=== PATIENT | male | born 1955 | race Caucasian/White ===

== ENCOUNTER 2019-06-29 00:15 | Inpatient (IN) ==
[2019-06-29] MEDS ORDERED: ONDANSETRON INJ 2 MG/ML 2 ML VIAL IV STA (00:35)
[2019-06-29] MEDS: MoRPHine SULFATE 4 MG/ML 1 ML CARP\\VIAL IV PRN ×2 (00:42→01:29)
[2019-06-29] MEDS ORDERED: SODIUM CHLORIDE 0.9% 1000ML 1,000 ML IV SCH (00:45)
--- NOTE | 2019-06-29 01:16 | Emergency Department Note ---
Entered by Yessenia Brenner acting as a scribe for History of Present Illness General Chief complaint: Diarrhea Stated complaint: DIARRHEA, UPSET STOMACH, WEAK, SOB Time Seen by Provider: 06/29/19 00:28 Source: patient History of Present Illness Onset (ago): day(s) 4 Location: abdomen Pain Consistency: + constant Maximum Pain Intensity: 10 Current Pain Intensity: 10 Quality: + sharp Relieved By: + none Exacerbated By: + eating (and drinking) Associated symptoms: + loss of appetite, + nausea/vomiting (denies vomiting) and + other (blood in stool) The patient is a 64 year old male who presents to the Emergency Room with complaints of abdominal pain and diarrhea with blood that began 4 days ago. He also complains of sharp stomach cramps, which is exacerbated with eating and drinking. He denies vomiting, but feels nauseous. He states that he has not eaten much within the past 2 days. The patient has a history of gallbladder removal and bowel resection. The patient has a colonoscopy scheduled for Sunday, but he did not start the prep yet. The patient started a higher dose of pr ednisone on Sunday, which has not helped his symptoms. Home Medications Home Medications Medication Instructions Recorded Confirmed Type acetaminophen [Tylenol] 650 mg PO Q6H PRN 06/29/19 06/29/19 History atorvastatin 40 mg PO DAILY 06/29/19 06/29/19 History calcium carbonate-vitamin D3 2 tab PO DAILY 06/29/19 06/29/19 History [Caltrate 600 plus D] cyanocobalamin (vitamin B-12) 1,000 mcg PO DAILY 06/29/19 06/29/19 History [Vitamin B-12] diltiazem HCl 360 mg PO DAILY 06/29/19 06/29/19 History diphenoxylate-atropine [Lomotil] 2 - 4 tab PO DAILY PRN 06/29/19 06/29/19 History febuxostat [Uloric] 40 mg PO DAILY 06/29/19 06/29/19 History folic acid 2 mg PO BID 06/29/19 06/29/19 History gabapentin 800 mg PO BID 06/29/19 06/29/19 History hydralazine 100 mg PO BID 06/29/19 06/29/19 History ibuprofen [Advil] 200 mg PO Q6H PRN 06/29/19 06/29/19 History mesalamine 1,600 mg PO DAILY 06/29/19 06/29/19 History [id number] acid-lutein [Centrum 1 tab PO DAILY 06/29/19 06/29/19 History Silver] pantoprazole 40 mg PO DAILY 06/29/19 06/29/19 History prednisone 5 mg PO DAILY 06/29/19 06/29/19 History sucralfate 1 g PO BID 06/29/19 06/29/19 History Allergies Allergy/AdvReac Type Severity Reaction Status Date / Time pregabalin Allergy Intermediate Rash, Verified 06/29/19 00:57 hives , headaches fluoxetine Allergy Mild Hives Verified 06/29/19 00:57 mercaptopurine Allergy Mild FEVER, RASH Verified 06/29/19 00:57 infliximab Allergy Unknown bp Verified 06/29/19 00:57 elevation blue dye AdvReac Intermediate Severe Verified 06/29/19 00:57 Headache duloxetine AdvReac Intermediate Severe Verified 06/29/19 00:57 Headache niacin AdvReac Unknown Unknown Verified 06/29/19 00:57 Past Med/Surg History Medical History Crohn's disease Hypertension (Acute) Pancreatitis (Acute) Perforation of small intestine (Resolved 04/07/13) Surgical History S/P cholecystectomy (Acute) Family History Other No pertinent family history Social History Feels Safe at Home: Yes Smoking Status: Current some day smoker Review of Systems See HPI for pertinent positives & negatives. and A total of 10 systems reviewed and were otherwise negative Physical Exam Vital Signs Vital Signs - 24 hr 06/29/19 00:19 06/29/19 00:34 06/29/19 00:57 Temperature 36.3 C L Temperature Source Oral Pulse Rate 101 H 90 Pulse Rate from SpO2 Sensor 90 Respiratory Rate 28 H 16 Blood Pressure 178/101 H 146/110 H Blood Pressure Mean 126 120 Pulse Oximetry 98 99 99 Oxygen Delivery Method Room Air Room Air Sepsis Recent Fever Within 48 Hours No Sepsis Action Taken by Nursing No Action Required 06/29/19 01:00 06/29/19 01:30 06/29/19 02:00 Temperature Temperature Source Pulse Rate 72 77 79 Pulse Rate from SpO2 Sensor 73 72 69 Respiratory Rate 18 17 26 H Blood Pressure 176/98 H 171/93 H 162/87 H Blood Pressure Mean 136 110 110 Pulse Oximetry 99 98 91 Oxygen Delivery Method Sepsis Recent Fever Within 48 Hours Sepsis Action Taken by Nursing 06/29/19 02:30 Temperature Temperature Source Pulse Rate 80 Pulse Rate from SpO2 Sensor 79 Respiratory Rate 12 Blood Pressure 155/79 H Blood Pressure Mean 103 Pulse Oximetry 94 Oxygen Delivery Method Sepsis Recent Fever Within 48 Hours Sepsis Action Taken by Nursing GENERAL: Patient is in moderate distress. HEENT: No acute trauma, normocephalic atraumatic, mucous membranes moist, no nasal congestion, no scleral icterus. NECK: No stridor, no adenopathy, no meningismus, trachea is midline. LUNGS: Increased respiratory rate. No wheezing. Lungs are clear and equal bilaterally. HEART: Without murmurs gallops or rubs, regular rate and rhythm. ABDOMEN: Soft, nontender, bowel sounds positive, no hernias, no peritonitis. EXTREMITIES: No cyanosis or edema, full range of motion of all the joints without pain or difficulty, no signs for acute trauma. NEUROLOGIC: Oriented x 3, no acute motor or sensory deficits, no focal weakness. SKIN: No rash, no jaundice, no diaphoresis. Course Course 0029: Past medical records reviewed. The patient was evaluated in room C06. A c omplete history and physical exam was performed. I spoke to the patient about his findings, I do think a hospital stay would be warranted. I spoke to case management. The on-call hospitalist has been consulted. The patient is resting comfortably currently. Administered Medications Ioversol (Optiray 320 100ml) 90 ml IV ONCE PRN PRN Reason: Interaction Checking Stop: 07/03/19 02:10 Last Admin: 06/29/19 02:11 Dose: 1 ml Documented by: [id number] Morphine Sulfate (Morphine Sulfate) 4 mg IV Q15M PRN PRN Reason: Pain Stop: 07/13/19 00:34 Last Admin: 06/29/19 01:29 Dose: 4 mg Documented by: [id number] Admin: 06/29/19 00:42 Dose: 4 mg Documented by: [id number] Discontinued Medications Sodium Chloride (Nss 1000ml) 1,000 mls @ 999 mls/hr IV .Q1H1M DARLENE Stop: 06/29/19 01:45 Last Infusion: 06/29/19 01:54 Dose: 0 mls/hr Documented by: [id number] Admin: 06/29/19 00:42 Dose: 999 mls/hr Documented by: [id number] Sodium Chloride (Nss 1000ml) 500 mls @ 999 mls/hr IV .Q31M ONE Stop: 06/29/19 02:51 Last Admin: 06/29/19 02:28 Dose: 999 mls/hr Documented by: [id number] Ondansetron HCl (Zofran) 4 mg IV NOW STA Stop: 06/29/19 00:36 Last Admin: 06/29/19 00:42 Dose: 4 mg Documented by: [id number] Medical Decision Making Differential Diagnosis Differential diagnosis includes, but is not limited to: diverticulitis, colitis, Crohns flare, pancreatitis, foodborne illness, dehydration, renal failure, C- diff, viral illness, and others were considered. Medical Records Attestation: I reviewed the patient's medical records. Home Medications Current Medication List: was personally reviewed by me Laboratory Data Attestation: I reviewed the patient's lab results. Result diagrams: 06/29/19 00:35 06/29/19 00:30 Lab Results 06/29/19 06/29/19 Range/Units 00:30 00:35 WBC 15.59 H (4.8-10.8) K/uL RBC 5.11 (4.7-6.1) M/uL Hgb 17.5 (14.0-18.0) g/dL Hct 46.3 (42-52) % MCV 90.6 (80-100) fL MCH 34.2 H (25-34) pg MCHC 37.8 H (32-36) g/dL RDW Std Deviation 45.6 (36.4-46.3) fL RDW Coeff of Rodo 13.9 (11.5-14.5) % Plt Count 348 (130-400) K/uL MPV 9.1 (7.4-10.4) fL Immature Gran % (Auto) 0.5 % Neut % (Auto) 66.4 % Lymph % (Auto) 17.6 % [place] % (Auto) 13.7 % Eos % (Auto) 1.3 % Baso % (Auto) 0.5 % Immature Gran # (Auto) 0.08 H (0.00-0.02) K/uL Neut # (Auto) 10.33 H (1.4-6.5) K/uL Lymph # (Auto) 2.75 (1.2-3.4) K/uL [place] # (Auto) 2.14 H (0.11-0.59) K/uL Eos # (Auto) 0.21 (0-0.5) K/uL Baso # (Auto) 0.08 (0-0.2) K/uL Sodium 140 (136-145) mmol/L Potassium 3.4 L (3.5-5.1) mmol/L Chloride 106 (98-107) mmol/L Carbon Dioxide 23 (21-32) mmol/L Anion Gap 11.0 (3-11) BUN 19 H (7-18) mg/dl Creatinine 1.39 (0.6-1.4) mg/dl Est Cr Clr Drug Dosing Not Reportable Est GFR ( Amer) 60.8 Est GFR (Non-Af Amer) 52.4 BUN/Creatinine Ratio 13.6 (10-20) Glucose 159 H (70-99) mg/dl Calcium 10.6 H (8.5-10.1) mg/dl Magnesium 2.0 (1.8-2.4) mg/dl Total Bilirubin 2.1 H (0.2-1) mg/dl AST 24 (15-37) U/L ALT 41 (12-78) U/L Alkaline Phosphatase 108 (45-117) U/L Troponin I < 0.015 (0-0.045) ng/ml Total Protein 7.9 (6.4-8.2) gm/dl Albumin 3.9 (3.4-5.0) gm/dl Globulin 4.0 (2.5-4.0) gm/dl Albumin/Globulin Ratio 1.0 (0.9-2) Lipase 202 (73-393) U/L Imaging Data Attestation: I personally reviewed and interpreted this imaging study as follows: My Impression: Chest X-ray read by me Lungs are clear. No pneumonia. No free air. Read at 01:11 on 06/29/19 Radiologist's Impression: Abdominal and pelvis CT with IV contrast as read by stat rad: Wall thickening and mucosal enhancement with surrounding fat stranding involving the rectum consistent with a potential Crohn's flare. The area of anastomosis at the sigmoid is also somewhat thickened with some surrounding fat stranding. There are some surrounding reactive lymph nodes. There is some intestinal inflammation noted also at the hepatic flexure and the right colon. No involvement of the terminal ileum or appendix. There is no bowel obstruction. There were some other findings thought nonacute. ECG Data Attestation: I personally reviewed and interpreted this ECG as follows: Indication: + abdominal pain Rate (beats per minute): 86 Rhythm: + normal sinus ECG Intervals/blocks: + Normal QT-c (440) ECG ST segments: no ST elevation ECG Findings: no PVCs Blood Pressure Blood Pressure Findings: Elevated blood pressure Blood Pressure Disposition: further management by hospitalist KAVIN Narrative There is a moderate leukocytosis, this could be consistent with infection. No concerning anemia. There is a normal platelet count. No significant electrolyte abnormality or kidney failure. There was a slight elevation to the bilirubin, the other liver enzymes were normal. Lipase was normal. EKG shows a normal sinus rhythm, no acute ischemia. Cardiac enzyme testing x1 is not consistent with acute cardiac injury. Chest film does not show pneumonia, CHF or free air. Abdominal and pelvis CT shows colonic inflammation and some surrounding intestinal lymphadenopathy consistent with a potential Crohn's fla re. No bowel obstruction. Patient received IV morphine for pain as needed. He received IV saline for hydration. He was given a dose of IV Zofran. The patient presents dehydrated with bloody diarrhea. He has lower abdominal pain. He has already tried to increase his steroid dosing to help his symptoms, this has not helped. I do think the patient would benefit from a hospital stay. Hydration, symptom control, a GI consult would be warranted. I did speak to case management, I talked to the patient. The on-call hospitalist was consulted. In short, the patient appears to be suffering from a Crohn's flare. The flare has led to dehydration, colicky abdominal pain and bloody diarrhea. Impression & Plan Acute dehydration, Abdominal pain, lower, Leukocytosis, Bloody diarrhea, Crohn's disease Discharge Plan Visit Data Chief Complaint: Diarrhea Stated Complaint: DIARRHEA, UPSET STOMACH, WEAK, SOB ED Provider: Mark Hernandez Discharge Problem: Acute dehydration, Abdominal pain, lower, Leukocytosis, Bloody diarrhea, Crohn's disease Forms Stand Alone Forms: My [facility] Prescriptions Prescriptions: No Action gabapentin 800 mg Tablet 800 mg PO BID RF: 0 diltiazem HCl 360 mg Capsule,Extended Release 24 Hr 360 mg PO DAILY RF: 0 folic acid 1 mg Tablet 2 mg PO BID RF: 0 febuxostat [Uloric] 40 mg Tablet 40 mg PO DAILY RF: 0 atorvastatin 40 mg Tablet 40 mg PO DAILY RF: 0 hydralazine 50 mg Tablet 100 mg PO BID RF: 0 cyanocobalamin (vitamin B-12) [Vitamin B-12] 1,000 mcg Tablet 1,000 mcg PO DAILY RF: 0 prednisone 5 mg Tablet 5 mg PO DAILY RF: 0 sucralfate 1 gram Tablet 1 g PO BID RF: 0 pantoprazole 40 mg Tablet,Delayed Release (Dr/Ec) 40 mg PO DAILY RF: 0 Centrum Silver 400-250 mcg Tablet,Chewable 1 tab PO DAILY RF: 0 ibuprofen [Advil] 200 mg Tablet 200 mg PO Q6H PRN (Reason: pain/fever) RF: 0 acetaminophen [Tylenol] 325 mg Tablet 650 mg PO Q6H PRN (Reason: pain/fever) RF: 0 Caltrate 600 plus D 600 mg (1,500 mg)-800 unit Tablet,Chewable 2 tab PO DAILY RF: 0 diphenoxylate-atropine [Lomotil] 2.5-0.025 mg Tablet 2 - 4 tab PO DAILY PRN (Reason: Diarrhea) RF: 0 mesalamine 800 mg Tablet,Delayed Release (Dr/Ec) 1,600 mg PO DAILY RF: 0 Discharge Problem: Leukocytosis Qualifiers: Leukocytosis type: unspecified Qualified Code(s): D72.829 - Elevated white blood cell count, unspecified Crohn's disease Qualifiers: Gastrointestinal tract location: large intestine Digestive disease complication type: with rectal bleeding Qualified Code(s): K50.111 - Crohn's disease of large intestine with rectal bleeding The scribe's documentation has been prepared under my direction and personally reviewed by me in its entirety. I confirm that the note above accurately reflects all work, treatment, procedures, and medical decision making performed by me.
[2019-06-29 01:17] LABS: Basophils # (auto) 0.08 K/uL (0-0.2); Basophils % (auto) 0.5 %; Eosinophils # (auto) 0.21 K/uL (0-0.5); Eosinophils % (auto) 1.3 %; Hematocrit (blood only) 46.3 % (42-52); Hemoglobin 17.5 g/dL (14.0-18.0); Immature Granulocytes # (auto) 0.08 K/uL (0.00-0.02); Immature Granulocytes % (auto) 0.5 %; Lymphocytes # (auto) 2.75 K/uL (1.2-3.4); Lymphocytes % (auto) 17.6 %; Mean Corpuscular Hemoglobin 34.2 pg (25-34); Mean Corpuscular Hgb Conc 37.8 g/dL (32-36); Mean Corpuscular Volume 90.6 fL (80-100); Mean Platelet Volume 9.1 fL (7.4-10.4); Monocytes # (auto) 2.14 K/uL (0.11-0.59); Monocytes % (auto) 13.7 %; Neutrophils # (auto) 10.33 K/uL (1.4-6.5); Neutrophils % (auto) 66.4 %; Platelet Count 348 K/uL (130-400); RDW Coefficient of Variation 13.9 % (11.5-14.5); RDW Standard Deviation 45.6 fL (36.4-46.3); Red Blood Count 5.11 M/uL (4.7-6.1); White Blood Count 15.59 K/uL (4.8-10.8)
[2019-06-29 01:23] LABS: Alanine Aminotransferase 41 U/L (12-78); Albumin Level 3.9 gm/dl (3.4-5.0); Aspartate Aminotransferase 24 U/L (15-37); BUN Creatinine Ratio 13.6 (10-20); Blood Urea Nitrogen 19 mg/dl (7-18); Calcium 10.6 mg/dl (8.5-10.1); Carbon Dioxide 23 mmol/L (21-32); Chloride 106 mmol/L (98-107); Est GFR (African American) 60.8; Est GFR (Non-African American) 52.4; Glucose 159 mg/dl (70-99); Lipase 202 U/L (73-393); Potassium 3.4 mmol/L (3.5-5.1); Sodium 140 mmol/L (136-145)
[2019-06-29 01:30] LABS: Alkaline Phosphatase 108 U/L (45-117); Bilirubin,Total 2.1 mg/dl (0.2-1); Total Protein 7.9 gm/dl (6.4-8.2); Troponin I < 0.015 ng/ml (0-0.045)
[2019-06-29] MEDS ORDERED: IOVERSOL 100ml IV PRN (02:11)
[2019-06-29] MEDS ORDERED: SODIUM CHLORIDE 0.9% 1000ML 500 ML IV ONE (02:21)
[2019-06-29 04:24] LABS: Appearance Urine Clear (Clear); Bilirubin Urine Negative (Negative); Blood Urine Negative (Negative); Color Urine Yellow; Glucose Urine UA Negative (Negative); Ketones Urine Negative (Negative); Leukocyte Esterase Urine Negative (Negative); Nitrite Urine Negative (Negative); Protein Urine Negative (Negative); Urobilinogen Urine Negative (Negative)
--- NOTE | 2019-06-29 04:26 | History & Physical Report ---
Date of Service June 29, 2019 Assessment & Plan (1) Bloody diarrhea: Admit GMF Follow H&H DVT prophylaxis = SCDs, holding pharmacologic due to bleeding. (2) Crohn's disease: with apparent flare IV Solumedrol 40mg IV Q6h IVF @150ml/hr. GI consult Cont mesalamine Pain and nausea control. (3) Hypertension: Continue Hydralazine and Diltiazem (4) Hyperlipidemia: Continue atorvastatin. (5) GERD (gastroesophageal reflux disease): Cont pantoprazole (6) Hyperuricemia: Cont Uloric History of Present Illness 64 y/o male presented to the ED with abdominal pain and bloody diarrhea of 4 days duration. This has been associated with nausea and sharp stomach cramps. He has known Crohn's and had an increase of his prednisone dose to 10mg daily for last 3 days with no improvement. He is actually scheduled for a colonoscopy on 06/[address] Ernandez. He declines having a fever, but did feel chilled at times. No urinary symptoms. No chest pain or SOB. Primary Care Provider: Polly Healy DO Allergies Allergy/AdvReac Type Severity Reaction Status Date / Time pregabalin Allergy Intermediate Rash, Verified 06/29/19 00:57 hives , headaches fluoxetine Allergy Mild Hives Verified 06/29/19 00:57 mercaptopurine Allergy Mild FEVER, RASH Verified 06/29/19 00:57 infliximab Allergy Unknown bp Verified 06/29/19 00:57 elevation blue dye AdvReac Intermediate Severe Verified 06/29/19 00:57 Headache duloxetine AdvReac Intermediate Severe Verified 06/29/19 00:57 Headache niacin AdvReac Unknown Unknown Verified 06/29/19 00:57 Home Medications Home Medications Medication Instructions Recorded Confirmed Type acetaminophen [Tylenol] 650 mg PO Q6H PRN 06/29/19 06/29/19 History atorvastatin 40 mg PO DAILY 06/29/19 06/29/19 History calcium carbonate-vitamin D3 2 tab PO DAILY 06/29/19 06/29/19 History [Caltrate 600 plus D] cyanocobalamin (vitamin B-12) 1,000 mcg PO DAILY 06/29/19 06/29/19 History [Vitamin B-12] diltiazem HCl 360 mg PO DAILY 06/29/19 06/29/19 History diphenoxylate-atropine [Lomotil] 2 - 4 tab PO DAILY PRN 06/29/19 06/29/19 History febuxostat [Uloric] 40 mg PO DAILY 06/29/19 06/29/19 History folic acid 2 mg PO BID 06/29/19 06/29/19 History gabapentin 800 mg PO BID 06/29/19 06/29/19 History hydralazine 100 mg PO BID 06/29/19 06/29/19 History ibuprofen [Advil] 200 mg PO Q6H PRN 06/29/19 06/29/19 History mesalamine 1,600 mg PO DAILY 06/29/19 06/29/19 History gu-wom-sukno acid-lutein [Centrum 1 tab PO DAILY 06/29/19 06/29/19 History Silver] pantoprazole 40 mg PO DAILY 06/29/19 06/29/19 History prednisone 5 mg PO DAILY 06/29/19 06/29/19 History sucralfate 1 g PO BID 06/29/19 06/29/19 History Past Med/Surg History Medical History Crohn's disease GERD (gastroesophageal reflux disease) Hyperlipidemia Hypertension (Acute) Hyperuricemia Pancreatitis (Acute) Perforation of small intestine (Resolved 04/07/13) Surgical History S/P cholecystectomy (Acute) Family History Other No pertinent family history Social History Feels Safe at Home: Yes Smoking Status: Current some day smoker Review of Systems Review of Systems: Constitutional- no fever; no weight loss Eyes- no acute visual changes ENT- no sinus drainage; no pharyngitis Pulmonary- no cough, no wheezing, no shortness of breath Cardiac- no chest pain, no palpitations, no orthopnea, no dependent edema GI- As in HPI - no dysuria, no hematuria Musculoskeletal- no arthralgias, no myalgias Derm- no rashes, no new skin lesions. Hematologic- no unusual bruising, no unusual bleeding Lymphatics- no adenopathy Endocrine- no polyuria or polydipsia; no heat or cold intolerance Neuro- no headaches, no focal neurologic symptoms Psych- no anxiety, no depression Physical Exam Physical Exam: General- adult male, NAD Head- atraumatic Eyes- PERRL, EOMI, anicteric ENT- oropharynx clear Neck- supple, no JVD, no adenopathy, no thyromegaly. Lungs- clear to auscultation and percussion Heart- regular rhythm; no murmur, no gallop, no rub appreciated Abdomen- normal bowel sounds, soft, nontender. Extremities- no pretibial edema, no calf tenderness; peripheral pulses intact Neuro- alert, oriented x 3; PERRL, EOMI, dental detail representative II-XII grossly intact, non-focal. Skin- warm & dry Results & Data Vital Signs (Past 12 Hours) Vital Signs Temp Pulse Resp BP Pulse Ox 06/29/19 03:31 83 14 96 06/29/19 03:30 82 14 161/87 H 96 06/29/19 03:01 86 12 97 06/29/19 03:00 81 14 153/84 H 99 06/29/19 02:30 80 12 155/79 H 94 06/29/19 02:00 79 26 H 162/87 H 91 06/29/19 01:30 77 17 171/93 H 98 06/29/19 01:00 72 18 176/98 H 99 06/29/19 00:57 99 06/29/19 00:34 90 16 146/110 H 99 06/29/19 00:19 36.3 C L 101 H 28 H 178/101 H 98 Laboratory Results Laboratory Results WBC 15.59 K/uL (4.8-10.8) H 06/29/19 00:35 RBC 5.11 M/uL (4.7-6.1) 06/29/19 00:35 Hgb 17.5 g/dL (14.0-18.0) 06/29/19 00:35 Hct 46.3 % (42-52) 06/29/19 00:35 MCV 90.6 fL (80-100) 06/29/19 00:35 MCH 34.2 pg (25-34) H 06/29/19 00:35 MCHC 37.8 g/dL (32-36) H 06/29/19 00:35 RDW Std Deviation 45.6 fL (36.4-46.3) 06/29/19 00:35 RDW Coeff of Rodo 13.9 % (11.5-14.5) 06/29/19 00:35 Plt Count 348 K/uL (130-400) 06/29/19 00:35 MPV 9.1 fL (7.4-10.4) 06/29/19 00:35 Immature Gran % (Auto) 0.5 % 12 00:35 Neut % (Auto) 66.4 % 12 00:35 Lymph % (Auto) 17.6 % 06/29/19 00:35 [place] % (Auto) 13.7 % 06/29/19 00:35 Eos % (Auto) 1.3 % 06/29/19 00:35 Baso % (Auto) 0.5 % 06/29/19 00:35 Immature Gran # (Auto) 0.08 K/uL (0.00-0.02) H 06/29/19 00:35 Neut # (Auto) 10.33 K/uL (1.4-6.5) H 06/29/19 00:35 Lymph # (Auto) 2.75 K/uL (1.2-3.4) 06/29/19 00:35 [place] # (Auto) 2.14 K/uL (0.11-0.59) H 06/29/19 00:35 Eos # (Auto) 0.21 K/uL (0-0.5) 06/29/19 00:35 Baso # (Auto) 0.08 K/uL (0-0.2) 06/29/19 00:35 Sodium 140 mmol/L (136-145) 06/29/19 00:30 Potassium 3.4 mmol/L (3.5-5.1) L 06/29/19 00:30 Chloride 106 mmol/L (98-107) 06/29/19 00:30 Carbon Dioxide 23 mmol/L (21-32) 06/29/19 00:30 Anion Gap 11.0 (3-11) 06/29/19 00:30 BUN 19 mg/dl (7-18) H 06/29/19 00:30 Creatinine 1.39 mg/dl (0.6-1.4) 06/29/19 00:30 Est Cr Clr Drug Dosing Not Reportable 06/29/19 00:30 Est GFR ( Amer) 60.8 06/29/19 00:30 Est GFR (Non-Af Amer) 52.4 06/29/19 00:30 BUN/Creatinine Ratio 13.6 (10-20) 06/29/19 00:30 Glucose 159 mg/dl (70-99) H 06/29/19 00:30 Calcium 10.6 mg/dl (8.5-10.1) H 06/29/19 00:30 Magnesium 2.0 mg/dl (1.8-2.4) 06/29/19 00:30 Total Bilirubin 2.1 mg/dl (0.2-1) H 06/29/19 00:30 AST 24 U/L (15-37) 06/29/19 00:30 ALT 41 U/L (12-78) 06/29/19 00:30 Alkaline Phosphatase 108 U/L (45-117) 06/29/19 00:30 Troponin I < 0.015 ng/ml (0-0.045) 06/29/19 00:30 Total Protein 7.9 gm/dl (6.4-8.2) 06/29/19 00:30 Albumin 3.9 gm/dl (3.4-5.0) 06/29/19 00:30 Globulin 4.0 gm/dl (2.5-4.0) 06/29/19 00:30 Albumin/Globulin Ratio 1.0 (0.9-2) 06/29/19 00:30 Lipase 202 U/L (73-393) 06/29/19 00:30 Urine Color Yellow 06/29/19 03:50 Urine Appearance Clear (Clear) 06/29/19 03:50 Urine pH 8.0 (4.5-7.5) H 06/29/19 03:50 Ur Specific [place] 1.010 (1.000-1.030) 06/29/19 03:50 Urine Protein Negative (Negative) 06/29/19 03:50 Urine Glucose (UA) Negative (Negative) 06/29/19 03:50 Urine Ketones Negative (Negative) 06/29/19 03:50 Urine Blood Negative (Negative) 06/29/19 03:50 Urine Nitrite Negative (Negative) 06/29/19 03:50 Urine Bilirubin Negative (Negative) 06/29/19 03:50 Urine Urobilinogen Negative (Negative) 06/29/19 03:50 Ur Leukocyte Esterase Negative (Negative) 06/29/19 03:50 Code Status & VTE Plan VTE Prophylaxis Plan VTE Prophylaxis will be ordered: Yes PG Care Time/CCT Total # of Minutes Spent Total Time Spent: 55 Total Time Spent with Patient: Total time spent is greater than 50% in co ordination of care (as documented) at patient's floor/unit and/or counseling patient: (1) Crohn's disease Digestive disease complication type: with rectal bleeding Gastrointestinal tract location: large intestine Qualified Code(s): K50.111 - Crohn's disease of large intestine with rectal bleeding
[2019-06-29] MEDS: methylPREDNISolone 40 MG in SYRINGE 0 ML IV SCH ×2 (04:36→10:07)
[2019-06-29] MEDS ORDERED: ACETAMINOPHEN 325 MG TAB PO PRN (05:28)
[2019-06-29] MEDS ORDERED: KETOROLAC TROMETHAMINE 15 MG/ML VIAL IV PRN (05:28)
[2019-06-29] MEDS ORDERED: HYDROmorphone INJ 0.5 MG/0.5 ML SYR IV PRN (05:28)
[2019-06-29] MEDS ORDERED: ONDANSETRON INJ 2 MG/ML 2 ML VIAL IV PRN (05:28)
[2019-06-29] MEDS: SODIUM CHLOR 0.45% + 20MEQ KCL 20 MEQ/1,000 ML BAG IV SCH ×3 (06:08→20:05)
--- NOTE | 2019-06-29 07:27 | XRay Report ---
XR chest 1V portable HISTORY: 64 years-old Male sob, pain acute generalized abdominal pain with diarrhea COMPARISON: CT abdomen and pelvis of same day, chest radiograph 12/18/2014 TECHNIQUE: Portable AP view of the chest FINDINGS: Cardiomediastinal and hilar silhouettes are within normal limits. No pneumothorax, pleural effusion, focal airspace consolidation or overt pulmonary edema. Degenerative changes of the shoulders and spin e. IMPRESSION: No acute process. The above report was generated using voice recognition software. It may contain grammatical, syntax o r spelling errors. Electronically signed by: Phillip Guzman M.D. 06/29/2019 7:26 AM
--- NOTE | 2019-06-29 08:46 | CT Scan Report ---
ABDOMEN AND PELVIS CT WITH IV CONTRAST CT DOSE: 981.39 mGy.cm HISTORY: Acute generalized abdominal pain and cramping with history of inflammatory bowel disease po ss divertic or colitis TECHNIQUE: Multiaxial CT images of the abdomen and pelvis were performed following the IV administrat ion of 90 cc of Optiray 320, A dose lowering technique was utilized adhering to the principles of AL LUCI. COMPARISON STUDY: MRCP 12/19/2014, CT abdomen and pelvis 12/19/2014 FINDINGS: The lung bases are generally clear. Calcified granuloma of the posterior basal segment left lower lob e. No pneumatosis or pneumoperitoneum identified. The imaged inferior cardiac chambers are unremarkab le. No pericardial effusion. Coronary arterial calcifications are noted. Cholecystectomy. There are a few subcentimeter hypodense foci noted throughout the liver, too small to characterize however sugge stive of probable cysts measuring up to 9 mm within the right hepatic lobe. Patency of the hepatic an d portal veins. Spleen is mildly enlarged, 13.3 cm. Pancreas and adrenal glands are within normal [place] its. There are a few bilateral renal cysts noted. Areas of increased attenuation within the renal dean yces suggests early excretion of contrast. No definitive renal or ureteral calculi or obstructive uro melita. Ureters are unremarkable. Partial distention of the urinary bladder. There is a 1.8 x 1.3 cm h ypodense focus noted within the left peripheral zone distribution of the prostate at the level of the mid gland on image 90 series 2. Mixed plaque of the abdominal aorta without aneurysm. Unremarkable I VC. No bowel obstruction. There is mucosal hyperemia with circumferential wall thickening of the sigmoid and rectum. Additional wall thickening is noted within the ascending colon, hepatic flexure and proxi mal to mid transverse colon. Terminal ileum is unremarkable. The appendix is not definitively seen. M ild colonic diverticulosis without acute diverticulitis. Postoperative changes from partial sigmoid c olon resection with colocolonic anastomosis. There is focal exophytic soft tissue thickening at the a nastomotic site measuring up to 2.5 x 1.6 cm. Adjacent mildly enlarged adjacent lymph nodes of the me socolon measure up to 1.4 x 1.0 cm. Mild inflammatory stranding is noted without drainable fluid kimi ection or perforation. Diastases recti with prior ventral abdominal wall hernia repair. Degenerative changes of the spine, p veda and hips. Scattered vertebral body hemangiomata noted throughout the lumbar spine. IMPRESSION: 1. Postoperative changes from prior partial sigmoid colon resection with colocolonic anastomosis. Nod ular soft tissue thickening at the anastomotic site measuring up to 2.5 x 1.6 cm is noted with mild a djacent inflammatory stranding and adjacent pathologically enlarged lymph nodes of the sigmoid mesoco kimmy. Correlation with colonoscopy recommended to exclude underlying neoplasm. 2. Multifocal wall thickening of the colon compatible with a nonspecific colitis, likely related to t he patient's reportedly known inflammatory bowel disease. 3. No evidence of perforation, fistula, sinus tract or drainable fluid collection. 4. Ill-defined hypodense focus of the left peripheral zone of the prostate at the level of the mid gl and measuring up to 1.8 cm. Correlate with PSA level. 5. Additional findings as above. Electronically signed by: Phillip Guzman M.D. 06/29/2019 8:44 AM
[2019-06-29] MEDS ORDERED: ATORVASTATIN 40 MG TAB PO SCH (09:00)
--- NOTE | 2019-06-29 09:51 | Gastrointestinal Consultation ---
Date of Consultation June 29, 2019 History of Present Illness Attending Physician: Dagmar Willis MD 64 yo M with h/o Crohn's disease (unkown distribution of disease, last csocpy in 2018 with histologic remission; pt reports last prednisone use more than a year ago, h/o L colon resection), s/p presentation at [facility] in April for abd pain and underwent CT which showed transverse colitis, now with LLQ pain and tensemus for approximately [address] Ernandez in clinic on 06/25, given pred 20 and plan for cscopy tomorrow. He continued to have pain interfering wit hPO intake, and presented to ER today. He denies nausea, vomiting to me. He denies fever, but reports chills. He typically has one BM daily; over the past week, he reports sensation of need to have a BM multiple times throughout the day, with passage of only a small volume of mucus and blood. PE: Appears comfortable CV: RRR Resp: CTA Abd soft, tender LLQ light palpation without rebound or invol guarding Extrem: No edema Labs reviewed CT shows inflammatory changes in LLQ with ? mass at anastamosis, colitis right colon A/P: Crohn's disease, now with abdominal pain, tensemsus CT shows inflammatory mass at prior anastamosis - Unclear etiology of his symptoms - DDX includes Crohn's flare, ischemic colitis, diverticulitis. - Low residue diet as tolerated. Will begin abx; given concern of infectious colitis, I would hold steroids today. If no improvement, low threshold for flex sig or cscopy prior to resuming steroids. Allergies Allergy/AdvReac Type Severity Reaction Status Date / Time pregabalin Allergy Intermediate Rash, Verified 06/29/19 00:57 hives , headaches fluoxetine Allergy Mild Hives Verified 06/29/19 00:57 mercaptopurine Allergy Mild FEVER, RASH Verified 06/29/19 00:57 infliximab Allergy Unknown bp Verified 06/29/19 00:57 elevation blue dye AdvReac Intermediate Severe Verified 06/29/19 00:57 Headache duloxetine AdvReac Intermediate Severe Verified 06/29/19 00:57 Headache niacin AdvReac Unknown Unknown Verified 06/29/19 00:57 Home Medications Home Medications Medication Instructions Recorded Confirmed Type acetaminophen [Tylenol] 650 mg PO Q6H PRN 06/29/19 06/29/19 History atorvastatin 40 mg PO DAILY 06/29/19 06/29/19 History calcium carbonate-vitamin D3 2 tab PO DAILY 06/29/19 06/29/19 History [Caltrate 600 plus D] cyanocobalamin (vitamin B-12) 1,000 mcg PO DAILY 06/29/19 06/29/19 History [Vitamin B-12] diltiazem HCl 360 mg PO DAILY 06/29/19 06/29/19 History diphenoxylate-atropine [Lomotil] 2 - 4 tab PO DAILY PRN 06/29/19 06/29/19 History febuxostat [Uloric] 40 mg PO DAILY 06/29/19 06/29/19 History folic acid 2 mg PO BID 06/29/19 06/29/19 History gabapentin 800 mg PO BID 06/29/19 06/29/19 History hydralazine 100 mg PO BID 06/29/19 06/29/19 History ibuprofen [Advil] 200 mg PO Q6H PRN 06/29/19 06/29/19 History mesalamine 1,600 mg PO DAILY 06/29/19 06/29/19 History kn-tuk-kfzko acid-lutein [Centrum 1 tab PO DAILY 06/29/19 06/29/19 History Silver] pantoprazole 40 mg PO DAILY 06/29/19 06/29/19 History prednisone 5 mg PO DAILY 06/29/19 06/29/19 History sucralfate 1 g PO BID 06/29/19 06/29/19 History Patient History Medical History Crohn's disease GERD (gastroesophageal reflux disease) Hyperlipidemia Hypertension (Acute) Hyperuricemia Pancreatitis (Acute) Perforation of small intestine (Resolved 04/07/13) Surgical History S/P cholecystectomy (Acute) Family History Other No pertinent family history Social History Preferred Language: Estonian Communication Ability: Effective 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 Beliefs That Will Affect Care: None Current Living Situation: Spouse Feels Safe at Home: Yes Smoking Status: Never smoker Tobacco Type: cigars ; Second Hand Exposure: No ; Hx Alcohol Use: Yes Hx Substance Use: No Results & Data Vital Signs (Past 12 Hours) Vital Signs Temp Pulse Pulse Resp BP BP Pulse Ox 06/29/19 07:18 36.5 C 57 L 18 148/73 H 97 06/29/19 05:00 36.4 C L 84 12 173/83 H 98 06/29/19 04:31 84 18 06/29/19 04:30 83 14 158/86 H 96 06/29/19 04:02 83 6 L 95 06/29/19 04:01 82 18 145/43 H 95 06/29/19 04:00 83 22 93 06/29/19 03:31 83 14 96 06/29/19 03:30 82 14 161/87 H 96 06/29/19 03:01 86 12 97 06/29/19 03:00 81 14 153/84 H 99 06/29/19 02:30 80 12 155/79 H 94 06/29/19 02:00 79 26 H 162/87 H 91 06/29/19 01:30 77 17 171/93 H 98 06/29/19 01:00 72 18 176/98 H 99 06/29/19 00:57 99 06/29/19 00:34 90 16 146/110 H 99 06/29/19 00:19 36.3 C L 101 H 28 H 178/101 H 98
[2019-06-29] MEDS: metroNIDAZOLE 500 MG/100 ML BAG IV SCH ×2 (11:17→20:02)
[2019-06-29 12:29] LABS: Hematocrit (blood only) 42.5 % (42-52); Hemoglobin 15.7 g/dL (14.0-18.0); Mean Corpuscular Hemoglobin 33.8 pg (25-34); Mean Corpuscular Hgb Conc 36.9 g/dL (32-36); Mean Corpuscular Volume 91.6 fL (80-100); Mean Platelet Volume 8.6 fL (7.4-10.4); Platelet Count 299 K/uL (130-400); RDW Coefficient of Variation 14.1 % (11.5-14.5); RDW Standard Deviation 46.8 fL (36.4-46.3); Red Blood Count 4.64 M/uL (4.7-6.1); White Blood Count 12.32 K/uL (4.8-10.8)
[2019-06-29 12:46] LABS: BUN Creatinine Ratio 16.9 (10-20); Calcium 9.4 mg/dl (8.5-10.1); Creatinine Clr Calc Pharmacy 83.6 ml/min; Est GFR (African American) 80.6; Est GFR (Non-African American) 69.6; Potassium 4.4 mmol/L (3.5-5.1)
[2019-06-29] MEDS: CIPROFLOXACIN 400 MG/200 ML BAG IV SCH ×2 (13:07→23:29)
[2019-06-29] MEDS: HydrALAZINE TAB 50 MG TAB PO SCH ×2 (13:11→20:09)
[2019-06-29] MEDS: CALCIUM 600MG + VIT D 400 IU TAB PO SCH (13:12)
[2019-06-29] MEDS: SUCRALFATE 1 GM TAB PO SCH ×2 (13:12→20:08)
[2019-06-29] MEDS: FOLIC ACID 1 MG TAB PO SCH ×2 (13:13→20:09)
[2019-06-29] MEDS: dilTIAZem HCL 180 MG CAPCR PO SCH (13:13)
[2019-06-29] MEDS: GABAPENTIN 800 MG TAB PO SCH ×2 (13:14→20:09)
[2019-06-29] MEDS: CYANOCOBALAMIN 500 MCG TABLET (VITAMIN B-12) PO SCH (13:14)
[2019-06-29] MEDS: PANTOprazole 40 MG TAB PO SCH (13:14)
[2019-06-29] MEDS: FEBUXOSTAT 40 MG TABLET PO SCH (13:16)
--- NOTE | 2019-06-29 15:41 | History & Physical Bridge Note ---
Date of Service June 29, 2019 History & Physical Bridge Note I have examined the patient, reviewed the History & Physical and in the interval since the performance of the History & Physical I have noted the following changes of clinical significance: GI consulted, recommended changing Solu-medrol to 20 mg IV q8hr; also started Cipro/Flagyl IV and plan for flex sig tomorrow. Continue IV fluids at 150 cc/hr. Labs showed resolution of hypokalemia. Does have mild non anion gap metabolic acidosis. Will monitor labs daily. Supervising Physician Co-Signing Physician Notes PA Supervision Note: I did not personally see or examine the patient today, but I verified all live points of NATALIIA Grimaldo's assessment and plan with the following exceptions/additions: Noted incidentally 1.8 cm lesion left prostate gland on CT. Recommend PSA testing here and outpatient follow up with Urology.
[2019-06-29] MEDS ORDERED: Nursing to Pharmacy Communication ONE ×2 (17:01→18:07)
[2019-06-29] MEDS: [UNRECOGNIZED DRUG - OTHER] SCH (20:03)
[2019-06-29] MEDS: ATORVASTATIN 40 MG TAB PO SCH (20:07)
[2019-06-29] MEDS: methylPREDNISolone 20 MG in SYRINGE 0 ML IV SCH (22:19)
[2019-06-30] MEDS: [UNRECOGNIZED DRUG - OTHER] SCH ×3 (00:18→15:52)
[2019-06-30] MEDS: metroNIDAZOLE 500 MG/100 ML BAG IV SCH ×3 (03:51→19:06)
[2019-06-30] MEDS: SODIUM CHLOR 0.45% + 20MEQ KCL 20 MEQ/1,000 ML BAG IV SCH ×4 (05:04→19:56)
[2019-06-30] MEDS: methylPREDNISolone 20 MG in SYRINGE 0 ML IV SCH ×3 (06:01→21:52)
[2019-06-30 07:04] LABS: Hematocrit (blood only) 38.7 % (42-52); Hemoglobin 13.7 g/dL (14.0-18.0); Mean Corpuscular Hemoglobin 32.6 pg (25-34); Mean Corpuscular Hgb Conc 35.4 g/dL (32-36); Mean Corpuscular Volume 92.1 fL (80-100); Mean Platelet Volume 8.6 fL (7.4-10.4); Platelet Count 245 K/uL (130-400); RDW Coefficient of Variation 14.1 % (11.5-14.5); RDW Standard Deviation 47.1 fL (36.4-46.3)
[2019-06-30 07:30] LABS: BUN Creatinine Ratio 15.4 (10-20); C Reactive Protein 0.9 mg/dl (0-0.29); Calcium 9.6 mg/dl (8.5-10.1); Est GFR (African American) 100.1; Est GFR (Non-African American) 86.4
[2019-06-30] MEDS: CALCIUM 600MG + VIT D 400 IU TAB PO SCH (07:59)
[2019-06-30] MEDS: CYANOCOBALAMIN 500 MCG TABLET (VITAMIN B-12) PO SCH (07:59)
[2019-06-30] MEDS: HydrALAZINE TAB 50 MG TAB PO SCH ×2 (07:59→21:51)
[2019-06-30] MEDS: GABAPENTIN 800 MG TAB PO SCH ×2 (07:59→21:52)
[2019-06-30] MEDS: FOLIC ACID 1 MG TAB PO SCH ×2 (07:59→21:52)
[2019-06-30] MEDS: PANTOprazole 40 MG TAB PO SCH (07:59)
[2019-06-30] MEDS: FEBUXOSTAT 40 MG TABLET PO SCH (08:00)
[2019-06-30] MEDS: SUCRALFATE 1 GM TAB PO SCH ×2 (08:00→21:52)
[2019-06-30] MEDS: dilTIAZem HCL 180 MG CAPCR PO SCH (08:00)
--- NOTE | 2019-06-30 09:49 | Gastroenterology Progress Note ---
Date of Service June 30, 2019 Assessment & Plan (1) Crohn's disease: Pt is a 64 y/o male w hx of Crohn's disease, s/p L colectomy, admitted for abd pain, bloody loose stools. CT showed multifocal colitis, also nodular soft tissue thickening at level of his anastomosis w lymphadenopathies at that area as well. He is currently on Cipro/Flagyl, Methylpred IV, Cdiff negative, Stool cx pending. - Keep pt NPO - Administer tap water enema for flex sig vs full colonoscopy today by Dr. Alma barber - Continue IV antibx and Methylpred for now - Consult ID: outpt lab showed TB quant gold test as indeterminate. Need advise for further workup if indicated as he may need to be started on biologics for active Crohn's disease. Subjective Pt reports abd pain improved, still having loose stools w blood. Denies any n/v, fever, chills. Review of Systems Review of Systems: All systems reviewed & are unremarkable except as noted in HPI & below Physical Exam Constitutional: WD/WN, vitals as above well groomed, cooperative and comfortable Eyes: PERRL, conjunctivae normal, anicteric sclerae ENMT: external ear and nose normal, oropharynx normal Respiratory: normal respiratory effort, lungs clear to auscultation Cardiovascular: RRR, no murmur, no edema Gastrointestinal (Abdomen): normal bowel sounds, soft, nontender, no hepatosplenomegaly Skin: no rashes, warm and dry no jaundice Psychiatric: A+Ox3, euthymic affect Lymphatic: no lymphedema Results & Data Vital Signs (Past 12 Hours) Vital Signs Temp Pulse Pulse Resp BP Pulse Ox 06/30/19 08:01 36.5 C 58 L 16 179/79 H 96 06/29/19 23:17 36.5 C 58 L 16 134/72 96 (1) Crohn's disease Digestive disease complication type: with rectal bleeding Gastrointestinal tract location: large intestine Qualified Code(s): K50.111 - Crohn's disease of large intestine with rectal bleeding
[2019-06-30] MEDS ORDERED: MIDAZOLAM HCL 1 MG/ML 2ML VIAL ONE (10:38)
[2019-06-30] MEDS ORDERED: ONDANSETRON INJ 2 MG/ML 2 ML VIAL ONE (10:40)
[2019-06-30] MEDS ORDERED: PROPOFOL IV EMULSION 10 MG/ML 20 ML VIAL IV ONE (10:40)
[2019-06-30] MEDS ORDERED: LIDOCAINE HCL 2% 2 ML VIAL/AMP(20MG/ML) INFIL ONE (10:40)
--- NOTE | 2019-06-30 10:55 | Anesthesiology Consultation ---
Date of Service June 30, 2019 History Surgery Operation Date: 06/30/19 16:30 Proposed Procedures p Colonoscopy Dr Flores - George Flores MD Height/Weight Height: 5 ft 11 in Weight: 110.8 kg Allergies Allergy/AdvReac Type Severity Reaction Status Date / Time pregabalin Allergy Intermediate Rash, Verified 06/30/19 10:10 hives , headaches fluoxetine Allergy Mild Hives Verified 06/30/19 10:10 mercaptopurine Allergy Mild FEVER, RASH Verified 06/30/19 10:10 infliximab Allergy Unknown bp Verified 06/30/19 10:10 elevation blue dye AdvReac Intermediate Severe Verified 06/30/19 10:10 Headache duloxetine AdvReac Intermediate Severe Verified 06/30/19 10:10 Headache niacin AdvReac Unknown Unknown Verified 06/30/19 10:10 Medications Home Medications Medication Instructions Recorded Confirmed Last Taken acetaminophen [Tylenol] 650 mg PO Q6H PRN 06/29/19 06/29/19 Unknown atorvastatin 40 mg PO DAILY 06/29/19 06/29/19 Unknown calcium carbonate-vitamin D3 2 tab PO DAILY 06/29/19 06/29/19 Unknown [Caltrate 600 plus D] cyanocobalamin (vitamin B-12) 1,000 mcg PO DAILY 06/29/19 06/29/19 Unknown [Vitamin B-12] diltiazem HCl 360 mg PO DAILY 06/29/19 06/29/19 Unknown diphenoxylate-atropine [Lomotil] 2 - 4 tab PO DAILY PRN 06/29/19 06/29/19 Unknown febuxostat [Uloric] 40 mg PO DAILY 06/29/19 06/29/19 Unknown folic acid 2 mg PO BID 06/29/19 06/29/19 Unknown gabapentin 800 mg PO BID 06/29/19 06/29/19 Unknown hydralazine 100 mg PO BID 06/29/19 06/29/19 Unknown ibuprofen [Advil] 200 mg PO Q6H PRN 06/29/19 06/29/19 Unknown mesalamine 1,600 mg PO DAILY 06/29/19 06/29/19 Unknown [id number] acid-lutein [Centrum 1 tab PO DAILY 06/29/19 06/29/19 Unknown Silver] pantoprazole 40 mg PO DAILY 06/29/19 06/29/19 Unknown prednisone 5 mg PO DAILY 06/29/19 06/29/19 Unknown sucralfate 1 g PO BID 06/29/19 06/29/19 Unknown Active Medications Generic Name Dose Route Start Last Admin Trade Name Iris PRN Reason Stop Dose Admin Atorvastatin Calcium 40 mg 06/29/19 21:00 06/29/19 20:07 Lipitor PO 07/29/19 20:59 40 mg HS DARLENE Administration Cyanocobalamin 1,000 mcg 06/29/19 09:00 06/30/19 07:59 Vitamin B-12 PO 07/29/19 08:59 1,000 mcg DAILY DARLENE Administration Diltiazem HCl 360 mg 06/29/19 09:00 06/30/19 08:00 Cardizem Cd PO 07/29/19 08:59 360 mg DAILY DARLENE Administration Febuxostat 40 mg 06/29/19 09:00 06/30/19 08:00 Uloric PO 07/29/19 08:59 40 mg DAILY DARLENE Administration Folic Acid 2 mg 06/29/19 09:00 06/30/19 07:59 Folvite PO 07/29/19 08:59 2 mg BID DARLENE Administration Gabapentin 800 mg 06/29/19 09:00 06/30/19 07:59 Neurontin PO 07/29/19 08:59 800 mg BID DARLENE Administration Hydralazine HCl 100 mg 06/29/19 09:00 06/30/19 07:59 Apresoline PO 07/29/19 08:59 100 mg BID DARLENE Administration Potassium Chloride/Sodium Chloride 20 meq in 1,000 mls @ 150 mls/hr 06/29/19 05:28 06/30/19 09:29 1/2 Nss + 20meq Kcl 1000ml IV 07/29/19 05:27 0 mls/hr .Q6H40M DARLENE Infusion Ciprofloxacin 400 mg in 200 mls @ 100 mls/hr 06/29/19 12:00 06/30/19 01:46 Cipro IV 07/09/19 11:59 Infused Q12H DARLENE Infusion Protocol Metronidazole 500 mg in 100 mls @ 100 mls/hr 06/29/19 11:00 06/30/19 10:48 Flagyl IV 07/09/19 10:59 Not Given Q8H DARLENE Methylprednisolone 20 mg/ 0.32 mls @ 1.5 mls/min 06/29/19 22:00 06/30/19 06:01 Syringe IV 07/29/19 21:59 1.5 mls/min Q8 DARLENE Administration Ketorolac Tromethamine 15 mg 06/29/19 05:28 06/29/19 10:07 Toradol IV 07/04/19 05:27 15 mg Q6H PRN Administration Moderate Pain Miscellaneous 1 ea 06/29/19 08:00 06/30/19 07:10 Order Awaiting Action N/A 07/29/19 07:59 Not Given QS DARLENE Multivitamins/Minerals 2 tab 06/29/19 09:00 06/30/19 07:59 Caltrate Plus PO 07/29/19 08:59 2 tab DAILY DARLENE Administration Pantoprazole Sodium 40 mg 06/29/19 09:00 06/30/19 07:59 Protonix PO 07/29/19 08:59 40 mg DAILY DARLENE Administration Sucralfate 1 gm 06/29/19 09:00 06/30/19 08:00 Carafate Tab PO 07/29/19 08:59 1 gm BID DARLENE Administration NPO Date Last Intake of Fluids: 06/29/19 Time Last Intake of Fluids: 23:00 Date Last Intake of Solids: 06/29/19 Time Last Intake of Solids: 23:00 Past Medical History Medical History Crohn's disease GERD (gastroesophageal reflux disease) Hyperlipidemia Hypertension (Acute) Hyperuricemia Pancreatitis (Acute) Perforation of small intestine (Resolved 04/07/13) Past Family History Family History Other No pertinent family history Past Surgical History Surgical History S/P cholecystectomy (Acute) Social History Smoking Status: Never smoker tobacco type: cigars Do You Dip or Chew Tobacco: No Hx Alcohol Use: Yes alcohol intake frequency: a few times a month Hx Substance Use: No Physical Exam Vital Signs Last Vital Signs Temp 36.4 C L 06/30/19 10:12 Pulse 81 06/30/19 10:12 Resp 16 06/30/19 10:12 BP 166/69 H 06/30/19 10:12 Pulse Ox 96 06/30/19 10:12 Testing Laboratory Results 06/30/19 06:51 06/30/19 06:51 Urine Color Yellow 06/29/19 03:50 Urine Appearance Clear (Clear) 06/29/19 03:50 Urine pH 8.0 (4.5-7.5) H 06/29/19 03:50 Ur Specific [place] 1.010 (1.000-1.030) 06/29/19 03:50 Urine Protein Negative (Negative) 06/29/19 03:50 Urine Glucose (UA) Negative (Negative) 06/29/19 03:50 Urine Ketones Negative (Negative) 06/29/19 03:50 Urine Nitrite Negative (Negative) 06/29/19 03:50 Ur Leukocyte Esterase Negative (Negative) 06/29/19 03:50
[2019-06-30] MEDS ORDERED: ePHEDrine sulfate 50 MG/ML AMP IV PRN (10:57)
[2019-06-30] MEDS ORDERED: ATROPINE SULFATE 0.1 MG/ML 10ML SYR IV PRN (10:57)
--- NOTE | 2019-06-30 11:28 | GI REPORT ---
Patient Name: Mat Arias Procedure Date: 06/30/2019 10:39 AM Date of : 1955 Admit Type: Inpatient Age: 64 Gender: Male Attending MD: George Flores MD Procedure: Colonoscopy Providers: George Flores MD Referring MD: Polly Healy, Dagmar Willis Md Indications: Disease activity assessment of Crohn's disease of the colon Medicines: Monitored Anesthesia Care Complications: No immediate complications. Estimated blood loss: None. Estimated Blood Loss: Estimated blood loss: none. Procedure: Pre-Anesthesia Assessment: - Prior to the procedure, a History and Physical was performed, and patient medications, allergies and sensitivities were reviewed. The patient's tolerance of previous anesthesia was reviewed. - ASA Grade Assessment: III - A patient with severe systemic disease. After I obtained informed consent, the scope was passed under direct vision. Throughout the procedure, the patient's blood pressure, pulse, and oxygen saturations were monitored continuously. The scope was introduced through the anus and advanced to the cecum, identified by appendiceal orifice and ileocecal valve. The colonoscopy was performed without difficulty. The patient tolerated the procedure well. The quality of the bowel preparation was poor. The bowel preparation used was tap water enema. Findings: Inflammation characterized by congestion (edema), friability, granularity and confluent ulcerations was found in a continuous and circumferential pattern from the rectum to the sigmoid colon and from the splenic flexure to the cecum. The descending colon was spared. This was severe. Biopsies were taken with a cold forceps for histology. Fluid aspiration for bacterial cultures, Clostridium difficile and ova and parasites was performed. Verification of patient identification for the specimen was done by the physician and nurse using the patient's name, date and medical record number. Impression: - Preparation of the colon was poor. - Crohn's disease with colonic involvement. Inflammation was found from the rectum to the sigmoid colon and from the splenic flexure to the cecum. This was severe. Biopsied. Fluid aspiration performed. Recommendation: - [facility] care. Susan Vance MD 06/30/2019 11:27:54 AM This report has been signed electronically. Note Initiated On: 06/30/2019 10:39 AM Number of Addenda: 0 I attest to the content of the Intraoperative Record and orders documented therein, exceptions below {[id number]}
[2019-06-30] MEDS: CIPROFLOXACIN 400 MG/200 ML BAG IV SCH ×2 (11:39→23:48)
--- NOTE | 2019-06-30 14:23 | Infectious Disease Consult ---
Date of Consultation June 30, 2019 Assessment & Plan (1) Crohn's disease: pt can continue abx, steroids per GI. Pt has no known risk for TB exposure by history, CXR negative. If planning to start biologic agent would suggest repeat IGRA 4 weeks after initial testing done, if repeat is negative, no contraindication to start medication. If + would suggest [facility] referral. ok for d/c from ID standpoint when otherwise stable. History of Present Illness Attending Physician: Dagmar Willis MD pt admitted with chrons flare, had colonoscopy today, tolerated well showed severe disease. ct in ER had colitis. on cipro/falk and IV steroids. ID consulted due to reported indeterminate IGRA as outpt in prep for potential biologic agent to treat chrons. He is unaware of any testing being done and is unaware of results. States no known exposure to TB. 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 States he may have had TB testing in 2002 when diagnosed with colitis but can not remember. He states he has no pain, he is oob to chair. no abd pain, no n/v/d. tolerating abx. anxious to go home. states he is frustrated because people keep throwing a wrench in his plans to go home. Unclear when IGRA was done, reportedly indeterminate. no cough, cp, f/c, night sweats. hemoptysis. Allergies Allergy/AdvReac Type Severity Reaction Status Date / Time pregabalin Allergy Intermediate Rash, Verified 06/30/19 10:10 hives , headaches fluoxetine Allergy Mild Hives Verified 06/30/19 10:10 mercaptopurine Allergy Mild FEVER, RASH Verified 06/30/19 10:10 infliximab Allergy Unknown bp Verified 06/30/19 10:10 elevation blue dye AdvReac Intermediate Severe Verified 06/30/19 10:10 Headache duloxetine AdvReac Intermediate Severe Verified 06/30/19 10:10 Headache niacin AdvReac Unknown Unknown Verified 06/30/19 10:10 Home Medications Home Medications Medication Instructions Recorded Confirmed Type acetaminophen [Tylenol] 650 mg PO Q6H PRN 06/29/19 06/29/19 History atorvastatin 40 mg PO DAILY 06/29/19 06/29/19 History calcium carbonate-vitamin D3 2 tab PO DAILY 06/29/19 06/29/19 History [Caltrate 600 plus D] cyanocobalamin (vitamin B-12) 1,000 mcg PO DAILY 06/29/19 06/29/19 History [Vitamin B-12] diltiazem HCl 360 mg PO DAILY 06/29/19 06/29/19 History diphenoxylate-atropine [Lomotil] 2 - 4 tab PO DAILY PRN 06/29/19 06/29/19 H istory febuxostat [Uloric] 40 mg PO DAILY 06/29/19 06/29/19 History folic acid 2 mg PO BID 06/29/19 06/29/19 History gabapentin 800 mg PO BID 06/29/19 06/29/19 History hydralazine 100 mg PO BID 06/29/19 06/29/19 History ibuprofen [Advil] 200 mg PO Q6H PRN 06/29/19 06/29/19 History mesalamine 1,600 mg PO DAILY 06/29/19 06/29/19 History gw-rfx-nvsmo acid-lutein [Centrum 1 tab PO DAILY 06/29/19 06/29/19 History Silver] pantoprazole 40 mg PO DAILY 06/29/19 06/29/19 History prednisone 5 mg PO DAILY 06/29/19 06/29/19 History sucralfate 1 g PO BID 06/29/19 06/29/19 History Patient History Medical History Crohn's disease GERD (gastroesophageal reflux disease) Hyperlipidemia Hypertension (Acute) Hyperuricemia Pancreatitis (Acute) Perforation of small intestine (Resolved 04/07/13) Surgical History S/P cholecystectomy (Acute) Family History Other No pertinent family history Social History Preferred Language: Setswana Communication Ability: Effective Team Driver Required: No Beliefs That Will Affect Care: None Current Living Situation: Spouse Feels Safe at Home: Yes Smoking Status: Never smoker Tobacco Type: cigars ; Second Hand Exposure: No ; Hx Alcohol Use: Yes Hx Substance Use: No Review of Systems Review of Systems: All systems reviewed & are unremarkable except as noted in HPI & below Physical Exam Constitutional: WD/WN, vitals as above Eyes: PERRL, conjunctivae normal, anicteric sclerae ENMT: external ear and nose normal, oropharynx normal Neck: normal visual inspection Respiratory: normal respiratory effort, lungs clear to auscultation Cardiovascular: RRR, no murmur, no edema Gastrointestinal (Abdomen): normal bowel sounds, soft, nontender, no hepatosplenomegaly Musculoskeletal: no cyanosis or clubbing, extremities motor strength 5/5 Skin: no rashes, warm and dry Psychiatric: A+Ox3, euthymic affect Results & Data Vital Signs (Past 12 Hours) Vital Signs Temp Pulse Pulse Resp BP Pulse Ox 06/30/19 12:47 36.4 C L 64 18 172/71 H 96 06/30/19 11:59 57 L 16 153/79 H 97 06/30/19 11:45 65 16 155/86 H 96 06/30/19 11:31 36.4 C L 55 L 16 146/71 H 96 06/30/19 10:12 36.4 C L 81 16 166/69 H 96 06/30/19 08:01 36.5 C 58 L 16 179/79 H 96 Laboratory Results Microbiology 06/29/19 19:00 Stool Escherichia coli Shiga Toxins Test - Preliminary 06/29/19 19:00 Stool Stool Culture - Preliminary No Salmonella isolated to date, No Shigella isolated to date, No Campylobacter jejuni isolated to date. PG Care Time/CCT Total # of Minutes Spent Total Time Spent with Patient: Total time spent is greater than 50% in coordination of care (as documented) at patient's floor/unit and/or counseling patient: (1) Crohn's disease Digestive disease complication type: with rectal bleeding Gastrointestinal tract location: large intestine Qualified Code(s): K50.111 - Crohn's disease of large intestine with rectal bleeding
--- NOTE | 2019-06-30 16:26 | Anesthesiology Progress Note ---
Date of Service June 30, 2019 Anesthesia Post Procedure Vital Signs Vital Signs: Temp Pulse Pulse Pulse Resp BP Pulse Ox 06/30/19 15:16 36.4 C L 62 17 153/68 H 98 06/30/19 12:47 36.4 C L 64 18 172/71 H 96 06/30/19 11:59 57 L 16 153/79 H 97 06/30/19 11:45 65 16 155/86 H 96 06/30/19 11:31 36.4 C L 55 L 16 146/71 H 96 06/30/19 10:12 36.4 C L 81 16 166/69 H 96 06/30/19 08:01 36.5 C 58 L 16 179/79 H 96 06/29/19 23:17 36.5 C 58 L 16 134/72 96 06/29/19 20:08 143/79 H Pain Intensity Abdomen: Pain Intensity: 3 Transfer of Care Handoff Completed per policy Notes Mental Status: alert / awake / arousable Patient Amnestic to Procedure: Yes Nausea / Vomiting: adequately controlled Pain: adequately controlled Airway Patency, RR, SpO2: stable & adequate BP & HR: stable & adequate Hydration State: stable & adequate Anesthetic Complications: no major complications apparent and Pt Satisfied with anesthetic care
[2019-06-30] MEDS: ATORVASTATIN 40 MG TAB PO SCH (21:52)
--- NOTE | 2019-06-30 22:19 | Hospitalist Progress Note ---
Date of Service June 30, 2019 Assessment & Plan (1) Crohn's disease: -With acute exacerbation; pain improving -Reflex Sig on 06/30 reveals severe inflammation consistent with Crohn's exacerbation -Continue ciprofloxacin 400 mg twice daily and Flagyl 500 mg IV every 8 hours; Solu-Medrol 20 mg IV every 8 hours -Mesalamine is non-formulary -patient's family to bring in -GI following -currently planning on Biologics given his Crohn's disease - reports outpatient TB testing was indeterminate --ID consulted -patient without risk for TB exposure and CXR negative, can repeat testing in 4 weeks -if negative there would be no contraindication for biologic administration (2) Hypertension: -Continue diltiazem 360 mg daily and hydralazine 100 mg twice daily (3) Hyperlipidemia: -Continue atorvastatin 40 mg daily (4) GERD (gastroesophageal reflux disease): -Continue Protonix 40 mg daily Subjective Patient reports feeling well today. He states he has very minimal abdominal pain. He underwent sigmoidoscopy this afternoon which revealed severe inflammation from the rectum to the sigmoid colon and from the splenic flexure to the cecum consistent with Crohn's flare. Patient reports feeling hungry and currently tolerating full liquid diet. He is eager to return home. He denies any new complaints. Review of Systems Constitutional: no fever, no chills and no anorexia Respiratory: no cough and no dyspnea Cardiovascular: no chest pain Gastrointestinal: + diarrhea/loose stools and + blood in stools; no abdominal pain, no nausea, no vomiting and no constipation Genitourinary: no dysuria Integumentary: no rash Physical Exam Constitutional: WD/WN, vitals as above not ill appearing ENMT: Ears: no hearing impairment Neck: trachea midline Respiratory: normal respiratory effort, lungs clear to auscultation Cardiovascular: Rate/Rhythm: regular rate and regular rhythm Gastrointestinal (Abdomen): Inspection/Auscultation: normal bowel sounds Percussion/Palpation: abdomen soft; abdomen nontender Musculoskeletal: Head/Neck/Chest: normocephalic and head atraumatic Skin: no rashes, warm and dry Neurologic: moves all extremities Psychiatric: A+Ox3, euthymic affect Results & Data Vital Signs (Past 12 Hours) Vital Signs Temp Pulse Pulse Pulse Resp BP Pulse Ox 06/30/19 15:16 36.4 C L 62 17 153/68 H 98 06/30/19 12:47 36.4 C L 64 18 172/71 H 96 06/30/19 11:59 57 L 16 153/79 H 97 06/30/19 11:45 65 16 155/86 H 96 06/30/19 11:31 36.4 C L 55 L 16 146/71 H 96 06/30/19 10:12 36.4 C L 81 16 166/69 H 96 PG Care Time/CCT Total # of Minutes Spent Total Time Spent with Patient: Total time spent is greater than 50% in coordination of care (as documented) at patient's floor/unit and/or counseling patient: (1) Crohn's disease Digestive disease complication type: with rectal bleeding Gastrointestinal tract location: large intestine Qualified Code(s): K50.111 - Crohn's disease of large intestine with rectal bleeding
[2019-07-01] MEDS: [UNRECOGNIZED DRUG - OTHER] SCH ×2 (01:52→07:17)
[2019-07-01] MEDS: metroNIDAZOLE 500 MG/100 ML BAG IV SCH ×2 (02:07→10:05)
[2019-07-01] MEDS: SODIUM CHLOR 0.45% + 20MEQ KCL 20 MEQ/1,000 ML BAG IV SCH (02:09)
[2019-07-01 05:33] LABS: Hematocrit (blood only) 37.4 % (42-52); Hemoglobin 13.5 g/dL (14.0-18.0); Mean Corpuscular Hgb Conc 36.1 g/dL (32-36); Mean Corpuscular Volume 91.4 fL (80-100); Platelet Count 227 K/uL (130-400); RDW Coefficient of Variation 14.1 % (11.5-14.5); RDW Standard Deviation 46.6 fL (36.4-46.3); Red Blood Count 4.09 M/uL (4.7-6.1); White Blood Count 6.51 K/uL (4.8-10.8)
[2019-07-01 05:56] LABS: BUN Creatinine Ratio 12.7 (10-20); Creatinine Clr Calc Pharmacy 92.9 ml/min; Est GFR (African American) 91.6
[2019-07-01 06:07] LABS: Prostate Specific Antigen 7.64 ng/ml (0-4)
[2019-07-01] MEDS: methylPREDNISolone 20 MG in SYRINGE 0 ML IV SCH ×2 (06:37→13:57)
[2019-07-01] MEDS: PANTOprazole 40 MG TAB PO SCH (07:30)
[2019-07-01] MEDS: SUCRALFATE 1 GM TAB PO SCH (07:30)
[2019-07-01] MEDS: dilTIAZem HCL 180 MG CAPCR PO SCH (07:30)
[2019-07-01] MEDS: CYANOCOBALAMIN 500 MCG TABLET (VITAMIN B-12) PO SCH (07:30)
[2019-07-01] MEDS: FOLIC ACID 1 MG TAB PO SCH (07:30)
[2019-07-01] MEDS: HydrALAZINE TAB 50 MG TAB PO SCH (07:30)
[2019-07-01] MEDS: FEBUXOSTAT 40 MG TABLET PO SCH (07:30)
[2019-07-01] MEDS: CALCIUM 600MG + VIT D 400 IU TAB PO SCH (07:30)
[2019-07-01] MEDS: GABAPENTIN 800 MG TAB PO SCH (07:31)
--- NOTE | 2019-07-01 08:28 | Anesthesiology Progress Note ---
Date of Service July 01, 2019 Anesthesia Post Procedure Vital Signs Vital Signs: Temp Pulse Pulse Pulse Resp BP Pulse Ox 07/01/19 07:17 36.6 C 56 L 19 154/73 H 96 07/01/19 03:09 36.7 C 60 12 143/70 H 95 06/30/19 23:00 36.4 C L 56 L 18 139/64 96 06/30/19 15:16 36.4 C L 62 17 153/68 H 98 06/30/19 12:47 36.4 C L 64 18 172/71 H 96 06/30/19 11:59 57 L 16 153/79 H 97 06/30/19 11:45 65 16 155/86 H 96 06/30/19 11:31 36.4 C L 55 L 16 146/71 H 96 06/30/19 10:12 36.4 C L 81 16 166/69 H 96 Pain Intensity Abdomen: Pain Intensity: 3 Notes Mental Status: alert / awake / arousable and participated in evaluation Patient Amnestic to Procedure: Yes Nausea / Vomiting: adequately controlled Pain: adequately controlled Airway Patency, RR, SpO2: stable & adequate BP & HR: stable & adequate Hydration State: stable & adequate Anesthetic Complications: no major complications apparent and Pt Satisfied with anesthetic care
--- NOTE | 2019-07-01 10:51 | Gastroenterology Progress Note ---
Date of Service July 01, 2019 Assessment & Plan (1) Crohn's disease: Pt is a 64 y/o male w hx of Crohn's disease, s/p L colectomy, admitted for abd pain, bloody loose stools. CT showed multifocal colitis, also nodular soft tissue thickening at level of his anastomosis w lymphadenopathies at that area as well. He is currently on Cipro/Flagyl, Methylpred IV. Cdiff and stool cx negative. Attempted colonoscopy done 06/30/[address] Flores. Inflammation noted from rectum to sigmoid colon, splenic flexure to cecum. Bx and stool aspirates done, pending results. He is clinically improving. - F/U path and stool aspirates - Advance diet as tolerated - May convert Methylprednisolone to Prednisone PO taper: 40mg daily x 1 week, 30mg daily x 1 week, 25mg daily x 1 week, 20mg daily x 1 week, 15mg daily x 1 week, 10mg daily x 1 week, 5mg daily x 1 week. - Complete Cipro/Flagyl antibx for 10 days course - Outpt lab showed TB quant gold test as indeterminate. Infectious Disease consulted, low risk for TB given clear CXR and no known hx of TB exposure. ID recommended repeat IGRA 4 weeks after initial testing done, if repeat is negative, no contraindication to start biologics. If + would suggest [facility]ARY referral. I will place repeat TB quant gold test for pt to have it done in outpt [facility] lab. - No contraindication for DC home from GI standpoint. Will help coordinate f/u visit with Dr. Radha Ernandez who primarily manages pt's Crohns to discuss advancement in therapy Subjective Pt denies much abd pain. He is still having some loose stools. Blood per rectum lessen, only evident when wiping now. He denies any n/v. Review of Systems Review of Systems: All systems reviewed & are unremarkable except as noted in HPI & below Physical Exam Constitutional: WD/WN, vitals as above well groomed, cooperative and comfortable Eyes: PERRL, conjunctivae normal, anicteric sclerae ENMT: external ear and nose normal, oropharynx normal Respiratory: normal respiratory effort, lungs clear to auscultation Cardiovascular: RRR, no murmur, no edema Gastrointestinal (Abdomen): normal bowel sounds, soft, nontender, no hepatosplenomegaly Skin: no rashes, warm and dry no jaundice Psychiatric: A+Ox3, euthymic affect Lymphatic: no lymphedema Results & Data Vital Signs (Past 12 Hours) Vital Signs Temp Pulse Resp BP Pulse Ox 07/01/19 07:17 36.6 C 56 L 19 154/73 H 96 07/01/19 03:09 36.7 C 60 12 143/70 H 95 06/30/19 23:00 36.4 C L 56 L 18 139/64 96 (1) Crohn's disease Digestive disease complication type: with rectal bleeding Gastrointestinal tract location: large intestine Qualified Code(s): K50.111 - Crohn's disease of large intestine with rectal bleeding
[2019-07-01] MEDS: CIPROFLOXACIN 400 MG/200 ML BAG IV SCH (11:02)
--- NOTE | 2019-07-01 21:40 | Discharge Summary ---
Date of Service July 01, 2019 Admission HPI Per Admitting Provider 64 y/o male presented to the ED with abdominal pain and bloody diarrhea of 4 days duration. This has been associated with nausea and sharp stomach cramps. He has known Crohn's and had an increase of his prednisone dose to 10mg daily for last 3 days with no improvement. He is actually scheduled for a colonoscopy on 06/[address] Ernandez. He declines having a fever, but did feel chilled at times. No urinary symptoms. No chest pain or SOB. Principal Diagnosis Crohn's Exacerbation Discharge Exam Constitutional WD/WN, vitals as above not ill appearing ENMT Ears: no hearing impairment Neck trachea midline Respiratory normal respiratory effort, lungs clear to auscultation Cardiovascular Rate/Rhythm: regular rate and regular rhythm Gastrointestinal (Abdomen) Inspection/Auscultation: normal bowel sounds Percussion/Palpation: abdomen soft; abdomen nontender Musculoskeletal Head/Neck/Chest: normocephalic and head atraumatic Skin no rashes, warm and dry Neurologic moves all extremities Psychiatric A+Ox3, euthymic affect Discharge Data Allergies Allergy/AdvReac Type Severity Reaction Status Date / Time pregabalin Allergy Intermediate Rash, Verified 06/30/19 10:10 hives , headaches fluoxetine Allergy Mild Hives Verified 06/30/19 10:10 mercaptopurine Allergy Mild FEVER, RASH Verified 06/30/19 10:10 infliximab Allergy Unknown bp Verified 06/30/19 10:10 elevation blue dye AdvReac Intermediate Severe Verified 06/30/19 10:10 Headache duloxetine AdvReac Intermediate Severe Verified 06/30/19 10:10 Headache niacin AdvReac Unknown Unknown Verified 06/30/19 10:10 Consultations 06/29/19 03:00 ED Decision to Admit Stat 06/29/19 05:28 Consult Gastroenterology Routine 06/30/19 08:54 Consult Infectious Diseases Routine Procedures Performed Operation Date: 06/30/19 16:30 Actual Procedures p Colonoscopy Biopsy Cytology - George Flores MD Ordered Studies 06/29/19 00:35 CT abd pelvis IV con only Urgent Hospital Course (1) Crohn's disease: -With acute exacerbation; reports no pain today and tolerating advancement to low fiber diet -Reflex Sig on 06/30 reveals severe inflammation consistent with Crohn's exacerbation -Continue ciprofloxacin 500 mg twice daily and Flagyl 500 mg TID to complete 10 day course; Prednisone taper of 40 mg x 1 wk, 30 mg x 1 wk, 25 mg x 1 wk, 20 mg x 1 wk, 15 mg x 1 wk, 10 mg x 1 wk then to resume his chronic 5 mg daily -Continue Mesalamine - given recent flare likely this is not much benefit - will need repeat TB testing as outpatient test apparently was indeterminate but not in our system to review in 4 weeks - no risk factors and CXR unremarkable and likely will be able to start biologics pending this test -GI following -currently planning on Biologics given his Crohn's disease --ID consulted -patient without risk for TB exposure and CXR negative, can repeat testing in 4 weeks -if negative there would be no contraindication for biologic administration (2) Hypertension: -Continue diltiazem 360 mg daily and hydralazine 100 mg twice daily (3) Hyperlipidemia: -Continue atorvastatin 40 mg daily (4) GERD (gastroesophageal reflux disease): -Continue Protonix 40 mg daily (5) Elevated PSA: - PSA 7.[address] with ill defined hypodense focus in L zone of prostate measuring 1.8 cm - patient and aware of findings - Patient states his PCP is monitoring his PSA, and thinks this was actually elevated on last check however not in our system to review - Patient states his father had prostate cancer as well - recommend monitoring and likely referral to Urology Total Time Total Time Spent Total Time Spent (In Minutes): Greater than 30 minutes Discharge Plan Discharge Items Patient Disposition: Home - Self-Care Reason For Visit: [place] Discharge Diagnosis: Crohn's Exacerbation Activity: Resume your previous activity Non-emergency contact: Primary Care Provider and Punch Machine Hand Call non-emergency contact if: you have any medication questions, your symptoms worsen and you have a fever Follow-up/Referrals: Polly Healy DO [Primary Care Provider] - Diet: Low Fiber Addtl Attending Provider Instructions: Crohn's Exacerbation: - Your colonoscopy shows that you have a lot of inflammation of the lower part of your colon/large intestine and appears to be a crohn's exacerbation - You will continue on Ciprofloxacin 500 mg twice a day and Flagyl 500 mg three times a day to complete a 10 day course - You will continue your Mesalamine as previously prescribed. Your GI doctors will evaluate whether to switch this to a different medication like a biologic. - You will need to have your TB (Tuberculosis) test repeated with your GI doctor - Your steroid taper will be as follows -- Take 40 mg daily x 1 week then 30 mg daily x 1 week, then 25 mg daily x 1 week, then 20 mg daily x 1 week, then 15 mg daily x 1 week, then 10 mg daily x 1 week, then continue daily 5 mg as previously prescribed Home Medications: - Continue your home medications as previously prescribed. We did not make adjustments to these. However would avoid ibuprofen as this can be more irritative to your GI tract when having a flare. Tylenol would be safe to use. Prostate: - Your prostate test is elevated. You may have had an elevated one in the past that your family doctor has been monitoring per discussion with your . - Given your family history it will be important to keep an eye on this number and your family doctor can order further tests. You may also get referred to a Urologist (urine//prostate/bladder doctor) Pending Studies at Discharge: Yes (Stool studies) Stand-Alone Forms: My [facility] [id number], Smoking Cessation Medications and DC Order Prescriptions: New prednisone 10 mg tablet 10 mg PO UD Qty: 102 RF: 0 ciprofloxacin HCl 500 mg tablet 500 mg PO BID Qty: 15 RF: 0 metronidazole 500 mg tablet 500 mg PO TID Qty: 22 RF: 0 Continued gabapentin 800 mg Tablet 800 mg PO BID RF: 0 diltiazem HCl 360 mg Capsule,Extended Release 24 Hr 360 mg PO DAILY RF: 0 folic acid 1 mg Tablet 2 mg PO BID RF: 0 febuxostat [Uloric] 40 mg Tablet 40 mg PO DAILY RF: 0 atorvastatin 40 mg Tablet 40 mg PO DAILY RF: 0 hydralazine 50 mg Tablet 100 mg PO BID RF: 0 cyanocobalamin (vitamin B-12) [Vitamin B-12] 1,000 mcg Tablet 1,000 mcg PO DAILY RF: 0 prednisone 5 mg Tablet 5 mg PO DAILY RF: 0 sucralfate 1 gram Tablet 1 g PO BID RF: 0 pantoprazole 40 mg Tablet,Delayed Release (Dr/Ec) 40 mg PO DAILY RF: 0 Centrum Silver 400-250 mcg Tablet,Chewable 1 tab PO DAILY RF: 0 acetaminophen [Tylenol] 325 mg Tablet 650 mg PO Q6H PRN (Reason: pain/fever) RF: 0 Caltrate 600 plus D 600 mg (1,500 mg)-800 unit Tablet,Chewable 2 tab PO DAILY RF: 0 diphenoxylate-atropine [Lomotil] 2.5-0.025 mg Tablet 2 - 4 tab PO DAILY PRN (Reason: Diarrhea) RF: 0 mesalamine 800 mg Tablet,Delayed Release (Dr/Ec) 1,600 mg PO DAILY RF: 0 Discontinued ibuprofen [Advil] 200 mg Tablet 200 mg PO Q6H PRN (Reason: pain/fever) RF: 0 Discharge Orders: Discharge Order (Routine); Ordered 07/01/19 Ordered By: Millie Duenas/Other Patient Handouts: Diet Low Residue Admission Data Admit Date/Time: 06/29/19 04:03 Attending Provider: Paul Campoverde Admit Provider: Rafy Nunn Primary Care Provider: Polly Healy Other Providers: Rafy Nunn ; Calree Best ; Nader Waldron Other Interventions: Discharge Summary Assessment (RN) Last Done: 06/30/19 11:33 DC Date/Time DO NOT enter until pt leaves facility: 07/01/19 14:16 Supervising Physician Co-Signing Physician Notes Attending note: patient seen and examined with Millie Cano PA-C. I agree with her discharge summary. I personally reviewed the labs and imaging findings. patient feeling better, no abdominal pain, less diarrhea, no bleeding knows plan for prolonged steroid taper discussed with [facility] on discharge - Flare of IBD: responded well to steroids, antibiotics will d/c on prolonged steroid taper follow up with [facility] for full details see d/c summary by Millie Cano
== END 2019-07-01 14:16 | disposition home or self-care (01) | DRG 386 ==
LOC: ED 00:15 → SUATTDRO 04:03 → 3W 04:03

== ENCOUNTER 2020-01-29 15:54 | Observation (INO) ==
[2020-01-29] MEDS ORDERED: MoRPHine SULFATE 4 MG/ML 1 ML CARP\\VIAL IV STA (16:24)
[2020-01-29] MEDS ORDERED: ONDANSETRON INJ 2 MG/ML 2 ML VIAL IV STA (16:24)
[2020-01-29] MEDS: SODIUM CHLORIDE 0.9% 1000ML 1,000 ML IV SCH ×2 (16:49→22:00)
[2020-01-29 17:08] LABS: Basophils # (auto) 0.02 K/uL (0-0.2); Basophils % (auto) 0.2 %; Eosinophils # (auto) 0.01 K/uL (0-0.5); Eosinophils % (auto) 0.1 %; Hemoglobin 16.1 g/dL (14.0-18.0); Immature Granulocytes # (auto) 0.01 K/uL (0.00-0.02); Immature Granulocytes % (auto) 0.1 %; Lymphocytes # (auto) 0.65 K/uL (1.2-3.4); Lymphocytes % (auto) 7.8 %; Mean Corpuscular Hemoglobin 31.9 pg (25-34); Mean Corpuscular Hgb Conc 36.6 g/dL (32-36); Mean Corpuscular Volume 87.3 fL (80-100); Mean Platelet Volume 9.7 fL (7.4-10.4); Monocytes # (auto) 0.59 K/uL (0.11-0.59); Monocytes % (auto) 7.1 %; Neutrophils # (auto) 7.02 K/uL (1.4-6.5); Neutrophils % (auto) 84.7 %; Platelet Count 243 K/uL (130-400); RDW Coefficient of Variation 13.8 % (11.5-14.5); RDW Standard Deviation 43.8 fL (36.4-46.3); Red Blood Count 5.04 M/uL (4.7-6.1)
[2020-01-29 17:11] LABS: iSTAT Creatinine 0.7 mg/dl (0.6-1.3); iSTAT Hemoglobin 14.6 g/dl (14.0-18.0); iSTAT Ionized Calcium 1.09 mmol/l (1.12-1.32); iSTAT Potassium 3.8 mmol/L (3.3-5.0)
--- NOTE | 2020-01-29 17:52 | Emergency Department Note ---
History of Present Illness General Chief complaint: Referred by Doctor Stated complaint: LOSS OF APPETITE,DOCTOR REFERRED Time Seen by Provider: 01/29/20 16:06 History of Present Illness Maximum Pain Intensity: 8 Home Medications Home Medications Medication Instructions Recorded Confirmed Type Caltrate 600 plus D 2 tab PO DAILY 06/29/19 01/29/20 History Centrum Silver 1 tab PO DAILY 06/29/19 01/29/20 History acetaminophen [Tylenol] 650 mg PO Q6H PRN 06/29/19 01/29/20 History atorvastatin 40 mg PO DAILY 06/29/19 01/29/20 History cyanocobalamin (vitamin B-12) 1,000 mcg PO DAILY 06/29/19 01/29/20 History [Vitamin B-12] diltiazem HCl 360 mg PO DAILY 06/29/19 01/29/20 History diphenoxylate-atropine [Lomotil] 2 - 4 tab PO DAILY PRN 06/29/19 01/29/20 History febuxostat [Uloric] 40 mg PO DAILY 06/29/19 01/29/20 History folic acid 2 mg PO BID 06/29/19 01/29/20 History gabapentin 1,200 mg PO BID 06/29/19 01/29/20 History hydralazine 100 mg PO BID 06/29/19 01/29/20 History pantoprazole 40 mg PO DAILY 06/29/19 01/29/20 History sucralfate 1 g PO ACHS 06/29/19 01/29/20 History ibuprofen [Advil] 400 mg PO Q6H PRN 01/29/20 01/29/20 History mesalamine 800 mg PO TID 01/29/20 01/29/20 History multivitamin 1 tab PO DAILY 01/29/20 01/29/20 History prednisone 5 mg PO DAILY 01/29/20 01/29/20 History prednisone 20 mg PO .DAILY FOR 7 DAYS 01/29/20 01/29/20 History vedolizumab [Entyvio] 0 mg IV UD 01/29/20 01/29/20 History Allergies Allergy/AdvReac Type Severity Reaction Status Date / Time pregabalin Allergy Intermediate Rash, Verified 01/29/20 16:41 hives , headaches fluoxetine Allergy Mild Hives Verified 01/29/20 16:41 mercaptopurine Allergy Mild FEVER, RASH Verified 01/29/20 16:41 infliximab Allergy Unknown bp Verified 01/29/20 16:41 elevation blue dye AdvReac Intermediate Severe Verified 01/29/20 16:41 Headache duloxetine AdvReac Intermediate Severe Verified 01/29/20 16:41 Headache niacin AdvReac Unknown Unknown Verified 01/29/20 16:41 Past Med/Surg History Social History Preferred Language: Malay Communication Ability: Effective 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 Beliefs That Will Affect Care: None marital status: Current Living Situation: Spouse Feels Safe at Home: Yes Smoking Status: Current some day smoker Tobacco Type: cigars ; Second Hand Exposure: No ; Hx Alcohol Use: Yes Alcohol type: beer Alcohol Intake Frequency: Weekly Hx Substance Use: No Childhood Exposure to Second-Hand Smoke: Yes Physical Exam Vital Signs Vital Signs - 24 hr 01/29/20 16:00 Temperature 36.6 C Temperature Source Oral Pulse Rate 79 Respiratory Rate 20 Blood Pressure 168/102 H Blood Pressure Mean 124 Blood Pressure Position Sitting Pulse Oximetry 99 Sepsis Recent Fever Within 48 Hours No Sepsis New/Unexplained Change in Mental Status No Sepsis Action Taken by Nursing No Action Required Course Administered Medications Sodium Chloride (Nss 1000ml) 1,000 mls @ 125 mls/hr IV .Q8H DARLENE Stop: 02/28/20 16:29 Last Admin: 01/29/20 16:49 Dose: 125 mls/hr Documented by: [id number] Discontinued Medications Morphine Sulfate (Morphine Sulfate) 4 mg IV NOW STA Stop: 01/29/20 16:25 Last Admin: 01/29/20 16:48 Dose: 4 mg Documented by: [id number] Ondansetron HCl (Zofran) 4 mg IV NOW STA Stop: 01/29/20 16:25 Last Admin: 01/29/20 16:46 Dose: 4 mg Documented by: [id number] Medical Decision Making Laboratory Data Result diagrams: 01/29/20 16:44 01/29/20 16:44 Lab Results 01/29/20 01/29/20 01/29/20 Range/Units 16:44 16:44 16:58 WBC 8.30 (4.8-10.8) K/uL RBC 5.04 (4.7-6.1) M/uL Hgb 16.1 (14.0-18.0) g/dL POC Hgb 14.6 (14.0-18.0) g/dl Hct 44.0 (42-52) % POC Hct 43 (42-52) % MCV 87.3 (80-100) fL MCH 31.9 (25-34) pg MCHC 36.6 H (32-36) g/dL RDW Std Deviation 43.8 (36.4-46.3) fL RDW Coeff of Rodo 13.8 (11.5-14.5) % Plt Count 243 (130-400) K/uL MPV 9.7 (7.4-10.4) fL Immature Gran % (Auto) 0.1 % Neut % (Auto) 84.7 % Lymph % (Auto) 7.8 % [place] % (Auto) 7.1 % Eos % (Auto) 0.1 % Baso % (Auto) 0.2 % Neut # (Auto) 7.02 H (1.4-6.5) K/uL Lymph # (Auto) 0.65 L (1.2-3.4) K/uL [place] # (Auto) 0.59 (0.11-0.59) K/uL Eos # (Auto) 0.01 (0-0.5) K/uL Baso # (Auto) 0.02 (0-0.2) K/uL Immature Gran # (Auto) 0.01 (0.00-0.02) K/uL POC Sodium 141 (135-144) mmol/L Sodium Cancelled POC Potassium 3.8 (3.3-5.0) mmol/L Potassium Cancelled POC Chloride 108 (101-112) mmol/L Chloride Cancelled Carbon Dioxide Cancelled POC Total CO2 21 L (24-31) mmol/L Anion Gap Cancelled POC Anion Gap 16.0 (16-25) mmol/L POC BUN 13 (7-18) mg/dl BUN Cancelled Creatinine Cancelled POC Creatinine 0.7 (0.6-1.3) mg/dl Est Cr Clr Drug Dosing Cancelled Est GFR ( Amer) Cancelled Est GFR (Non-Af Amer) Cancelled BUN/Creatinine Ratio Cancelled Glucose Cancelled POC Glucose (other) 152 H (70-99) mg/dl Calcium Cancelled POC Ioniz Calcium Sharee 1.09 L (1.12-1.32) mmol/l Total Bilirubin Cancelled Direct Bilirubin Cancelled AST Cancelled ALT Cancelled Alkaline Phosphatase Cancelled Total Protein Cancelled Albumin Cancelled Lipase Cancelled Discharge Plan Visit Data Chief Complaint: Referred by Doctor Stated Complaint: LOSS OF APPETITE,DOCTOR REFERRED ED Provider: Wang Trent Prescriptions Prescriptions: No Action gabapentin 800 mg Tablet 1,200 mg PO BID RF: 0 diltiazem HCl 360 mg Capsule,Extended Release 24 Hr 360 mg PO DAILY RF: 0 folic acid 1 mg Tablet 2 mg PO BID RF: 0 febuxostat [Uloric] 40 mg Tablet 40 mg PO DAILY RF: 0 atorvastatin 40 mg Tablet 40 mg PO DAILY RF: 0 hydralazine 50 mg Tablet 100 mg PO BID RF: 0 cyanocobalamin (vitamin B-12) [Vitamin B-12] 1,000 mcg Tablet 1,000 mcg PO DAILY RF: 0 sucralfate 1 gram Tablet 1 g PO ACHS RF: 0 pantoprazole 40 mg Tablet,Delayed Release (Dr/Ec) 40 mg PO DAILY RF: 0 Centrum Silver 400-250 mcg Tablet,Chewable 1 tab PO DAILY RF: 0 acetaminophen [Tylenol] 325 mg Tablet 650 mg PO Q6H PRN (Reason: pain/fever) RF: 0 Caltrate 600 plus D 600 mg (1,500 mg)-800 unit Tablet,Chewable 2 tab PO DAILY RF: 0 diphenoxylate-atropine [Lomotil] 2.5-0.025 mg Tablet 2 - 4 tab PO DAILY PRN (Reason: Diarrhea) RF: 0 multivitamin Tablet 1 tab PO DAILY RF: 0 mesalamine 800 mg tablet,delayed release (DR/EC) 800 mg PO TID RF: 0 prednisone 20 mg tablet 20 mg PO .DAILY FOR 7 DAYS RF: 0 prednisone 5 mg tablet 5 mg PO DAILY RF: 0 ibuprofen [Advil] 200 mg Tablet 400 mg PO Q6H PRN (Reason: Pain) RF: 0 Entyvio 300 mg Recon Soln 0 mg IV UD RF: 0
--- NOTE | 2020-01-29 17:59 | Emergency Department Note ---
History of Present Illness General Chief Complaint: Referred by Doctor Stated Complaint: LOSS OF APPETITE,DOCTOR REFERRED Time Seen by Provider: 01/29/20 16:06 History of Present Illness Provider Complaint: abdominal pain Onset (ago): 1 week(s) Pain Consistency: constant Location: diffuse Radiation: none Severity: severe Maximum Pain Intensity: 8 Current Pain Intensity: 8 Quality: + sharp Relieved By: + nothing Exacerbated By: + nothing Context: no foreign travel, no possible food poisoning, no sick contacts, no recent antibiotic use and no recent surgery/procedure Associated Symptoms: + nausea, + vomiting and + anorexia; no fever Home Medications Home Medications Medication Instructions Recorded Confirmed Type Caltrate 600 plus D 2 tab PO DAILY 06/29/19 01/29/20 History Centrum Silver 1 tab PO DAILY 06/29/19 01/29/20 History acetaminophen [Tylenol] 650 mg PO Q6H PRN 06/29/19 01/29/20 History atorvastatin 40 mg PO DAILY 06/29/19 01/29/20 History cyanocobalamin (vitamin B-12) 1,000 mcg PO DAILY 06/29/19 01/29/20 History [Vitamin B-12] diltiazem HCl 360 mg PO DAILY 06/29/19 01/29/20 History diphenoxylate-atropine [Lomotil] 2 - 4 tab PO DAILY PRN 06/29/19 01/29/20 History febuxostat [Uloric] 40 mg PO DAILY 06/29/19 01/29/20 History folic acid 2 mg PO BID 06/29/19 01/29/20 History gabapentin 1,200 mg PO BID 06/29/19 01/29/20 History hydralazine 100 mg PO BID 06/29/19 01/29/20 History pantoprazole 40 mg PO DAILY 06/29/19 01/29/20 History sucralfate 1 g PO ACHS 06/29/19 01/29/20 History ibuprofen [Advil] 400 mg PO Q6H PRN 01/29/20 01/29/20 History mesalamine 800 mg PO TID 01/29/20 01/29/20 History multivitamin 1 tab PO DAILY 01/29/20 01/29/20 History prednisone 5 mg PO DAILY 01/29/20 01/29/20 History prednisone 20 mg PO .DAILY FOR 7 DAYS 01/29/20 01/29/20 History vedolizumab [Entyvio] 0 mg IV UD 01/29/20 01/29/20 History Allergies Allergy/AdvReac Type Severity Reaction Status Date / Time pregabalin Allergy Intermediate Rash, Verified 01/29/20 16:41 hives , headaches fluoxetine Allergy Mild Hives Verified 01/29/20 16:41 mercaptopurine Allergy Mild FEVER, RASH Verified 01/29/20 16:41 infliximab Allergy Unknown bp Verified 01/29/20 16:41 elevation blue dye AdvReac Intermediate Severe Verified 01/29/20 16:41 Headache duloxetine AdvReac Intermediate Severe Verified 01/29/20 16:41 Headache niacin AdvReac Unknown Unknown Verified 01/29/20 16:41 Past Med/Surg History Medical History Benign essential hypertension (Inactive 04/07/13) Crohn's disease Diverticulitis (Inactive 04/07/13) Elevated PSA GERD (gastroesophageal reflux disease) Hyperlipidemia Hypertension (Inactive) Hyperuricemia Incisional hernia (Inactive 04/07/13) Neuropathy (Inactive 04/07/13) Pancreatitis (Inactive) Perforated bowel 2012 surgery Perforation of small intestine (Resolved 04/07/13) Post-obstructive pneumonia due to foreign body aspiration (Inactive) 2011 Prostate cancer (Chronic 09/11/19) Shingles (11/18/19) Sleep apnea 2017 Surgical History S/P cholecystectomy (Inactive) S/P hernia repair S/P tonsillectomy Family History Father , age 86 Heart disease Prostate cancer Mother , age 68 Cancer patient states it was a female cancer Sister , age mid 70s from [place] No problems noted. Brother Cancer age 32 Melanoma Sister , age 72 Colorectal cancer Other No pertinent family history Social History Preferred Language: Pashto Communication Ability: Effective Bat Boy/Girl Required: No Beliefs That Will Affect Care: None marital status: Current Living Situation: Spouse Feels Safe at Home: Yes Smoking Status: Current some day smoker Tobacco Type: cigars ; Cigarettes Per Day: occasional ; Second Hand Exposure: No ; Hx Alcohol Use: No Hx Substance Use: No Childhood Exposure to Second-Hand Smoke: Yes Review of Systems A total of 10 systems reviewed and were otherwise negative Physical Exam Vital Signs: Vital Signs - 24 hr 01/29/20 16:00 01/29/20 17:56 Temperature 36.6 C Temperature Source Oral Pulse Rate 79 Pulse Rate [Right Finger] 78 Pulse Rhythm [Righ t Finger] Regular Pulse Strength [Ri ght Finger] Normal Respiratory Rate 20 20 Respiratory Effort / Characteristics Non-Labored Sponta neous Respiratory Depth Normal Respiratory Patter n Regular Blood Pressure 168/102 H Blood Pressure [Le ft Arm] 179/121 H Blood Pressure Karla n 124 Blood Pressure Karla n [Left Arm] 140 Blood Pressure Pos ition Sitting Blood Pressure Pos ition [Left Arm] Sitting Pulse Oximetry 99 97 Oxygen Delivery Me thod Room Air Sepsis Recent Feve r Within 48 Hours No Sepsis New/Unexpla ined Change in Men fausto Status No Sepsis Action Take n by Nursing No Action Required Physical Exam: Physical Exam GENERAL: He is oriented to person, place, and time. He appears well-developed and well-nourished. He does not appear distressed. HENT: Exam performed. - Head: Normocephalic and atraumatic. - Right Ear: External ear normal. No mastoid tenderness. - Left Ear: External ear normal. No mastoid tenderness. - Mouth/Throat: The oropharynx is clear and moist. No trismus in the jaw. No dental abscesses or uvula swelling. No oropharyngeal exudate or tonsillar abscesses. EYES: Conjunctivae and EOM are normal. Pupils are equal, round, and reactive to light. Right eye exhibits no discharge. Left eye exhibits no discharge. No scleral icterus. NECK: Normal range of motion. Neck supple. No JVD present. No spinous process t enderness present. No carotid bruit present. No rigidity. No tracheal deviation and normal range of motion present. No Brudzinski's sign and no Kernig's sign noted. CV: Normal rate, regular rhythm, normal heart sounds and intact distal pulses. There is no peripheral edema. Palpable radial pulses bue. PULM/CHEST: Effort normal and breath sounds normal. No respiratory distress. No stridor. He has no wheezes. He has no rales. - Chest Wall: He exhibits no tenderness. ABD: The abdomen is soft. Diffuse pain on palpation of the abdomen. MUSC/SKEL: Normal range of motion. There is no peripheral edema, tenderness or deformity. LYMPH: No cervical adenopathy. NEURO: He is alert and oriented to person, place, and time. He has normal strength. No cranial nerve deficit or sensory deficit. Coordination and gait normal. GCS eye subscore is 4. GCS verbal subscore is 5. GCS motor subscore is 6. Cerebellar tests wnl. SKIN: Skin is warm and dry. He is not diaphoretic. PSYCH: He has a normal mood and affect. Behavior is normal. Judgment and thought content normal. Course Course 1624: Received a call from Dr. Estephania Gutierrez GI states that the patient has a history of Crohn's disease and severe colitis. He states he just finished a prednisone taper and is having worsening abdominal pain and cannot tolerate p.o. Dr. Best states the patient needs a CT scan and then to be admitted to the hospitalist service. He states call him on his cell phone [phone] if there are any questions. 1627: The patient was evaluated in room C1. A complete history and physical exam was performed. 1914: Vital signs stable. Discussed CT results with Dr. Best who states to start the patient on Solu-Medrol 20 mg every 8 hours and he will see the patient in the morning. Patient admitted to Dr. [facility] service Administered Medications Gabapentin (Neurontin) 1,200 mg PO BID DARLENE Stop: 02/28/20 21:12 Last Admin: 01/29/20 21:51 Dose: 1,200 mg Documented by: Heparin Sodium (Porcine) (Heparin Sodium (Porcine)) 5,000 units SQ Q8 DARLENE Stop: 02/28/20 21:59 Last Admin: 01/29/20 21:51 Dose: 5,000 units Documented by: Hydralazine HCl (Apresoline) 100 mg PO BID DARLENE Stop: 02/28/20 21:12 Last Admin: 01/29/20 21:51 Dose: 100 mg Documented by: Sodium Chloride (Nss 1000ml) 1,000 mls @ 125 mls/hr IV .Q8H DARLENE Stop: 02/28/20 16:29 Last Infusion: 01/29/20 21:18 Dose: 0 mls/hr Documented by: [id number] Admin: 01/29/20 16:49 Dose: 125 mls/hr Documented by: [id number] Methylprednisolone 20 mg/ (Syringe) 0.32 mls @ 1.5 mls/min IV Q8H DARLENE Stop: 02/28/20 21:14 Last Admin: 01/29/20 21:50 Dose: 1.5 mls/min Documented by: Mesalamine (Mesalamine) 800 mg PO TID DARLENE Stop: 02/28/20 21:12 Last Admin: 01/29/20 21:51 Dose: 800 mg Documented by: Discontinued Medications Piperacillin Sod/Tazobactam (Sod 4.5 gm/ Dextrose) 120 mls @ 200 mls/hr IV ONE ONE; Protocol Stop: 01/29/20 20:50 Last Infusion: 01/29/20 21:18 Dose: 0 mls/hr Documented by: [id number] Admin: 01/29/20 20:07 Dose: 200 mls/hr Documented by: [id number] Ioversol (Optiray 320 100ml) 90 ml IV ONCE PRN PRN Reason: Interaction Checking Stop: 02/02/20 18:17 Last Admin: 01/29/20 18:19 Dose: 90 ml Documented by: [id number] Methylprednisolone (Solumedrol) 20 mg IV NOW STA Stop: 01/29/20 19:07 Last Admin: 01/29/20 20:07 Dose: 20 mg Documented by: [id number] Morphine Sulfate (Morphine Sulfate) 4 mg IV NOW STA Stop: 01/29/20 16:25 Last Admin: 01/29/20 16:48 Dose: 4 mg Documented by: [id number] Ondansetron HCl (Zofran) 4 mg IV NOW STA Stop: 01/29/20 16:25 Last Admin: 01/29/20 16:46 Dose: 4 mg Documented by: [id number] Piperacillin Sod/Tazobactam Sod (Zosyn) Confirm Administered Dose 4.5 gm .ROUTE .STK-MED ONE Stop: 01/29/20 20:04 Last Admin: 01/29/20 21:41 Dose: Not Given Documented by: [id number] Medical Decision Making Laboratory Data Result diagrams: 01/29/20 16:44 01/29/20 18:47 Lab Results 07/09/20 07/09/20 07/09/20 Range/Units 16:44 16:44 16:58 WBC 8.30 (4.8-10.8) K/uL RBC 5.04 (4.7-6.1) M/uL Hgb 16.1 (14.0-18.0) g/dL POC Hgb 14.6 (14.0-18.0) g/dl Hct 44.0 (42-52) % POC Hct 43 (42-52) % MCV 87.3 (80-100) fL MCH 31.9 (25-34) pg MCHC 36.6 H (32-36) g/dL RDW Std Deviation 43.8 (36.4-46.3) fL RDW Coeff of Rodo 13.8 (11.5-14.5) % Plt Count 243 (130-400) K/uL MPV 9.7 (7.4-10.4) fL Immature Gran % (Auto) 0.1 % Neut % (Auto) 84.7 % Lymph % (Auto) 7.8 % Tompkins % (Auto) 7.1 % Eos % (Auto) 0.1 % Baso % (Auto) 0.2 % Neut # (Auto) 7.02 H (1.4-6.5) K/uL Lymph # (Auto) 0.65 L (1.2-3.4) K/uL Tompkins # (Auto) 0.59 (0.11-0.59) K/uL Eos # (Auto) 0.01 (0-0.5) K/uL Baso # (Auto) 0.02 (0-0.2) K/uL Immature Gran # (Auto) 0.01 (0.00-0.02) K/uL POC Sodium 141 (135-144) mmol/L Sodium Cancelled POC Potassium 3.8 (3.3-5.0) mmol/L Potassium Cancelled POC Chloride 108 (101-112) mmol/L Chloride Cancelled Carbon Dioxide Cancelled POC Total CO2 21 L (24-31) mmol/L Anion Gap Cancelled POC Anion Gap 16.0 (16-25) mmol/L POC BUN 13 (7-18) mg/dl BUN Cancelled Creatinine Cancelled POC Creatinine 0.7 (0.6-1.3) mg/dl Est Cr Clr Drug Dosing Cancelled Est GFR ( Amer) Cancelled Est GFR (Non-Af Amer) Cancelled BUN/Creatinine Ratio Cancelled Glucose Cancelled POC Glucose (other) 152 H (70-99) mg/dl Calcium Cancelled POC Ioniz Calcium Sharee 1.09 L (1.12-1.32) mmol/l Total Bilirubin Cancelled Direct Bilirubin Cancelled AST Cancelled ALT Cancelled Alkaline Phosphatase Cancelled Total Protein Cancelled Albumin Cancelled Lipase Cancelled 01/29/20 Range/Units 18:47 WBC (4.8-10.8) K/uL RBC (4.7-6.1) M/uL Hgb (14.0-18.0) g/dL POC Hgb (14.0-18.0) g/dl Hct (42-52) % POC Hct (42-52) % MCV (80-100) fL MCH (25-34) pg MCHC (32-36) g/dL RDW Std Deviation (36.4-46.3) fL RDW Coeff of Rodo (11.5-14.5) % Plt Count (130-400) K/uL MPV (7.4-10.4) fL Immature Gran % (Auto) % Neut % (Auto) % Lymph % (Auto) % Tompkins % (Auto) % Eos % (Auto) % Baso % (Auto) % Neut # (Auto) (1.4-6.5) K/uL Lymph # (Auto) (1.2-3.4) K/uL Tompkins # (Auto) (0.11-0.59) K/uL Eos # (Auto) (0-0.5) K/uL Baso # (Auto) (0-0.2) K/uL Immature Gran # (Auto) (0.00-0.02) K/uL POC Sodium (135-144) mmol/L Sodium 141 POC Potassium (3.3-5.0) mmol/L Potassium 3.9 POC Chloride (101-112) mmol/L Chloride 108 H Carbon Dioxide 27 POC Total CO2 (24-31) mmol/L Anion Gap 6.0 POC Anion Gap (16-25) mmol/L POC BUN (7-18) mg/dl BUN 12 Creatinine 0.86 POC Creatinine (0.6-1.3) mg/dl Est Cr Clr Drug Dosing Not Reportable Est GFR ( Amer) 104.7 Est GFR (Non-Af Amer) 90.4 BUN/Creatinine Ratio 14.4 Glucose 114 H POC Glucose (other) (70-99) mg/dl Calcium 9.5 POC Ioniz Calcium Sharee (1.12-1.32) mmol/l Total Bilirubin 1.0 Direct Bilirubin 0.3 H AST 33 ALT 47 Alkaline Phosphatase 102 Total Protein 7.1 Albumin 3.5 Lipase 56 L Imaging Data Radiologist's Impression: CT SCAN OF THE ABDOMEN AND PELVIS WITH IV CONTRAST CLINICAL HISTORY: Generalized abdominal pain. COMPARISON STUDY: Abdominal CT dated 12/15/2019. TECHNIQUE: Following the IV administration of 90 cc of Optiray 320, CT scan of the abdomen and pelvis is performed from the lung bases to the proximal femora. Images are reviewed in the axial, sagittal, and coronal planes. IV contrast was administered without complication. A dose lowering technique was utilized adhering to the principles of ALARA. CT DOSE: 879.67 mGy.cm FINDINGS: Lung bases: The heart is normal in size and without pericardial effusion. There are coronary artery calcifications. A small hiatal hernia is noted. The lung bases are clear noting bibasilar scarring/atelectasis. Liver: The contrast-enhanced liver is normal in size, contour, and attenuation. There is no intrahepatic biliary ductal dilatation. The hepatic veins and portal veins are patent. Gallbladder: Surgically absent noting clips in the gallbladder fossa. Spleen: Normal in size and attenuation. Pancreas: Moderately atrophic and grossly unremarkable. Adrenal glands: Unremarkable. Kidneys: The contrast enhanced kidneys demonstrate mild cortical atrophy and are without hydronephrosis. The kidneys enhance symmetrically. Small renal cysts measure up to 3.3 cm. Additional subcentimeter cortical hypodensities also likely represent cysts but are too small for definitive characterization. Abdominal vasculature: The abdominal aorta is normal in course and caliber noting mild to moderate atherosclerotic calcification. Bowel: Postoperative change is suggested in the sigmoid colon. There is no bowel obstruction. Question underdistention versus minimal wall thickening of the left colon. No surrounding inflammation is seen. The appendix is normal as visualized. Peritoneum: There is no intraperitoneal free air or abdominal ascites. There is evidence of previous ventral hernia repair. Lymphadenopathy: None. Pelvic viscera: The bladder, prostate, and seminal vesicles are normal as visualized. Skeletal structures: The skeletal structures are osteopenic. There is moderate lumbosacral spondylosis. No lytic or blastic lesions are seen. IMPRESSION: 1. Question underdistention versus minimal wall thickening of the left colon. Th ere is no surrounding inflammation. Underdistention is favored and clinical correlation will be required. 2. Postoperative change is noted in the sigmoid colon. No bowel obstruction is seen. 3. Additional findings as above. ACT 112: Negative or not required by law. Electronically signed by: Mark Villa M.D. 01/29/2020 6:43 PM Dictated: 01/29/201834 Transcribed: 01/29/201834 [facility] Narrative 1625: Received a call from Dr. Estephania Gutierrez GI states that the patient has a history of Crohn's disease and severe colitis. He states he just finished a prednisone taper and is having worsening abdominal pain and cannot tolerate p.o. Dr. Bets states the patient needs a CT scan and then to be admitted to the hospitalist service. He states call him on his cell phone [phone] if there are any questions. 1628: The patient was evaluated in room C1. A complete history and physical exam was performed. 191: Vital signs stable. Discussed CT results with Dr. Best who states to start the patient on Solu-Medrol 20 mg every 8 hours and he will see the patient in the morning. Patient admitted to Dr. [facility] service Impression & Plan Crohn's disease Discharge Plan Visit Data *Final* Discharge Date/Time: 01/29/20 20:48 Chief Complaint: Referred by Doctor Stated Complaint: LOSS OF APPETITE,DOCTOR REFERRED ED Provider: Wang Trent Discharge Problem: Crohn's disease Patient Disposition: Admitted As Inpatient Discharge Instructions Interventions: ED Discharge Assessment Last Done: 01/29/20 20:48
[2020-01-29] MEDS ORDERED: IOVERSOL 100ml IV PRN (18:18)
--- NOTE | 2020-01-29 18:44 | CT Scan Report ---
CT SCAN OF THE ABDOMEN AND PELVIS WITH IV CONTRAST CLINICAL HISTORY: Generalized abdominal pain. COMPARISON STUDY: Abdominal CT dated 12/15/2019. TECHNIQUE: Following the IV administration of 90 cc of Optiray 320, CT scan of the abdomen and pelvi s is performed from the lung bases to the proximal femora. Images are reviewed in the axial, sagittal , and coronal planes. IV contrast was administered without complication. A dose lowering technique wa s utilized adhering to the principles of ALARA. CT DOSE: 879.67 mGy.cm FINDINGS: Lung bases: The heart is normal in size and without pericardial effusion. There are coronary artery c alcifications. A small hiatal hernia is noted. The lung bases are clear noting bibasilar scarring/ate lectasis. Liver: The contrast-enhanced liver is normal in size, contour, and attenuation. There is no intrahepa tic biliary ductal dilatation. The hepatic veins and portal veins are patent. Gallbladder: Surgically absent noting clips in the gallbladder fossa. Spleen: Normal in size and attenuation. Pancreas: Moderately atrophic and grossly unremarkable. Adrenal glands: Unremarkable. Kidneys: The contrast enhanced kidneys demonstrate mild cortical atrophy and are without hydronephros is. The kidneys enhance symmetrically. Small renal cysts measure up to 3.3 cm. Additional subcentimet er cortical hypodensities also likely represent cysts but are too small for definitive characterizati on. Abdominal vasculature: The abdominal aorta is normal in course and caliber noting mild to moderate at herosclerotic calcification. Bowel: Postoperative change is suggested in the sigmoid colon. There is no bowel obstruction. Questio n underdistention versus minimal wall thickening of the left colon. No surrounding inflammation is se en. The appendix is normal as visualized. Peritoneum: There is no intraperitoneal free air or abdominal ascites. There is evidence of previous ventral hernia repair. Lymphadenopathy: None. Pelvic viscera: The bladder, prostate, and seminal vesicles are normal as visualized. Skeletal structures: The skeletal structures are osteopenic. There is moderate lumbosacral spondylosi s. No lytic or blastic lesions are seen. IMPRESSION: 1. Question underdistention versus minimal wall thickening of the left colon. There is no surrounding inflammation. Underdistention is favored and clinical correlation will be required. 2. Postoperative change is noted in the sigmoid colon. No bowel obstruction is seen. 3. Additional findings as above. ACT 112: Negative or not required by law. Electronically signed by: Mark Villa M.D. 01/29/2020 6:43 PM
[2020-01-29 19:25] LABS: Alanine Aminotransferase 47 U/L (12-78); Albumin Level 3.5 gm/dl (3.4-5.0); Aspartate Aminotransferase 33 U/L (15-37); BUN Creatinine Ratio 14.4 (10-20); Blood Urea Nitrogen 12 mg/dl (7-18); Calcium 9.5 mg/dl (8.5-10.1); Carbon Dioxide 27 mmol/L (21-32); Chloride 108 mmol/L (98-107); Est GFR (African American) 104.7; Est GFR (Non-African American) 90.4; Glucose 114 mg/dl (70-99); Lipase 56 U/L (73-393); Potassium 3.9 mmol/L (3.5-5.1); Sodium 141 mmol/L (136-145)
[2020-01-29 19:28] LABS: Alkaline Phosphatase 102 U/L (45-117); Bilirubin Direct 0.3 mg/dl (0-0.2); Total Protein 7.1 gm/dl (6.4-8.2)
[2020-01-29] MEDS ORDERED: ONDANSETRON INJ 2 MG/ML 2 ML VIAL IV PRN (19:41)
[2020-01-29] MEDS ORDERED: PIPERACILL/TAZOBAC CONSULT ACTIVE PRN (19:41)
[2020-01-29] MEDS ORDERED: ACETAMINOPHEN 10MG/ML PEDIATRIC DOSING IV PRN (19:41)
[2020-01-29] MEDS ORDERED: PIPERACILLIN/TAZOBACTAM 4.5 GM/120ML D5W ONE (20:03)
[2020-01-29] MEDS ORDERED: PIPERACILLIN/TAZOBACTAM 4.5 GM in DEXTROSE 5% 100 ML IV ONE (20:15)
[2020-01-29] MEDS ORDERED: ACETAMINOPHEN 1,000 MG/100 ML VIAL IV PRN (21:15)
[2020-01-29] MEDS ORDERED: PATIENT'S HEIGHT AND/OR WEIGHT NEEDED SCH (21:30)
[2020-01-29] MEDS: methylPREDNISolone 20 MG in SYRINGE 0 ML IV SCH (21:50)
[2020-01-29] MEDS: MESALAMINE 800 MG TABCR PO SCH (21:51)
[2020-01-29] MEDS: HydrALAZINE TAB 50 MG TAB PO SCH (21:51)
[2020-01-29] MEDS: GABAPENTIN 600 MG TAB PO SCH (21:51)
[2020-01-29] MEDS: HEPARIN SOD 5,000 UNIT/0.5 ML VIAL SQ SCH (21:51)
--- NOTE | 2020-01-29 22:01 | History & Physical Report ---
Date of Service January 29, 2020 Assessment & Plan (1) Crohn's disease: Mat benavides 64y/o M w/ PMH significant for HTN, HLD, and Crohn's disease; who presented continued inability to tolerate oral intake, despite recent prednisone taper, and increased abdominal pain and discomfort. Crohn's disease: - inability to tolerate oral intake in the setting of returned abdominal pain, increase likelihood that this is Crohn's flare - continue Mesalamine 800mg TID - start IV solumedrol 20mg Q8h - start IV Zosyn 4.5mg Q6h - NPO with sips and chips for medications - GI consulted: Estephania aware of admission - patient receives next Entyvio injection on Sunday HTN: - continue home diltiazem, and hydralazine HLD: - continue atorvastatin Diet: NPO DVT ppx: Heparin Code: Full code (2) Hypertension: (3) Hyperlipidemia: Admission and Anticipated Discharge Date Admission Date: January 29, 2020 History of Present Illness Primary Care Provider: Polly Healy DO Mat benavides 64y/o M w/ PMH significant for HTN, HLD, and Crohn's disease; who presented continued inability to tolerate oral intake, despite recent prednisone taper, and increased abdominal pain and discomfort. He completed a prednisone taper two weeks ago, and since Sunday has noticed progressive inability to tolerate oral intake, first starting with inability to tolerate solids with progression to inability to tolerate small amount of liquids, finally over the last day inability to tolerate even sips of drink. Was seen by Dr. Best, who started a new prednisone dose 20 mg for 7 days, was started on this 2 days ago with no improvement in symptoms. Patient called Dr. Best today was sent to emergency room for further evaluation of potential Crohn's flare. In the emergency department patient continued to have abdominal pain, and nausea. This been a periodic recurrence for him over several years with his diagnosis of Crohn's. Recently was started on Entyvio, is currently doing the loading dosing of that at this time, has only received 2 of the loads. Allergies Allergy/AdvReac Type Severity Reaction Status Date / Time pregabalin Allergy Intermediate Rash, Verified 01/29/20 16:41 hives , headaches fluoxetine Allergy Mild Hives Verified 01/29/20 16:41 mercaptopurine Allergy Mild FEVER, RASH Verified 01/29/20 16:41 infliximab Allergy Unknown bp Verified 01/29/20 16:41 elevation blue dye AdvReac Intermediate Severe Verified 01/29/20 16:41 Headache duloxetine AdvReac Intermediate Severe Verified 01/29/20 16:41 Headache niacin AdvReac Unknown Unknown Verified 01/29/20 16:41 Home Medications Home Medications Medication Instructions Recorded Confirmed Type Caltrate 600 plus D 2 tab PO DAILY 06/29/19 01/29/20 History Centrum Silver 1 tab PO DAILY 06/29/19 01/29/20 History acetaminophen [Tylenol] 650 mg PO Q6H PRN 06/29/19 01/29/20 History atorvastatin 40 mg PO DAILY 06/29/19 01/29/20 History cyanocobalamin (vitamin B-12) 1,000 mcg PO DAILY 06/29/19 01/29/20 History [Vitamin B-12] diltiazem HCl 360 mg PO DAILY 06/29/19 01/29/20 History diphenoxylate-atropine [Lomotil] 2 - 4 tab PO DAILY PRN 06/29/19 01/29/20 History febuxostat [Uloric] 40 mg PO DAILY 06/29/19 01/29/20 History folic acid 2 mg PO BID 06/29/19 01/29/20 History gabapentin 1,200 mg PO BID 06/29/19 01/29/20 History hydralazine 100 mg PO BID 06/29/19 01/29/20 History pantoprazole 40 mg PO DAILY 06/29/19 01/29/20 History sucralfate 1 g PO ACHS 06/29/19 01/29/20 History ibuprofen [Advil] 400 mg PO Q6H PRN 01/29/20 01/29/20 History mesalamine 800 mg PO TID 01/29/20 01/29/20 History multivitamin 1 tab PO DAILY 01/29/20 01/29/20 History prednisone 5 mg PO DAILY 01/29/20 01/29/20 History prednisone 20 mg PO .DAILY FOR 7 DAYS 01/29/20 01/29/20 History vedolizumab [Entyvio] 0 mg IV UD 01/29/20 01/29/20 History Past Med/Surg History Medical History (Updated 07/09/20 @ 21:56 by Brandan Thomas MD) Benign essential hypertension (Inactive 04/07/13) Crohn's disease Diverticulitis (Inactive 04/07/13) Elevated PSA GERD (gastroesophageal reflux disease) Hyperlipidemia Hypertension Hyperuricemia Incisional hernia (Inactive 04/07/13) Neuropathy (Inactive 04/07/13) Pancreatitis (Inactive) Perforated bowel 2011 surgery Perforation of small intestine (Resolved 04/07/13) Post-obstructive pneumonia due to foreign body aspiration (Inactive) 2011 Prostate cancer (Chronic 09/11/19) Shingles (11/18/19) Sleep apnea 2017 Surgical History S/P cholecystectomy (Inactive) S/P hernia repair S/P tonsillectomy Family History Father , age 86 Heart disease Prostate cancer Mother , age 68 Cancer patient states it was a female cancer Sister , age mid 70s from [place] No problems noted. Brother Cancer age 32 Melanoma Sister , age 72 Colorectal cancer Other No pertinent family history Social History Preferred Language: [place] Communication Ability: Effective Drill Operator Automatic Required: No Beliefs That Will Affect Care: None marital status: Current Living Situation: Spouse Feels Safe at Home: Yes Smoking Status: Current some day smoker Tobacco Type: cigars ; Cigarettes Per Day: occasional ; Second Hand Exposure: No ; Hx Alcohol Use: No Hx Substance Use: No Childhood Exposure to Second-Hand Smoke: Yes Review of Systems Review of Systems: All systems reviewed & are unremarkable except as noted in HPI & below Physical Exam Constitutional: WD/WN, vitals as above Eyes: PERRL, conjunctivae normal, anicteric sclerae Respiratory: normal respiratory effort, lungs clear to auscultation Auscultation: no crackles, no rales and no wheezes Cardiovascular: Rate/Rhythm: regular rate and regular rhythm Heart Sounds: normal S1 and normal S2; no gallop, no murmur and no cardiac rub Vessels: normal peripheral pulses; no JVD Extremities: no pedal edema Gastrointestinal (Abdomen): Inspection/Auscultation: normal bowel sounds; abdomen not distended Percussion/Palpation: + abdomen tender (epigastric and RLQ), + guarding and abdomen soft; no hepatosplenomegaly Neurologic: patellar DTR's 2+ bilat, sensation intact Psychiatric: A+Ox3, euthymic affect Lymphatic: no cervical or axillary lymphadenopathy Results & Data Results & Data ([facility]) Vital Signs (Past 12 Hours) Vital Signs Temp Pulse Pulse Resp BP BP Pulse Ox 01/29/20 21:00 36.5 C 89 20 168/106 H 97 01/29/20 20:37 80 18 192/106 H 98 01/29/20 17:56 78 20 179/121 H 97 01/29/20 16:00 36.6 C 79 20 168/102 H 99 Laboratory Results 01/29/20 01/29/20 01/29/20 Range/Units 18:47 16:58 16:44 WBC (4.8-10.8) K/uL RBC (4.7-6.1) M/uL Hgb (14.0-18.0) g/dL POC Hgb 14.6 (14.0-18.0) g/dl Hct (42-52) % POC Hct 43 (42-52) % MCV (80-100) fL MCH (25-34) pg MCHC (32-36) g/dL RDW Std Deviation (36.4-46.3) fL RDW Coeff of Rodo (11.5-14.5) % Plt Count (130-400) K/uL MPV (7.4-10.4) fL Immature Gran % (Auto) % Neut % (Auto) % Lymph % (Auto) % [place] % (Auto) % Eos % (Auto) % Baso % (Auto) % Neut # (Auto) (1.4-6.5) K/uL Lymph # (Auto) (1.2-3.4) K/uL [place] # (Auto) (0.11-0.59) K/uL Eos # (Auto) (0-0.5) K/uL Baso # (Auto) (0-0.2) K/uL Immature Gran # (Auto) (0.00-0.02) K/uL POC Sodium 141 (135-144) mmol/L Sodium 141 Cancelled POC Potassium 3.8 (3.3-5.0) mmol/L Potassium 3.9 Cancelled POC Chloride 108 (101-112) mmol/L Chloride 108 H Cancelled Carbon Dioxide 27 Cancelled POC Total CO2 21 L (24-31) mmol/L Anion Gap 6.0 Cancelled POC Anion Gap 16.0 (16-25) mmol/L POC BUN 13 (7-18) mg/dl BUN 12 Cancelled Creatinine 0.86 Cancelled POC Creatinine 0.7 (0.6-1.3) mg/dl Est Cr Clr Drug Dosing Not Reportable Cancelled Est GFR ( Amer) 104.7 Cancelled Est GFR (Non-Af Amer) 90.4 Cancelled BUN/Creatinine Ratio 14.4 Cancelled Glucose 114 H Cancelled POC Glucose (other) 152 H (70-99) mg/dl Calcium 9.5 Cancelled POC Ioniz Calcium Sharee 1.09 L (1.12-1.32) mmol/l Total Bilirubin 1.0 Cancelled Direct Bilirubin 0.3 H Cancelled AST 33 Cancelled ALT 47 Cancelled Alkaline Phosphatase 102 Cancelled Total Protein 7.1 Cancelled Albumin 3.5 Cancelled Lipase 56 L Cancelled 01/29/20 Range/Units 16:44 WBC 8.30 (4.8-10.8) K/uL RBC 5.04 (4.7-6.1) M/uL Hgb 16.1 (14.0-18.0) g/dL POC Hgb (14.0-18.0) g/dl Hct 44.0 (42-52) % POC Hct (42-52) % MCV 87.3 (80-100) fL MCH 31.9 (25-34) pg MCHC 36.6 H (32-36) g/dL RDW Std Deviation 43.8 (36.4-46.3) fL RDW Coeff of Rodo 13.8 (11.5-14.5) % Plt Count 243 (130-400) K/uL MPV 9.7 (7.4-10.4) fL Immature Gran % (Auto) 0.1 % Neut % (Auto) 84.7 % Lymph % (Auto) 7.8 % [place] % (Auto) 7.1 % Eos % (Auto) 0.1 % Baso % (Auto) 0.2 % Neut # (Auto) 7.02 H (1.4-6.5) K/uL Lymph # (Auto) 0.65 L (1.2-3.4) K/uL [place] # (Auto) 0.59 (0.11-0.59) K/uL Eos # (Auto) 0.01 (0-0.5) K/uL Baso # (Auto) 0.02 (0-0.2) K/uL Immature Gran # (Auto) 0.01 (0.00-0.02) K/uL POC Sodium (135-144) mmol/L Sodium POC Potassium (3.3-5.0) mmol/L Potassium POC Chloride (101-112) mmol/L Chloride Carbon Dioxide POC Total CO2 (24-31) mmol/L Anion Gap POC Anion Gap (16-25) mmol/L POC BUN (7-18) mg/dl BUN Creatinine POC Creatinine (0.6-1.3) mg/dl Est Cr Clr Drug Dosing Est GFR ( Amer) Est GFR (Non-Af Amer) BUN/Creatinine Ratio Glucose POC Glucose (other) (70-99) mg/dl Calcium POC Ioniz Calcium Sharee (1.12-1.32) mmol/l Total Bilirubin Direct Bilirubin AST ALT Alkaline Phosphatase Total Protein Albumin Lipase Medications Administered Current Inpatient Medications Atorvastatin Calcium (Lipitor) 40 mg PO DAILY DARLENE Stop: 02/29/20 08:59 Diltiazem HCl (Cardizem Cd) 360 mg PO DAILY DARLENE Stop: 02/29/20 08:59 Gabapentin (Neurontin) 1,200 mg PO BID DARLENE Stop: 02/28/20 21:12 Last Admin: 01/29/20 21:51 Dose: 1,200 mg Documented by: Heparin Sodium (Porcine) (Heparin Sodium (Porcine)) 5,000 units SQ Q8 DARLENE Stop: 02/28/20 21:59 Last Admin: 01/29/20 21:51 Dose: 5,000 units Documented by: Hydralazine HCl (Apresoline) 100 mg PO BID DARLENE Stop: 02/28/20 21:12 Last Admin: 01/29/20 21:51 Dose: 100 mg Documented by: Sodium Chloride (Nss 1000ml) 1,000 mls @ 125 mls/hr IV .Q8H DARLENE Stop: 02/28/20 16:29 Last Infusion: 01/29/20 21:18 Dose: Infused Documented by: Piperacillin Sod/Tazobactam (Sod 3.375 gm/ Dextrose) 115 mls @ 28.75 mls/hr IV Q8H DARLENE; Protocol Stop: 02/09/20 01:59 Acetaminophen (Ofirmev) 1,000 mg in 100 mls @ 400 mls/hr IV Q8H PRN PRN Reason: Fever Stop: 02/01/20 21:14 Methylprednisolone 20 mg/ (Syringe) 0.32 mls @ 1.5 mls/min IV Q8H DARLENE Stop: 02/28/20 21:14 Last Admin: 01/29/20 21:50 Dose: 1.5 mls/min Documented by: Mesalamine (Mesalamine) 800 mg PO TID DARLENE Stop: 02/28/20 21:12 Last Admin: 01/29/20 21:51 Dose: 800 mg Documented by: Miscellaneous Information (Consult) 1 ea N/A UD PRN PRN Reason: Consult Stop: 02/28/20 19:40 Ondansetron HCl (Zofran) 4 mg IV Q6H PRN PRN Reason: Nausea Stop: 02/28/20 19:40 Code Status & VTE Plan VTE Prophylaxis Plan VTE Prophylaxis will be ordered: Yes Supervising Physician Co-Signing Physician Notes Patient seen and examined, chart reviewed, case discussed with Dr. Thomas and I agree with his assessment and plan as documented above. Briefly, patient is a 64yo C male with Crohns disease presenting with suspected flare, po intolerance and increased abdominal pain. He recently completed a Prednisone taper outpatient On exam patient is uncomfortable in appearance but non-toxic HEENT - NC/AT, PERRL, EOMI, MMM Heart - +S1/S2, regular, no m/r/g Lungs - CTA Abd- +BS, soft, NT/ND Ext - no edema Labs and images reviewed. Stable H/H, no leukocytosis. Chemistry largely unremarkable. CT Abdomen with no inflammation. Assessment/Plan - 64yo C male with Crohn's disease, recently completed outpatient prednisone taper He presents with continued abdominal discomfort, PO intolerance. ?other causes in addition to Crohn's for po intolerance like GERD or delayed motility -Admission for inpatient treatment at request of GI -Solumedrol 20mg IV q 8 -Continue Mesalamine -Zosyn -Continue home medications for HTN and HLP Resident Activity Tracking Resident Involvement: Resident Care Provided Care Provided: Adult [facility] Medicine
[2020-01-30] MEDS: PIPERACILLIN/TAZOBACTAM 3.375 GM in DEXTROSE 5% 100 ML IV SCH ×2 (01:47→10:31)
--- NOTE | 2020-01-30 01:57 | Billing Data ---
Date of Service January 29, 2020 Coding Level of Care Code 38798 Initial Inpt Care Lvl 2
[2020-01-30] MEDS: SODIUM CHLORIDE 0.9% 1000ML 1,000 ML IV SCH ×3 (05:53→21:32)
[2020-01-30] MEDS: HEPARIN SOD 5,000 UNIT/0.5 ML VIAL SQ SCH ×3 (05:53→21:31)
[2020-01-30] MEDS: methylPREDNISolone 20 MG in SYRINGE 0 ML IV SCH ×3 (05:54→21:31)
[2020-01-30 06:07] LABS: Basophils # (auto) 0.01 K/uL (0-0.2); Basophils % (auto) 0.2 %; Hematocrit (blood only) 42.3 % (42-52); Immature Granulocytes # (auto) 0.01 K/uL (0.00-0.02); Immature Granulocytes % (auto) 0.2 %; Lymphocytes # (auto) 0.74 K/uL (1.2-3.4); Mean Corpuscular Hgb Conc 35.5 g/dL (32-36); Mean Corpuscular Volume 87.4 fL (80-100); Mean Platelet Volume 9.5 fL (7.4-10.4); Monocytes # (auto) 0.14 K/uL (0.11-0.59); Monocytes % (auto) 2.5 %; Neutrophils # (auto) 4.78 K/uL (1.4-6.5); Neutrophils % (auto) 84.1 %; Platelet Count 222 K/uL (130-400); RDW Coefficient of Variation 13.8 % (11.5-14.5); Red Blood Count 4.84 M/uL (4.7-6.1); White Blood Count 5.68 K/uL (4.8-10.8)
[2020-01-30] MEDS: ACETAMINOPHEN 1,000 MG/100 ML VIAL IV PRN (06:11)
[2020-01-30 06:45] LABS: Albumin Level 3.2 gm/dl (3.4-5.0); BUN Creatinine Ratio 15.5 (10-20); Calcium 9.3 mg/dl (8.5-10.1); Est GFR (Non-African American) 96.7; Magnesium 1.9 mg/dl (1.8-2.4); Phosphorus 3.7 mg/dl (2.5-4.9); Potassium 3.6 mmol/L (3.5-5.1)
[2020-01-30 06:48] LABS: Albumin Globulin Ratio 0.9 (0.9-2); Bilirubin,Total 1.2 mg/dl (0.2-1); Globulin 3.7 gm/dl (2.5-4.0); Total Protein 6.9 gm/dl (6.4-8.2)
[2020-01-30] MEDS: dilTIAZem HCL 180 MG CAPCR PO SCH (07:31)
[2020-01-30] MEDS: ATORVASTATIN 40 MG TAB PO SCH (07:31)
[2020-01-30] MEDS: GABAPENTIN 600 MG TAB PO SCH ×2 (07:32→20:17)
[2020-01-30] MEDS: MESALAMINE 800 MG TABCR PO SCH ×3 (07:32→20:17)
[2020-01-30] MEDS: HydrALAZINE TAB 50 MG TAB PO SCH ×2 (07:33→20:16)
--- NOTE | 2020-01-30 10:37 | Gastrointestinal Consultation ---
Date of Consultation January 30, 2020 Assessment & Plan (1) Crohn's disease: This is a 64 y/o male pt known to our service with PMHx Crohn's disease, recently tapered off prednisone and began Entyvio 2 weeks ago, admitted with abd pain, malaise, inability to tolerate PO. Labs without leukocytosis or anemia, CT with no obstruction, significant inflammation. Pt feeling improved with IV steroids. Abd pain is resolved; abd is soft; stools have slowed. He likely has steroid dependency; and had a slight flare off prednisone. - Continue IV steroids while in the hospital - Can advance diet as tolerated - Upon discharge, would initiate PO prednisone 10 mg daily x 2 weeks, then 5 mg daily x 2 weeks, then f/u with GI as an outpt - Next Entyvio tx is to be next week - Continue Asacol - GI will sign off; please call with questions. Please see addendum below with additional recommendation from my supervising physician. - Supervising Physician Co-Signing Physician Notes PE obese male in nad, abd soft nt nd +bs No acute complaints Agree with further plan of care as documented in Lesley's plan. History of Present Illness Attending Physician: Lesley Aquino, DO History of Present Illness Pt is a 64 y/o male known to our service with PMHx Crohn's disease, last cscopy in 06/2019 with severe escamilla colitis and recently stopped pred taper, began Entyvio 2 weeks ago, who developed abd pain, malaise, loose stools approx 3x per day since stopping the prednisone. He was referred to the ER for worsening symptoms. CT with IV contrast with no inflammation or bowel obstruction, question underdistention versus minimal wall thickening of the left colon. Labs with no leukocytosis, normal HGB, e-lytes and renal fxn. He was started on IV steroids, empric ABX, and continued on mesalamine. This AM feeling improved; abd pain is resolved; no BM this AM. No melena, hematochezia, hematemesis, fever, chills. Allergies Allergy/AdvReac Type Severity Reaction Status Date / Time pregabalin Allergy Intermediate Rash, Verified 01/29/20 16:41 hives , headaches fluoxetine Allergy Mild Hives Verified 01/29/20 16:41 mercaptopurine Allergy Mild FEVER, RASH Verified 07/09/20 16:41 infliximab Allergy Unknown bp Verified 01/29/20 16:41 elevation blue dye AdvReac Intermediate Severe Verified 01/29/20 16:41 Headache duloxetine AdvReac Intermediate Severe Verified 01/29/20 16:41 Headache niacin AdvReac Unknown Unknown Verified 01/29/20 16:41 Home Medications Home Medications Medication Instructions Recorded Confirmed Type Caltrate 600 plus D 2 tab PO DAILY 06/29/19 01/29/20 History Centrum Silver 1 tab PO DAILY 06/29/19 01/29/20 History acetaminophen [Tylenol] 650 mg PO Q6H PRN 06/29/19 01/29/20 History atorvastatin 40 mg PO DAILY 06/29/19 01/29/20 History cyanocobalamin (vitamin B-12) 1,000 mcg PO DAILY 06/29/19 01/29/20 History [Vitamin B-12] diltiazem HCl 360 mg PO DAILY 06/29/19 01/29/20 History diphenoxylate-atropine [Lomotil] 2 - 4 tab PO DAILY PRN 06/29/19 01/29/20 History febuxostat [Uloric] 40 mg PO DAILY 06/29/19 01/29/20 History folic acid 2 mg PO BID 06/29/19 01/29/20 History gabapentin 1,200 mg PO BID 06/29/19 01/29/20 History hydralazine 100 mg PO BID 06/29/19 01/29/20 History pantoprazole 40 mg PO DAILY 06/29/19 01/29/20 History sucralfate 1 g PO ACHS 06/29/19 01/29/20 History ibuprofen [Advil] 400 mg PO Q6H PRN 01/29/20 01/29/20 History mesalamine 800 mg PO TID 01/29/20 01/29/20 History multivitamin 1 tab PO DAILY 01/29/20 01/29/20 History prednisone 5 mg PO DAILY 01/29/20 01/29/20 History prednisone 20 mg PO .DAILY FOR 7 DAYS 01/29/20 01/29/20 History vedolizumab [Entyvio] 0 mg IV UD 01/29/20 01/29/20 History Patient History Medical History (Updated 01/29/20 @ 21:56 by Brandan Thomas MD) Benign essential hypertension (Inactive 04/07/13) Crohn's disease Diverticulitis (Inactive 04/07/13) Elevated PSA GERD (gastroesophageal reflux disease) Hyperlipidemia Hypertension Hyperuricemia Incisional hernia (Inactive 04/07/13) Neuropathy (Inactive 04/07/13) Pancreatitis (Inactive) Perforated bowel 2011 surgery Perforation of small intestine (Resolved 04/07/13) Post-obstructive pneumonia due to foreign body aspiration (Inactive) 2011 Prostate cancer (Chronic 09/11/19) Shingles (11/18/19) Sleep apnea 2016 Surgical History S/P cholecystectomy (Inactive) S/P hernia repair S/P tonsillectomy Family History Father , age 86 Heart disease Prostate cancer Mother , age 68 Cancer patient states it was a female cancer Sister , age mid 70s from [place] No problems noted. Brother Cancer age 32 Melanoma Sister , age 72 Colorectal cancer Other No pertinent family history Social History Preferred Language: Urdu Communication Ability: Effective Inventory Control Analyst Required: No Beliefs That Will Affect Care: None marital status: Current Living Situation: Spouse Feels Safe at Home: Yes Smoking Status: Current some day smoker Tobacco Type: cigars ; Cigarettes Per Day: occasional ; Second Hand Exposure: No ; Hx Alcohol Use: No Hx Substance Use: No Childhood Exposure to Second-Hand Smoke: Yes Review of Systems Constitutional: no fever, no body aches and no malaise Respiratory: no cough and no dyspnea Cardiovascular: no chest pain and no syncope Gastrointestinal: as per Subjective / HPI Integumentary: no rash and no lesions Physical Exam Constitutional: WD/WN, vitals as above Respiratory: normal respiratory effort, lungs clear to auscultation Cardiovascular: RRR, no murmur, no edema Gastrointestinal (Abdomen): normal bowel sounds, soft, nontender, no hepatosplenomegaly Inspection/Auscultation: abdomen not distended Skin: no rashes, warm and dry Psychiatric: A+Ox3, euthymic affect Results & Data ([facility]) Vital Signs (Past 12 Hours) Vital Signs Temp Pulse Resp BP Pulse Ox 01/30/20 07:04 36.4 C L 76 20 180/84 H 95 01/29/20 23:12 36.8 C 87 14 159/71 H 96 Laboratory Results 01/30/20 01/30/20 01/29/20 Range/Units 05:33 05:33 18:47 WBC 5.68 (4.8-10.8) K/uL RBC 4.84 (4.7-6.1) M/uL Hgb 15.0 (14.0-18.0) g/dL POC Hgb (14.0-18.0) g/dl Hct 42.3 (42-52) % POC Hct (42-52) % MCV 87.4 (80-100) fL MCH 31.0 (25-34) pg MCHC 35.5 (32-36) g/dL RDW Std Deviation 44.0 (36.4-46.3) fL RDW Coeff of Rodo 13.8 (11.5-14.5) % Plt Count 222 (130-400) K/uL MPV 9.5 (7.4-10.4) fL Immature Gran % (Auto) 0.2 % Neut % (Auto) 84.1 % Lymph % (Auto) 13.0 % [place] % (Auto) 2.5 % Eos % (Auto) 0.0 % Baso % (Auto) 0.2 % Neut # (Auto) 4.78 (1.4-6.5) K/uL Lymph # (Auto) 0.74 L (1.2-3.4) K/uL [place] # (Auto) 0.14 (0.11-0.59) K/uL Eos # (Auto) 0.00 (0-0.5) K/uL Baso # (Auto) 0.01 (0-0.2) K/uL Immature Gran # (Auto) 0.01 (0.00-0.02) K/uL POC Sodium (135-144) mmol/L Sodium 141 141 POC Potassium (3.3-5.0) mmol/L Potassium 3.6 3.9 POC Chloride (101-112) mmol/L Chloride 110 H 108 H Carbon Dioxide 23 27 POC Total CO2 (24-31) mmol/L Anion Gap 9.0 6.0 POC Anion Gap (16-25) mmol/L POC BUN (7-18) mg/dl BUN 11 12 Creatinine 0.73 0.86 POC Creatinine (0.6-1.3) mg/dl Est Cr Clr Drug Dosing 125.0 Not Reportable Est GFR ( Amer) 112.0 104.7 Est GFR (Non-Af Amer) 96.7 90.4 BUN/Creatinine Ratio 15.5 14.4 Glucose 140 H 114 H POC Glucose (other) (70-99) mg/dl Calcium 9.3 9.5 POC Ioniz Calcium Sharee (1.12-1.32) mmol/l Phosphorus 3.7 (2.5-4.9) mg/dl Magnesium 1.9 (1.8-2.4) mg/dl Total Bilirubin 1.2 H 1.0 Direct Bilirubin 0.3 H AST 32 33 ALT 42 47 Alkaline Phosphatase 94 102 Total Protein 6.9 7.1 Albumin 3.2 L 3.5 Globulin 3.7 (2.5-4.0) gm/dl Albumin/Globulin Ratio 0.9 (0.9-2) Lipase 56 L 01/29/20 01/29/20 01/29/20 Range/Units 16:58 16:44 16:44 WBC 8.30 (4.8-10.8) K/uL RBC 5.04 (4.7-6.1) M/uL Hgb 16.1 (14.0-18.0) g/dL POC Hgb 14.6 (14.0-18.0) g/dl Hct 44.0 (42-52) % POC Hct 43 (42-52) % MCV 87.3 (80-100) fL MCH 31.9 (25-34) pg MCHC 36.6 H (32-36) g/dL RDW Std Deviation 43.8 (36.4-46.3) fL RDW Coeff of Rodo 13.8 (11.5-14.5) % Plt Count 243 (130-400) K/uL MPV 9.7 (7.4-10.4) fL Immature Gran % (Auto) 0.1 % Neut % (Auto) 84.7 % Lymph % (Auto) 7.8 % [place] % (Auto) 7.1 % Eos % (Auto) 0.1 % Baso % (Auto) 0.2 % Neut # (Auto) 7.02 H (1.4-6.5) K/uL Lymph # (Auto) 0.65 L (1.2-3.4) K/uL [place] # (Auto) 0.59 (0.11-0.59) K/uL Eos # (Auto) 0.01 (0-0.5) K/uL Baso # (Auto) 0.02 (0-0.2) K/uL Immature Gran # (Auto) 0.01 (0.00-0.02) K/uL POC Sodium 141 (135-144) mmol/L Sodium Cancelled POC Potassium 3.8 (3.3-5.0) mmol/L Potassium Cancelled POC Chloride 108 (101-112) mmol/L Chloride Cancelled Carbon Dioxide Cancelled POC Total CO2 21 L (24-31) mmol/L Anion Gap Cancelled POC Anion Gap 16.0 (16-25) mmol/L POC BUN 13 (7-18) mg/dl BUN Cancelled Creatinine Cancelled POC Creatinine 0.7 (0.6-1.3) mg/dl Est Cr Clr Drug Dosing Cancelled Est GFR ( Amer) Cancelled Est GFR (Non-Af Amer) Cancelled BUN/Creatinine Ratio Cancelled Glucose Cancelled POC Glucose (other) 152 H (70-99) mg/dl Calcium Cancelled POC Ioniz Calcium Sharee 1.09 L (1.12-1.32) mmol/l Phosphorus (2.5-4.9) mg/dl Magnesium (1.8-2.4) mg/dl Total Bilirubin Cancelled Direct Bilirubin Cancelled AST Cancelled ALT Cancelled Alkaline Phosphatase Cancelled Total Protein Cancelled Albumin Cancelled Globulin (2.5-4.0) gm/dl Albumin/Globulin Ratio (0.9-2) Lipase Cancelled Diagnostic Findings CTAP with IV Contrast FINDINGS: Lung bases: The heart is normal in size and without pericardial effusion. There are coronary artery calcifications. A small hiatal hernia is noted. The lung bases are clear noting bibasilar scarring/atelectasis. Liver: The contrast-enhanced liver is normal in size, contour, and attenuation. There is no intrahepatic biliary ductal dilatation. The hepatic veins and portal veins are patent. Gallbladder: Surgically absent noting clips in the gallbladder fossa. Spleen: Normal in size and attenuation. Pancreas: Moderately atrophic and grossly unremarkable. Adrenal glands: Unremarkable. Kidneys: The contrast enhanced kidneys demonstrate mild cortical atrophy and are without hydronephrosis. The kidneys enhance symmetrically. Small renal cysts measure up to 3.3 cm. Additional subcentimeter cortical hypodensities also likely represent cysts but are too small for definitive characterization. Abdominal vasculature: The abdominal aorta is normal in course and caliber noting mild to moderate atherosclerotic calcification. Bowel: Postoperative change is suggested in the sigmoid colon. There is no bowel obstruction. Question underdistention versus minimal wall thickening of the le ft colon. No surrounding inflammation is seen. The appendix is normal as visualized. Peritoneum: There is no intraperitoneal free air or abdominal ascites. There is evidence of previous ventral hernia repair. Lymphadenopathy: None. Pelvic viscera: The bladder, prostate, and seminal vesicles are normal as visualized. Skeletal structures: The skeletal structures are osteopenic. There is moderate lumbosacral spondylosis. No lytic or blastic lesions are seen. IMPRESSION: 1. Question underdistention versus minimal wall thickening of the left colon. There is no surrounding inflammation. Underdistention is favored and clinical correlation will be required. 2. Postoperative change is noted in the sigmoid colon. No bowel obstruction is seen. 3. Additional findings as above.
--- NOTE | 2020-01-30 15:48 | Hospitalist Progress Note ---
Date of Service January 30, 2020 Assessment & Plan (1) Crohn's disease: - inability to tolerate oral intake in the setting of returned abdominal pain, increase likelihood that this is Crohn's flare, failed outpt steroids - continue Mesalamine 800mg TID - start IV solumedrol 20mg Q8h - started IV Zosyn 4.5mg Q6h, d/c - ADAT - GI recs for slow prednisone taper on d/c and f/u in 2 weeks - patient receives next Entyvio injection on Sunday HTN: - continue home diltiazem, and hydralazine HLD: - continue atorvastatin DVT ppx: Heparin Code: Full code (2) Hypertension: (3) Hyperlipidemia: Admission and Anticipated Discharge Date Admission Date: January 29, 2020 Subjective Pt is feeling much improved. He was awaiting first attempt at PO intake when I saw him. No further abd pain. He feels hungry. Pt denies fever, SOB, chest pain, n/v/c/d, LE pain or swelling. Review of Systems Review of Systems: Pertinent positives and negatives reviewed in HPI--all others negative Physical Exam Constitutional: WD/WN, vitals as above Eyes: normal visual willett by confrontation and + anicteric sclerae Neck: normal visual inspection and trachea midline Respiratory: normal respiratory effort, lungs clear to auscultation Cardiovascular: Rate/Rhythm: regular rate and regular rhythm Gastrointestinal (Abdomen): Inspection/Auscultation: abdomen not distended Percussion/Palpation: abdomen soft; abdomen nontender Musculoskeletal: Head/Neck/Chest: normocephalic and head atraumatic negative for edema, peripheral pulses intact Skin: no rashes, warm and dry Neurologic: awake; not confused Speech / Cognition: normal speech Psychiatric: A+Ox3, euthymic affect Results & Data Results & Data ([facility]) Vital Signs (Past 12 Hours) Vital Signs Temp Pulse Resp BP Pulse Ox 01/30/20 14:40 36.3 C L 97 H 20 142/74 H 95 01/30/20 07:04 36.4 C L 76 20 180/84 H 95 PG Care Time/CCT Total # of Minutes Spent Total Time Spent with Patient: Total time spent is greater than 50% in coordination of care (as documented) at patient's floor/unit and/or counseling patient: Coding Level of Care Code 42939 Subseq Hosp Care Lvl 3 Diagnoses Crohn's disease K50.90 Hypertension I10 Hyperlipidemia E78.5
[2020-01-30 16:05] LABS: Cdiff Antigen Positive; Cdiff Toxin A+B Negative Cdiff Toxin (Negative)
[2020-01-31] MEDS: ACETAMINOPHEN 1,000 MG/100 ML VIAL IV PRN (01:41)
[2020-01-31] MEDS: HEPARIN SOD 5,000 UNIT/0.5 ML VIAL SQ SCH ×3 (05:41→21:25)
[2020-01-31] MEDS: methylPREDNISolone 20 MG in SYRINGE 0 ML IV SCH ×3 (05:42→21:25)
[2020-01-31] MEDS: SODIUM CHLORIDE 0.9% 1000ML 1,000 ML IV SCH ×3 (05:43→21:57)
[2020-01-31 06:24] LABS: Basophils # (auto) 0.01 K/uL (0-0.2); Basophils % (auto) 0.1 %; Hematocrit (blood only) 40.8 % (42-52); Hemoglobin 14.7 g/dL (14.0-18.0); Immature Granulocytes # (auto) 0.04 K/uL (0.00-0.02); Immature Granulocytes % (auto) 0.4 %; Lymphocytes # (auto) 0.99 K/uL (1.2-3.4); Lymphocytes % (auto) 10.7 %; Mean Corpuscular Hemoglobin 31.5 pg (25-34); Mean Corpuscular Volume 87.6 fL (80-100); Mean Platelet Volume 9.4 fL (7.4-10.4); Monocytes # (auto) 0.62 K/uL (0.11-0.59); Monocytes % (auto) 6.7 %; Neutrophils # (auto) 7.55 K/uL (1.4-6.5); Neutrophils % (auto) 82.1 %; Platelet Count 222 K/uL (130-400); RDW Coefficient of Variation 13.6 % (11.5-14.5); RDW Standard Deviation 43.4 fL (36.4-46.3); Red Blood Count 4.66 M/uL (4.7-6.1); White Blood Count 9.21 K/uL (4.8-10.8)
[2020-01-31 06:50] LABS: Appearance Urine Clear (Clear); Bilirubin Urine Negative (Negative); Blood Urine Negative (Negative); Color Urine Yellow; Glucose Urine UA Negative (Negative); Ketones Urine Negative (Negative); Leukocyte Esterase Urine Negative (Negative); Nitrite Urine Negative (Negative); Protein Urine Negative (Negative); Specific Gravity Urine 1.015 (1.000-1.030); Urobilinogen Urine Negative (Negative)
[2020-01-31 07:02] LABS: Albumin Level 3.4 gm/dl (3.4-5.0); BUN Creatinine Ratio 14.6 (10-20); Calcium 9.2 mg/dl (8.5-10.1); Est GFR (African American) 95.1; Potassium 3.8 mmol/L (3.5-5.1)
[2020-01-31 07:05] LABS: Albumin Globulin Ratio 0.9 (0.9-2); Bilirubin,Total 0.9 mg/dl (0.2-1); Globulin 3.8 gm/dl (2.5-4.0); Total Protein 7.2 gm/dl (6.4-8.2)
[2020-01-31] MEDS: dilTIAZem HCL 180 MG CAPCR PO SCH (08:51)
[2020-01-31] MEDS: HydrALAZINE TAB 50 MG TAB PO SCH ×2 (08:51→20:34)
[2020-01-31] MEDS: ATORVASTATIN 40 MG TAB PO SCH (08:52)
[2020-01-31] MEDS: GABAPENTIN 600 MG TAB PO SCH ×2 (08:52→21:57)
[2020-01-31] MEDS: MESALAMINE 800 MG TABCR PO SCH ×3 (08:52→20:35)
--- NOTE | 2020-01-31 15:14 | Hospitalist Progress Note ---
Date of Service January 31, 2020 Assessment & Plan (1) Crohn's disease: - inability to tolerate oral intake in the setting of returned abdominal pain, increase likelihood that this is Crohn's flare, failed outpt steroids - continue Mesalamine 800mg TID - start IV solumedrol 20mg Q8h - started IV Zosyn 4.5mg Q6h, d/c - ADAT - GI recs for slow prednisone taper on d/c and f/u in 2 weeks - patient receives next Entyvio injection on Sunday Started probiotic, recs for Jarrow EPS 5billion on d/c HTN: - continue home diltiazem, and hydralazine HLD: - continue atorvastatin DVT ppx: Heparin Code: Full code (2) Hypertension: (3) Hyperlipidemia: Admission and Anticipated Discharge Date Admission Date: January 29, 2020 Subjective Pt feels improved, but not at his usual. He has been tolerating PO. Still with some loose stools overall. Pt denies fever, SOB, chest pain, abd pain, n/v, LE pain or swelling. Review of Systems Review of Systems: Pertinent positives and negatives reviewed in HPI--all others negative Physical Exam Constitutional: WD/WN, vitals as above Eyes: normal visual willett by confrontation and + anicteric sclerae Neck: normal visual inspection and trachea midline Respiratory: normal respiratory effort, lungs clear to auscultation Cardiovascular: Rate/Rhythm: regular rate and regular rhythm Extremities: no edema Gastrointestinal (Abdomen): Inspection/Auscultation: abdomen not distended Percussion/Palpation: abdomen soft; abdomen nontender Musculoskeletal: Head/Neck/Chest: normocephalic and head atraumatic Skin: no rashes, warm and dry Neurologic: awake; not confused Speech / Cognition: normal speech Psychiatric: A+Ox3, euthymic affect Results & Data Results & Data ([facility]) Vital Signs (Past 12 Hours) Vital Signs Temp Pulse Resp BP Pulse Ox 01/31/20 15:02 36.5 C 73 16 153/74 H 95 01/31/20 06:54 36.6 C 70 20 177/80 H 94 PG Care Time/CCT Total # of Minutes Spent Total Time Spent with Patient: Total time spent is greater than 50% in coordination of care (as documented) at patient's floor/unit and/or counseling patient: Coding Level of Care Code 26213 Subseq Hosp Care Lvl 2 Diagnoses Crohn's disease K50.90 Hypertension I10 Hyperlipidemia E78.5
[2020-01-31] MEDS: LACTOBACILLUS ACIDOPHILUS (FLORANEX) TAB PO SCH ×2 (16:10→20:34)
[2020-02-01] MEDS: HEPARIN SOD 5,000 UNIT/0.5 ML VIAL SQ SCH (05:18)
[2020-02-01] MEDS: SODIUM CHLORIDE 0.9% 1000ML 1,000 ML IV SCH (05:18)
[2020-02-01] MEDS: methylPREDNISolone 20 MG in SYRINGE 0 ML IV SCH (05:24)
[2020-02-01 06:49] LABS: Hematocrit (blood only) 39.7 % (42-52); Hemoglobin 14.2 g/dL (14.0-18.0); Mean Corpuscular Hemoglobin 31.5 pg (25-34); Mean Corpuscular Hgb Conc 35.8 g/dL (32-36); Mean Platelet Volume 9.4 fL (7.4-10.4); Platelet Count 190 K/uL (130-400); RDW Coefficient of Variation 13.5 % (11.5-14.5); RDW Standard Deviation 43.5 fL (36.4-46.3); Red Blood Count 4.51 M/uL (4.7-6.1); White Blood Count 11.21 K/uL (4.8-10.8)
[2020-02-01] MEDS: MESALAMINE 800 MG TABCR PO SCH (09:14)
[2020-02-01] MEDS: GABAPENTIN 600 MG TAB PO SCH (09:14)
[2020-02-01] MEDS: dilTIAZem HCL 180 MG CAPCR PO SCH (09:15)
[2020-02-01] MEDS: ATORVASTATIN 40 MG TAB PO SCH (09:15)
[2020-02-01] MEDS: HydrALAZINE TAB 50 MG TAB PO SCH (09:15)
[2020-02-01] MEDS: LACTOBACILLUS ACIDOPHILUS (FLORANEX) TAB PO SCH (09:15)
--- NOTE | 2020-02-01 11:09 | Discharge Summary ---
Date of Service February 01, 2020 Admission HPI Per Admitting Provider Mat benavides 64y/o M w/ PMH significant for HTN, HLD, and Crohn's disease; who presented continued inability to tolerate oral intake, despite recent prednisone taper, and increased abdominal pain and discomfort. He completed a prednisone taper two weeks ago, and since Sunday has noticed progressive inability to tolerate oral intake, first starting with inability to tolerate solids with progression to inability to tolerate small amount of liquids, finally over the last day inability to tolerate even sips of drink. Was seen by Dr. Best, who started a new prednisone dose 20 mg for 7 days, was started on this 2 days ago with no improvement in symptoms. Patient called Dr. Best today was sent to emergency room for further evaluation of potential Crohn's flare. In the emergency department patient continued to have abdominal pain, and nausea. This been a periodic recurrence for him over several years with his diagnosis of Crohn's. Recently was started on Entyvio, is currently doing the loading dosing of that at this time, has only received 2 of the loads. Principal Diagnosis Pt feels ready for d/c today. He does state a bit of epigastric pain, more like indigestion. He states he had ice cream x2 yesterday and this is usually not a good idea for him. Pt denies fever, SOB, chest pain, n/v, LE pain or swelling. Stools are more loose, but no césar diarrhea and improved from [employer]. Discharge Exam Constitutional WD/WN, vitals as above Eyes normal visual willett by confrontation and + anicteric sclerae Neck normal visual inspection and trachea midline Respiratory normal respiratory effort, lungs clear to auscultation Cardiovascular Rate/Rhythm: regular rate and regular rhythm Extremities: no edema Gastrointestinal (Abdomen) Inspection/Auscultation: abdomen not distended Percussion/Palpation: abdomen soft; abdomen nontender Musculoskeletal Head/Neck/Chest: normocephalic and head atraumatic Skin no rashes, warm and dry Neurologic awake; not confused Speech / Cognition: normal speech Psychiatric A+Ox3, euthymic affect Discharge Data Allergies Allergy/AdvReac Type Severity Reaction Status Date / Time pregabalin Allergy Intermediate Rash, Verified 01/29/20 16:41 hives , headaches fluoxetine Allergy Mild Hives Verified 01/29/20 16:41 mercaptopurine Allergy Mild FEVER, RASH Verified 01/29/20 16:41 infliximab Allergy Unknown bp Verified 01/29/20 16:41 elevation blue dye AdvReac Intermediate Severe Verified 01/29/20 16:41 Headache duloxetine AdvReac Intermediate Severe Verified 01/29/20 16:41 Headache niacin AdvReac Unknown Unknown Verified 01/29/20 16:41 Consultations 01/29/20 19:14 ED Decision to Admit Stat 01/29/20 19:41 Consult Gastroenterology Routine Ordered Studies 01/29/20 16:24 CT abd pelvis IV con only Stat Hospital Course (1) Crohn's disease: - inability to tolerate oral intake in the setting of returned abdominal pain, increased likelihood that this is Crohn's flare, failed outpt steroids - continue Mesalamine 800mg TID - maintained on IV solumedrol 20mg Q8h, GI recs for slow prednisone taper on d/c and f/u in 2 weeks - patient receives next Entyvio injection on Sunday Started probiotic, recs for Jarrow EPS 5billion on d/c Pt was to have cdiff testing as outpt + gene, - toxins--minimal loose stools and WBC WNL, will defer to GI f/u GI in 2 weeks HTN: - continue home diltiazem, and hydralazine BP elevated intermittently to the 170s while admitted, but at other times more reasonable Advised home monitoring and recording to discuss ongoing management with PCP HLD: - continue atorvastatin DVT ppx: Heparin Code: Full code (2) Hypertension: (3) Hyperlipidemia: Total Time Total Time Spent Total Time Spent (In Minutes): >30 Total Time Includes: Examination of the Patient, Discharge Planning, Medication Reconciliation and Other Discharge Plan Discharge Items Patient Disposition: Home - Self-Care Reason For Visit: [place] Discharge Diagnosis: Crohn's flare Activity: Resume your previous activity Non-emergency contact: Primary Care Provider and Medicare Nurse Call non-emergency contact if: you have any medication questions, your symptoms worsen and your pain is not controlled Follow-up/Referrals: Carlee Best [Physician] - (2 weeks) Polly Healy DO [Primary Care Provider] - Diet: Regular Addtl Attending Provider Instructions: You will be taking additional prednisone dosing for the next few weeks. Starting tomorrow, you should take an additional 10mg of prednisone daily for 2 weeks. Then an additional 5mg of prednisone for the next 2 weeks. Then you will go back to your baseline 5mg prednisone dosing. You should see your primary care doctor in the next week. Your blood pressures have been high at times. You should check your blood pressure at home daily and keep a record of this. Take it with you to your next PCP appt. You should start taking a probiotic. The one I recommend for most patients is Jarrow EPS 5 billion. It is a mix of 8 different bacteria. You can find this product at [facility] in [place]. You should start with 1 a day. The goal is to have 1 solid bowel movement a day. If after 2 weeks you are still having loose stools, you should increase to 2 probiotics daily. You can take up to 4 a day, but you want to take the least amount of any type of medication or supplement. If you start having diarrhea, you might be taking too much and should decrease. You should take the probiotic away from your reflux medication. You take the reflux medication in the morning, so I would suggest taking the probiotic at night just before bed. You could also take it 30 minutes prior to taking your reflux medication if this is more convenient. Pending Studies at Discharge: No Stand-Alone Forms: My [facility] [employer], Smoking Cessation Medications and DC Order Prescriptions: New prednisone 5 mg tablet 5 mg PO DAILY Qty: 90 RF: 0 Continued gabapentin 800 mg Tablet 1,200 mg PO BID RF: 0 diltiazem HCl 360 mg Capsule,Extended Release 24 Hr 360 mg PO DAILY RF: 0 folic acid 1 mg Tablet 2 mg PO BID RF: 0 febuxostat [Uloric] 40 mg Tablet 40 mg PO DAILY RF: 0 atorvastatin 40 mg Tablet 40 mg PO DAILY RF: 0 hydralazine 50 mg Tablet 100 mg PO BID RF: 0 cyanocobalamin (vitamin B-12) [Vitamin B-12] 1,000 mcg Tablet 1,000 mcg PO DAILY RF: 0 sucralfate 1 gram Tablet 1 g PO ACHS RF: 0 pantoprazole 40 mg Tablet,Delayed Release (Dr/Ec) 40 mg PO DAILY RF: 0 Centrum Silver 400-250 mcg Tablet,Chewable 1 tab PO DAILY RF: 0 acetaminophen [Tylenol] 325 mg Tablet 650 mg PO Q6H PRN (Reason: pain/fever) RF: 0 Caltrate 600 plus D 600 mg (1,500 mg)-800 unit Tablet,Chewable 2 tab PO DAILY RF: 0 diphenoxylate-atropine [Lomotil] 2.5-0.025 mg Tablet 2 - 4 tab PO DAILY PRN (Reason: Diarrhea) RF: 0 multivitamin Tablet 1 tab PO DAILY RF: 0 mesalamine 800 mg tablet,delayed release (DR/EC) 800 mg PO TID RF: 0 prednisone 5 mg tablet 5 mg PO DAILY RF: 0 ibuprofen [Advil] 200 mg Tablet 400 mg PO Q6H PRN (Reason: Pain) RF: 0 Entyvio 300 mg Recon Soln 0 mg IV UD RF: 0 Discontinued prednisone 20 mg tablet 20 mg PO .DAILY FOR 7 DAYS RF: 0 Discharge Orders: Discharge Order (Routine); Ordered 02/01/20 Ordered By: Lesley Aquino Admission Data Admit Date/Time: 01/29/20 19:59 Attending Provider: Lesley Aquino Admit Provider: Brandan Thomas Primary Care Provider: Polly Healy Other Providers: Olinda Clarke ; Carlee Best Other Interventions: Discharge Summary Assessment (RN) Last Done: 02/01/20 11:56 DC Date/Time DO NOT enter until pt leaves facility: 02/01/20 12:52 Coding Level of Care Code D/C Day Management >30 mins Diagnoses Crohn's disease K50.90 Hypertension I10 Hyperlipidemia E78.5
== END 2020-02-01 12:52 | disposition home or self-care (01) ==
LOC: ED 15:54 → 3W 19:59 → INTOOBSV 19:59 → SUATTDRO 19:59 → 3W 20:48

== ENCOUNTER 2022-02-17 10:56 | Observation (INO) ==
[2022-02-17 11:48] LABS: Basophils # (auto) 0.09 K/uL (0-0.2); Basophils % (auto) 0.8 %; Eosinophils # (auto) 1.21 K/uL (0-0.50); Eosinophils % (auto) 11.1 %; Hematocrit (blood only) 45.1 % (40.1-51.0); Hemoglobin 14.9 g/dl (14.0-18.0); Immature Granulocytes # (auto) 0.03 K/uL (0.00-0.02); Immature Granulocytes % (auto) 0.3 %; Lymphocytes # (auto) 1.47 K/uL (1.2-3.4); Lymphocytes % (auto) 13.4 %; Mean Corpuscular Hemoglobin 28.4 pg (25.0-34.0); Mean Corpuscular Volume 86.1 fL (80.0-100.0); Mean Platelet Volume 9.2 fL (9.4-12.4); Monocytes # (auto) 1.34 K/uL (0.24-0.82); Monocytes % (auto) 12.2 %; Neutrophils # (auto) 6.81 K/uL (1.4-6.5); Neutrophils % (auto) 62.2 %; Platelet Count 218 K/uL (130-400); RDW Coefficient of Variation 14.2 % (11.5-14.5); RDW Standard Deviation 44.1 fL (36.4-46.3); Red Blood Count 5.24 M/uL (4.63-6.08); White Blood Count 10.95 K/ul (4.8-10.8)
[2022-02-17 12:07] LABS: Alanine Aminotransferase 21 U/L (7-52); Albumin Globulin Ratio 1.4 (0.9-2); Albumin Level 3.8 gm/dl (3.4-5.0); Alkaline Phosphatase 96 U/L (34-104); Anion Gap 9 (3-11); Aspartate Aminotransferase 18 U/L (13-39); BUN Creatinine Ratio 19.8 (10-20); Bilirubin,Total 0.8 mg/dl (0.2-1.0); Blood Urea Nitrogen 16 mg/dl (6-23); Calcium 9.6 mg/dl (8.5-10.1); Carbon Dioxide 21 mmol/L (21-32); Chloride 108 mmol/L (98-107); Est GFR (African American) 105.1 ml/min; Est GFR (Non-African American) 90.7 ml/min; Globulin 2.7 gm/dl (2.5-4.0); Glucose 106 mg/dl (70-99(Fasting)); Lipase 14 U/L (11-82); Potassium 3.7 mmol/L (3.5-5.1); Sodium 138 mmol/L (136-145); Total Protein 6.5 gm/dl (6.0-8.3)
[2022-02-17] MEDS ORDERED: SODIUM CHLORIDE 0.9% 1000ML 2,000 ML IV ONE ×2 (12:25→12:28)
[2022-02-17] MEDS ORDERED: ACETAMINOPHEN 1,000 MG/100 ML VIAL IV STA (12:28)
[2022-02-17] MEDS ORDERED: DICYCLOMINE HCL 10 MG/ML 2 ML AMP/VIAL IM ONE (12:28)
[2022-02-17] MEDS ORDERED: ONDANSETRON INJ 2 MG/ML 2 ML VIAL IV STA (12:28)
[2022-02-17] MEDS ORDERED: FAMOTIDINE 20MG IV PUSH 20 MG/5 ML SYR IV STA (12:28)
--- NOTE | 2022-02-17 12:55 | Emergency Department Note ---
Impression & Plan Crohn's disease, Abdominal pain, Nausea, Inadequate oral intake ED Provider Note NAME: KARTHIK JOSEPH AGE: 67 SEX: M ARRIVES VIA: Walk-In INFORMANT: Patient ED PROVIDER(S): Jorge Blue MD CHIEF COMPLAINT: Abdominal pain, referred PLAN: Disposition: Admit MEDICAL DECISION MAKING: The patient is a pleasant 67-year-old gentleman with a past medical history of Crohn's disease who presents to the emergency department, accompanied by his for evaluation of worsening lower abdominal cramping with intermittent bloody diarrhea that they report is been ongoing for the past month. They report that recently seen a GI doctor and had outpatient blood work that was unremarkable. However they report they went out to dinner last night and then t he symptoms became much worse. They contacted the providers and referred to emergency department. He denies any fevers, chills, cough, congestion, urinary symptoms. On arrival patient is uncomfortable no acute distress, afebrile with blood pressure 170/80s in the setting of discomfort and vital signs otherwise stable. He appears clinically dry. He has mild lower abdominal tenderness without g uarding or rebound. WBC 10.9K nonspecific. H/H within normal limits at 14.9/45.1. Platelets within normal limits. ESR within normal limits. Chemistry without metabolic acidosis. Electrolytes and LFTs unremarkable. CT abd/pelvis demonstrates underdistention of the descending and sigmoid colon with evidence of mucosal thickening. Findings suggest underlying inflammatory bowel disease. No perisigmoidal inflammation is seen. Patient's evaluation was reassuring in terms of blood work and imaging however patient continued to be symptomatic despite initial treatment. A p.o. trial was attempted but he began to have severe GI spasm and could not tolerate additional intake. Thus we agreed to proceed with plan for admission for supportive care. Case was discussed with Aminta Staton, Brenda PAC, with Dr. Mateus Gutierrez hospitalist who will evaluate the patient for admission. Triage Nursing notes reviewed and agree them. Prior medical records reviewed Vital Signs: reviewed and remarkable for no significant abnormalities Differential diagnosis: Appendicitis, testicular torsion, infections, diverticulitis, UTI, obstruction, mesenteric ischemia, aortic pathology, inflammatory bowel disease, renal colic, PUD, pancreatitis, biliary pathology, hernia, volvulus, constipation, as well as other pathologies. ER treatment provided: See below. Diagnostics interpreted by me: Cardiac Monitoring: An order for continuous cardiac monitoring was placed and demonstrated NSR, 81 bpm, no ectopy. Laboratory studies: See below Imaging studies: See below Consultation(s): Case was discussed with Aminta Staton, [facility] PAC, with Dr. Mateus Gutierrez hospitalist who will evaluate the patient for admission. HPI: The patient is a pleasant 67-year-old gentleman with a past medical history of Crohn's disease who presents to the emergency department, accompanied by his for evaluation of worsening lower abdominal cramping with intermittent bloody diarrhea that they report is been ongoing for the past month. They rep ort that recently seen a GI doctor and had outpatient blood work that was unremarkable. However they report they went out to dinner last night and then the symptoms became much worse. They contacted the providers and referred to emergency department. He denies any fevers, chills, cough, congestion, urinary symptoms. ROS: See above HPI for pertinent positives & negatives. A total of 10 systems reviewed and were otherwise negative. VITALS:See Below PHYSICAL EXAMINATION: GENERAL: Awake, alert, uncomfortable-appearing, in no distress, BMI 31. HENT: Normocephalic, atraumatic. Oropharynx with dry mucous membranes and otherwise unremarkable. EYES: Normal conjunctiva. Sclera non-icteric. NECK: Supple. No nuchal rigidity. FROM. No JVD. RESPIRATORY: Clear to auscultation. CARDIAC: Regular rate, normal rhythm. Extremities warm and well perfused. Pulses equal. ABDOMEN: Soft, non-distended. Mild lower abdominal tenderness without guarding or rebound tenderness to palpation. No rebound or guarding. No masses. RECTAL: Deferred. MUSCULOSKELETAL: Chest examination reveals no tenderness. The back is symmetrical on inspection without obvious abnormality. There is no CVA tenderness to palpation. No joint edema. LOWER EXTREMITIES: Calves are equal size bilaterally and non-tender. No edema. No discoloration. NEURO: Normal sensorium. No sensory or motor deficits noted. SKIN: No rash or jaundice noted. Jorge Blue MD Past Med/Surg History Medical History (Updated 02/18/22 @ 00:12 by Jorge Blue MD) Benign essential hypertension (04/07/13) Crohn's disease Diverticulitis (04/07/13) Elevated PSA GERD (gastroesophageal reflux disease) Hemolytic anemia Hyperlipidemia Hypertension Hyperuricemia Incisional hernia (04/07/13) Neuropathy (04/07/13) Neuropathy Pancreatitis Perforated bowel 2011 surgery Perforation of small intestine (04/07/13) Post-obstructive pneumonia due to foreign body aspiration 2011 Prostate cancer (09/11/19) Shingles (11/18/19) Sleep apnea 2017 Surgical History S/P cholecystectomy S/P hernia repair S/P tonsillectomy Family History (Updated 02/17/22 @ 18:02 by Lynne Staton PA-C) Father , age 86 Heart disease Prostate cancer Mother , age 68 Cancer patient states it was a female cancer Sister , age mid 70s from [place] No problems noted. Brother Cancer age 32 Melanoma Sister , age 72 Colorectal cancer Social History Smoking Status: Current some day smoker Tobacco Type: Cigars Cigarettes Per Day: occasional; Second Hand Exposure: No; Hx Alcohol Use: No Hx Substance Use: No Preferred Language: Croatian Communication Ability: Effective Dance Entertainer Required: No Beliefs That Will Affect Care: None marital status: Current Living Situation: Spouse Feels Safe at Home: Yes Childhood Exposure to Second-Hand Smoke: Yes Assistive Devices: Cane Allergies Allergies Allergy/AdvReac Type Severity Reaction Status Date / Time fluoxetine Allergy Intermediate Hives Verified 02/17/22 16:45 mercaptopurine Allergy Intermediate FEVER, RASH Verified 02/17/22 16:45 pregabalin Allergy Intermediate Rash, Verified 02/17/22 16:45 hives , headaches blue dye AdvReac Intermediate Severe Verified 02/17/22 16:45 Headache duloxetine AdvReac Intermediate Severe Verified 02/17/22 16:45 Headache infliximab AdvReac Intermediate bp Verified 02/17/22 16:45 elevation niacin AdvReac Unknown Unknown Verified 02/17/22 16:45 Home Meds Home Medications Medication Instructions Recorded Confirmed acetaminophen 325 mg tablet 650 mg PO Q6H PRN pain/fever 06/29/19 02/17/22 (Tylenol) atorvastatin 40 mg tablet 40 mg PO DAILY 06/29/19 02/17/22 cyanocobalamin (vitamin B-12) 1,000 mcg PO DAILY 06/29/19 02/17/22 1,000 mcg tablet (Vitamin B-12) diltiazem HCl 360 mg capsule,24 360 mg PO DAILY 06/29/19 02/17/22 hr,extended release diphenoxylate-atropine 2.5 2 tab PO BID PRN Diarrhea 06/29/19 02/17/22 mg-0.025 mg tablet (Lomotil) febuxostat 40 mg tablet (Uloric) 40 mg PO DAILY 06/29/19 02/17/22 folic acid 1 mg tablet 2 mg PO BID 06/29/19 02/17/22 gabapentin 800 mg tablet 800 mg PO BID 06/29/19 02/17/22 hydralazine 50 mg tablet 100 mg PO BID 06/29/19 02/17/22 pantoprazole 40 mg tablet,delayed 40 mg PO DAILY 06/29/19 02/17/22 release sucralfate 1 gram tablet 1 g PO BID 06/29/19 02/17/22 ibuprofen 200 mg tablet (Advil) 400 mg PO Q6H PRN Pain 01/29/20 02/17/22 mesalamine 800 mg tablet,delayed 800 mg PO BID 01/29/20 02/17/22 release prednisone 5 mg tablet 5 mg PO DAILY 01/29/20 02/17/22 telmisartan 20 mg tablet 20 mg PO DAILY 10/27/21 02/17/22 acetaminophen-caffeine 500 mg-65 1 tab PO DIRECTED PRN Headache 02/17/22 02/17/22 mg tablet (Excedrin Tension Headache) multivitamin-ferrous 1 tab PO DAILY 02/17/22 02/17/22 fumarate-folic acid 18 mg-400 mcg tablet (Centrum) oxycodone-acetaminophen 5 mg-325 1 tab PO Q8H PRN Severe Pain 02/17/22 02/17/22 mg tablet (Scale Score 7-10) tadalafil 5 mg tablet 5 mg PO DAILY 02/17/22 02/17/22 Results & Data (ED) Vital Signs Vital Signs - 24 hr 02/17/22 11:15 02/17/22 12:13 02/17/22 12:15 Temperature 36.4 C L Temperature Source Temporal Artery Scan Pulse Rate 88 Pulse Rate [Apical] 87 Pulse Strength [Apical] Respiratory Rate 19 20 Respiratory Effort / Characteristics Non-Labored Non-Labored Spontaneous Respiratory Depth Normal Blood Pressure 156/99 H Blood Pressure [Right Arm] 174/80 H Blood Pressure Mean 118 Blood Pressure Mean [Right Arm] 111 Blood Pressure Position [Right Arm] Lying Pulse Oximetry 98 98 Oxygen Delivery Method Room Air Room Air Room Air Sepsis Recent Fever Within 48 Hours No Sepsis New/Unexplained Change in Mental Status N/A Sepsis Action Taken by Nursing No Action Required 02/17/22 14:06 02/17/22 16:00 Temperature Temperature Source Pulse Rate Pulse Rate [Apical] 77 90 Pulse Strength [Apical] Normal Respiratory Rate 20 22 Respiratory Effort / Characteristics Non-Labored Respiratory Depth Normal Blood Pressure Blood Pressure [Right Arm] 191/82 H 196/102 H Blood Pressure Mean Blood Pressure Mean [Right Arm] 118 133 Blood Pressure Position [Right Arm] Lying Pulse Oximetry 98 98 Oxygen Delivery Method Room Air Sepsis Recent Fever Within 48 Hours Sepsis New/Unexplained Change in Mental Status Sepsis Action Taken by Nursing Laboratory Data Attestation: I reviewed the patient's lab results. Result diagrams: 02/17/22 11:35 02/17/22 11:35 Lab Results 02/17/22 02/17/22 02/17/22 Range/Units 11:35 11:35 11:35 WBC 10.95 H (4.8-10.8) K/ul RBC 5.24 (4.63-6.08) M/uL Hgb 14.9 (14.0-18.0) g/dl Hct 45.1 (40.1-51.0) % MCV 86.1 (80.0-100.0) fL MCH 28.4 (25.0-34.0) pg MCHC 33.0 (32.0-36.0) g/dL RDW Std Deviation 44.1 (36.4-46.3) fL RDW Coeff of Rodo 14.2 (11.5-14.5) % Plt Count 218 (130-400) K/uL MPV 9.2 L (9.4-12.4) fL Immature Gran % (Auto) 0.3 % Neut % (Auto) 62.2 % Lymph % (Auto) 13.4 % Brooke % (Auto) 12.2 % Eos % (Auto) 11.1 % Baso % (Auto) 0.8 % Neut # (Auto) 6.81 H (1.4-6.5) K/uL Lymph # (Auto) 1.47 (1.2-3.4) K/uL Brooke # (Auto) 1.34 H (0.24-0.82) K/uL Eos # (Auto) 1.21 H (0-0.50) K/uL Baso # (Auto) 0.09 (0-0.2) K/uL Immature Gran # (Auto) 0.03 H (0.00-0.02) K/uL ESR 20 (0-20) mm/hr Sodium 138 (136-145) mmol/L Potassium 3.7 (3.5-5.1) mmol/L Chloride 108 H (98-107) mmol/L Carbon Dioxide 21 (21-32) mmol/L Anion Gap 9 (3-11) BUN 16 (6-23) mg/dl Creatinine 0.81 (0.6-1.4) mg/dl Est Cr Clr Drug Dosing Not Reportable Est GFR ( Amer) 105.1 ml/min Est GFR (Non-Af Amer) 90.7 ml/min BUN/Creatinine Ratio 19.8 (10-20) Glucose 106 H (70-99(Fasting)) mg/dl Calcium 9.6 (8.5-10.1) mg/dl Total Bilirubin 0.8 (0.2-1.0) mg/dl AST 18 (13-39) U/L ALT 21 (7-52) U/L Alkaline Phosphatase 96 (34-104) U/L C-Reactive Protein (0-0.5) mg/dl Total Protein 6.5 (6.0-8.3) gm/dl Albumin 3.8 (3.4-5.0) gm/dl Globulin 2.7 (2.5-4.0) gm/dl Albumin/Globulin Ratio 1.4 (0.9-2) Lipase 14 (11-82) U/L Stl C. cayetanensis PCR (NotDetected) Stool Rotavirus A PCR (NotDetected) Stl Adenov F 40/41 PCR (NotDetected) Stool Astrovirus (PCR) (NotDetected) Stool Campylobacter PCR (NotDetected) Stl C. diff Tox A/B PCR (NotDetected) Stool Cryptosporidium PCR (NotDetected) Stl E.coli Shiga Tox PCR (NotDetected) Stl Enterotoxigenic E PCR (NotDetected) Stool EPEC (PCR) (NotDetected) Stool EAEC (PCR) (NotDetected) Stl E. histolytica PCR (NotDetected) Stool Giardia Lamblia PCR (NotDetected) Stool Salmonella PCR (NotDetected) Stool Sapovirus (PCR) (NotDetected) Stl P. shigelloides PCR (NotDetected) Stl Shigella/EIEC PCR (NotDetected) St Y.enterocolitica PCR (NotDetected) Stool Vibrio (PCR) (NotDetected) Stl Vibrio cholerae PCR (NotDetected) Stl Norovirus GI/GII PCR (NotDetected) SARS-CoV-2, RNA, NAAT (NEGATIVE) 02/17/22 02/17/22 02/17/22 Range/Units 11:35 12:48 17:08 WBC (4.8-10.8) K/ul RBC (4.63-6.08) M/uL Hgb (14.0-18.0) g/dl Hct (40.1-51.0) % MCV (80.0-100.0) fL MCH (25.0-34.0) pg MCHC (32.0-36.0) g/dL RDW Std Deviation (36.4-46.3) fL RDW Coeff of Rodo (11.5-14.5) % Plt Count (130-400) K/uL MPV (9.4-12.4) fL Immature Gran % (Auto) % Neut % (Auto) % Lymph % (Auto) % Brooke % (Auto) % Eos % (Auto) % Baso % (Auto) % Neut # (Auto) (1.4-6.5) K/uL Lymph # (Auto) (1.2-3.4) K/uL Brooke # (Auto) (0.24-0.82) K/uL Eos # (Auto) (0-0.50) K/uL Baso # (Auto) (0-0.2) K/uL Immature Gran # (Auto) (0.00-0.02) K/uL ESR (0-20) mm/hr Sodium (136-145) mmol/L Potassium (3.5-5.1) mmol/L Chloride (98-107) mmol/L Carbon Dioxide (21-32) mmol/L Anion Gap (3-11) BUN (6-23) mg/dl Creatinine (0.6-1.4) mg/dl Est Cr Clr Drug Dosing Est GFR ( Amer) ml/min Est GFR (Non-Af Amer) ml/min BUN/Creatinine Ratio (10-20) Glucose (70-99(Fasting)) mg/dl Calcium (8.5-10.1) mg/dl Total Bilirubin (0.2-1.0) mg/dl AST (13-39) U/L ALT (7-52) U/L Alkaline Phosphatase (34-104) U/L C-Reactive Protein 6.76 H (0-0.5) mg/dl Total Protein (6.0-8.3) gm/dl Albumin (3.4-5.0) gm/dl Globulin (2.5-4.0) gm/dl Albumin/Globulin Ratio (0.9-2) Lipase (11-82) U/L Stl C. cayetanensis PCR Not Detected (NotDetected) Stool Rotavirus A PCR Not Detected (NotDetected) Stl Adenov F 40/41 PCR Not Detected (NotDetected) Stool Astrovirus (PCR) Not Detected (NotDetected) Stool Campylobacter PCR Not Detected (NotDetected) Stl C. diff Tox A/B PCR Not Detected (NotDetected) Stool Cryptosporidium PCR Not Detected (NotDetected) Stl E.coli Shiga Tox PCR Not Detected (NotDetected) Stl Enterotoxigenic E PCR Not Detected (NotDetected) Stool EPEC (PCR) Not Detected (NotDetected) Stool EAEC (PCR) Not Detected (NotDetected) Stl E. histolytica PCR Not Detected (NotDetected) Stool Giardia Lamblia PCR Not Detected (NotDetected) Stool Salmonella PCR Not Detected (NotDetected) Stool Sapovirus (PCR) Not Detected (NotDetected) Stl P. shigelloides PCR Not Detected (NotDetected) Stl Shigella/EIEC PCR Not Detected (NotDetected) St Y.enterocolitica PCR Not Detected (NotDetected) Stool Vibrio (PCR) Not Detected (NotDetected) Stl Vibrio cholerae PCR Not Detected (NotDetected) Stl Norovirus GI/GII PCR Not Detected (NotDetected) SARS-CoV-2, RNA, NAAT NEGATIVE (NEGATIVE) Administered Medications Gabapentin (Gabapentin 800 Mg Tab) 800 mg PO BID DARLENE Stop: 03/19/22 20:59 Last Admin: 02/17/22 21:49 Dose: 800 mg Documented By: SB Hydralazine HCl (Hydralazine Tab 50 Mg Tab) 100 mg PO BID [facility] Stop: 03/19/22 20:59 Last Admin: 02/17/22 21:49 Dose: 100 mg Documented By: SB Sodium Chloride (Nss 1000ml) 1,000 mls @ 80 mls/hr IV .[id number] DARLENE Stop: 02/18/22 09:28 Last Admin: 02/17/22 21:48 Dose: 80 mls/hr Documented By: SB Methylprednisolone 20 mg/ (Syringe) 0.5 mls @ 1.5 mls/min IV Q8H DARLENE Stop: 03/19/22 21:59 Last Admin: 02/17/22 21:50 Dose: 1.5 mls/min Documented By: SB Mesalamine (Mesalamine 800 Mg Tabcr) 800 mg PO BID DARLENE Stop: 03/19/22 20:59 Last Admin: 02/17/22 21:48 Dose: 800 mg Documented By: SB Miscellaneous (Urloric~Order Awaiting Action) 1 each N/A QS [facility] Stop: 03/19/22 21:14 Last Admin: 02/17/22 21:50 Dose: Not Given Documented By: SB Miscellaneous (Tadalafil~Order Awaiting Action) 1 each N/A QS [facility] Stop: 03/19/22 21:14 Last Admin: 02/17/22 21:50 Dose: Not Given Documented By: SB Morphine Sulfate (Morphine Sulfate 4 Mg/Ml 1 Ml Carp\Vial) 3 mg IV Q4 PRN PRN Reason: Severe Pain Stop: 02/18/22 20:58 Last Admin: 02/17/22 23:46 Dose: 3 mg Documented By: RES Sucralfate (Sucralfate 1 Gm Tab) 1 gm PO BID DARLENE Stop: 03/19/22 20:59 Last Admin: 02/17/22 21:48 Dose: 1 gm Documented By: PRESLEY Discontinued Medications Dicyclomine HCl (Dicyclomine Hcl 10 Mg/Ml 2 Ml Amp/Vial) 20 mg IM NOW ONE Stop: 02/17/22 12:29 Last Admin: 02/17/22 12:37 Dose: 20 mg Documented By: SWATI Diltiazem HCl (Diltiazem Hcl 180 Mg Er Cap) 360 mg PO ONE ONE Stop: 02/17/22 17:47 Last Admin: 02/17/22 18:45 Dose: 360 mg Documented By: TAURUS Hydralazine HCl (Hydralazine Tab 50 Mg Tab) 100 mg PO NOW STA Stop: 02/17/22 17:46 Last Admin: 02/17/22 18:45 Dose: 100 mg Documented By: TAURUS Sodium Chloride (Nss 1000ml) 2,000 mls @ 999 mls/hr IV .Q2H1M ONE Stop: 02/17/22 14:25 Last Infusion: 02/17/22 14:42 Dose: 0 mls/hr Documented By: Admin: 02/17/22 12:36 Dose: 999 mls/hr Documented By: SWATI Sodium Chloride (Nss 1000ml) 2,000 mls @ 999 mls/hr IV .Q2H1M ONE Stop: 02/17/22 14:28 Last Admin: 02/17/22 12:37 Dose: Not Given Documented By: SWATI Acetaminophen (Ofirmev) 1,000 mg in 100 mls @ 400 mls/hr IV NOW STA Stop: 02/17/22 12:42 Last Infusion: 02/17/22 12:54 Dose: 0 mls/hr Documented By: Admin: 02/17/22 12:36 Dose: 400 mls/hr Documented By: SWATI Famotidine (Pepcid 20mg Iv Push) 20 mg in 5 mls @ 2.5 mls/min IV NOW STA Stop: 02/17/22 12:29 Last Admin: 02/17/22 12:36 Dose: 2.5 mls/min Documented By: SWATI Ioversol (Optiray 320 100ml) 94 ml IV ONCE ONE Stop: 02/17/22 13:57 Last Admin: 02/17/22 13:56 Dose: 94 ml Documented By: KSF Ondansetron HCl (Ondansetron Inj 2 Mg/Ml 2 Ml Vial) 4 mg IV NOW STA Stop: 02/17/22 12:29 Last Admin: 02/17/22 12:36 Dose: 4 mg Documented By: NMS Sucralfate (Sucralfate 1 Gm/10 Ml Udc) 1 gm PO NOW STA Stop: 02/17/22 16:42 Last Admin: 02/17/22 17:03 Dose: 1 gm Documented By: ML Telmisartan (Telmisartan 20 Mg Tab) 20 mg PO ONE ONE Stop: 02/17/22 17:48 Last Admin: 02/17/22 18:45 Dose: 20 mg Documented By: RD Imaging Data Radiologist's Impression: Abdomen/Pelvis CT 02/17/22 12:25 CT abd pelvis IV con only CLINICAL HISTORY: abd pain COMPARISON STUDY: 01/29/2020 CT DOSE: 878.79 mGy.cm TECHNIQUE: Standard CT of the Abdomen and Pelvis was performed with IV contrast. A dose lowering technique was utilized adhering to the principles of ALARA. Contrast Volume: Optiray 320, 94 ml. The patient did not receive oral contrast. FINDINGS: Lung base: The lung bases are clear. Abdominal cavity: There is no evidence for abdominal mass, adenopathy or ascites. Liver: There is homogeneous attenuation of the liver parenchyma. There is no evidence for enhancing mass lesion. Subcentimeter hepatic cysts are again seen. Spleen: There is homogeneous attenuation of the splenic parenchyma. There is no enhancing mass lesion. Pancreas: There is homogeneous attenuation of the pancreatic parenchyma. There is no evidence for mass lesion or peripancreatic fluid collection. Gall Bladder: Surgical clips are again present. Adrenal glands: The adrenal glands are normal in size and attenuation. There is no evidence for enhancing mass lesion. Kidneys: There is homogeneous attenuation of the renal parenchyma bilaterally. There is no evidence for renal calculus or hydronephrosis. There is no evidence for enhancing mass. Sharply defined renal cysts are again seen bilaterally. Bowel: There is again postoperative change within the sigmoid colon. There is again under distention of the descending and sigmoid colon mucosal thickening present. No focal masses identified. The presence of inflammatory bowel disease would be in the differential diagnosis. The remaining bowel loops are normally placed within the abdomen and pelvis without evidence for dilatation or obstruction. There is no evidence for mass lesion. There are no inflammatory changes present. There is no evidence for free air. Bladder: The bladder is within normal limits with no evidence for focal mass, calculus or diverticulum. : There is no evidence for pelvic mass or adenopathy. There is no evidence for pelvic ascites. Vasculature: There is no evidence for aneurysmal dilatation of the abdominal aorta. Atherosclerotic calcification is present. Osseous structures: There is no acute osseous pathology. Extensive degenerative changes are seen within the lumbar spine. IMPRESSION: 1. No acute intra-abdominal or pelvic abnormality. 2. Compared to the previous study, there is again under distention of the descending and sigmoid colon with evidence for mucosal thickening present. The findings suggest the possibility of underlying inflammatory bowel disease. No perisigmoidal inflammatory changes are seen. 3. Additional nonacute findings are delineated above. ACT 112: Negative or not required by law. Electronically signed by: Jg Meyer M.D. 02/17/2022 2:31 PM Discharge Plan Visit Data Chief Complaint: Bleeding Stated Complaint: Pain/Cramping/Bleeding ED Provider: Jorge Blue Discharge Problem: Crohn's disease, Abdominal pain, Nausea, Inadequate oral intake Patient Disposition: Admitted As Inpatient Discharge Instructions Interventions: ED Discharge Assessment Last Done: 02/17/22 19:39
[2022-02-17] MEDS ORDERED: OPTIRAY 320 100ml IV ONE (13:56)
--- NOTE | 2022-02-17 14:33 | CT Scan Report ---
CT abd pelvis IV con only CLINICAL HISTORY: abd pain COMPARISON STUDY: 01/29/2020 CT DOSE: 878.79 mGy.cm TECHNIQUE: Standard CT of the Abdomen and Pelvis was performed with IV contrast. A dose lowering gary hnique was utilized adhering to the principles of ALARA. Contrast Volume: Optiray 320, 94 ml. The patient did not receive oral contrast. FINDINGS: Lung base: The lung bases are clear. Abdominal cavity: There is no evidence for abdominal mass, adenopathy or ascites. Liver: There is homogeneous attenuation of the liver parenchyma. There is no evidence for enhancing m ass lesion. Subcentimeter hepatic cysts are again seen. Spleen: There is homogeneous attenuation of the splenic parenchyma. There is no enhancing mass lesion . Pancreas: There is homogeneous attenuation of the pancreatic parenchyma. There is no evidence for mas s lesion or peripancreatic fluid collection. Gall Bladder: Surgical clips are again present. Adrenal glands: The adrenal glands are normal in size and attenuation. There is no evidence for enhan cing mass lesion. Kidneys: There is homogeneous attenuation of the renal parenchyma bilaterally. There is no evidence f or renal calculus or hydronephrosis. There is no evidence for enhancing mass. Sharply defined renal c ysts are again seen bilaterally. Bowel: There is again postoperative change within the sigmoid colon. There is again under distention of the descending and sigmoid colon mucosal thickening present. No focal masses identified. The prese nce of inflammatory bowel disease would be in the differential diagnosis. The remaining bowel loops are normally placed within the abdomen and pelvis without evidence for dil atation or obstruction. There is no evidence for mass lesion. There are no inflammatory changes prese nt. There is no evidence for free air. Bladder: The bladder is within normal limits with no evidence for focal mass, calculus or diverticulu m. : There is no evidence for pelvic mass or adenopathy. There is no evidence for pelvic ascites. Vasculature: There is no evidence for aneurysmal dilatation of the abdominal aorta. Atherosclerotic c alcification is present. Osseous structures: There is no acute osseous pathology. Extensive degenerative changes are seen with in the lumbar spine. IMPRESSION: 1. No acute intra-abdominal or pelvic abnormality. 2. Compared to the previous study, there is again under distention of the descending and sigmoid colo n with evidence for mucosal thickening present. The findings suggest the possibility of underlying in flammatory bowel disease. No perisigmoidal inflammatory changes are seen. 3. Additional nonacute findings are delineated above. ACT 112: Negative or not required by law. Electronically signed by: Jg Meyer M.D. 02/17/2022 2:31 PM
[2022-02-17] MEDS ORDERED: SUCRALFATE 1 GM/10 ML UDC PO STA (16:41)
[2022-02-17] MEDS ORDERED: hydrALAZINE TAB 50 MG TAB PO STA (17:45)
[2022-02-17] MEDS ORDERED: TELMISARTAN 20 MG TAB PO ONE (17:47)
--- NOTE | 2022-02-17 18:02 | History & Physical Report ---
Date of Service February 17, 2022 Assessment & Plan (1) Diarrhea: (2) Abdominal pain: (3) Crohn's disease: Plan: Patient is 67-year-old male with PMH Crohn's presented to ER with complaint of abdominal cramping and bloody diarrhea x 1 day, aggravated with oral fluid in take. H/O past month has been having intermittent episodes of diarrhea without noted blood. Outpatient labs 01/31/2022 had normal CRP and ESR, negative C. difficile and negative stool culture Today in ER patient afebrile, hypertensive. WBC: 10.9, CRP: 6.7, ESR: 20 CT Abd/pelvis: No acute intra-abdominal or pelvic abnormality. Compared to the previous study, there is again under distention of the descending and sigmoid colon with evidence for mucosal thickening present. The findings suggest the possibility of underlying inflammatory bowel disease. No perisigmoidal inflammatory changes are seen. In ER given 2L NSS, Pepcid, Zofran, Carafate, IV Tylenol ?Crohn's flare vs infectious diarrhea IVF NPO for now Continue mesalamine Will convert home PPI to IV for now Holding home oral supplements for now with current GI symptoms C-diff, stool studies pending Solumedrol 20mg Q8H IV GI consult CBC, BMP in am (4) Hypertension: Plan: Elevated BP in ER. Did not have BP meds today Dose today's antihypertensive medication now Monitor BP Continue hydralazine, diltiazem, telmisartan (5) Hyperlipidemia: Plan: Hold atorvastatin for now secondary to GI symptoms as above (6) Neuropathy: Plan: Continue gabapentin (7) Hemolytic anemia: Plan: On chronic prednisone 5 mg daily Hold oral prednisone as is on Solu-Medrol IV as above (8) Prostate cancer: Plan: S/P prostatectomy DVT Prophylaxis SCDs for now Full Code as per discussion with pt Follows with Dr Polly Healy in [place] for routine care Pt was seen and care coordinated with Dr Ignacio. See addendum History of Present Illness Chief Complaint: Diarrhea Primary Care Provider: Polly Healy DO Patient is 67-year-old male with PMH Crohn's, HTN, HLD, neuropathy, hemolytic anemia, prostate CA s/p surgery presented to ER with complaint of diarrhea. Patient reports for the past month has been having intermittent episodes of di arrhea without noted blood. Also has some intermittent lower abdominal cramping. Outpatient GI provider Dr. Ernandez had ordered labs 01/31/2022 had normal CRP and ESR, negative C. difficile and negative stool culture. Patient states last night he went out to eat and had steak dinner. After he started with increased diffuse abdominal cramping, increased diarrhea with noted red blood. Denies any fever or chills. Denies nausea or vomiting. Reports any attempt at drinking water he has episodes of diarrhea and increased abdominal cramping. Not take morning medications today. Denies ill contacts. Denies diaphoresis, ROMERO, dizziness, syncope, vision changes, neck pain, CP, SOB, orthopnea, palpitations, cough, sore throat, choking, otalgia, rhinorrhea, paresthesias, weakness, extremity weakness, extremity edema, rashes, urinary symptoms. Allergies Allergy/AdvReac Type Severity Reaction Status Date / Time fluoxetine Allergy Intermediate Hives Verified 02/17/22 16:45 mercaptopurine Allergy Intermediate FEVER, RASH Verified 02/17/22 16:45 pregabalin Allergy Intermediate Rash, Verified 02/17/22 16:45 hives , headaches blue dye AdvReac Intermediate Severe Verified 02/17/22 16:45 Headache duloxetine AdvReac Intermediate Severe Verified 02/17/22 16:45 Headache infliximab AdvReac Intermediate bp Verified 02/17/22 16:45 elevation niacin AdvReac Unknown Unknown Verified 02/17/22 16:45 Home Medications Medication Instructions Recorded Confirmed Type acetaminophen 325 mg tablet 650 mg PO Q6H PRN pain/fever 06/29/19 02/17/22 History (Tylenol) atorvastatin 40 mg tablet 40 mg PO DAILY 06/29/19 02/17/22 History cyanocobalamin (vitamin B-12) 1,000 mcg PO DAILY 06/29/19 02/17/22 History 1,000 mcg tablet (Vitamin B-12) diltiazem HCl 360 mg capsule,24 360 mg PO DAILY 06/29/19 02/17/22 History hr,extended release diphenoxylate-atropine 2.5 2 tab PO BID PRN Diarrhea 06/29/19 02/17/22 History mg-0.025 mg tablet (Lomotil) febuxostat 40 mg tablet (Uloric) 40 mg PO DAILY 06/29/19 02/17/22 History folic acid 1 mg tablet 2 mg PO BID 06/29/19 02/17/22 History gabapentin 800 mg tablet 800 mg PO BID 06/29/19 02/17/22 History hydralazine 50 mg tablet 100 mg PO BID 06/29/19 02/17/22 History pantoprazole 40 mg tablet,delayed 40 mg PO DAILY 06/29/19 02/17/22 History release sucralfate 1 gram tablet 1 g PO BID 06/29/19 02/17/22 History ibuprofen 200 mg tablet (Advil) 400 mg PO Q6H PRN Pain 01/29/20 02/17/22 History mesalamine 800 mg tablet,delayed 800 mg PO BID 01/29/20 02/17/22 History release prednisone 5 mg tablet 5 mg PO DAILY 01/29/20 02/17/22 History telmisartan 20 mg tablet 20 mg PO DAILY 10/27/21 02/17/22 History acetaminophen-caffeine 500 mg-65 1 tab PO DIRECTED PRN Headache 02/17/22 02/17/22 History mg tablet (Excedrin Tension Headache) multivitamin-ferrous 1 tab PO DAILY 02/17/22 02/17/22 History fumarate-folic acid 18 mg-400 mcg tablet (Centrum) oxycodone-acetaminophen 5 mg-325 1 tab PO Q8H PRN Severe Pain 02/17/22 02/17/22 History mg tablet (Scale Score 7-10) tadalafil 5 mg tablet 5 mg PO DAILY 02/17/22 02/17/22 History Past Med/Surg History Medical History (Updated 02/17/22 @ 18:09 by Lynne Staton PA-C) Benign essential hypertension (04/07/13) Crohn's disease Diverticulitis (04/07/13) Elevated PSA GERD (gastroesophageal reflux disease) Hemolytic anemia Hyperlipidemia Hypertension Hyperuricemia Incisional hernia (04/07/13) Neuropathy (04/07/13) Neuropathy Pancreatitis Perforated bowel 2011 surgery Perforation of small intestine (04/07/13) Post-obstructive pneumonia due to foreign body aspiration 2012 Prostate cancer (09/11/19) Shingles (11/18/19) Sleep apnea 2016 Surgical History S/P cholecystectomy S/P hernia repair S/P tonsillectomy Family History (Updated 02/17/22 @ 18:02 by Lynne Staton PA-C) Father , age 86 Heart disease Prostate cancer Mother , age 68 Cancer patient states it was a female cancer Sister , age mid 70s from [place] No problems noted. Brother Cancer age 32 Melanoma Sister , age 72 Colorectal cancer Social History Smoking Status: Current some day smoker Tobacco Type: Cigars Cigarettes Per Day: occasional; Second Hand Exposure: No; Hx Alcohol Use: No Hx Substance Use: No Preferred Language: Mozambican Communication Ability: Effective Wreath Inspector Required: No Beliefs That Will Affect Care: None marital status: Current Living Situation: Spouse Feels Safe at Home: Yes Childhood Exposure to Second-Hand Smoke: Yes Assistive Devices: Cane Review of Systems Review of Systems: All systems reviewed & are unremarkable except as noted in HPI & below Physical Exam Physical Exam: General: no acute distress, overweight Head: normocephalic, atraumatic Eyes: conjunctiva non-injected, anicteric ENT: normal inspection external ears, nose, mucous membranes moist Neck: supple, trachea midline Lungs: clear, no respiratory distress, no wheezing/rhonchi/rales CV: RRR, no murmur, no pretibial edema Abd: protuberant, normal BS, soft, +tenderness to palpation RUQ, RLQ, LUQ, LLQ without rebound Ext: no cyanosis, no calf tenderness Neuro: A&O x 3, no focal deficits noted, normal affect Skin: warm, dry Results & Data Results & Data ([facility]) Vital Signs (Past 12 Hours) Vital Signs Temp Pulse Pulse Resp BP BP Pulse Ox 02/17/22 16:00 90 22 196/102 H 98 02/17/22 14:06 77 20 191/82 H 98 02/17/22 12:15 02/17/22 12:13 87 20 174/80 H 98 02/17/22 11:15 36.4 C L 88 19 156/99 H 98 O2 Del Method 02/17/22 16:00 02/17/22 14:06 Room Air 02/17/22 12:15 Room Air 02/17/22 12:13 Room Air 02/17/22 11:15 Room Air Laboratory Results Short CBC 02/17/22 Range/Units 11:35 WBC 10.95 H (4.8-10.8) K/ul Hgb 14.9 (14.0-18.0) g/dl Hct 45.1 (40.1-51.0) % Plt Count 218 (130-400) K/uL BMP 02/17/22 11:35 Sodium 138 Potassium 3.7 Chloride 108 H Carbon Dioxide 21 BUN 16 Creatinine 0.81 Glucose 106 H Calcium 9.6 Liver Function 02/17/22 Range/Units 11:35 Total Bilirubin 0.8 (0.2-1.0) mg/dl AST 18 (13-39) U/L ALT 21 (7-52) U/L Alkaline Phosphatase 96 (34-104) U/L Albumin 3.8 (3.4-5.0) gm/dl Diagnostic Findings Abdomen/Pelvis CT 02/17/22 12:25 CT abd pelvis IV con only CLINICAL HISTORY: abd pain COMPARISON STUDY: 01/29/2020 CT DOSE: 878.79 mGy.cm TECHNIQUE: Standard CT of the Abdomen and Pelvis was performed with IV contrast. A dose lowering technique was utilized adhering to the principles of ALARA. Contrast Volume: Optiray 320, 94 ml. The patient did not receive oral contrast. FINDINGS: Lung base: The lung bases are clear. Abdominal cavity: There is no evidence for abdominal mass, adenopathy or ascites. Liver: There is homogeneous attenuation of the liver parenchyma. There is no evidence for enhancing mass lesion. Subcentimeter hepatic cysts are again seen. Spleen: There is homogeneous attenuation of the splenic parenchyma. There is no enhancing mass lesion. Pancreas: There is homogeneous attenuation of the pancreatic parenchyma. There is no evidence for mass lesion or peripancreatic fluid collection. Gall Bladder: Surgical clips are again present. Adrenal glands: The adrenal glands are normal in size and attenuation. There is no evidence for enhancing mass lesion. Kidneys: There is homogeneous attenuation of the renal parenchyma bilaterally. There is no evidence for renal calculus or hydronephrosis. There is no evidence for enhancing mass. Sharply defined renal cysts are again seen bilaterally. Bowel: There is again postoperative change within the sigmoid colon. There is again under distention of the descending and sigmoid colon mucosal thickening present. No focal masses identified. The presence of inflammatory bowel disease would be in the differential diagnosis. The remaining bowel loops are normally placed within the abdomen and pelvis without evidence for dilatation or obstruction. There is no evidence for mass lesion. There are no inflammatory changes present. There is no evidence for free air. Bladder: The bladder is within normal limits with no evidence for focal mass, calculus or diverticulum. : There is no evidence for pelvic mass or adenopathy. There is no evidence for pelvic ascites. Vasculature: There is no evidence for aneurysmal dilatation of the abdominal aorta. Atherosclerotic calcification is present. Osseous structures: There is no acute osseous pathology. Extensive degenerative changes are seen within the lumbar spine. IMPRESSION: 1. No acute intra-abdominal or pelvic abnormality. 2. Compared to the previous study, there is again under distention of the descending and sigmoid colon with evidence for mucosal thickening present. The findings suggest the possibility of underlying inflammatory bowel disease. No perisigmoidal inflammatory changes are seen. 3. Additional nonacute findings are delineated above. ACT 112: Negative or not required by law. Electronically signed by: Jg Meyer M.D. 02/17/2022 2:31 PM Code Status & VTE Plan VTE Prophylaxis Plan VTE Prophylaxis will be ordered: Yes Supervising Physician Co-Signing Physician Notes Patient was seen and examined independently at bedside. Chart reviewed. Case discussed with Lynne HERNÁNDEZ and agree with the documentation above. In summary, this is a 67 year old male with Crohn's disease on mesalamine presented to the ED with abdominal cramping and bloody diarrhea for 1 day. It was his birthday yesterday and his took him out for dinner last night. He had stake and mushrooms, and once he came home, he started having severe cramping abdominal pain and bloody diarrhea within an hour. Had multiple episodes overnight and again had another episode in ED. No fever, or chills. No nausea or vomiting. States this is very severe compared to his prior Crohn's flare. Unable to tolerate any oral intake even water or pills because of pain. During my encounter, he was lying in bed, AAOx3 on room air, not in acute distress. MMM. Chest clear, heart sounds normal, abd tender, no LE edema, non focal neuro exam. CBC CMP unremarkable, ESR WNL, CRP elevated. Stool studies negative. CT A/P with no acute abnormality but mucosal thickening suggesting IBD but no inflammatory changes. Agree with admission for symptomatic management- IVF, bowel rest, iv steroids, changes pills to po, GI consult. Rest as per the note above.
[2022-02-17 18:41] LABS: Adenovirus F 40/41 PCR Not Detected (NotDetected); Astrovirus PCR Not Detected (NotDetected); Campylobacter PCR Not Detected (NotDetected); Clostridium diff Toxin A/B PCR Not Detected (NotDetected); Cryptosporidium PCR Not Detected (NotDetected); Cyclospora cayetanensis PCR Not Detected (NotDetected); Entamoeba histolytica PCR Not Detected (NotDetected); Enteroaggregative E.coli(EAEC) Not Detected (NotDetected); Enteropathogenic E.coli (EPEC) Not Detected (NotDetected); Enterotoxigenic E.coli (ETEC) Not Detected (NotDetected); Giardia lamblia PCR Not Detected (NotDetected); Norovirus GI/GII PCR Not Detected (NotDetected); Plesiomonas shigelloides PCR Not Detected (NotDetected); Rotavirus A PCR Not Detected (NotDetected); Salmonella PCR Not Detected (NotDetected); Sapovirus PCR Not Detected (NotDetected); Shiga-like Toxin E.coli (STEC) Not Detected (NotDetected); Shigella/Enteroinvasive E.coli Not Detected (NotDetected); Vibrio cholerae PCR Not Detected (NotDetected); Vibrio species PCR Not Detected (NotDetected); Yersinia enterocolitica PCR Not Detected (NotDetected)
[2022-02-17] MEDS ORDERED: ACETAMINOPHEN 1000 MG/100 ML IV IV PRN (20:59)
[2022-02-17] MEDS ORDERED: SODIUM CHLORIDE 0.9% 1000ML 1,000 ML IV SCH (20:59)
[2022-02-17] MEDS ORDERED: ACETAMINOPHEN 325 MG TAB PO PRN (20:59)
[2022-02-17] MEDS ORDERED: MoRPHine SULFATE 4 MG/ML 1 ML CARP\\VIAL IV PRN (20:59)
[2022-02-17] MEDS ORDERED: ONDANSETRON INJ 2 MG/ML 2 ML VIAL IV PRN (20:59)
[2022-02-17] MEDS ORDERED: ACETAMINOPHEN 1,000 MG/100 ML VIAL IV PRN (21:15)
[2022-02-17] MEDS: SUCRALFATE 1 GM TAB PO SCH (21:48)
[2022-02-17] MEDS: MESALAMINE 800 MG TABCR PO SCH (21:48)
[2022-02-17] MEDS: GABAPENTIN 800 MG TAB PO SCH (21:49)
[2022-02-17] MEDS: hydrALAZINE TAB 50 MG TAB PO SCH (21:49)
[2022-02-17] MEDS: methylPREDNISolone 20 MG in SYRINGE 0 ML IV SCH (21:50)
[2022-02-17] MEDS: TADALAFIL~ORDER AWAITING ACTION SCH (21:50)
[2022-02-18] MEDS: methylPREDNISolone 20 MG in SYRINGE 0 ML IV SCH ×3 (06:37→20:44)
[2022-02-18 07:20] LABS: Hemoglobin 12.7 g/dl (14.0-18.0); Mean Corpuscular Hemoglobin 28.7 pg (25.0-34.0); Mean Corpuscular Hgb Conc 32.6 g/dL (32.0-36.0); Mean Platelet Volume 9.3 fL (9.4-12.4); Platelet Count 197 K/uL (130-400); RDW Coefficient of Variation 14.1 % (11.5-14.5); RDW Standard Deviation 45.2 fL (36.4-46.3); Red Blood Count 4.43 M/uL (4.63-6.08); White Blood Count 7.54 K/ul (4.8-10.8)
[2022-02-18] MEDS: TADALAFIL~ORDER AWAITING ACTION SCH ×2 (07:39→15:25)
[2022-02-18 07:41] LABS: Basophils # (auto) 0.02 K/uL (0-0.2); Basophils % (auto) 0.3 %; Eosinophils # (auto) 0.02 K/uL (0-0.50); Eosinophils % (auto) 0.3 %; Immature Granulocytes # (auto) 0.03 K/uL (0.00-0.02); Immature Granulocytes % (auto) 0.4 %; Lymphocytes # (auto) 0.62 K/uL (1.2-3.4); Lymphocytes % (auto) 8.2 %; Monocytes # (auto) 0.34 K/uL (0.24-0.82); Monocytes % (auto) 4.5 %; Neutrophils # (auto) 6.51 K/uL (1.4-6.5); Neutrophils % (auto) 86.3 %
[2022-02-18 07:50] LABS: BUN Creatinine Ratio 12.5 (10-20); Calcium 8.4 mg/dl (8.5-10.1); Est GFR (African American) 110.3 ml/min; Est GFR (Non-African American) 95.2 ml/min
[2022-02-18] MEDS: GABAPENTIN 800 MG TAB PO SCH ×2 (09:28→20:42)
[2022-02-18] MEDS: TELMISARTAN 20 MG TAB PO SCH (09:28)
[2022-02-18] MEDS: SUCRALFATE 1 GM TAB PO SCH ×2 (09:28→20:42)
[2022-02-18] MEDS: dilTIAZem HCL 180 MG CAPCR PO SCH (09:28)
[2022-02-18] MEDS: hydrALAZINE TAB 50 MG TAB PO SCH ×2 (09:28→20:42)
[2022-02-18] MEDS: MESALAMINE 800 MG TABCR PO SCH ×2 (09:28→20:43)
--- NOTE | 2022-02-18 12:50 | Gastrointestinal Consultation ---
Date of Consultation February 18, 2022 Assessment & Plan (1) Crohn's disease: (2) Abdominal pain: (3) Diarrhea: (4) Hematochezia: Plan Crohns colitis with hx perirectal abscess, now with a flare up: mucosal thickening noted in left colon on CT. He has responded well to IV steroids. wo uld continue and d/c home on 4 week prednisone taper (40 mg for a week, then decrease by 10 each week until finished). recs: increase mesalamine to 4.8 g daily for maintenance advance diet to low residue for dinner conitnue iv steroids, d/c with prednisone taper as above supportive care, IVFs follow up with [facility] as an outpatient in 1-2 weeks. Thank you for allowing me to participate in the care of this patient. History of Present Illness Attending Physician: Tiffanie Arteaga MD History of Present Illness 67 yo male with hx Crohns colitis and perirectal abscess, [facility] here with abd pains and bloody diarrhea. He notes he ate a steak the day prior to admission for his birthday and then developed symptoms afterwards. Also notes that he has been having hematochezia on/off and has pain on defecation sometimes with hard stools. He is scheduled for a colonoscopy in april with Dr. Ernandez. GI PCR panel was normal including cdiff. He was placed on IV steroids 20 q8h yesterday and feels much better today. On mesalamine 800 mg PO BID as outpt currently. No n/v or bloating. CBC and CMP reviewed. stool gi pcr panel reviewed. Allergies Allergy/AdvReac Type Severity Reaction Status Date / Time fluoxetine Allergy Intermediate Hives Verified 02/17/22 16:45 mercaptopurine Allergy Intermediate FEVER, RASH Verified 02/17/22 16:45 pregabalin Allergy Intermediate Rash, Verified 02/17/22 16:45 hives , headaches blue dye AdvReac Intermediate Severe Verified 02/17/22 16:45 Headache duloxetine AdvReac Intermediate Severe Verified 02/17/22 16:45 Headache infliximab AdvReac Intermediate bp Verified 02/17/22 16:45 elevation niacin AdvReac Unknown Unknown Verified 02/17/22 16:45 Home Medications Medication Instructions Recorded Confirmed Type acetaminophen 325 mg tablet 650 mg PO Q6H PRN pain/fever 06/29/19 02/17/22 History (Tylenol) atorvastatin 40 mg tablet 40 mg PO DAILY 06/29/19 02/17/22 History cyanocobalamin (vitamin B-12) 1,000 mcg PO DAILY 06/29/19 02/17/22 History 1,000 mcg tablet (Vitamin B-12) diltiazem HCl 360 mg capsule,24 360 mg PO DAILY 06/29/19 02/17/22 History hr,extended release diphenoxylate-atropine 2.5 2 tab PO BID PRN Diarrhea 06/29/19 02/17/22 History mg-0.025 mg tablet (Lomotil) febuxostat 40 mg tablet (Uloric) 40 mg PO DAILY 06/29/19 02/17/22 History folic acid 1 mg tablet 2 mg PO BID 06/29/19 02/17/22 History gabapentin 800 mg tablet 800 mg PO BID 06/29/19 02/17/22 History hydralazine 50 mg tablet 100 mg PO BID 06/29/19 02/17/22 History pantoprazole 40 mg tablet,delayed 40 mg PO DAILY 06/29/19 02/17/22 History release sucralfate 1 gram tablet 1 g PO BID 06/29/19 02/17/22 History ibuprofen 200 mg tablet (Advil) 400 mg PO Q6H PRN Pain 01/29/20 02/17/22 History mesalamine 800 mg tablet,delayed 800 mg PO BID 01/29/20 02/17/22 History release prednisone 5 mg tablet 5 mg PO DAILY 01/29/20 02/17/22 History telmisartan 20 mg tablet 20 mg PO DAILY 10/27/21 02/17/22 History acetaminophen-caffeine 500 mg-65 1 tab PO DIRECTED PRN Headache 02/17/22 02/17/22 History mg tablet (Excedrin Tension Headache) multivitamin-ferrous 1 tab PO DAILY 02/17/22 02/17/22 History fumarate-folic acid 18 mg-400 mcg tablet (Centrum) oxycodone-acetaminophen 5 mg-325 1 tab PO Q8H PRN Severe Pain 02/17/22 02/17/22 History mg tablet (Scale Score 7-10) tadalafil 5 mg tablet 5 mg PO DAILY 02/17/22 02/17/22 History Patient History Medical History Benign essential hypertension (04/07/13) Crohn's disease Diverticulitis (04/07/13) Elevated PSA GERD (gastroesophageal reflux disease) Hemolytic anemia Hyperlipidemia Hypertension Hyperuricemia Incisional hernia (04/07/13) Neuropathy (04/07/13) Neuropathy Pancreatitis Perforated bowel 2011 surgery Perforation of small intestine (04/07/13) Post-obstructive pneumonia due to foreign body aspiration 2011 Prostate cancer (09/11/19) Shingles (11/18/19) Sleep apnea 2017 Surgical History S/P cholecystectomy S/P hernia repair S/P tonsillectomy Family History Father , age 86 Heart disease Prostate cancer Mother , age 68 Cancer patient states it was a female cancer Sister , age mid 70s from [place] No problems noted. Brother Cancer age 32 Melanoma Sister , age 72 Colorectal cancer Social History Smoking Status: Current some day smoker Tobacco Type: Cigars Cigarettes Per Day: occasional; Second Hand Exposure: No; Hx Alcohol Use: No Hx Substance Use: No Preferred Language: French Communication Ability: Effective Curriculum Coordinator Required: No Beliefs That Will Affect Care: None marital status: Current Living Situation: Spouse Feels Safe at Home: Yes Childhood Exposure to Second-Hand Smoke: Yes Assistive Devices: Cane Review of Systems Constitutional: no fever, no chills and no weight loss Eyes: as per Subjective / HPI Ear, Nose, Mouth, Throat: as per Subjective / HPI Respiratory: no dyspnea and no dyspnea on exertion Cardiovascular: no chest pain and no palpitations Gastrointestinal: as per Subjective / HPI Musculoskeletal: no joint pain and no swelling Integumentary: no rash and no lesions Neurologic: no numbness and no paresthesia Psychiatric: no depression and no anxiety Endocrine: no fatigue Hematologic / Lymphatic: no easy bleeding and no easy bruising Physical Exam Constitutional: WD/WN, vitals as above Eyes: EOM intact bilaterally Neck: normal visual inspection Respiratory: normal respiratory effort, lungs clear to auscultation Cardiovascular: RRR, no murmur, no edema Gastrointestinal (Abdomen): Inspection/Auscultation: abdomen normal to inspection; abdomen not distended Percussion/Palpation: abdomen soft; abdomen nontender and no hepatosplenomegaly Musculoskeletal: Extremities: no cyanosis Gait: normal gait Skin: no rashes, warm and dry Neurologic: moves all extremities Psychiatric: A+Ox3, euthymic affect Results & Data ([facility]) Vital Signs (Past 12 Hours) Vital Signs Temp Pulse Resp BP Pulse Ox O2 Del Method 02/18/22 07:30 36.9 C 68 20 125/66 93 Room Air PG Care Time/CCT Total # of Minutes Spent Total Time Spent with Patient: Total time spent is greater than 50% in coordination of care (as documented) at patient's floor/unit and/or counseling patient: Coding Level of Care Code 67760 Initial Inpt Care Lvl 3 Diagnoses Crohn's disease K50.90 Abdominal pain R10.9 Diarrhea R19.7 Hematochezia K92.1
[2022-02-18] MEDS: PANTOprazole 40 MG in SYRINGE 0 ML IV SCH (13:17)
--- NOTE | 2022-02-18 17:05 | Hospitalist Progress Note ---
Date of Service February 18, 2022 Assessment & Plan (1) Diarrhea: (2) Abdominal pain: (3) Crohn's disease: Plan: Patient is 67-year-old male with PMH Crohn's presented to ER with complaint of abdominal cramping and bloody diarrhea x 1 day, aggravated with oral fluid in take. H/O past month has been having intermittent episodes of diarrhea without noted blood. Outpatient labs 01/31/2022 had normal CRP and ESR, negative C. difficile and negative stool culture Present on abdominal pain associated with bloody diarrhea due to Crohn's flares up WBC: 10.9K, CRP: 6.7, ESR: [address] Abd/pelvis showed no acute intra-abdominal or pelvic abnormality. Compared to the previous study, there is again under distention of the descending and sigmoid colon with evidence for mucosal thickening present. Hgb 12.67 today stool for C diff and stool panel negative GI on board recommended to increase Mesalamine to 1.6 g TID Continue IV steroid for now Plan to transition to PO steroid taper for 4 week by decreased it by 10 mg each week until finished Diet advanced to Low residue Plan to follow outpatient with GI in 2 weeks (4) Hypertension: Plan: BP stable Continue hydralazine, diltiazem, telmisartan (5) Hyperlipidemia: Plan: will resume atorvastatin on discharge (6) Neuropathy: Plan: Continue gabapentin (7) Hemolytic anemia: Plan: On chronic prednisone 5 mg daily Hold oral prednisone as is on Solu-Medrol IV as above (8) Prostate cancer: Plan: S/P prostatectomy DVT Prophylaxis SCDs for now due to bloody diarrhea Full Code Admission and Anticipated Discharge Date Admission Date: February 17, 2022 Subjective Pt was seen and examined for follow up of abdominal pain associated with bloody diarrhea Lying in bed with no acute distress Pt said that he is hungry He said that he is abdominal pain improves he said that he had a small episode of bloody diarrhea early Denies any chest pain, palpitation, dizziness and SOB Review of Systems Review of Systems: All systems reviewed & are unremarkable except as noted in Subjective Physical Exam Physical Exam: General- No acute distress Head- atraumatic Eyes- PERRL, EOMI, ENT- oropharynx clear Neck- supple, no JVD Lungs- clear to auscultation Heart- regular rhythm; no murmur Abdomen- normal bowel sounds, +mild tender with deep palpation Extremities- no calf tenderness Neuro- alert, oriented x 3; PERRL, EOMI; no facial palsy; no dysarthria Skin- warm & dry Results & Data Results & Data ([facility]) Vital Signs (Past 12 Hours) Vital Signs Temp Pulse Resp BP Pulse Ox O2 Del Method 02/18/22 07:30 36.9 C 68 20 125/66 93 Room Air
[2022-02-19] MEDS: TADALAFIL~ORDER AWAITING ACTION SCH ×2 (00:11→08:34)
[2022-02-19] MEDS: MESALAMINE 800 MG TABCR PO SCH ×2 (06:29→11:09)
[2022-02-19] MEDS: methylPREDNISolone 20 MG in SYRINGE 0 ML IV SCH ×2 (06:30→13:34)
[2022-02-19 07:36] LABS: Hematocrit (blood only) 38.4 % (40.1-51.0); Hemoglobin 13.1 g/dl (14.0-18.0); Mean Corpuscular Hemoglobin 29.1 pg (25.0-34.0); Mean Corpuscular Hgb Conc 34.1 g/dL (32.0-36.0); Mean Corpuscular Volume 85.3 fL (80.0-100.0); Mean Platelet Volume 9.4 fL (9.4-12.4); Platelet Count 228 K/uL (130-400); RDW Coefficient of Variation 14.2 % (11.5-14.5); RDW Standard Deviation 43.8 fL (36.4-46.3); White Blood Count 9.72 K/ul (4.8-10.8)
[2022-02-19] MEDS: hydrALAZINE TAB 50 MG TAB PO SCH (08:36)
[2022-02-19] MEDS: TELMISARTAN 20 MG TAB PO SCH (08:36)
[2022-02-19] MEDS: dilTIAZem HCL 180 MG CAPCR PO SCH (08:36)
[2022-02-19] MEDS: GABAPENTIN 800 MG TAB PO SCH (08:36)
[2022-02-19] MEDS: SUCRALFATE 1 GM TAB PO SCH (08:36)
[2022-02-19] MEDS: PANTOprazole 40 MG in SYRINGE 0 ML IV SCH (11:08)
--- NOTE | 2022-03-06 08:48 | Discharge Summary ---
Date of Service February 19, 2022 Admission HPI Per Admitting Provider Patient is 67-year-old male with PMH Crohn's, HTN, HLD, neuropathy, hemolytic anemia, prostate CA s/p surgery presented to ER with complaint of diarrhea. Patient reports for the past month has been having intermittent episodes of diarrhea without noted blood. Also has some intermittent lower abdominal cramping. Outpatient GI provider Dr. Ernandez had ordered labs 01/31/2022 had normal CRP and ESR, negative C. difficile and negative stool culture. Patient states last night he went out to eat and had steak dinner. After he started with increased diffuse abdominal cramping, increased diarrhea with noted red blood. Denies any fever or chills. Denies nausea or vomiting. Reports any attempt at drinking water he has episodes of diarrhea and increased abdominal cramping. Not take morning medications today. Denies ill contacts. Denies diaphoresis, ROMERO, dizziness, syncope, vision changes, neck pain, CP, SOB, orthopnea, palpitations, cough, sore throat, choking, otalgia, rhinorrhea, paresthesias, weakness, extremity weakness, extremity edema, rashes, urinary symptoms. Admission Exam Per Admitting Provider General: no acute distress, overweight Head: normocephalic, atraumatic Eyes: conjunctiva non-injected, anicteric ENT: normal inspection external ears, nose, mucous membranes moist Neck: supple, trachea midline Lungs: clear, no respiratory distress, no wheezing/rhonchi/rales CV: RRR, no murmur, no pretibial edema Abd: protuberant, normal BS, soft, +tenderness to palpation RUQ, RLQ, LUQ, LLQ without rebound Ext: no cyanosis, no calf tenderness Neuro: A&O x 3, no focal deficits noted, normal affect Skin: warm, dry Principal Diagnosis Diarrhea Abdominal pain Crohn's disease Discharge Exam General- No acute distress Head- atraumatic Eyes- PERRL, EOMI, ENT- oropharynx clear Neck- supple, no JVD Lungs- clear to auscultation Heart- regular rhythm; no murmur Abdomen- normal bowel sounds, +mild tender with deep palpation Extremities- no calf tenderness Neuro- alert, oriented x 3; PERRL, EOMI; no facial palsy; no dysarthria Skin- warm & dry Discharge Data Allergies Allergy/AdvReac Type Severity Reaction Status Date / Time fluoxetine Allergy Intermediate Hives Verified 02/17/22 16:45 mercaptopurine Allergy Intermediate FEVER, RASH Verified 02/17/22 16:45 pregabalin Allergy Intermediate Rash, Verified 02/17/22 16:45 hives , headaches blue dye AdvReac Intermediate Severe Verified 02/17/22 16:45 Headache duloxetine AdvReac Intermediate Severe Verified 02/17/22 16:45 Headache infliximab AdvReac Intermediate bp Verified 02/17/22 16:45 elevation niacin AdvReac Unknown Unknown Verified 02/17/22 16:45 Consultations 02/17/22 16:41 ED Decision to Admit Stat 02/17/22 20:59 Consult Gastroenterology Routine Ordered Studies 02/17/22 12:25 CT abd pelvis IV con only Stat CT abd pelvis IV con only CLINICAL HISTORY: abd pain COMPARISON STUDY: 01/29/2020 CT DOSE: 878.79 mGy.cm TECHNIQUE: Standard CT of the Abdomen and Pelvis was performed with IV contrast. A dose lowering technique was utilized adhering to the principles of ALARA. Contrast Volume: Optiray 320, 94 ml. The patient did not receive oral contrast. FINDINGS: Lung base: The lung bases are clear. Abdominal cavity: There is no evidence for abdominal mass, adenopathy or ascites. Liver: There is homogeneous attenuation of the liver parenchyma. There is no evidence for enhancing mass lesion. Subcentimeter hepatic cysts are again seen. Spleen: There is homogeneous attenuation of the splenic parenchyma. There is no enhancing mass lesion. Pancreas: There is homogeneous attenuation of the pancreatic parenchyma. There is no evidence for mass lesion or peripancreatic fluid collection. Gall Bladder: Surgical clips are again present. Adrenal glands: The adrenal glands are normal in size and attenuation. There is no evidence for enhancing mass lesion. Kidneys: There is homogeneous attenuation of the renal parenchyma bilaterally. There is no evidence for renal calculus or hydronephrosis. There is no evidence for enhancing mass. Sharply defined renal cysts are again seen bilaterally. Bowel: There is again postoperative change within the sigmoid colon. There is again under distention of the descending and sigmoid colon mucosal thickening present. No focal masses identified. The presence of inflammatory bowel disease would be in the differential diagnosis. The remaining bowel loops are normally placed within the abdomen and pelvis without evidence for dilatation or obstruction. There is no evidence for mass lesion. There are no inflammatory changes present. There is no evidence for free air. Bladder: The bladder is within normal limits with no evidence for focal mass, calculus or diverticulum. : There is no evidence for pelvic mass or adenopathy. There is no evidence for pelvic ascites. Vasculature: There is no evidence for aneurysmal dilatation of the abdominal aorta. Atherosclerotic calcification is present. Osseous structures: There is no acute osseous pathology. Extensive degenerative changes are seen within the lumbar spine. IMPRESSION: 1. No acute intra-abdominal or pelvic abnormality. 2. Compared to the previous study, there is again under distention of the descending and sigmoid colon with evidence for mucosal thickening present. The findings suggest the possibility of underlying inflammatory bowel disease. No perisigmoidal inflammatory changes are seen. 3. Additional nonacute findings are delineated above. ACT 112: Negative or not required by law. Electronically signed by: Jg Meyer M.D. 02/17/2022 2:31 PM Dictated:02/17/22 141 Transcribed: 02/17/221417 Hospital Course (1) Diarrhea: (2) Abdominal pain: (3) Crohn's disease: Patient is 67-year-old male with PMH Crohn's presented to ER with complaint of abdominal cramping and bloody diarrhea x 1 day, aggravated with oral fluid intak e. H/O past month has been having intermittent episodes of diarrhea without noted blood. Outpatient labs 01/31/2022 had normal CRP and ESR, negative C. difficile and negative stool culture Present on abdominal pain associated with bloody diarrhea due to Crohn's flares up WBC: 10.9K, CRP: 6.7, ESR: [address] Abd/pelvis showed no acute intra-abdominal or pelvic abnormality. Compared to the previous study, there is again under distention of the descending and sigmoid colon with evidence for mucosal thickening present. Hgb 12.67 today stool for C diff and stool panel negative GI on board recommended to increase Mesalamine to 1.6 g TID Continue IV steroid for now Plan to transition to PO steroid taper for 4 week by decreased it by 10 mg each week until finished Diet advanced to Low residue Plan to follow outpatient with GI in 2 weeks (4) Hypertension: BP stable Continue hydralazine, diltiazem, telmisartan (5) Hyperlipidemia: will resume atorvastatin on discharge (6) Neuropathy: Continue gabapentin (7) Hemolytic anemia: On chronic prednisone 5 mg daily Hold oral prednisone as is on Solu-Medrol IV as above (8) Prostate cancer: S/P prostatectomy DVT Prophylaxis SCDs for now due to bloody diarrhea Full Code Total Time Total Time Spent Total Time Spent (In Minutes): 35 minutes Discharge Plan Discharge Items Patient Disposition: Home - Self-Care Reason For Visit: DIARRHEA Discharge Diagnosis: Diarrhea Abdominal pain Crohn's disease Activity: Resume your previous activity Non-emergency contact: Primary Care Provider and Outside Operator Call non-emergency contact if: you have any medication questions Follow-up/Referrals: Polly Healy DO [Primary Care Provider] - Diet: Low Fiber Addtl Attending Provider Instructions: Follow up with your primary care provider within 1 week (please call to schedule for the appointment) Follow up with your gastroenterology in 1 to 2 weeks (please call to schedule f or the appointment) Continue prednisone slow taper 40mg daily x 1 week, 30mg daily x 1 week, 20mg daily x 1 week, 15mg daily x 1 week, 10mg daily x 1 week, then continue 5mg daily (Hold the prednisone 5mg daily. will resume it once completes the taper prednisone ) Continue mesalamine 1.6 g three times a day Continue low residue diet Seek medical attention if symptoms reoccur Pending Studies at Discharge: No Stand-Alone Forms: My [facility] [employer] Interventional, Smoking Cessation Medications and DC Order Prescriptions: New prednisone 10 mg tablet 10 mg PO UD Qty: 75 0RF Rx Instructions: 40mg daily x 1 week, 30mg daily x 1 week, 20mg daily x 1 week, 10mg daily x 1 week, then continue 5mg daily Continued telmisartan 20 mg tablet 20 mg PO DAILY gabapentin 800 mg Tablet 800 mg PO BID diltiazem HCl 360 mg Capsule,Extended Release 24 Hr 360 mg PO DAILY folic acid 1 mg Tablet 2 mg PO BID febuxostat [Uloric] 40 mg Tablet 40 mg PO DAILY atorvastatin 40 mg Tablet 40 mg PO DAILY hydralazine 50 mg Tablet 100 mg PO BID cyanocobalamin (vitamin B-12) [Vitamin B-12] 1,000 mcg Tablet 1,000 mcg PO DAILY sucralfate 1 gram Tablet 1 g PO BID pantoprazole 40 mg Tablet,Delayed Release (Dr/Ec) 40 mg PO DAILY acetaminophen [Tylenol] 325 mg Tablet 650 mg PO Q6H PRN (Reason: pain/fever) diphenoxylate-atropine [Lomotil] 2.5-0.025 mg Tablet 2 tab PO BID PRN (Reason: Diarrhea) prednisone 5 mg tablet 5 mg PO DAILY ibuprofen [Advil] 200 mg Tablet 400 mg PO Q6H PRN (Reason: Pain) Excedrin Tension Headache 500-65 mg Tablet 1 tab PO DIRECTED PRN (Reason: Headache) oxycodone-acetaminophen 5-325 mg tablet 1 tab PO Q8H PRN (Reason: Severe Pain (Scale Score 7-10)) tadalafil 5 mg Tablet 5 mg PO DAILY Centrum 18-400 mg-mcg Tablet 1 tab PO DAILY Changed mesalamine 800 mg tablet,delayed release (DR/EC) 1,600 mg PO TID 30 Days Qty: 180 0RF Discharge Orders: Discharge Order (Routine); Ordered 02/19/22 Ordered By: Tiffanie Duenas/Other Patient Handouts: Crohns Disease Dc, Crohns Disease Lifestyle Changes Admission Data Admit Date/Time: 02/17/22 17:20 Attending Provider: Tiffanie Arteaga Admit Provider: Adrián Ignacio Primary Care Provider: Polly Healy Other Providers: Hermes Morris Other Interventions: Discharge Summary Assessment (RN) Last Done: 02/19/22 14:31
== END 2022-02-19 15:22 | disposition home or self-care (01) | DRG 386 ==
LOC: ED 10:56 → EDINP 17:20 → SUATTDRO 17:20 → INTOOBSV 17:20 → EDINP 19:39 → 3W 20:58

== ENCOUNTER 2023-02-04 14:48 | Observation (INO) ==
--- NOTE | 2023-02-04 15:34 | XRay Report ---
XR chest 1V not portable CLINICAL HISTORY: Chest pain, nonspecific TECHNIQUE: Single frontal radiograph of the chest was obtained. Comparison: Comparison is made to chest radiograph 01/29/2023 FINDINGS: No lines and tubes are seen. Calcified aortic knob is seen. Prominence and cephalization of the vascu lature is seen. No evidence of pleural effusion or pneumothorax. IMPRESSION: No acute chest disease. ACT 112: Negative or not required by law. Electronically signed by: Paul Mckeon M.D. 02/04/2023 3:33 PM
[2023-02-04 15:40] LABS: Basophils # (auto) 0.15 K/uL (0-0.2); Eosinophils # (auto) 0.62 K/uL (0-0.50); Eosinophils % (auto) 4.1 %; Hematocrit (blood only) 36.3 % (42.0-52.0); Hemoglobin 13.3 g/dl (14.0-18.0); Immature Granulocytes # (auto) 0.11 K/uL (0.01-0.20); Immature Granulocytes % (auto) 0.7 %; Lymphocytes # (auto) 2.48 K/uL (1.2-3.4); Lymphocytes % (auto) 16.6 %; Mean Corpuscular Hemoglobin 31.1 pg (25.0-34.0); Mean Corpuscular Hgb Conc 36.6 g/dL (32.0-36.0); Mean Corpuscular Volume 84.8 fL (80.0-100.0); Mean Platelet Volume 9.1 fL (9.4-12.4); Monocytes # (auto) 0.93 K/uL (0.11-0.59); Monocytes % (auto) 6.2 %; Neutrophils # (auto) 10.68 K/uL (1.40-6.50); Neutrophils % (auto) 71.4 %; Platelet Count 269 K/uL (130-400); RDW Coefficient of Variation 18.8 % (11.5-14.5); RDW Standard Deviation 55.5 fL (36.4-46.3); Red Blood Count 4.28 M/uL (4.70-6.10); White Blood Count 14.97 K/ul (4.8-10.8)
[2023-02-04 15:53] LABS: Alanine Aminotransferase 26 U/L (7-52); Albumin Globulin Ratio 1.7 (0.9-2); Albumin Level 4.2 gm/dl (3.4-5.0); Alkaline Phosphatase 90 U/L (34-104); Anion Gap 8 (3-11); Aspartate Aminotransferase 27 U/L (13-39); BUN Creatinine Ratio 23.1 (10-20); Bilirubin,Total 1.9 mg/dl (0.2-1.0); Blood Urea Nitrogen 21 mg/dl (6-23); Calcium 9.9 mg/dl (8.6-10.3); Carbon Dioxide 25 mmol/L (21-32); Chloride 106 mmol/L (98-107); Est GFR (African American) 99.3 ml/min; Est GFR (Non-African American) 85.7 ml/min; Globulin 2.5 gm/dl (2.5-4.0); Glucose 143 mg/dl (70-99(Fasting)); Potassium 3.6 mmol/L (3.5-5.1); Sodium 139 mmol/L (136-145); Total Protein 6.7 gm/dl (6.0-8.3)
[2023-02-04 15:59] LABS: Troponin I High Sensitivity 4.2 pg/ml (0-20)
[2023-02-04 16:03] LABS: Partial Thromboplastin Ratio 0.8; Partial Thromboplastin Time 22.5 Seconds (21.0-31.0); Prothrombin Time 10.5 Seconds (9.0-12.0)
--- NOTE | 2023-02-04 16:35 | Emergency Department Note ---
Impression & Plan Weakness, SOB (shortness of breath), Fatigue, Leukocytosis, Frequent PVCs ED Provider Note NAME: KARTHIK JOSEPH AGE: 67 SEX: M : 1955 ARRIVES VIA: Walk-In INFORMANT: [Patient][family] ED PROVIDER(S): [Mark Hrenandez MD] CHIEF COMPLAINT: Shortness of breath, fatigue HISTORY OF PRESENT ILLNESS: The patient is a 67-year-old male who presents to the ER with fatigue and shortness of breath for around 10 or so days. He was seen in our ER about 6 days ago and work-up suggested a bronchitis. During this ED visit, he did have a CT of his chest, no PE or pneumonia was seen. He did take antibiotics and has made no improvement. He is short of breath with any exertion, he is quite fatigued and feels like he is going to just fall over or collapse. No chest pain. No fever. No real change in cough. No urinary complaints. The patient went to [facility] today where they felt he had a lot of PVCs. They were concerned and sent him to our ER for repeat assessment. PMHx/PSHx: See Below SOCIAL HISTORY: See Below. PHYSICAL EXAM: GENERAL: Patient is in no acute distress. HEENT: No acute trauma, normocephalic atraumatic, mucous membranes moist, no nasal congestion. NECK: No stridor, no adenopathy, no meningismus, trachea is midline. LUNGS: Clear to auscultation bilaterally, no wheeze, no rhonchi, breath sounds equal. HEART: Irregular rhythm, normal rate, no murmurs. ABDOMEN: Soft, nontender, bowel sounds positive, no peritonitis. EXTREMITIES: No cyanosis, mild bilateral pedal edema, full range of motion of all the joints without pain or difficulty, no signs for acute trauma. NEUROLOGIC: Oriented x 3, no acute motor or sensory deficits, no focal weakness. SKIN: No rash, no jaundice, no diaphoresis. DIFFERENTIAL DIAGNOSIS: Anemia, bacteremia, Lyme disease, tickborne disease, electrolyte imbalance, dysrhythmia, OR, bronchitis or pneumonia, among others. EMERGENCY DEPARTMENT COURSE/PROCEDURES: Prior/Outside records reviewed: Previous ED note, [facility] notes. ECG per my interpretation: Indication was fatigue and shortness of breath. The ECG shows a sinus rhythm with frequent PVCs. The rate is 94. There is some poor R wave progression. No ST elevation, QTc is 445. Continuous Cardiac Monitoring per my interpretation: An order was placed for continuous cardiac monitoring. The monitor shows a rate of 84 with Sinus rhythm with frequent PVCs. MEDICAL DECISION MAKING: There is a moderate leukocytosis, this of course could be consistent with infection. The white count has increased since his last round of testing. A very mild anemia was noted with a hemoglobin of 13.3. There was a normal platelet count. Sed rate was not elevated making ongoing inflammation/infection less likely. There was no coagulopathy. No renal failure or significant electrolyte abnormality. Lactic acid level was not elevated making severe sepsis less likely. Bilirubin was somewhat elevated, this has been documented in the recent past. The remaining liver enzymes were unremarkable. ECG showed a sinus rhythm with frequent PVCs. No ST elevation. Cardiac enzyme testing x1 was not consistent with acute cardiac injury. Procalcitonin level was not not elevated making serious bacterial infection less likely. The patient appeared to be in a euthyroid state. Respiratory bio fire was completely negative. Ches t film per my review does not show mediastinal widening, pneumonia or pneumothorax. Blood cultures were ordered and are pending. Lyme disease testing returned negative. Anaplasmosis and Babesia smears are negative, the send out testing is pending. Patient presents with ongoing dyspnea, his dyspnea is mainly with exertion. He is fatigued and feels exhausted. He has no energy. He has had no improvement on his oral antibiotics. It does appear that his white blood cell count is rising. Given his presentation and findings, I do think a hospital stay and further work-up is warranted. At this point, the cause for his entire presentation is unclear. I spoke with the patient and case management, the on-call hospitalist was consulted. DISPOSITION: Patient's presentation and findings warrant a hospital stay. Past Med/Surg History Medical History Abdominal pain Benign essential hypertension (04/07/13) Crohn's disease Diarrhea Diverticulitis (04/07/13) Elevated PSA Fatigue GERD (gastroesophageal reflux disease) Hematochezia Hemolytic anemia Hyperlipidemia Hypertension Hyperuricemia Incisional hernia (04/07/13) Neuropathy (04/07/13) Neuropathy Pancreatitis Perforated bowel 2012 surgery Perforation of small intestine (04/07/13) Post-obstructive pneumonia due to foreign body aspiration 2012 Prostate cancer (09/11/19) Shingles (11/18/19) Sleep apnea 2017 SOB (shortness of breath) on exertion Surgical History S/P cholecystectomy S/P hernia repair S/P tonsillectomy Family History Father , age 86 Heart disease Prostate cancer Mother , age 68 Cancer patient states it was a female cancer Sister , age mid 70s from [place] No problems noted. Brother Cancer age 32 Melanoma Sister , age 72 Colorectal cancer Social History Smoking Status: Current some day smoker Tobacco Type: Cigars Cigarettes Per Day: occasional; Second Hand Exposure: No; Do You Dip or Chew Tobacco: No; Tobacco Cessation Education Requested by Patient: No Hx Alcohol Use: No Hx Substance Use: No Preferred Language: Malay Communication Ability: Effective Inspector Filters Required: No Beliefs That Will Affect Care: None marital status: Current Living Situation: Spouse Other Information That Helps Us Care for You: No Feels Safe at Home: Yes Safety Concerns: Feels Safe At This Time Childhood Exposure to Second-Hand Smoke: Yes Assistive Devices: Cane Allergies Allergies Allergy/AdvReac Type Severity Reaction Status Date / Time fluoxetine Allergy Intermediate Hives Verified 02/04/23 16:24 mercaptopurine Allergy Intermediate FEVER, RASH Verified 02/04/23 16:24 pregabalin Allergy Intermediate Rash, Verified 02/04/23 16:24 hives , headaches blue dye AdvReac Intermediate Severe Verified 02/04/23 16:24 Headache duloxetine AdvReac Intermediate Severe Verified 02/04/23 16:24 Headache infliximab AdvReac Intermediate bp Verified 02/04/23 16:24 elevation niacin AdvReac Unknown Unknown Verified 02/04/23 16:24 Home Meds Home Medications Medication Instructions Recorded Confirmed acetaminophen 325 mg tablet 650 mg PO Q6H PRN pain/fever 06/29/19 02/04/23 (Tylenol) atorvastatin 40 mg tablet 40 mg PO DAILY 06/29/19 02/04/23 cyanocobalamin (vitamin B-12) 1,000 mcg PO DAILY 06/29/19 02/04/23 1,000 mcg tablet (Vitamin B-12) diltiazem HCl 360 mg capsule,24 360 mg PO DAILY 06/29/19 02/04/23 hr,extended release diphenoxylate-atropine 2.5 2 tab PO QAM 06/29/19 02/04/23 mg-0.025 mg tablet (Lomotil) febuxostat 40 mg tablet (Uloric) 40 mg PO DAILY 06/29/19 02/04/23 folic acid 1 mg tablet 2 mg PO TID 06/29/19 02/04/23 gabapentin 800 mg tablet 800 mg PO BID 06/29/19 02/04/23 hydralazine 50 mg tablet 100 mg PO BID 06/29/19 02/04/23 pantoprazole 40 mg tablet,delayed 40 mg PO DAILY 06/29/19 02/04/23 release ibuprofen 200 mg tablet (Advil) 400 mg PO Q6H PRN Pain 01/29/20 02/04/23 telmisartan 20 mg tablet 20 mg PO DAILY 10/27/21 02/04/23 acetaminophen-caffeine 500 mg-65 1 tab PO DIRECTED PRN Headache 02/17/22 02/04/23 mg tablet (Excedrin Tension Headache) multivitamin-ferrous 1 tab PO DAILY 02/17/22 02/04/23 fumarate-folic acid 18 mg-400 mcg tablet (Centrum) oxycodone-acetaminophen 5 mg-325 1 tab PO Q12 PRN Severe Pain 02/17/22 02/04/23 mg tablet (Scale Score 7-10) amitriptyline 25 mg tablet 25 mg PO HS 01/29/23 02/04/23 mesalamine 800 mg tablet,delayed 1,600 mg PO DAILY 01/29/23 02/04/23 release prednisone 5 mg tablet 5 mg PO DAILY 01/29/23 02/04/23 tadalafil 5 mg tablet 5 mg PO DAILY 01/29/23 02/04/23 Previous Rx's Medication Instructions Recorded benzonatate 100 mg capsule 100 mg PO TID PRN cough #20 caps 01/29/23 Results & Data (ED) Vital Signs Vital Signs - 24 hr 02/04/23 14:53 02/04/23 14:53 02/04/23 16:21 Temperature 36.8 C Temperature Source Temporal Artery Scan Pulse Rate 87 84 Pulse Rate [Apical] Pulse Rate from SpO2 Sensor Pulse Rhythm [Apical] Respiratory Rate 22 Respiratory Effort / Characteristics Non-Labored Spontaneous Non-Labored Spontaneous Respiratory Depth Normal Normal Respiratory Pattern Regular Blood Pressure 132/72 Blood Pressure Mean 92 Blood Pressure Position Sitting Pulse Oximetry 98 Oxygen Delivery Method Room Air Room Air Oxygen Flow Rate Sepsis Recent Fever Within 48 Hours No Sepsis New/Unexplained Change in Mental Status No Sepsis Action Taken by Nursing No Action Required 02/04/23 16:59 02/04/23 16:59 02/04/23 16:59 Temperature Temperature Source Pulse Rate Pulse Rate [Apical] 84 Pulse Rate from SpO2 Sensor Pulse Rhythm [Apical] Regular Respiratory Rate 15 Respiratory Effort / Characteristics Respiratory Depth Respiratory Pattern Blood Pressure Blood Pressure Mean Blood Pressure Position Pulse Oximetry 96 96 94 Oxygen Delivery Method Room Air Room Air Oxygen Flow Rate 0 Sepsis Recent Fever Within 48 Hours Sepsis New/Unexplained Change in Mental Status Sepsis Action Taken by Nursing 02/04/23 16:20 02/04/23 16:30 02/04/23 17:00 Temperature Temperature Source Pulse Rate 82 81 82 Pulse Rate [Apical] Pulse Rate from SpO2 Sensor 69 85 74 Pulse Rhythm [Apical] Respiratory Rate 21 24 23 Respiratory Effort / Characteristics Respiratory Depth Respiratory Pattern Blood Pressure 152/78 H Blood Pressure Mean 102 Blood Pressure Position Pulse Oximetry 96 95 96 Oxygen Delivery Method Oxygen Flow Rate Sepsis Recent Fever Within 48 Hours Sepsis New/Unexplained Change in Mental Status Sepsis Action Taken by Nursing 02/04/23 17:30 02/04/23 18:00 Temperature Temperature Source Pulse Rate 84 85 Pulse Rate [Apical] Pulse Rate from SpO2 Sensor 81 84 Pulse Rhythm [Apical] Respiratory Rate 24 22 Respiratory Effort / Characteristics Respiratory Depth Respiratory Pattern Blood Pressure 145/98 H Blood Pressure Mean 113 Blood Pressure Position Pulse Oximetry 96 95 Oxygen Delivery Method Oxygen Flow Rate Sepsis Recent Fever Within 48 Hours Sepsis New/Unexplained Change in Mental Status Sepsis Action Taken by Prison Medications Current Medication List: was personally reviewed by me Laboratory Data Attestation: I reviewed the patient's lab results. 02/04/23 15:10 02/04/23 15:10 Lab Results 02/04/23 02/04/23 02/04/23 Range/Units 15:10 15:10 15:10 WBC 14.97 H (4.8-10.8) K/ul RBC 4.28 L (4.70-6.10) M/uL Hgb 13.3 L (14.0-18.0) g/dl Hct 36.3 L (42.0-52.0) % MCV 84.8 (80.0-100.0) fL MCH 31.1 (25.0-34.0) pg MCHC 36.6 H (32.0-36.0) g/dL RDW Std Deviation 55.5 H (36.4-46.3) fL RDW Coeff of Rodo 18.8 H (11.5-14.5) % Plt Count 269 (130-400) K/uL MPV 9.1 L (9.4-12.4) fL Immature Gran % (Auto) 0.7 % Neut % (Auto) 71.4 % Lymph % (Auto) 16.6 % Love % (Auto) 6.2 % Eos % (Auto) 4.1 % Baso % (Auto) 1.0 % Neut # (Auto) 10.68 H (1.40-6.50) K/uL Lymph # (Auto) 2.48 (1.2-3.4) K/uL Love # (Auto) 0.93 H (0.11-0.59) K/uL Eos # (Auto) 0.62 H (0-0.50) K/uL Baso # (Auto) 0.15 (0-0.2) K/uL Immature Gran # (Auto) 0.11 (0.01-0.20) K/uL ESR (0-20) mm/hr PT 10.5 (9.0-12.0) Seconds INR 1.0 (0.9-1.1) APTT 22.5 (21.0-31.0) Seconds PTT Ratio 0.8 Sodium 139 (136-145) mmol/L Potassium 3.6 (3.5-5.1) mmol/L Chloride 106 (98-107) mmol/L Carbon Dioxide 25 (21-32) mmol/L Anion Gap 8 (3-11) BUN 21 (6-23) mg/dl Creatinine 0.91 (0.6-1.4) mg/dl Est Cr Clr Drug Dosing Not Reportable Est GFR ( Amer) 99.3 ml/min Est GFR (Non-Af Amer) 85.7 ml/min BUN/Creatinine Ratio 23.1 H (10-20) Glucose 143 H (70-99(Fasting)) mg/dl Lactate (0.4-2.0) mmol/L Calcium 9.9 (8.6-10.3) mg/dl Magnesium 1.8 (1.7-2.4) mg/dl Total Bilirubin 1.9 H (0.2-1.0) mg/dl AST 27 (13-39) U/L ALT 26 (7-52) U/L Alkaline Phosphatase 90 (34-104) U/L Troponin I High Sens 4.2 (0-20) pg/ml Total Protein 6.7 (6.0-8.3) gm/dl Albumin 4.2 (3.4-5.0) gm/dl Globulin 2.5 (2.5-4.0) gm/dl Albumin/Globulin Ratio 1.7 (0.9-2) Lipase 27 (11-82) U/L Procalcitonin (0-0.5) ng/ml TSH (0.300-4.500) uIu/ml Anaplasma Smear See Comment Babesia Smear See Comment Lyme Disease IgG Ab (Negative) Lyme Disease IgM Ab (Negative) Monoscreen (Negative) 02/04/23 02/04/23 02/04/23 Range/Units 15:10 15:10 15:10 WBC (4.8-10.8) K/ul RBC (4.70-6.10) M/uL Hgb (14.0-18.0) g/dl Hct (42.0-52.0) % MCV (80.0-100.0) fL MCH (25.0-34.0) pg MCHC (32.0-36.0) g/dL RDW Std Deviation (36.4-46.3) fL RDW Coeff of Rodo (11.5-14.5) % Plt Count (130-400) K/uL MPV (9.4-12.4) fL Immature Gran % (Auto) % Neut % (Auto) % Lymph % (Auto) % Love % (Auto) % Eos % (Auto) % Baso % (Auto) % Neut # (Auto) (1.40-6.50) K/uL Lymph # (Auto) (1.2-3.4) K/uL Love # (Auto) (0.11-0.59) K/uL Eos # (Auto) (0-0.50) K/uL Baso # (Auto) (0-0.2) K/uL Immature Gran # (Auto) (0.01-0.20) K/uL ESR 12 (0-20) mm/hr PT (9.0-12.0) Seconds INR (0.9-1.1) APTT (21.0-31.0) Seconds PTT Ratio Sodium (136-145) mmol/L Potassium (3.5-5.1) mmol/L Chloride (98-107) mmol/L Carbon Dioxide (21-32) mmol/L Anion Gap (3-11) BUN (6-23) mg/dl Creatinine (0.6-1.4) mg/dl Est Cr Clr Drug Dosing Est GFR ( Amer) ml/min Est GFR (Non-Af Amer) ml/min BUN/Creatinine Ratio (10-20) Glucose (70-99(Fasting)) mg/dl Lactate (0.4-2.0) mmol/L Calcium (8.6-10.3) mg/dl Magnesium (1.7-2.4) mg/dl Total Bilirubin (0.2-1.0) mg/dl AST (13-39) U/L ALT (7-52) U/L Alkaline Phosphatase (34-104) U/L Troponin I High Sens (0-20) pg/ml Total Protein (6.0-8.3) gm/dl Albumin (3.4-5.0) gm/dl Globulin (2.5-4.0) gm/dl Albumin/Globulin Ratio (0.9-2) Lipase (11-82) U/L Procalcitonin (0-0.5) ng/ml TSH 2.644 (0.300-4.500) uIu/ml Anaplasma Smear Babesia Smear Lyme Disease IgG Ab Negative (Negative) Lyme Disease IgM Ab Negative (Negative) Monoscreen (Negative) 02/04/23 02/04/23 02/04/23 Range/Units 15:10 15:10 16:35 WBC (4.8-10.8) K/ul RBC (4.70-6.10) M/uL Hgb (14.0-18.0) g/dl Hct (42.0-52.0) % MCV (80.0-100.0) fL MCH (25.0-34.0) pg MCHC (32.0-36.0) g/dL RDW Std Deviation (36.4-46.3) fL RDW Coeff of Rodo (11.5-14.5) % Plt Count (130-400) K/uL MPV (9.4-12.4) fL Immature Gran % (Auto) % Neut % (Auto) % Lymph % (Auto) % Love % (Auto) % Eos % (Auto) % Baso % (Auto) % Neut # (Auto) (1.40-6.50) K/uL Lymph # (Auto) (1.2-3.4) K/uL Love # (Auto) (0.11-0.59) K/uL Eos # (Auto) (0-0.50) K/uL Baso # (Auto) (0-0.2) K/uL Immature Gran # (Auto) (0.01-0.20) K/uL ESR (0-20) mm/hr PT (9.0-12.0) Seconds INR (0.9-1.1) APTT (21.0-31.0) Seconds PTT Ratio Sodium (136-145) mmol/L Potassium (3.5-5.1) mmol/L Chloride (98-107) mmol/L Carbon Dioxide (21-32) mmol/L Anion Gap (3-11) BUN (6-23) mg/dl Creatinine (0.6-1.4) mg/dl Est Cr Clr Drug Dosing Est GFR ( Amer) ml/min Est GFR (Non-Af Amer) ml/min BUN/Creatinine Ratio (10-20) Glucose (70-99(Fasting)) mg/dl Lactate 1.7 (0.4-2.0) mmol/L Calcium (8.6-10.3) mg/dl Magnesium (1.7-2.4) mg/dl Total Bilirubin (0.2-1.0) mg/dl AST (13-39) U/L ALT (7-52) U/L Alkaline Phosphatase (34-104) U/L Troponin I High Sens (0-20) pg/ml Total Protein (6.0-8.3) gm/dl Albumin (3.4-5.0) gm/dl Globulin (2.5-4.0) gm/dl Albumin/Globulin Ratio (0.9-2) Lipase (11-82) U/L Procalcitonin 0.10 (0-0.5) ng/ml TSH (0.300-4.500) uIu/ml Anaplasma Smear Babesia Smear Lyme Disease IgG Ab (Negative) Lyme Disease IgM Ab (Negative) Monoscreen Negative (Negative) Administered Medications Folic Acid (Folic Acid 1 Mg Tab) 2 mg PO TID DARLENE Stop: 03/06/23 20:59 Last Admin: 02/04/23 21:28 Dose: 2 mg Documented By: GLENDY Gabapentin (Gabapentin 800 Mg Tab) 800 mg PO BID DARLENE Stop: 03/06/23 20:59 Last Admin: 02/04/23 21:28 Dose: 800 mg Documented By: GLENDY Hydralazine HCl (Hydralazine Tab 50 Mg Tab) 100 mg PO BID DARLENE Stop: 03/06/23 20:59 Last Admin: 02/04/23 21:28 Dose: 100 mg Documented By: GLENDY Discontinued Medications Al Hydrox/Mg Hydrox/Simethicone (Aluminum/Magnesium Susp 30 Ml Udc) 30 ml PO NOW STA Stop: 02/04/23 18:55 Last Admin: 02/04/23 20:36 Dose: 30 ml Documented By: GLENDY Ceftriaxone Sodium (Rocephin) 2,000 mg in 70 mls @ 140 mls/hr IV NOW STA Stop: 02/04/23 18:15 Last Infusion: 02/04/23 20:33 Dose: 0 mls/hr Documented By: Admin: 02/04/23 18:26 Dose: 140 mls/hr Documented By: KV Imaging Data Radiologist's Impression: Chest X-Ray 02/04/23 14:56 XR chest 1V not portable CLINICAL HISTORY: Chest pain, nonspecific TECHNIQUE: Single frontal radiograph of the chest was obtained. Comparison: Comparison is made to chest radiograph 01/29/2023 FINDINGS: No lines and tubes are seen. Calcified aortic knob is seen. Prominence and cephalization of the vasculature is seen. No evidence of pleural effusion or pneumothorax. IMPRESSION: No acute chest disease. ACT 112: Negative or not required by law. Electronically signed by: Paul Mckeon M.D. 02/04/2023 3:33 PM Discharge Plan Visit Data Chief Complaint: Shortness of Breath/Dyspnea Stated Complaint: SHORTNESS OF BREATH, TIGHTNESS IN CHEST ED Provider: Mark Hernandez Discharge Problem: Weakness, SOB (shortness of breath), Fatigue, Leukocytosis, Frequent PVCs Patient Disposition: Admitted As Inpatient Condition: Fair Discharge Instructions Interventions: ED Discharge Assessment Last Done: 02/04/23 20:30
[2023-02-04 16:53] LABS: Magnesium 1.8 mg/dl (1.7-2.4)
[2023-02-04 17:14] LABS: Lyme Ab IgG w/WB Rflx Negative (Negative); Lyme Ab IgM w/WB Rflx Negative (Negative)
[2023-02-04 17:41] LABS: Adenovirus PCR Not Detected (NotDetected); Bordetella parapertussis PCR Not Detected (NotDetected); Bordetella pertussis PCR Not Detected (NotDetected); Chlamydia pneumoniae PCR Not Detected (NotDetected); Coronavirus 229E PCR Not Detected (NotDetected); Coronavirus CoV-2 (COVID19)PCR Not Detected (NotDetected); Coronavirus HKU1 PCR Not Detected (NotDetected); Coronavirus NL63 PCR Not Detected (NotDetected); Coronavirus OC43PCR Not Detected (NotDetected); Human Metapneumovirus PCR Not Detected (NotDetected); Influenza A PCR Not Detected (NotDetected); Influenza B PCR Not Detected (NotDetected); Mycoplasma pneumoniae PCR Not Detected (NotDetected); Parainfluenza Virus 1 PCR Not Detected (NotDetected); Parainfluenza Virus 2 PCR Not Detected (NotDetected); Parainfluenza Virus 3 PCR Not Detected (NotDetected); Parainfluenza Virus 4 PCR Not Detected (NotDetected); Respiratory Syncytial VirusPCR Not Detected (NotDetected); Rhinovirus/Enterovirus PCR Not Detected (NotDetected)
[2023-02-04] MEDS ORDERED: cefTRIAXone SODIUM 2,000 MG/70 ML BAG IV STA (17:46)
[2023-02-04] MEDS ORDERED: MAGNESIUM HYDROXIDE SUSP 30 ML UDC PO PRN (18:20)
[2023-02-04] MEDS ORDERED: ALUMINUM/MAGNESIUM SUSP 30 ML UDC PO PRN ×2 (18:20→22:47)
[2023-02-04] MEDS ORDERED: ONDANSETRON INJ 2 MG/ML 2 ML VIAL IV PRN (18:20)
[2023-02-04] MEDS ORDERED: POLYETHYLENE (MIRALAX) 17 GM PACK PO PRN (18:20)
[2023-02-04] MEDS ORDERED: ALUMINUM/MAGNESIUM SUSP 30 ML UDC PO STA (18:54)
[2023-02-04 19:10] LABS: Lipase 27 U/L (11-82)
--- NOTE | 2023-02-04 19:14 | History & Physical Report ---
Date of Service February 04, 2023 Assessment & Plan (1) Fatigue: (2) SOB (shortness of breath) on exertion: (3) Crohn's disease: (4) Hemolytic anemia: (5) Hypertension: (6) Hyperlipidemia: (7) Sleep apnea: Plan 67-year-old with persistent fatigue and exhaustion coupled with shortness of breath with exertion that has been persistent over the past week. Patient seen in [facility] ED 6 days ago, D-dimer was elevated at that time negative for PE. Lyme's negative, anaplasmosis pending, leukocytosis 14.97, 1 dose Rocephin given in ED however no known source of infection to indicate further continuation at this time. Patient with known autoimmune hemolytic anemia and Crohn's disease. No pancytopenia or anemia noted and labs. Check CRP and ESR along with B12 and Phos. BioFire negative blood cultures are pending TSH normal. VBG compensated without hypoxia. Chest CTA on 710 negative for PE shortness of breath noted with any exertion from walking to kitchen or bathroom. Does have known sleep apnea without CPAP use at home. Heme-onc consult for further evaluation of hem oglobin anemia being possible cause of fatigue. Echo ordered as well to diagnose any underlying valvular disease. Initial troponin negative. BNP pending. Fatigue: Persistent x10 days ER visit 6 days ago chest CTA negative for PE 4 mm pulmonary nodule not new to patient; follows with pulmonary in [place] Lyme's negative, anaplasmosis pending Leukocytosis WBC 14.97; 1 dose Rocephin given in ED; will hold further antibiotics as no known source of infection at this time CRP and ESR ordered B12 level ordered TSH 2.644 Phos pending BioFire negative Blood cultures pending Shortness of breath on exertion without hypoxia: Short of breath with any exertion from walking to the kitchen or bathroom. No shortness of breath at rest CTA 01/29 negative for PE; 4 mm pulmonary nodule that he has followed with pulmonary in [place] yearly VBG compensated without hypoxia Troponin negative; will trend x1 however do not suspect ACS Echo ordered and pending BNP pending Crohn's disease: Diagnosed 02/2003; follows with Dr. Ernandez with GI Takes mesalamine; continue Autoimmune hemolytic anemia: Diagnosed 05/2016; follows with Dr. Lopez; consult heme-onc for further guidance No pancytopenia or anemia HTN: Takes diltiazem and hydralazine; continue HLD: Takes atorvastatin; continue JUDY: Does not wear CPAP despite being recommended Disposition: PCP Dr. Healy with [facility] CODE STATUS: Full code VTE prophylaxis: Lovenox SQ I spent a total of 87 minutes coordinating, documenting, and providing care for this patient excluding time spent in the performance of separately billed servi art. All of the aforementioned completed while collaborating with the assigned attending physician for a full treatment plan. Please see their addendum for further details. History of Present Illness Chief Complaint: Fatigue Primary Care Provider: Polly Healy DO Mr. Arias is a 67 year old male who presented to the [facility] as recommended by [facility] for further evaluation of PVC's he has been experiencing. He has had persistent fatigue and exhaustion coupled with shortness of breath at exertion that has been persistent over the past week to 10 days. Patient seen in [facility] ED 6 days ago, D-dimer was elevated at that time negative for PE. Patient with known autoimmune hemolytic anemia and Crohn's disease. No pancytopenia or anemia noted and labs. Does have known sleep apnea without CPAP use at home. No PVCs noted while here in ED. Lyme's negative, anaplasmosis pending, leukocytosis 14.97, 1 dose Rocephin given in ED however no known source of infection to indicate further continuation at this time. Check CRP and ESR along with B12 and Phos. BioFire negative blood cultures are pending TSH normal. VBG compensated without hypoxia. Chest CTA on 710 negative for PE shortness of breath noted with any exertion from walking to kitchen or bathroom. Heme-onc consult for further evaluation of hemoglobin anemia being possible cause of fatigue. Echo ordered as well to diagnose any underlying valvular disease. Initial troponin negative. BNP pending. PMH includes Crohns disease diagnosed 02/2003 (follows with Dr. Ernandez), Autoimmune Hemolytic Anemia Diagnosed 05/2018 (Follows with Dr. 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 Silvestre with pain management. Pt sitting upright in his hospital bed in no apparent distress. AAOx4 and able to answer all questions appropriately. No cough, fever or chills, changes with bowel or bladder function, recent falls or trauma. Pt will be admitted for further evaluation and management. Please see A/P for further details. Allergies Allergy/AdvReac Type Severity Reaction Status Date / Time fluoxetine Allergy Intermediate Hives Verified 02/04/23 16:24 mercaptopurine Allergy Intermediate FEVER, RASH Verified 02/04/23 16:24 pregabalin Allergy Intermediate Rash, Verified 02/04/23 16:24 hives , headaches blue dye AdvReac Intermediate Severe Verified 02/04/23 16:24 Headache duloxetine AdvReac Intermediate Severe Verified 02/04/23 16:24 Headache infliximab AdvReac Intermediate bp Verified 02/04/23 16:24 elevation niacin AdvReac Unknown Unknown Verified 02/04/23 16:24 Home Medications Medication Instructions Recorded Confirmed Type acetaminophen 325 mg tablet 650 mg PO Q6H PRN pain/fever 06/29/19 02/04/23 History (Tylenol) atorvastatin 40 mg tablet 40 mg PO DAILY 06/29/19 02/04/23 History cyanocobalamin (vitamin B-12) 1,000 mcg PO DAILY 06/29/19 02/04/23 History 1,000 mcg tablet (Vitamin B-12) diltiazem HCl 360 mg capsule,24 360 mg PO DAILY 06/29/19 02/04/23 History hr,extended release diphenoxylate-atropine 2.5 2 tab PO QAM 06/29/19 02/04/23 History mg-0.025 mg tablet (Lomotil) febuxostat 40 mg tablet (Uloric) 40 mg PO DAILY 06/29/19 02/04/23 History folic acid 1 mg tablet 2 mg PO TID 06/29/19 02/04/23 History gabapentin 800 mg tablet 800 mg PO BID 06/29/19 02/04/23 History hydralazine 50 mg tablet 100 mg PO BID 06/29/19 02/04/23 History pantoprazole 40 mg tablet,delayed 40 mg PO DAILY 06/29/19 02/04/23 History release ibuprofen 200 mg tablet (Advil) 400 mg PO Q6H PRN Pain 01/29/20 02/04/23 History telmisartan 20 mg tablet 20 mg PO DAILY 10/27/21 02/04/23 History acetaminophen-caffeine 500 mg-65 1 tab PO DIRECTED PRN Headache 02/17/22 02/04/23 History mg tablet (Excedrin Tension Headache) multivitamin-ferrous 1 tab PO DAILY 02/17/22 02/04/23 History fumarate-folic acid 18 mg-400 mcg tablet (Centrum) oxycodone-acetaminophen 5 mg-325 1 tab PO Q12 PRN Severe Pain 02/17/22 02/04/23 History mg tablet (Scale Score 7-10) amitriptyline 25 mg tablet 25 mg PO HS 01/29/23 02/04/23 History benzonatate 100 mg capsule 100 mg PO TID PRN cough #20 caps 01/29/23 02/04/23 Rx mesalamine 800 mg tablet,delayed 1,600 mg PO DAILY 01/29/23 02/04/23 History release prednisone 5 mg tablet 5 mg PO DAILY 01/29/23 02/04/23 History tadalafil 5 mg tablet 5 mg PO DAILY 01/29/23 02/04/23 History Past Med/Surg History Medical History (Updated 02/04/23 @ 21:01 by JULIA Best) Abdominal pain Benign essential hypertension (04/07/13) Crohn's disease Diarrhea Diverticulitis (04/07/13) Elevated PSA Fatigue GERD (gastroesophageal reflux disease) Hematochezia Hemolytic anemia Hyperlipidemia Hypertension Hyperuricemia Incisional hernia (04/07/13) Neuropathy (04/07/13) Neuropathy Pancreatitis Perforated bowel 2011 surgery Perforation of small intestine (04/07/13) Post-obstructive pneumonia due to foreign body aspiration 2011 Prostate cancer (09/11/19) Shingles (11/18/19) Sleep apnea 2016 SOB (shortness of breath) on exertion Surgical History S/P cholecystectomy S/P hernia repair S/P tonsillectomy Family History Father , age 86 Heart disease Prostate cancer Mother , age 68 Cancer patient states it was a female cancer Sister , age mid 70s from [place] No problems noted. Brother Cancer age 32 Melanoma Sister , age 72 Colorectal cancer Social History Smoking Status: Current some day smoker Tobacco Type: Cigars Cigarettes Per Day: occasional; Second Hand Exposure: No; Do You Dip or Chew Tobacco: No; Tobacco Cessation Education Requested by Patient: No Hx Alcohol Use: No Hx Substance Use: No Preferred Language: Estonian Communication Ability: Effective Personal Shopper Required: No Beliefs That Will Affect Care: None marital status: Current Living Situation: Spouse Other Information That Helps Us Care for You: No Feels Safe at Home: Yes Safety Concerns: Feels Safe At This Time Childhood Exposure to Second-Hand Smoke: Yes Assistive Devices: Cane Review of Systems Review of Systems: Neuro: (-) Falls, trauma, slurred speech HEENT: (-) ROMERO, dizziness, dysphagia, visual or auditory changes CV: (-) CP, palpitations, swelling Resp: (-) SOB GI: (-) appetite changes, N/V/D, bowel changes : (-) urinary changes Skin: (-) rashes Psych: (-) anxiety, depression Physical Exam Physical Exam: Neuro: AAOx4, PERRLA, no aphagia, memory changes, CNII-XII grossly intact HEENT: head normocephalic, moist mucus membranes CV: S1/S2, (-) M/G/R, (-) edema, cap refill < 3 seconds Resp: Lungs CTA in all [place]. On RA GI: Abdomen S/NT/ND, Ax4 bowel sounds, (-) CVA tenderness Musculoskeletal: 5/5 B/L UE strength, 5/5 B/L LE strength. No gait disturbance Skin: (-) rashes , (-) erythema. Psych: euthymic mood Results & Data Results & Data Vital Signs (Past 12 Hours) Vital Signs Temp Pulse Pulse Resp BP Pulse Ox O2 Del Method 02/04/23 16:59 94 02/04/23 16:59 84 15 96 Room Air 02/04/23 16:59 96 Room Air 02/04/23 16:21 84 02/04/23 14:53 36.8 C 87 22 132/72 98 Room Air 02/04/23 14:53 Room Air O2 Flow Rate 02/04/23 16:59 02/04/23 16:59 02/04/23 16:59 0 02/04/23 16:21 02/04/23 14:53 02/04/23 14:53 Laboratory Results Short CBC 02/04/23 Range/Units 15:10 WBC 14.97 H (4.8-10.8) K/ul Hgb 13.3 L (14.0-18.0) g/dl Hct 36.3 L (42.0-52.0) % Plt Count 269 (130-400) K/uL BMP 02/04/23 15:10 Sodium 139 Potassium 3.6 Chloride 106 Carbon Dioxide 25 BUN 21 Creatinine 0.91 Glucose 143 H Calcium 9.9 Liver Function 02/04/23 Range/Units 15:10 Total Bilirubin 1.9 H (0.2-1.0) mg/dl AST 27 (13-39) U/L ALT 26 (7-52) U/L Alkaline Phosphatase 90 (34-104) U/L Albumin 4.2 (3.4-5.0) gm/dl Diagnostic Findings Chest X-Ray 02/04/23 14:56 XR chest 1V not portable CLINICAL HISTORY: Chest pain, nonspecific TECHNIQUE: Single frontal radiograph of the chest was obtained. Comparison: Comparison is made to chest radiograph 01/29/2023 FINDINGS: No lines and tubes are seen. Calcified aortic knob is seen. Prominence and cephalization of the vasculature is seen. No evidence of pleural effusion or pneumothorax. IMPRESSION: No acute chest disease. ACT 112: Negative or not required by law. Electronically signed by: Paul Mckeon M.D. 02/04/2023 3:33 PM Code Status & VTE Plan Code Status Full code in the event of cardiac or respiratory arrest VTE Prophylaxis Plan VTE Prophylaxis will be ordered: Yes Supervising Physician Co-Signing Physician Notes I have seen and examined the patient and have discussed the case with the provider above. I agree with the assessment and plan as stated with the following exceptions. 67 yo M presents with 1.5 weeks of dyspnea with minimal exertion and extreme fatigue. He is eating and denies any changes in bowels with a h/o chrons disease. He has a subxiphoid pain present that he describes as a heartburn. He has a h/o AIHA without new anemia and TSH,B12 are WNL. Lungs are clear to auscultation and on imaging. Cardiac exam: S1/2 hears without murmurs, reg rate and rhythm and no edema. He is obese and oxygenating well on room air. He is developing tachypnea without significant hypoxia when he moves around in bed and takes time to recover. At baseline he can climb a flight of stairs without stopping. Echo pending. Also added monospot and acetylcholine receptor antibodies. If echo is within normal limits, would consider a GI consult to investigate this abdominal pain further. Also, may consider HIV. Appreciate Hematology thoughts regarding h/o AIHA. Cont to monitor him on telemetry. [place],
[2023-02-04 19:21] LABS: Base Excess ABG -0.4 mEq/L (-9-1.8); HCO3 ABG 23 mmol/L (19-24); PCO2 ABG 33 mmHg (35-46); PO2 ABG 86 mmHg (80-95); pH ABG 7.45 (7.35-7.45)
[2023-02-04 19:24] LABS: Allen Test POS (Pos)
[2023-02-04] MEDS: hydrALAZINE TAB 50 MG TAB PO SCH (21:28)
[2023-02-04] MEDS: FOLIC ACID 1 MG TAB PO SCH (21:28)
[2023-02-04] MEDS: GABAPENTIN 800 MG TAB PO SCH (21:28)
[2023-02-04 21:33] LABS: C Reactive Protein 0.61 mg/dl (0-0.5); Phosphorus 2.7 mg/dl (2.5-4.9)
[2023-02-04] MEDS ORDERED: DIPHENOXYLATE/ATROPINE 2.5/0.025MG TAB PO PRN (21:38)
[2023-02-05 06:39] LABS: Hematocrit (blood only) 30.6 % (42.0-52.0); Hemoglobin 11.2 g/dl (14.0-18.0); Mean Corpuscular Hemoglobin 31.3 pg (25.0-34.0); Mean Corpuscular Hgb Conc 36.6 g/dL (32.0-36.0); Mean Corpuscular Volume 85.5 fL (80.0-100.0); Mean Platelet Volume 9.3 fL (9.4-12.4); Platelet Count 217 K/uL (130-400); RDW Coefficient of Variation 18.5 % (11.5-14.5); RDW Standard Deviation 55.4 fL (36.4-46.3); Red Blood Count 3.58 M/uL (4.70-6.10); White Blood Count 12.87 K/ul (4.8-10.8)
[2023-02-05 06:55] LABS: Albumin Globulin Ratio 1.6 (0.9-2); Albumin Level 3.6 gm/dl (3.4-5.0); BUN Creatinine Ratio 23.3 (10-20); Bilirubin,Total 1.6 mg/dl (0.2-1.0); Calcium 9.2 mg/dl (8.6-10.3); Creatinine Clr Calc Pharmacy 120.4 ml/min; Est GFR (African American) 109.7 ml/min; Est GFR (Non-African American) 94.6 ml/min; Globulin 2.2 gm/dl (2.5-4.0); Potassium 3.6 mmol/L (3.5-5.1); Total Protein 5.8 gm/dl (6.0-8.3)
[2023-02-05] MEDS: ATORVASTATIN 40 MG TAB PO SCH (08:28)
[2023-02-05] MEDS: CYANOCOBALAMIN (B-12) 500 MCG TABLET PO SCH (08:29)
[2023-02-05] MEDS: dilTIAZem HCL 180 MG CAPCR PO SCH (08:29)
[2023-02-05] MEDS: FOLIC ACID 1 MG TAB PO SCH ×3 (08:29→21:08)
[2023-02-05] MEDS: PANTOprazole 40 MG TAB PO SCH (08:30)
[2023-02-05] MEDS: GABAPENTIN 800 MG TAB PO SCH ×2 (08:30→21:08)
[2023-02-05] MEDS: LOSARTAN POTASSIUM 25 MG TAB PO SCH (08:30)
[2023-02-05] MEDS: predniSONE 5 MG TAB PO SCH (08:30)
[2023-02-05] MEDS: MESALAMINE 800 MG TABCR PO SCH (08:30)
[2023-02-05] MEDS: hydrALAZINE TAB 50 MG TAB PO SCH ×2 (08:30→21:08)
[2023-02-05] MEDS ORDERED: DIPHENOXYLATE/ATROPINE 2.5/0.025MG TAB PO SCH (09:00)
[2023-02-05 09:26] LABS: Bilirubin Direct 0.4 mg/dl (0-0.2); Bilirubin,Total 1.9 mg/dl (0.2-1.0)
[2023-02-05 09:27] LABS: Reticulocyte % 5.6 % (0.5-2.0); Reticulocytes # 0.2 10^6/uL (0.02-0.10)
--- NOTE | 2023-02-05 12:49 | Electrocardiogram Report ---
Test Reason : Blood Pressure : / mmHG Vent. Rate : 094 BPM Atrial Rate : 094 BPM P-R Int : 174 ms QRS Dur : 088 ms QT Int : 356 ms P-R-T Axes : 032 -16 044 degrees QTc Int : 445 ms Sinus rhythm with frequent Premature ventricular complexes Cannot rule out Anterior infarct , age undetermined Abnormal ECG When compared with ECG of 29-JAN-2023 15:29, Premature ventricular complexes are now Present Confirmed by George Mcfadden ([id number]) on 02/05/2023 12:49:20 PM Referred By: Confirmed By:George Mcfadden
--- NOTE | 2023-02-05 14:35 | Oncology Consultation ---
Date of Consultation February 05, 2023 Assessment & Plan (1) SOB (shortness of breath): (2) Fatigue: (3) Hemolytic anemia: Plan Gentleman with history of warm autoimmune hemolytic anemia who presented with shortness of breath and fatigue. Labs on admission revealed normal hemoglobin/hematocrit. Repeat labs obtained today revealed slight decrease in his baseline hemoglobin to 11.2. Although his bilirubin is slightly elevated at 1.9, LDH is normal and peripheral smear review was not suggestive of acute hemolytic process. Would recommend close monitoring of hemoglobin and hematocrit as well as LDH. If hemoglobin continues to decline and LDH is increases, recommend starting methylprednisolone 1 mg/kg/day IV for relapse of warm autoimmune hemolytic anemia. He would also likely require bone marrow biopsy at that time. In the meantime, would also recommend considering obtain ing work-up for other causes of shortness of breath and fatigue since hemoglobin is not significantly low. -Continued monitoring with daily hemoglobin, hematocrit, reticulocyte count, bilirubin and LDH -If hemoglobin declines below 11g/dl or LDH becomes abnormal would recommend starting IV methylprednisolone 1 mg/kg/day and obtaining bone marrow biopsy -Folic acid 1 mg p.o. daily Thank you for this consult. Hematology will continue following patient in the hospital. Please feel free to call if you have any further questions History of Present Illness Reason for Consultation: History of autoimmune hemolytic anemia Attending Physician: Leila García MD History of Present Illness Pleasant 67-year-old gentleman with longstanding history of warm autoimmune hemolytic anemia which was initially diagnosed in 2016 for which he has required intermittent treatment with prednisone as well as IV rituximab. He most recently required high-dose steroids in October, at which time hemoglobin had decreased to 11.6 with elevated total bilirubin of 1.9 and LDH of 264. He responded adequately to prednisone 1 mg/kg/day with improvement of hemoglobin to 14.7 and normalization of LDH on labs obtained on 01/15/2023 revealing hemoglobin of 14.7. He presented to [facility] yesterday with complaints of worsening shortness of breath and fatigue. CTA chest obtained on admission was unremarkable. Labs obtained on admission revealed hemoglobin of 13.3. Repeat CBC obtained today revealed drop in hemoglobin to 11.2. Of note, reticulocyte count was 0.2 and LDH was normal at 214, total bilirubin of 1.9 and haptoglobin pending at the time of today's visit. He states that symptoms started a couple of weeks ago. Denies any other issues Allergies Allergy/AdvReac Type Severity Reaction Status Date / Time fluoxetine Allergy Intermediate Hives Verified 02/04/23 16:24 mercaptopurine Allergy Intermediate FEVER, RASH Verified 02/04/23 16:24 pregabalin Allergy Intermediate Rash, Verified 02/04/23 16:24 hives , headaches blue dye AdvReac Intermediate Severe Verified 02/04/23 16:24 Headache duloxetine AdvReac Intermediate Severe Verified 02/04/23 16:24 Headache infliximab AdvReac Intermediate bp Verified 02/04/23 16:24 elevation niacin AdvReac Unknown Unknown Verified 02/04/23 16:24 Home Medications Medication Instructions Recorded Confirmed Type acetaminophen 325 mg tablet 650 mg PO Q6H PRN pain/fever 06/29/19 02/04/23 History (Tylenol) atorvastatin 40 mg tablet 40 mg PO DAILY 06/29/19 02/04/23 History cyanocobalamin (vitamin B-12) 1,000 mcg PO DAILY 06/29/19 02/04/23 History 1,000 mcg tablet (Vitamin B-12) diltiazem HCl 360 mg capsule,24 360 mg PO DAILY 06/29/19 02/04/23 History hr,extended release diphenoxylate-atropine 2.5 2 tab PO QAM 06/29/19 02/04/23 History mg-0.025 mg tablet (Lomotil) febuxostat 40 mg tablet (Uloric) 40 mg PO DAILY 06/29/19 02/04/23 History folic acid 1 mg tablet 2 mg PO TID 06/29/19 02/04/23 History gabapentin 800 mg tablet 800 mg PO BID 06/29/19 02/04/23 History hydralazine 50 mg tablet 100 mg PO BID 06/29/19 02/04/23 History pantoprazole 40 mg tablet,delayed 40 mg PO DAILY 06/29/19 02/04/23 History release ibuprofen 200 mg tablet (Advil) 400 mg PO Q6H PRN Pain 01/29/20 02/04/23 History telmisartan 20 mg tablet 20 mg PO DAILY 10/27/21 02/04/23 History acetaminophen-caffeine 500 mg-65 1 tab PO DIRECTED PRN Headache 02/17/22 02/04/23 History mg tablet (Excedrin Tension Headache) multivitamin-ferrous 1 tab PO DAILY 02/17/22 02/04/23 History fumarate-folic acid 18 mg-400 mcg tablet (Centrum) oxycodone-acetaminophen 5 mg-325 1 tab PO Q12 PRN Severe Pain 02/17/22 02/04/23 History mg tablet (Scale Score 7-10) amitriptyline 25 mg tablet 25 mg PO HS 01/29/23 02/04/23 History benzonatate 100 mg capsule 100 mg PO TID PRN cough #20 caps 01/29/23 02/04/23 Rx mesalamine 800 mg tablet,delayed 1,600 mg PO DAILY 01/29/23 02/04/23 History release prednisone 5 mg tablet 5 mg PO DAILY 01/29/23 02/04/23 History tadalafil 5 mg tablet 5 mg PO DAILY 01/29/23 02/04/23 History Patient History Medical History Abdominal pain Benign essential hypertension (04/07/13) Crohn's disease Diarrhea Diverticulitis (04/07/13) Elevated PSA Fatigue GERD (gastroesophageal reflux disease) Hematochezia Hemolytic anemia Hyperlipidemia Hypertension Hyperuricemia Incisional hernia (04/07/13) Neuropathy (04/07/13) Neuropathy Pancreatitis Perforated bowel 2011 surgery Perforation of small intestine (04/07/13) Post-obstructive pneumonia due to foreign body aspiration 2011 Prostate cancer (09/11/19) Shingles (11/18/19) Sleep apnea 2016 SOB (shortness of breath) on exertion Surgical History S/P cholecystectomy S/P hernia repair S/P tonsillectomy Family History Father , age 86 Heart disease Prostate cancer Mother , age 68 Cancer patient states it was a female cancer Sister , age mid 70s from [place] No problems noted. Brother Cancer age 32 Melanoma Sister , age 72 Colorectal cancer Social History Smoking Status: Current some day smoker Tobacco Type: Cigars Cigarettes Per Day: occasional; Second Hand Exposure: No; Do You Dip or Chew Tobacco: No; Tobacco Cessation Education Requested by Patient: No Hx Alcohol Use: No Hx Substance Use: No Preferred Language: Maltese Communication Ability: Effective Marketing Communications Assistant Required: No Beliefs That Will Affect Care: None marital status: Current Living Situation: Spouse Other Information That Helps Us Care for You: No Feels Safe at Home: Yes Safety Concerns: Feels Safe At This Time Childhood Exposure to Second-Hand Smoke: Yes Assistive Devices: Cane Results & Data Vital Signs (Past 12 Hours) Vital Signs Temp Pulse Pulse Resp BP Pulse Ox O2 Del Method 02/05/23 11:34 36.4 C L 75 18 128/85 95 Room Air 02/05/23 09:00 Room Air 02/05/23 09:00 85 02/05/23 07:45 36.8 C 90 18 121/73 96 Room Air 02/05/23 03:00 36.5 C 89 17 106/53 L 97 Room Air (2) Fatigue Fatigue type: unspecified Qualified Code(s): R53.83 - Other fatigue
--- NOTE | 2023-02-05 15:24 | Hospitalist Progress Note ---
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 At presentation, Lyme's negative, anaplasmosis pending, leukocytosis 14.97, 1 dose Rocephin given in ED however no known source of infection to indicate further continuation at this time. Patient with known autoimmune hemolytic anemia and Crohn's disease. Does have known sleep apnea without CPAP use at home. PMH includes Crohns disease diagnosed 02/2003 (follows with Dr. Ernandez), Autoimmune Hemolytic Anemia Diagnosed 05/2018 (Follows with Dr. 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 Silvestre with pain manage ment. 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 01/29 CTA chest negative for PE; 4 mm pulmonary nodule that he has followed with pulmonary in [place] yearly Patient denies history of COPD/asthma/CHF. Patient denies any cough or flulike illness or black/bloody stool or swelling of the limbs. Patient does report smoking 1 to 2 cigars a day during good weather season, since 2002. At admission: CXR with no acute findings. WBC appears chronically elevated [likely secondary to chronic steroid use]. Retic 5.6%, haptoglobin pending, Procal, TSH, folate/B12 level, ESR and LDH normal, indirect bilirubin slightly elevated. ABG without hypoxemia on room air. BNP and troponin normal. EKG with sinus rhythm with PVCs. Admitting viral panel and tick serology: Either negative or pending. 02/05 echo with EF of 60 to 65%, no pulmonary hypertension, no significant valvular disease, grade 1 diastolic dysfunction, mild concentric LVH. Hemoglobin of 13.3 at admission, 11.2 today, H&H every 12 hours or as needed. No signs of infection, monitor of electrolytes. Follow admitting blood culture, pending. Hematology on board, await recommendation. PT/OT Crohn's disease: Diagnosed 02/2003; follows with Dr. Ernandez with GI. Takes mesalamine; continue Autoimmune hemolytic anemia: Diagnosed 05/2016; follows with Dr. Lopez; consult heme-onc for further guidance. HTN: Takes diltiazem and hydralazine; continue HLD: Takes atorvastatin; continue JUDY: Does not wear CPAP despite being recommended Disposition: PCP Dr. Healy with [facility] CODE STATUS: Full code VTE prophylaxis: Lovenox SQ Admission and Anticipated Discharge Date Admission Date: February 04, 2023 Subjective Patient was seen and examined at bedside as a follow-up of easy fatigability/shortness of breath on exertion without hypoxia. Patient was lying in bed, on room air, NAD, reports shortness of breath with ex ertion, none at rest, denies any blood in the stool or black stool, denies any fever or chills or cough in the last 1 week, denies any acute changes in his bladder or bowel habits, denies any history of asthma or COPD or CHF in the past. Denies any chest pain or palpitation. Reports eating okay. Physical Exam Physical Exam: GENERAL: Alert and oriented x3. NAD, on RA. Obese class I. HEENT: No pallor, no icterus. Pupils equal, round and reactive to light. Oral mucosa moist. NECK: No JVD, no neck masses. HEART: S1 and S2 heard. Regular rate and rhythm. No murmur, no gallop. RESPIRATORY SYSTEM: Normal AP diameter. No accessory muscle use. No wheezing, no crackles. ABDOMEN: Soft, bowel sounds present, nontender, no distention. CENTRAL NERVOUS SYSTEM: No facial droop. Speech is clear. Obeys simple commands. Moves extremities. EXTREMITIES: No edema, no erythema seen. Results & Data Results & Data Vital Signs (Past 12 Hours) Vital Signs Temp Pulse Pulse Resp BP Pulse Ox O2 Del Method 02/05/23 11:34 36.4 C L 75 18 128/85 95 Room Air 02/05/23 09:00 Room Air 02/05/23 09:00 85 02/05/23 07:45 36.8 C 90 18 121/73 96 Room Air
[2023-02-05 16:33] LABS: Hematocrit (blood only) 30.6 % (42.0-52.0); Hemoglobin 11.1 g/dl (14.0-18.0)
[2023-02-05] MEDS ORDERED: MELATONIN 3 MG TAB PO PRN (19:28)
[2023-02-05] MEDS: AMITRIPTYLINE HCL 25 MG TAB PO SCH (21:08)
[2023-02-06 07:20] LABS: Hematocrit (blood only) 29.4 % (42.0-52.0); Mean Corpuscular Hemoglobin 31.4 pg (25.0-34.0); Mean Corpuscular Hgb Conc 37.4 g/dL (32.0-36.0); Mean Platelet Volume 9.2 fL (9.4-12.4); Platelet Count 219 K/uL (130-400); RDW Coefficient of Variation 19.3 % (11.5-14.5); RDW Standard Deviation 55.8 fL (36.4-46.3); White Blood Count 13.95 K/ul (4.8-10.8)
[2023-02-06 07:42] LABS: BUN Creatinine Ratio 25.6 (10-20); Calcium 9.3 mg/dl (8.6-10.3); Creatinine Clr Calc Pharmacy 112.7 ml/min; Est GFR (African American) 106.7 ml/min; Est GFR (Non-African American) 92.1 ml/min; Magnesium 1.8 mg/dl (1.7-2.4); Phosphorus 3.7 mg/dl (2.5-4.9); Potassium 3.7 mmol/L (3.5-5.1)
[2023-02-06] MEDS: dilTIAZem HCL 180 MG CAPCR PO SCH (08:32)
[2023-02-06] MEDS: PANTOprazole 40 MG TAB PO SCH (08:32)
[2023-02-06] MEDS: LOSARTAN POTASSIUM 25 MG TAB PO SCH (08:32)
[2023-02-06] MEDS: predniSONE 5 MG TAB PO SCH (08:32)
[2023-02-06] MEDS: MESALAMINE 800 MG TABCR PO SCH (08:32)
[2023-02-06] MEDS: CYANOCOBALAMIN (B-12) 500 MCG TABLET PO SCH (08:32)
[2023-02-06] MEDS: FOLIC ACID 1 MG TAB PO SCH ×3 (08:32→21:36)
[2023-02-06] MEDS: GABAPENTIN 800 MG TAB PO SCH ×2 (08:32→21:34)
[2023-02-06] MEDS: hydrALAZINE TAB 50 MG TAB PO SCH ×2 (08:32→21:33)
[2023-02-06] MEDS: ATORVASTATIN 40 MG TAB PO SCH (08:32)
--- NOTE | 2023-02-06 10:05 | Cardiology Consultation ---
Date of Consultation February 06, 2023 Assessment & Plan (1) Chest pain: (2) SOB (shortness of breath) on exertion: (3) Hypertension: (4) Premature ventricular contraction: Plan IMPRESSION: 67-year-old male without significant prior cardiac history presented to [facility] emergency department due to exertional chest pain and shortness of breath x2 weeks. Pulmonary work-up has been unremarkable. Resting Echocardiogram revealing a preserved LV systolic function without significant valvular disease. EKG without concerning ST segment changes, frequent PVCs noted. PLAN: -Will make NPO for stress testing to rule out ischemic cause to his symptoms. Due to orthopedic limitations regarding to his left lower extremity neuropathy, will proceed with dobutamine stress echo. -Blood pressures controlled. Continue Losartan and hydralazine as ordered. Patient also on Diltiazem 360 mg as an outpatient for HTN vs PVCs Case discussed with Dr. Lake. Supervising Physician Co-Signing Physician Notes Patient was seen and examined, chart, medications, telemetry reviewed. Findings notable for occasional ventricular ectopy only on telemetry. No tachycardia or bradycardia arrhythmias. Exam morbidly obese age-appropriate male no acute distress Lungs clear with mildly diminished breath sound Cardiovascular exam regular no audible murmur rub Impression: Atypical chest discomfort Dobutamine stress echocardiography as noted ordered and subsequent study demonstrating no evidence of ischemia by EKG or echocardiographic criteria with hyperdynamic function observed. Patient aware of ventricular ectopy with PVCs resolving at higher heart rates No signs of myocardial ischemia History of Present Illness Reason for Consultation: Chest pain/shortness of breath Hypertension Requesting Physician: Brenda freeman Attending Physician: Leila García MD History of Present Illness 67-year-old male who presented to [facility] emergency department due to concerns of exertional chest pain and shortness of breath. Chest pain described as an indigestion type symptom that occurs only with exertion. Symptoms are accompanied by shortness of breath and low stamina. Has been ongoing for 2 weeks. No palpitations. No lightheadedness or dizziness. Denies orthopnea or PND. No lower extremity edema or abdominal bloating. Occasional cigar smoker. No alcohol use or illicit drug use. Denies any prior cardiac history. No history rheumatic fever. Does mention left leg neuropathy and utilizes a cane to walk. No recent falls. Echocardiogram 02/05: LVEF 60 to 65% without wall motion abnormalities. Mild concentric LVH. Grade 1 diastolic dysfunction. No significant valvular disease. No pulmonary hypertension Telemetry: Sinus rhythm with PVCs, 80 bpm Was recently seen in the emergency department with similar concerns on 01/29, at this time a D-dimer was elevated but CT scan was negative for PE. Moderate coronary artery calcifications noted. At presentation, Lyme's negative, anaplasmosis negative, leukocytosis 14.97, 1 dose Rocephin given in ED however no known source of infection to indicate further continuation at this time. Past medical history: Autoimmune hemolytic anemia, Diagnosed 05/2018 (Follows with Dr. Lopez) Crohn's disease, diagnosed 02/2003 (follows with Dr. 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- done for chest pain at [facility] Allergies Allergy/AdvReac Type Severity Reaction Status Date / Time fluoxetine Allergy Intermediate Hives Verified 02/04/23 16:24 mercaptopurine Allergy Intermediate FEVER, RASH Verified 02/04/23 16:24 pregabalin Allergy Intermediate Rash, Verified 02/04/23 16:24 hives , headaches blue dye AdvReac Intermediate Severe Verified 02/04/23 16:24 Headache duloxetine AdvReac Intermediate Severe Verified 02/04/23 16:24 Headache infliximab AdvReac Intermediate bp Verified 02/04/23 16:24 elevation niacin AdvReac Unknown Unknown Verified 02/04/23 16:24 Home Medications Medication Instructions Recorded Confirmed Type acetaminophen 325 mg tablet 650 mg PO Q6H PRN pain/fever 06/29/19 02/04/23 History (Tylenol) atorvastatin 40 mg tablet 40 mg PO DAILY 06/29/19 02/04/23 History cyanocobalamin (vitamin B-12) 1,000 mcg PO DAILY 06/29/19 02/04/23 History 1,000 mcg tablet (Vitamin B-12) diltiazem HCl 360 mg capsule,24 360 mg PO DAILY 06/29/19 02/04/23 History hr,extended release diphenoxylate-atropine 2.5 2 tab PO QAM 06/29/19 02/04/23 History mg-0.025 mg tablet (Lomotil) febuxostat 40 mg tablet (Uloric) 40 mg PO DAILY 06/29/19 02/04/23 History folic acid 1 mg tablet 2 mg PO TID 06/29/19 02/04/23 History gabapentin 800 mg tablet 800 mg PO BID 06/29/19 02/04/23 History hydralazine 50 mg tablet 100 mg PO BID 06/29/19 02/04/23 History pantoprazole 40 mg tablet,delayed 40 mg PO DAILY 06/29/19 02/04/23 History release ibuprofen 200 mg tablet (Advil) 400 mg PO Q6H PRN Pain 01/29/20 02/04/23 History telmisartan 20 mg tablet 20 mg PO DAILY 10/27/21 02/04/23 History acetaminophen-caffeine 500 mg-65 1 tab PO DIRECTED PRN Headache 02/17/22 02/04/23 History mg tablet (Excedrin Tension Headache) multivitamin-ferrous 1 tab PO DAILY 02/17/22 02/04/23 History fumarate-folic acid 18 mg-400 mcg tablet (Centrum) oxycodone-acetaminophen 5 mg-325 1 tab PO Q12 PRN Severe Pain 02/17/22 02/04/23 History mg tablet (Scale Score 7-10) amitriptyline 25 mg tablet 25 mg PO HS 01/29/23 02/04/23 History benzonatate 100 mg capsule 100 mg PO TID PRN cough #20 caps 01/29/23 02/04/23 Rx mesalamine 800 mg tablet,delayed 1,600 mg PO DAILY 01/29/23 02/04/23 History release prednisone 5 mg tablet 5 mg PO DAILY 01/29/23 02/04/23 History tadalafil 5 mg tablet 5 mg PO DAILY 01/29/23 02/04/23 History Patient History Medical History Abdominal pain Benign essential hypertension (04/07/13) Crohn's disease Diarrhea Diverticulitis (04/07/13) Elevated PSA Fatigue GERD (gastroesophageal reflux disease) Hematochezia Hemolytic anemia Hyperlipidemia Hypertension Hyperuricemia Incisional hernia (04/07/13) Neuropathy (04/07/13) Neuropathy Pancreatitis Perforated bowel 2011 surgery Perforation of small intestine (04/07/13) Post-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 Beliefs That Will Affect Care: None marital status: Current Living Situation: Spouse Other Information That Helps Us Care for You: No Feels Safe at Home: Yes Safety Concerns: Feels Safe At This Time Childhood Exposure to Second-Hand Smoke: Yes Assistive Devices: Cane Review of Systems Review of Systems: All systems reviewed & are unremarkable except as noted in HPI & below Physical Exam Constitutional: WD/WN, vitals as above Eyes: PERRL, conjunctivae normal, anicteric sclerae Neck: normal visual inspection and trachea midline Respiratory: normal respiratory effort, lungs clear to auscultation Cardiovascular: RRR, no murmur, no edema Heart Sounds: normal S1 and normal S2; no murmur Vessels: no JVD Extremities: no edema Gastrointestinal (Abdomen): normal bowel sounds, soft, nontender, no hepatosplenomegaly Skin: no rashes, warm and dry Psychiatric: A+Ox3, euthymic affect Results & Data Vital Signs (Past 12 Hours) Vital Signs Temp Pulse Pulse Resp BP Pulse Ox O2 Del Method 02/06/23 07:36 68 02/06/23 07:35 36.6 C 40 L 18 186/78 H 97 Room Air 02/06/23 03:10 36.9 C 68 18 158/98 H 96 Room Air 02/05/23 22:12 75 02/05/23 22:05 36.5 C 80 18 142/77 H 96 Room Air 02/05/23 22:45 Room Air Laboratory Results Cardiac Enzymes 02/06/23 Range/Units 10:32 Lactate Dehydrogenase 198 (86-244) U/L CBC 02/05/23 02/06/23 Range/Units 15:46 06:47 WBC 13.95 H (4.8-10.8) K/ul RBC 3.50 L (4.70-6.10) M/uL Hgb 11.1 L 11.0 L (14.0-18.0) g/dl Hct 30.6 L 29.4 L (42.0-52.0) % Plt Count 219 (130-400) K/uL Comprehensive Metabolic Panel 02/06/23 02/06/23 Range/Units 06:47 10:32 Sodium 140 (136-145) mmol/L Potassium 3.7 (3.5-5.1) mmol/L Chloride 109 H (98-107) mmol/L Carbon Dioxide 23 (21-32) mmol/L BUN 20 (6-23) mg/dl Creatinine 0.78 (0.6-1.4) mg/dl Glucose 113 H (70-99(Fasting)) mg/dl Calcium 9.3 (8.6-10.3) mg/dl Direct Bilirubin 0.4 H (0-0.2) mg/dl Intake and Output 02/05/23 02/06/23 02/06/23 22:59 06:59 14:59 Intake Total 240 / 240 Output Total Balance - 240 / 239 Intake: Oral 240 / 240 Output: # Bowel Movements
[2023-02-06 11:04] LABS: Bilirubin Direct 0.4 mg/dl (0-0.2); Bilirubin,Total 1.6 mg/dl (0.2-1.0)
[2023-02-06] MEDS ORDERED: ATROPINE SULFATE 0.1 MG/ML 10ML SYR IV ONE (13:07)
[2023-02-06] MEDS ORDERED: METOPROLOL TARTRATE 1 MG/ML VIAL IV ONE (13:07)
[2023-02-06] MEDS ORDERED: DOBUTamine HCL 12.5 MG/ML 20 ML VIAL IV ONE (13:07)
--- NOTE | 2023-02-06 15:18 | Hospitalist Progress Note ---
Date of Service February 06, 2023 Assessment & Plan (1) Fatigue: (2) SOB (shortness of breath) on exertion: (3) Crohn's disease: (4) Hemolytic anemia: (5) Hypertension: (6) Hyperlipidemia: (7) Sleep apnea: Plan 67-year-old with persistent fatigue and exhaustion coupled with shortness of breath with exertion that has been persistent over the past week [place]. Patient seen in [facility] ED 6 days ago [place], D-dimer was elevated and CTA Chest negative for PE. At presentation, Lyme's negative, anaplasmosis pending, leukocytosis 14.97, 1 dose Rocephin given in ED however no known source of infection to indicate further continuation at this time. Patient with known autoimmune hemolytic anemia and Crohn's disease. Does have known sleep apnea without CPAP use at home. PMH includes Crohns disease diagnosed 02/2003 (follows with Dr. Ernandez), Autoimmune Hemolytic Anemia Diagnosed 05/2018 (Follows with Dr. 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 Silvestre with pain manage ment. He is being managed for the following: Easy Fatigability Dyspnea on Exertion Patient presented with shortness of breath with exertion from walking for about 1.5 weeks [place]AY [place]RI[place], no shortness of breath at rest. 01/29 CTA chest negative for PE; 4 mm pulmonary nodule that he has followed with pulmonary in [place] yearly Patient denies history of COPD/asthma/CHF. Patient denies any cough or flulike illness or black/bloody stool or swelling of the limbs. Patient does report smoking 1 to 2 cigars a day during good weather season, since 2002. At admission: CXR with no acute findings. WBC appears chronically elevated [likely secondary to chronic steroid use]. Retic 5.6%, haptoglobin pending, Procal, TSH, folate/B12 level, ESR and LDH normal, indirect bilirubin slightly elevated. ABG without hypoxemia on room air. BNP and troponin normal. EKG with sinus rhythm with PVCs. Admitting viral panel and tick serology: Either negative or pending. 02/05 echo with EF of 60 to 65%, no pulmonary hypertension, no significant valvular disease, grade 1 diastolic dysfunction, mild concentric LVH. Hemoglobin of 13.3 at admission, 11.2 today, H&H every 12 hours or as needed. No signs of infection, monitor of electrolytes. Follow admitting blood culture, pending. Hematology on board, appreciate recommendation. Patient also with chest tightness and dyspnea with exertion, cardiology consult, plan for ischemic work-up. PT/OT Will get nocturnal pulse ox to see if he is dropping O2 at night affecting quality of his resting period. Crohn's disease: Diagnosed 02/2003; follows with Dr. Ernandez with GI. Takes mesalamine; continue Autoimmune hemolytic anemia: Diagnosed 05/2016; follows with Dr. Lopez; consulted heme-onc for further guidance. HTN: Takes diltiazem and hydralazine; continue HLD: Takes atorvastatin; continue JUDY: Does not wear CPAP despite being recommended Disposition: PCP Dr. Healy with [facility] CODE STATUS: Full code VTE prophylaxis: Lovenox SQ Admission and Anticipated Discharge Date Admission Date: February 04, 2023 Subjective Patient was seen and examined at bedside as a follow-up of easy fatigability/shortness of breath on exertion without hypoxia. Patient was lying in bed, on room air, NAD, reports shortness of breath with exertion, none at rest, denies any blood in the stool or black stool, denies any fever or chills or cough in the last 1 week, denies any acute changes in his bladder or bowel habits, denies any history of asthma or COPD or CHF in the past. Denies any chest pain or palpitation. Reports eating okay. denies any improvement in his shortness of breath discussed with cardiology, plan for stress test. Physical Exam Physical Exam: GENERAL: Alert and oriented x3. NAD, on RA. Obese class I. HEENT: No pallor, no icterus. Pupils equal, round and reactive to light. Oral mucosa moist. NECK: No JVD, no neck masses. HEART: S1 and S2 heard. Regular rate and rhythm. No murmur, no gallop. RESPIRATORY SYSTEM: Normal AP diameter. No accessory muscle use. No wheezing, no crackles. ABDOMEN: Soft, bowel sounds present, nontender, no distention. CENTRAL NERVOUS SYSTEM: No facial droop. Speech is clear. Obeys simple commands. Moves extremities. EXTREMITIES: No edema, no erythema seen. Results & Data Results & Data Vital Signs (Past 12 Hours) Vital Signs Temp Pulse Pulse Resp BP Pulse Ox Pulse Ox 02/06/23 14:57 36.4 C L 65 18 118/69 95 02/06/23 13:18 97 02/06/23 10:57 36.6 C 85 18 130/66 96 02/06/23 07:36 68 02/06/23 07:35 36.6 C 40 L 18 186/78 H 97 O2 Del Method O2 Flow Rate 02/06/23 14:57 Room Air 02/06/23 13:18 0 02/06/23 10:57 Room Air 02/06/23 07:36 02/06/23 07:35 Room Air
--- NOTE | 2023-02-06 15:35 | Electrocardiogram Report ---
Test Reason : Blood Pressure : / mmHG Vent. Rate : 079 BPM Atrial Rate : 079 BPM P-R Int : 192 ms QRS Dur : 086 ms QT Int : 370 ms P-R-T Axes : 044 000 050 degrees QTc Int : 424 ms Sinus rhythm with frequent Premature ventricular complexes Otherwise normal ECG When compared with ECG of 04-FEB-2023 15:11, No significant change was found Confirmed by George Mcfadden ([id number]) on 02/06/2023 3:35:22 PM Referred By: Polly Healy Confirmed By:George Mcfadden
[2023-02-06] MEDS: AMITRIPTYLINE HCL 25 MG TAB PO SCH (21:35)
[2023-02-07] MEDS: dilTIAZem HCL 180 MG CAPCR PO SCH (07:42)
[2023-02-07] MEDS: predniSONE 5 MG TAB PO SCH (07:42)
[2023-02-07] MEDS: FOLIC ACID 1 MG TAB PO SCH ×3 (07:43→20:30)
[2023-02-07] MEDS: hydrALAZINE TAB 50 MG TAB PO SCH ×2 (07:43→20:30)
[2023-02-07] MEDS: GABAPENTIN 800 MG TAB PO SCH ×2 (07:43→20:30)
[2023-02-07] MEDS: CYANOCOBALAMIN (B-12) 500 MCG TABLET PO SCH (07:43)
[2023-02-07] MEDS: PANTOprazole 40 MG TAB PO SCH (07:43)
[2023-02-07] MEDS: ATORVASTATIN 40 MG TAB PO SCH (07:43)
[2023-02-07] MEDS: LOSARTAN POTASSIUM 25 MG TAB PO SCH (07:43)
[2023-02-07] MEDS: MESALAMINE 800 MG TABCR PO SCH (07:43)
[2023-02-07 07:52] LABS: Hematocrit (blood only) 30.3 % (42.0-52.0); Hemoglobin 11.1 g/dl (14.0-18.0); Mean Corpuscular Hgb Conc 36.6 g/dL (32.0-36.0); Mean Corpuscular Volume 87.3 fL (80.0-100.0); Mean Platelet Volume 9.2 fL (9.4-12.4); Nucleated RBC # (auto) 0.02 K/uL (0-0.12); Nucleated RBC % (auto) 0.1 %; Platelet Count 249 K/uL (130-400); RDW Coefficient of Variation 20.2 % (11.5-14.5); RDW Standard Deviation 59.1 fL (36.4-46.3); Red Blood Count 3.47 M/uL (4.70-6.10)
[2023-02-07 08:01] LABS: BUN Creatinine Ratio 19.8 (10-20); Calcium 9.4 mg/dl (8.6-10.3); Creatinine Clr Calc Pharmacy 102.2 ml/min; Est GFR (African American) 102.5 ml/min; Est GFR (Non-African American) 88.5 ml/min; Magnesium 1.9 mg/dl (1.7-2.4); Phosphorus 3.2 mg/dl (2.5-4.9); Potassium 3.7 mmol/L (3.5-5.1)
--- NOTE | 2023-02-07 08:21 | Communication Note ---
Date of Service: February 07, 2023 This is a 67-year-old male without significant prior cardiac history who presented to [facility] emergency department due to exertional chest pain and shortness of breath x2 weeks. Prior pulmonary work-up has been unremarkable. Resting echocardiogram revealed a preserved LV systolic function without significant valvular disease. Dobutamine stress test performed yesterday was nonischemic. Patient has a known history of occasional/frequent PVCs-asymptomatic. Cardiac work-up has been unremarkable thus far. No further cardiac testing warranted at this time. Would recommend follow-up with his PCP at discharge. Continue all cardiac medications as ordered. Case discussed with Dr. Lake. Patient seen and examined. Stress testing as noted above unremarkable no arrhythmias than ventricular ectopy on telemetry. No changes made medical therapies. Noted available for outpatient follow-up for possible optimization of medical regimen
--- NOTE | 2023-02-07 10:17 | Hospitalist Progress Note ---
Date of Service February 07, 2023 Assessment & Plan (1) Fatigue: (2) SOB (shortness of breath) on exertion: (3) Crohn's disease: (4) Hemolytic anemia: (5) Hypertension: (6) Hyperlipidemia: (7) Sleep apnea: Plan 67-year-old with persistent fatigue and exhaustion coupled with shortness of breath with exertion that has been persistent over the past week ASBESTOS REMOVER. Patient seen in [facility] ED 6 days ago [facility]BEST[facility] REMOVER, D-dimer was elevated and CTA Chest negative for PE. At presentation, Lyme's negative, anaplasmosis pending, leukocytosis 14.97, 1 dose Rocephin given in ED however no known source of infection to indicate further continuation at this time. Patient with known autoimmune hemolytic anemia and Crohn's disease. Does have known sleep apnea without CPAP use at home. PMH includes Crohns disease diagnosed 02/2003 (follows with Dr. Ernandez), Autoimmune Hemolytic Anemia Diagnosed 05/2018 (Follows with Dr. 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 Silvestre with pain manag ement. He is being managed for the following: Easy Fatigability Dyspnea on Exertion Patient presented with shortness of breath with exertion from walking for about 1.5 weeks ASBESTOS REMOVER, no shortness of breath at rest. 01/29 CTA chest negative for PE; 4 mm pulmonary nodule that he has followed with pulmonary in [place] yearly Patient denies history of COPD/asthma/CHF. Patient denies any cough or flulike illness or black/bloody stool or swelling of the limbs. Patient does report smoking 1 to 2 cigars a day during good weather season, since 2002. At admission: CXR with no acute findings. WBC appears chronically elevated [likely secondary to chronic steroid use]. Retic 5.6%, haptoglobin 177 (wnl), Procal, TSH, folate/B12 level, ESR and LDH normal, indirect bilirubin slightly elevated. ABG without hypoxemia on room air. BNP and troponin normal. EKG with sinus rhythm with PVCs. Admitting viral panel and tick serology: Either negative or pending. 02/05 echo with EF of 60 to 65%, no pulmonary hypertension, no significant valvular disease, grade 1 diastolic dysfunction, mild concentric LVH. Hemoglobin of 13.3 at admission, 11.2 today, H&H every 12 hours or as needed. No signs of infection, monitor of electrolytes. Follow admitting blood culture, pending. so far negative. Hematology consulted, appreciate recommendation. Patient also with chest tightness and dyspnea with exertion, cardiology consult, plan for ischemic work-up. Stress test obtained and negative. PT/OT Nocturnal pulse ox obtained - one desat event, one pulse event. 02/07 - Discussed w/ cardiology - Resting echocardiogram revealed a preserved LV systolic function without significant valvular disease. Dobutamine stress test performed yesterday was nonischemic. Patient has a known history of occasional/frequent PVCs-asymptomatic. Cardiac work-up has been unremarkable thus far. No further cardiac testing warranted at this time. Would recommend follow-up with his PCP at discharge. Continue all cardiac medications as ordered. no arrhythmias than ventricular ectopy on telemetry. Noted available for outpatient follow-up for possible optimization of medical regimen Crohn's disease: Diagnosed 02/2003; follows with Dr. Ernandez with GI. Takes mesalamine; continue Autoimmune hemolytic anemia: Diagnosed 05/2016; follows with Dr. Lopez; consulted heme-onc for further guidance. HTN: Takes diltiazem and hydralazine; continue HLD: Takes atorvastatin; continue JUDY: Does not wear CPAP despite being recommended Disposition: PCP Dr. Healy with [facility] CODE STATUS: Full code VTE prophylaxis: Lovenox SQ Admission and Anticipated Discharge Date Admission Date: February 04, 2023 Subjective Patient seen in follow-up of easy fatigability/shortness of breath on exertion without hypoxia. Patient is sitting up in bed, on room air, NAD reports shortness of breath with exertion, none at rest, denies any blood in the stool or black stool, denies any fever or chills or cough in the last 1 week, denies any acute changes in his bladder or bowel habits, denies any history of asthma or COPD or CHF in the past. Denies any chest pain or palpitation. Reports eating okay. denies any improvement in his shortness of breath discussed with cardiology - stress test was ok, recommend outpt follow up / medication adjustment. Review of Systems Review of Systems: All systems reviewed & are unremarkable except as noted in Subjective Physical Exam Physical Exam: GENERAL: Alert and oriented x3. NAD, on RA. Obese class I. HEENT:NC/AT. Pupils equal, round and reactive to light. Oral mucosa moist. NECK: No JVD, no neck masses. HEART: S1 and S2 heard. Regular rate and rhythm. No murmur, no gallop. RESPIRATORY: Normal AP diameter. No accessory muscle use. No wheezing, no crackles. ABDOMEN: Soft, bowel sounds present, nontender, no distention. +obese NEURO:Awake, alert, oriented. Answers appropriately. No facial droop. Speech is clear. Obeys simple commands. Moves extremities. EXTREMITIES: No edema, no erythema seen. Results & Data Results & Data Vital Signs (Past 12 Hours) Vital Signs Temp Pulse Resp BP Pulse Ox O2 Del Method 02/07/23 07:17 36.9 C 78 18 123/67 96 Room Air 02/07/23 03:13 56 L 96 Room Air 02/07/23 02:53 36.4 C L 62 16 122/57 L 96 Room Air 02/06/23 23:43 Room Air 02/06/23 23:29 73 98 Room Air 02/06/23 22:54 36.4 C L 78 18 110/68 96 Room Air Laboratory Results 02/07/23 02/07/23 02/06/23 Range/Units 06:48 06:48 10:32 WBC 14.40 H (4.8-10.8) K/ul RBC 3.47 L (4.70-6.10) M/uL Hgb 11.1 L (14.0-18.0) g/dl Hct 30.3 L (42.0-52.0) % MCV 87.3 (80.0-100.0) fL MCH 32.0 (25.0-34.0) pg MCHC 36.6 H (32.0-36.0) g/dL RDW Std Deviation 59.1 H (36.4-46.3) fL RDW Coeff of Rodo 20.2 H (11.5-14.5) % Plt Count 249 (130-400) K/uL MPV 9.2 L (9.4-12.4) fL Absolute Nucleated RBC 0.02 (0-0.12) K/uL Nucleated RBC % (auto) 0.1 % Haptoglobin (43-212) mg/dL Sodium 141 (136-145) mmol/L Potassium 3.7 (3.5-5.1) mmol/L Chloride 108 H (98-107) mmol/L Carbon Dioxide 26 (21-32) mmol/L Anion Gap 7 (3-11) BUN 17 (6-23) mg/dl Creatinine 0.86 (0.6-1.4) mg/dl Est Cr Clr Drug Dosing 102.2 ml/min Est GFR ( Amer) 102.5 ml/min Est GFR (Non-Af Amer) 88.5 ml/min BUN/Creatinine Ratio 19.8 (10-20) Glucose 97 (70-99(Fasting)) mg/dl Calcium 9.4 (8.6-10.3) mg/dl Phosphorus 3.2 (2.5-4.9) mg/dl Magnesium 1.9 (1.7-2.4) mg/dl Total Bilirubin (0.2-1.0) mg/dl Direct Bilirubin (0-0.2) mg/dl Lactate Dehydrogenase 198 (86-244) U/L 02/06/23 02/05/23 Range/Units 10:32 08:25 WBC (4.8-10.8) K/ul RBC (4.70-6.10) M/uL Hgb (14.0-18.0) g/dl Hct (42.0-52.0) % MCV (80.0-100.0) fL MCH (25.0-34.0) pg MCHC (32.0-36.0) g/dL RDW Std Deviation (36.4-46.3) fL RDW Coeff of Rodo (11.5-14.5) % Plt Count (130-400) K/uL MPV (9.4-12.4) fL Absolute Nucleated RBC (0-0.12) K/uL Nucleated RBC % (auto) % Haptoglobin 177 (43-212) mg/dL Sodium (136-145) mmol/L Potassium (3.5-5.1) mmol/L Chloride (98-107) mmol/L Carbon Dioxide (21-32) mmol/L Anion Gap (3-11) BUN (6-23) mg/dl Creatinine (0.6-1.4) mg/dl Est Cr Clr Drug Dosing ml/min Est GFR ( Amer) ml/min Est GFR (Non-Af Amer) ml/min BUN/Creatinine Ratio (10-20) Glucose (70-99(Fasting)) mg/dl Calcium (8.6-10.3) mg/dl Phosphorus (2.5-4.9) mg/dl Magnesium (1.7-2.4) mg/dl Total Bilirubin 1.6 H (0.2-1.0) mg/dl Direct Bilirubin 0.4 H (0-0.2) mg/dl Lactate Dehydrogenase (86-244) U/L Medications Administered Current Inpatient Medications Acetaminophen (Acetaminophen 325 Mg Tab) 650 mg PO Q4H PRN PRN Reason: Pain or Fever Stop: 03/06/23 18:19 Al Hydrox/Mg Hydrox/Simethicone (Aluminum/Magnesium Susp 30 Ml Udc) 30 ml PO Q6H PRN PRN Reason: heartburn Stop: 03/06/23 22:46 Amitriptyline HCl (Amitriptyline Hcl 25 Mg Tab) 25 mg PO HS [facility] Stop: 03/07/23 20:59 Last Admin: 02/06/23 21:35 Dose: 25 mg Atorvastatin Calcium (Atorvastatin 40 Mg Tab) 40 mg PO DAILY [facility] Stop: 03/07/23 08:59 Last Admin: 02/07/23 07:43 Dose: 40 mg Cyanocobalamin (Cyanocobalamin (B-12) 500 Mcg Tablet) 1,000 mcg PO DAILY [facility] Stop: 03/07/23 08:59 Last Admin: 02/07/23 07:43 Dose: 1,000 mcg Diltiazem HCl (Diltiazem Hcl 180 Mg Capcr) 360 mg PO DAILY [facility] Stop: 03/07/23 08:59 Last Admin: 02/07/23 07:42 Dose: 360 mg Diphenoxylate HCl/Atropine (Diphenoxylate/Atropine 2.5/0.025mg Tab) 1 tab PO BID PRN PRN Reason: loose stools Stop: 03/06/23 21:37 Folic Acid (Folic Acid 1 Mg Tab) 2 mg PO TID [facility] Stop: 03/06/23 20:59 Last Admin: 02/07/23 07:43 Dose: 2 mg Gabapentin (Gabapentin 800 Mg Tab) 800 mg PO BID [facility] Stop: 03/06/23 20:59 Last Admin: 02/07/23 07:43 Dose: 800 mg Hydralazine HCl (Hydralazine Tab 50 Mg Tab) 100 mg PO BID [facility] Stop: 03/06/23 20:59 Last Admin: 02/07/23 07:43 Dose: 100 mg Losartan Potassium (Losartan Potassium 25 Mg Tab) 25 mg PO DAILY [facility] Stop: 03/07/23 08:59 Last Admin: 02/07/23 07:43 Dose: 25 mg Magnesium Hydroxide (Magnesium Hydroxide Susp 30 Ml Udc) 30 ml PO Q12H PRN PRN Reason: Constipation Stop: 03/06/23 18:19 Melatonin (Melatonin 3 Mg Tab) 3 mg PO HS PRN PRN Reason: Sleep Stop: 03/07/23 19:27 Last Admin: 02/05/23 21:07 Dose: 3 mg Mesalamine (Mesalamine 800 Mg Tabcr) 1,600 mg PO DAILY [facility] Stop: 03/07/23 08:59 Last Admin: 02/07/23 07:43 Dose: 1,600 mg Miscellaneous (Febuxostat ~Order Awaiting Action) 1 each N/A QS [facility] Stop: 03/07/23 00:00 Last Admin: 02/07/23 07:37 Dose: Not Given Ondansetron HCl (Ondansetron Inj 2 Mg/Ml 2 Ml Vial) 4 mg IV Q6H PRN PRN Reason: Nausea Stop: 03/06/23 18:19 Pantoprazole Sodium (Pantoprazole 40 Mg Tab) 40 mg PO DAILY [facility] Stop: 03/07/23 08:59 Last Admin: 02/07/23 07:43 Dose: 40 mg Polyethylene Glycol (Polyethylene (Miralax) 17 Gm Pack) 17 gm PO DAILY PRN PRN Reason: Constipation Stop: 03/06/23 18:19 Prednisone (Prednisone 5 Mg Tab) 5 mg PO DAILY [facility] Stop: 03/07/23 08:59 Last Admin: 02/07/23 07:42 Dose: 5 mg
[2023-02-07] MEDS: AMITRIPTYLINE HCL 25 MG TAB PO SCH (20:30)
[2023-02-08 03:11] LABS: Babesia microti DNA Not Detected (Not Detected)
[2023-02-08 06:20] LABS: Basophils # (auto) 0.16 K/uL (0-0.2); Basophils % (auto) 1.1 %; Eosinophils % (auto) 6.6 %; Hemoglobin 11.1 g/dl (14.0-18.0); Immature Granulocytes # (auto) 0.23 K/uL (0.01-0.20); Immature Granulocytes % (auto) 1.5 %; Lymphocytes # (auto) 2.53 K/uL (1.2-3.4); Lymphocytes % (auto) 16.6 %; Mean Corpuscular Volume 86.5 fL (80.0-100.0); Mean Platelet Volume 9.2 fL (9.4-12.4); Monocytes # (auto) 1.46 K/uL (0.11-0.59); Monocytes % (auto) 9.6 %; Neutrophils # (auto) 9.83 K/uL (1.40-6.50); Neutrophils % (auto) 64.6 %; Nucleated RBC # (auto) 0.04 K/uL (0-0.12); Nucleated RBC % (auto) 0.3 %; Platelet Count 250 K/uL (130-400); RDW Coefficient of Variation 21.5 % (11.5-14.5); RDW Standard Deviation 60.2 fL (36.4-46.3); Red Blood Count 3.47 M/uL (4.70-6.10); White Blood Count 15.21 K/ul (4.8-10.8)
[2023-02-08 06:42] LABS: Anisocytosis Present; Microcytosis Present; Polychromasia 1+; Reticulocyte % 9.5 % (0.5-2.0); Reticulocytes # 0.33 10^6/uL (0.02-0.10)
[2023-02-08 06:48] LABS: Albumin Globulin Ratio 1.5 (0.9-2); Albumin Level 3.5 gm/dl (3.4-5.0); BUN Creatinine Ratio 19.3 (10-20); Calcium 9.4 mg/dl (8.6-10.3); Creatinine Clr Calc Pharmacy 105.9 ml/min; Est GFR (African American) 104.1 ml/min; Est GFR (Non-African American) 89.8 ml/min; Globulin 2.3 gm/dl (2.5-4.0); Potassium 3.9 mmol/L (3.5-5.1); Total Protein 5.8 gm/dl (6.0-8.3)
[2023-02-08] MEDS: LOSARTAN POTASSIUM 25 MG TAB PO SCH (08:26)
[2023-02-08] MEDS: MESALAMINE 800 MG TABCR PO SCH (08:26)
[2023-02-08] MEDS: ATORVASTATIN 40 MG TAB PO SCH (08:26)
[2023-02-08] MEDS: PANTOprazole 40 MG TAB PO SCH (08:26)
[2023-02-08] MEDS: dilTIAZem HCL 180 MG CAPCR PO SCH (08:26)
[2023-02-08] MEDS: predniSONE 5 MG TAB PO SCH (08:26)
[2023-02-08] MEDS: FEBUXOSTAT 40 MG PO SCH (08:27)
[2023-02-08] MEDS: GABAPENTIN 800 MG TAB PO SCH ×2 (08:27→20:53)
[2023-02-08] MEDS: CYANOCOBALAMIN (B-12) 500 MCG TABLET PO SCH (08:27)
[2023-02-08] MEDS: hydrALAZINE TAB 50 MG TAB PO SCH ×2 (08:27→20:53)
[2023-02-08] MEDS: FOLIC ACID 1 MG TAB PO SCH ×3 (08:27→20:53)
[2023-02-08] MEDS: methylPREDNISolone 30 MG in SYRINGE 0 ML IV SCH ×3 (10:31→20:52)
--- NOTE | 2023-02-08 11:44 | Hospitalist Progress Note ---
Date of Service February 08, 2023 Assessment & Plan (1) Fatigue: (2) SOB (shortness of breath) on exertion: (3) Crohn's disease: (4) Hemolytic anemia: (5) Hypertension: (6) Hyperlipidemia: (7) Sleep apnea: Plan 67-year-old with persistent fatigue and exhaustion coupled with shortness of breath with exertion that has been persistent over the past week HITCHER. Patient seen in [facility] ED 6 days ago HITCHER, D-dimer was elevated and CTA Chest negative for PE. At presentation, Lyme's negative, anaplasmosis pending, leukocytosis 14.97, 1 dose Rocephin given in ED however no known source of infection to indicate further continuation at this time. Patient with known autoimmune hemolytic anemia and Crohn's disease. Does have known sleep apnea without CPAP use at home. PMH includes Crohns disease diagnosed 02/2003 (follows with Dr. Ernandez), Autoimmune Hemolytic Anemia Diagnosed 05/2018 (Follows with Dr. 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 Silvestre with pain manag ement. He is being managed for the following: Easy Fatigability Dyspnea on Exertion Patient presented with shortness of breath with exertion from walking for about 1.5 weeks HITCHER, no shortness of breath at rest. 01/29 CTA chest negative for PE; 4 mm pulmonary nodule that he has followed with pulmonary in [place] yearly Patient denies history of COPD/asthma/CHF. Patient denies any cough or flulike illness or black/bloody stool or swelling of the limbs. Patient does report smoking 1 to 2 cigars a day during good weather season, since 2002. At admission: CXR with no acute findings. WBC appears chronically elevated [likely secondary to chronic steroid use]. Retic 5.6%, haptoglobin 177 (wnl), Procal, TSH, folate/B12 level, ESR and LDH normal, indirect bilirubin slightly elevated. ABG without hypoxemia on room air. BNP and troponin normal. EKG with sinus rhythm with PVCs. Admitting viral panel and tick serology: Either negative or pending. 02/05 echo with EF of 60 to 65%, no pulmonary hypertension, no significant valvular disease, grade 1 diastolic dysfunction, mild concentric LVH. Hemoglobin of 13.3 at admission, 11.2 today, H&H every 12 hours or as needed. No signs of infection, monitor of electrolytes. Follow admitting blood culture, pending. so far negative. Hematology consulted, appreciate recommendation. Patient also with chest tightness and dyspnea with exertion, cardiology consult, plan for ischemic work-up. Stress test obtained and negative. PT/OT Nocturnal pulse ox obtained - one desat event, one pulse event. 02/07 - Discussed w/ cardiology - Resting echocardiogram revealed a preserved LV systolic function without significant valvular disease. Dobutamine stress test performed yesterday was nonischemic. Patient has a known history of occasional/frequent PVCs-asymptomatic. Cardiac work-up has been unremarkable thus far. No further cardiac testing warranted at this time. Would recommend follow-up with his PCP at discharge. Continue all cardiac medications as ordered. no arrhythmias than ventricular ectopy on telemetry. Noted available for outpatient follow-up for possible optimization of medical regimen 02/08 Discussed again w/ Dr. Lopez ([facility]) this AM - will obtain cortisol level and ACTH. Will start solumedrol 30 IV TID. Cont. to monitor blood work closely. Crohn's disease: Diagnosed 02/2003; follows with Dr. Ernandez with GI. Takes mesalamine; continue Autoimmune hemolytic anemia: Diagnosed 05/2016; follows with Dr. Lopez; consulted heme-onc for further guidance. HTN: Takes diltiazem and hydralazine; continue HLD: Takes atorvastatin; continue JUDY: Does not wear CPAP despite being recommended Disposition: PCP Dr. Healy with [facility] CODE STATUS: Full code VTE prophylaxis: Lovenox SQ Admission and Anticipated Discharge Date Admission Date: February 04, 2023 Subjective Patient seen in follow-up of easy fatigability/shortness of breath on exertion without hypoxia. Patient is sitting up in bed, on room air, NAD reports shortness of breath with exertion, none at rest, denies any blood in the stool or black stool, denies any fever or chills or cough in the last 1 week, denies any acute changes in his bladder or bowel habits, denies any history of asthma or COPD or CHF in the past. Denies any chest pain or palpitation. Reports eating okay. denies improvement in his shortness of breath discussed with cardiology - stress test was ok, recommend outpt follow up / medication adjustment. Discussed w/ Dr. Lopez ([facility]) this AM - will start IV solumedrol Review of Systems Review of Systems: All systems reviewed & are unremarkable except as noted in Subjective Physical Exam Physical Exam: GENERAL: Alert and oriented x3. NAD, on RA. Obese class I. HEENT:NC/AT. Pupils equal, round and reactive to light. Oral mucosa moist. NECK: No JVD, no neck masses. HEART: S1 and S2 heard. Regular rate and rhythm. No murmur, no gallop. RESPIRATORY: Normal AP diameter. No accessory muscle use. No wheezing, no crackles. ABDOMEN: Soft, bowel sounds present, nontender, no distention. +obese NEURO:Awake, alert, oriented. Answers appropriately. No facial droop. Speech is clear. Obeys simple commands. Moves extremities. EXTREMITIES: No edema, no erythema seen. Results & Data Results & Data Vital Signs (Past 12 Hours) Vital Signs Temp Pulse Pulse Resp BP BP Pulse Ox 02/08/23 11:15 36.4 C L 90 20 113/71 97 02/08/23 08:30 02/08/23 08:00 36.4 C L 73 20 125/69 95 02/08/23 07:30 87 02/08/23 03:00 36.3 C L 54 L 18 143/70 H 95 02/08/23 00:00 72 O2 Del Method 02/08/23 11:15 Room Air 02/08/23 08:30 Room Air 02/08/23 08:00 Room Air 02/08/23 07:30 02/08/23 03:00 Room Air 02/08/23 00:00 Laboratory Results 02/08/23 02/08/23 02/08/23 Range/Units 08:54 08:54 05:54 WBC (4.8-10.8) K/ul RBC (4.70-6.10) M/uL Hgb (14.0-18.0) g/dl Hct (42.0-52.0) % MCV (80.0-100.0) fL MCH (25.0-34.0) pg MCHC (32.0-36.0) g/dL RDW Std Deviation (36.4-46.3) fL RDW Coeff of Rodo (11.5-14.5) % Plt Count (130-400) K/uL MPV (9.4-12.4) fL Immature Gran % (Auto) % Neut % (Auto) % Lymph % (Auto) % [place] % (Auto) % Eos % (Auto) % Baso % (Auto) % Reticulocyte % (Auto) (0.5-2.0) % Neut # (Auto) (1.40-6.50) K/uL Lymph # (Auto) (1.2-3.4) K/uL [place] # (Auto) (0.11-0.59) K/uL Eos # (Auto) (0-0.50) K/uL Baso # (Auto) (0-0.2) K/uL Reticulocyte # (0.02-0.10) 10^6/uL Immature Gran # (Auto) (0.01-0.20) K/uL Absolute Nucleated RBC (0-0.12) K/uL Nucleated RBC % (auto) % Polychromasia Anisocytosis Microcytosis Haptoglobin Pending Sodium (136-145) mmol/L Potassium (3.5-5.1) mmol/L Chloride (98-107) mmol/L Carbon Dioxide (21-32) mmol/L Anion Gap (3-11) BUN (6-23) mg/dl Creatinine (0.6-1.4) mg/dl Est Cr Clr Drug Dosing ml/min Est GFR ( Amer) ml/min Est GFR (Non-Af Amer) ml/min BUN/Creatinine Ratio (10-20) Glucose (70-99(Fasting)) mg/dl Calcium (8.6-10.3) mg/dl Total Bilirubin (0.2-1.0) mg/dl AST (13-39) U/L ALT (7-52) U/L Alkaline Phosphatase (34-104) U/L Lactate Dehydrogenase (86-244) U/L Total Protein (6.0-8.3) gm/dl Albumin (3.4-5.0) gm/dl Globulin (2.5-4.0) gm/dl Albumin/Globulin Ratio (0.9-2) Cortisol AM Sample 7.76 (6.2-22.6) mcg/dl ACTH Pending Babesia microti DNA PCR (Not Detected) 02/08/23 02/08/23 02/04/23 Range/Units 05:54 05:54 17:17 WBC 15.21 H (4.8-10.8) K/ul RBC 3.47 L (4.70-6.10) M/uL Hgb 11.1 L (14.0-18.0) g/dl Hct 30.0 L (42.0-52.0) % MCV 86.5 (80.0-100.0) fL MCH 32.0 (25.0-34.0) pg MCHC 37.0 H (32.0-36.0) g/dL RDW Std Deviation 60.2 H (36.4-46.3) fL RDW Coeff of Rodo 21.5 H (11.5-14.5) % Plt Count 250 (130-400) K/uL MPV 9.2 L (9.4-12.4) fL Immature Gran % (Auto) 1.5 % Neut % (Auto) 64.6 % Lymph % (Auto) 16.6 % [place] % (Auto) 9.6 % Eos % (Auto) 6.6 % Baso % (Auto) 1.1 % Reticulocyte % (Auto) 9.5 H (0.5-2.0) % Neut # (Auto) 9.83 H (1.40-6.50) K/uL Lymph # (Auto) 2.53 (1.2-3.4) K/uL [place] # (Auto) 1.46 H (0.11-0.59) K/uL Eos # (Auto) 1.00 H (0-0.50) K/uL Baso # (Auto) 0.16 (0-0.2) K/uL Reticulocyte # 0.33 H (0.02-0.10) 10^6/uL Immature Gran # (Auto) 0.23 H (0.01-0.20) K/uL Absolute Nucleated RBC 0.04 (0-0.12) K/uL Nucleated RBC % (auto) 0.3 % Polychromasia 1+ Anisocytosis Present Microcytosis Present Haptoglobin Sodium 140 (136-145) mmol/L Potassium 3.9 (3.5-5.1) mmol/L Chloride 107 (98-107) mmol/L Carbon Dioxide 28 (21-32) mmol/L Anion Gap 5 (3-11) BUN 16 (6-23) mg/dl Creatinine 0.83 (0.6-1.4) mg/dl Est Cr Clr Drug Dosing 105.9 ml/min Est GFR ( Amer) 104.1 ml/min Est GFR (Non-Af Amer) 89.8 ml/min BUN/Creatinine Ratio 19.3 (10-20) Glucose 100 H (70-99(Fasting)) mg/dl Calcium 9.4 (8.6-10.3) mg/dl Total Bilirubin 2.0 H (0.2-1.0) mg/dl AST 22 (13-39) U/L ALT 20 (7-52) U/L Alkaline Phosphatase 76 (34-104) U/L Lactate Dehydrogenase 200 (86-244) U/L Total Protein 5.8 L (6.0-8.3) gm/dl Albumin 3.5 (3.4-5.0) gm/dl Globulin 2.3 L (2.5-4.0) gm/dl Albumin/Globulin Ratio 1.5 (0.9-2) Cortisol AM Sample (6.2-22.6) mcg/dl ACTH Babesia microti DNA PCR Not Detected (Not Detected) Medications Administered Current Inpatient Medications Acetaminophen (Acetaminophen 325 Mg Tab) 650 mg PO Q4H PRN PRN Reason: Pain or Fever Stop: 03/06/23 18:19 Al Hydrox/Mg Hydrox/Simethicone (Aluminum/Magnesium Susp 30 Ml Udc) 30 ml PO Q6H PRN PRN Reason: heartburn Stop: 03/06/23 22:46 Amitriptyline HCl (Amitriptyline Hcl 25 Mg Tab) 25 mg PO HS [facility] Stop: 03/07/23 20:59 Last Admin: 02/07/23 20:30 Dose: Not Given Atorvastatin Calcium (Atorvastatin 40 Mg Tab) 40 mg PO DAILY [facility] Stop: 03/07/23 08:59 Last Admin: 02/08/23 08:26 Dose: 40 mg Cyanocobalamin (Cyanocobalamin (B-12) 500 Mcg Tablet) 1,000 mcg PO DAILY [facility] Stop: 03/07/23 08:59 Last Admin: 02/08/23 08:27 Dose: 1,000 mcg Diltiazem HCl (Diltiazem Hcl 180 Mg Capcr) 360 mg PO DAILY [facility] Stop: 03/07/23 08:59 Last Admin: 02/08/23 08:26 Dose: 360 mg Diphenoxylate HCl/Atropine (Diphenoxylate/Atropine 2.5/0.025mg Tab) 1 tab PO BID PRN PRN Reason: loose stools Stop: 03/06/23 21:37 Febuxostat (Febuxostat 40 Mg Tablet [Patient Own Med]) 40 mg PO DAILY [facility] Stop: 03/10/23 08:59 Last Admin: 02/08/23 08:27 Dose: 40 mg Folic Acid (Folic Acid 1 Mg Tab) 2 mg PO TID [facility] Stop: 03/06/23 20:59 Last Admin: 02/08/23 08:27 Dose: 2 mg Gabapentin (Gabapentin 800 Mg Tab) 800 mg PO BID [facility] Stop: 03/06/23 20:59 Last Admin: 02/08/23 08:27 Dose: 800 mg Hydralazine HCl (Hydralazine Tab 50 Mg Tab) 100 mg PO BID [facility] Stop: 03/06/23 20:59 Last Admin: 02/08/23 08:27 Dose: 100 mg Methylprednisolone 30 mg/ (Syringe) 0.48 mls @ 1.5 mls/min IV TID [facility] Stop: 03/10/23 08:59 Last Admin: 02/08/23 10:31 Dose: 1.5 mls/min Losartan Potassium (Losartan Potassium 25 Mg Tab) 25 mg PO DAILY [facility] Stop: 03/07/23 08:59 Last Admin: 02/08/23 08:26 Dose: 25 mg Magnesium Hydroxide (Magnesium Hydroxide Susp 30 Ml Udc) 30 ml PO Q12H PRN PRN Reason: Constipation Stop: 03/06/23 18:19 Melatonin (Melatonin 3 Mg Tab) 3 mg PO HS PRN PRN Reason: Sleep Stop: 03/07/23 19:27 Last Admin: 02/05/23 21:07 Dose: 3 mg Mesalamine (Mesalamine 800 Mg Tabcr) 1,600 mg PO DAILY [facility] Stop: 03/07/23 08:59 Last Admin: 02/08/23 08:26 Dose: 1,600 mg Ondansetron HCl (Ondansetron Inj 2 Mg/Ml 2 Ml Vial) 4 mg IV Q6H PRN PRN Reason: Nausea Stop: 03/06/23 18:19 Pantoprazole Sodium (Pantoprazole 40 Mg Tab) 40 mg PO DAILY [facility] Stop: 03/07/23 08:59 Last Admin: 02/08/23 08:26 Dose: 40 mg Polyethylene Glycol (Polyethylene (Miralax) 17 Gm Pack) 17 gm PO DAILY PRN PRN Reason: Constipation Stop: 03/06/23 18:19 Prednisone (Prednisone 5 Mg Tab) 5 mg PO DAILY [facility] Stop: 03/07/23 08:59 Last Admin: 02/08/23 08:26 Dose: 5 mg
--- NOTE | 2023-02-08 17:29 | Progress Note ---
Date of Service February 08, 2023 Assessment & Plan (1) Hemolytic anemia: (2) Premature ventricular contraction: Plan Labs continue to show stable hemoglobin of 11.1, normal haptoglobin level and LDH as well as unremarkable peripheral smear which is not compatible with significant autoimmune hemolytic. Bilirubin slightly elevated with reticulocytosis possibly due to mild hemolytic anemia. Since he continues to complain of fatigue and shortness of breath and has had negative cardiology work-up, symptoms may be due to hemoglobin being below his usual baseline secondary to hemolytic anemia. Recommend starting methylprednisolone 1 mg/kg/day and eventually transitioning to prednisone 1 mg/kg/day on discharge from hospital. We will consider starting him on MMF or cyclophosphamide outpatient given prior lack of response to IV rituximab -Continue with daily CBC, LDH, Bilirubin and reticulocyte count -Start methylprednisolone 1 mg/kg/day. Can transition to prednisone 1 mg/kg/day upon discharge from hospital -I will plan to see patient/ arrange for telephone visit in about 1 week with labs Admission and Anticipated Discharge Date Admission Date: February 04, 2023 Subjective Continues to complain of fatigue. Hemoglobin stable at 11.1. Slight increase in bilirubin to 2.0. Cardiology work-up essentially unremarkable Results & Data Vital Signs (Past 12 Hours) Vital Signs Temp Pulse Pulse Resp BP BP Pulse Ox 02/08/23 08:00 36.4 C L 73 20 125/69 95 02/08/23 07:30 87 02/08/23 03:00 36.3 C L 54 L 18 143/70 H 95 02/08/23 00:00 72 02/07/23 22:00 36.3 C L 65 20 143/79 H 97 O2 Del Method 02/08/23 08:00 Room Air 02/08/23 07:30 02/08/23 03:00 Room Air 02/08/23 00:00 02/07/23 22:00 Room Air
[2023-02-08] MEDS: AMITRIPTYLINE HCL 25 MG TAB PO SCH (20:52)
[2023-02-09 06:31] LABS: Hematocrit (blood only) 27.5 % (42.0-52.0); Mean Corpuscular Hemoglobin 31.7 pg (25.0-34.0); Mean Corpuscular Hgb Conc 36.4 g/dL (32.0-36.0); Mean Corpuscular Volume 87.3 fL (80.0-100.0); Mean Platelet Volume 9.6 fL (9.4-12.4); Nucleated RBC # (auto) 0.15 K/uL (0-0.12); Nucleated RBC % (auto) 0.6 %; Platelet Count 360 K/uL (130-400); RDW Coefficient of Variation 20.7 % (11.5-14.5); RDW Standard Deviation 62.7 fL (36.4-46.3); Red Blood Count 3.15 M/uL (4.70-6.10); Reticulocyte % 11.5 % (0.5-2.0); Reticulocytes # 0.35 10^6/uL (0.02-0.10)
[2023-02-09] MEDS: ACETAMINOPHEN 325 MG TAB PO PRN ×3 (07:33→21:42)
--- NOTE | 2023-02-09 08:58 | Hospitalist Progress Note ---
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 At presentation, Lyme's negative, anaplasmosis pending, leukocytosis 14.97, 1 dose Rocephin given in ED however no known source of infection to indicate further continuation at this time. Patient with known autoimmune hemolytic anemia and Crohn's disease. Does have known sleep apnea without CPAP use at home. PMH includes Crohns disease diagnosed 02/2003 (follows with Dr. Ernandez), Autoimmune Hemolytic Anemia Diagnosed 05/2018 (Follows with Dr. 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 Silvestre with pain manag ement. 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 01/29 CTA chest negative for PE; 4 mm pulmonary nodule that he has followed with pulmonary in [place] yearly Patient denies history of COPD/asthma/CHF. Patient denies any cough or flulike illness or black/bloody stool or swelling of the limbs. Patient does report smoking 1 to 2 cigars a day during good weather season, since 2002. At admission: CXR with no acute findings. WBC appears chronically elevated [likely secondary to chronic steroid use]. Retic 5.6%, haptoglobin 177 (wnl), Procal, TSH, folate/B12 level, ESR and LDH normal, indirect bilirubin slightly elevated. ABG without hypoxemia on room air. BNP and troponin normal. EKG with sinus rhythm with PVCs. Admitting viral panel and tick serology: Either negative or pending. 02/05 echo with EF of 60 to 65%, no pulmonary hypertension, no significant valvular disease, grade 1 diastolic dysfunction, mild concentric LVH. Hemoglobin of 13.3 at admission, 11.2 today, H&H every 12 hours or as needed. No signs of infection, monitor of electrolytes. Follow admitting blood culture, pending. so far negative. Hematology consulted, appreciate recommendation. Patient also with chest tightness and dyspnea with exertion, cardiology consult, plan for ischemic work-up. Stress test obtained and negative. PT/OT Nocturnal pulse ox obtained - one desat event, one pulse event. 02/07 - Discussed w/ cardiology - Resting echocardiogram revealed a preserved LV systolic function without significant valvular disease. Dobutamine stress test performed yesterday was nonischemic. Patient has a known history of occasional/frequent PVCs-asymptomatic. Cardiac work-up has been unremarkable thus far. No further cardiac testing warranted at this time. Would recommend follow-up with his PCP at discharge. Continue all cardiac medications as ordered. no arrhythmias than ventricular ectopy on telemetry. Noted available for outpatient follow-up for possible optimization of medical regimen 02/08 Discussed again w/ Dr. Lopez (heme) this AM - will obtain cortisol level and ACTH. Will start solumedrol 30 IV TID. Cont. to monitor blood work closely. 02/09 Pt is feeling better now after starting IV solumedrol. However, his Hgb is down to 10. Discussed w/ Dr. Lopez, will cont IV solumedrol as inpt. Check blood work tmrw. Crohn's disease: Diagnosed 02/2003; follows with Dr. Ernandez with GI. Takes mesalamine; continue Autoimmune hemolytic anemia: Diagnosed 05/2016; follows with Dr. Lopez; consulted heme-onc for further guidance. HTN: Takes diltiazem and hydralazine; continue HLD: Takes atorvastatin; continue JUDY: Does not wear CPAP despite being recommended Disposition: PCP Dr. Healy with [facility] CODE STATUS: Full code VTE prophylaxis: Lovenox SQ Admission and Anticipated Discharge Date Admission Date: February 04, 2023 Subjective Patient seen in follow-up of easy fatigability/shortness of breath on exertion without hypoxia. Patient is sitting up in bed, on room air, NAD reports shortness of breath with exertion, none at rest, denies any blood in the stool or black stool, denies any fever or chills or cough in the last 1 week, denies any acute changes in his bladder or bowel habits, denies any history of asthma or COPD or CHF in the past. Denies any chest pain or palpitation. Today he feels better. His Hgb down to 10, though Discussed w/ Dr. Lopez (heme) - continue w/ IV solumedrol as inpt Pt's at the bedside. Review of Systems Review of Systems: All systems reviewed & are unremarkable except as noted in Subjective Physical Exam Physical Exam: GENERAL: Alert and oriented x3. NAD, on RA. Obese class I. HEENT:NC/AT. Pupils equal, round and reactive to light. Oral mucosa moist. NECK: No JVD, no neck masses. HEART: S1 and S2 heard. Regular rate and rhythm. No murmur, no gallop. RESPIRATORY: Normal AP diameter. No accessory muscle use. No wheezing, no crackles. ABDOMEN: Soft, bowel sounds present, nontender, no distention. +obese NEURO:Awake, alert, oriented. Answers appropriately. No facial droop. Speech is clear. Obeys simple commands. Moves extremities. EXTREMITIES: No edema, no erythema seen. Results & Data Results & Data Vital Signs (Past 12 Hours) Vital Signs Temp Pulse Pulse Resp BP Pulse Ox O2 Del Method 02/09/23 08:19 36.8 C 77 20 145/73 H 96 Room Air 02/09/23 07:50 86 02/09/23 04:00 36.6 C 78 18 133/72 94 Room Air 02/09/23 00:54 86 02/08/23 23:34 36.6 C 62 18 150/67 H 94 Room Air Laboratory Results 02/09/23 02/09/23 02/08/23 Range/Units 05:46 05:46 08:54 WBC 25.80 H D (4.8-10.8) K/ul RBC 3.15 L (4.70-6.10) M/uL Hgb 10.0 L (14.0-18.0) g/dl Hct 27.5 L (42.0-52.0) % MCV 87.3 (80.0-100.0) fL MCH 31.7 (25.0-34.0) pg MCHC 36.4 H (32.0-36.0) g/dL RDW Std Deviation 62.7 H (36.4-46.3) fL RDW Coeff of Rodo 20.7 H (11.5-14.5) % Plt Count 360 (130-400) K/uL MPV 9.6 (9.4-12.4) fL Reticulocyte % (Auto) 11.5 H (0.5-2.0) % Reticulocyte # 0.35 H (0.02-0.10) 10^6/uL Absolute Nucleated RBC 0.15 H (0-0.12) K/uL Nucleated RBC % (auto) 0.6 % Lactate Dehydrogenase 252 H (86-244) U/L Cortisol AM Sample (6.2-22.6) mcg/dl ACTH Pending Acetylchol Rcpt Bind Ab nmol/L 02/08/23 02/05/23 Range/Units 08:54 05:53 WBC (4.8-10.8) K/ul RBC (4.70-6.10) M/uL Hgb (14.0-18.0) g/dl Hct (42.0-52.0) % MCV (80.0-100.0) fL MCH (25.0-34.0) pg MCHC (32.0-36.0) g/dL RDW Std Deviation (36.4-46.3) fL RDW Coeff of Rodo (11.5-14.5) % Plt Count (130-400) K/uL MPV (9.4-12.4) fL Reticulocyte % (Auto) (0.5-2.0) % Reticulocyte # (0.02-0.10) 10^6/uL Absolute Nucleated RBC (0-0.12) K/uL Nucleated RBC % (auto) % Lactate Dehydrogenase (86-244) U/L Cortisol AM Sample 7.76 (6.2-22.6) mcg/dl ACTH Acetylchol Rcpt Bind Ab <0.30 nmol/L Medications Administered Current Inpatient Medications Acetaminophen (Acetaminophen 325 Mg Tab) 650 mg PO Q4H PRN PRN Reason: Pain or Fever Stop: 03/06/23 18:19 Last Admin: 02/09/23 07:33 Dose: 650 mg Al Hydrox/Mg Hydrox/Simethicone (Aluminum/Magnesium Susp 30 Ml Udc) 30 ml PO Q6H PRN PRN Reason: heartburn Stop: 03/06/23 22:46 Amitriptyline HCl (Amitriptyline Hcl 25 Mg Tab) 25 mg PO HS DARLENE Stop: 03/07/23 20:59 Last Admin: 02/08/23 20:52 Dose: 25 mg Atorvastatin Calcium (Atorvastatin 40 Mg Tab) 40 mg PO DAILY DARLENE Stop: 03/07/23 08:59 Last Admin: 02/08/23 08:26 Dose: 40 mg Cyanocobalamin (Cyanocobalamin (B-12) 500 Mcg Tablet) 1,000 mcg PO DAILY DARLENE Stop: 03/07/23 08:59 Last Admin: 02/08/23 08:27 Dose: 1,000 mcg Diltiazem HCl (Diltiazem Hcl 180 Mg Capcr) 360 mg PO DAILY DARLENE Stop: 03/07/23 08:59 Last Admin: 02/08/23 08:26 Dose: 360 mg Diphenoxylate HCl/Atropine (Diphenoxylate/Atropine 2.5/0.025mg Tab) 1 tab PO BID PRN PRN Reason: loose stools Stop: 03/06/23 21:37 Febuxostat (Febuxostat 40 Mg Tablet [Patient Own Med]) 40 mg PO DAILY DARLENE Stop: 03/10/23 08:59 Last Admin: 02/08/23 08:27 Dose: 40 mg Folic Acid (Folic Acid 1 Mg Tab) 2 mg PO TID DARLENE Stop: 03/06/23 20:59 Last Admin: 02/08/23 20:53 Dose: 2 mg Gabapentin (Gabapentin 800 Mg Tab) 800 mg PO BID DARLENE Stop: 03/06/23 20:59 Last Admin: 02/08/23 20:53 Dose: 800 mg Hydralazine HCl (Hydralazine Tab 50 Mg Tab) 100 mg PO BID DARLENE Stop: 03/06/23 20:59 Last Admin: 02/08/23 20:53 Dose: 100 mg Methylprednisolone 30 mg/ (Syringe) 0.48 mls @ 1.5 mls/min IV TID DARLENE Stop: 03/10/23 08:59 Last Admin: 02/08/23 20:52 Dose: 1.5 mls/min Losartan Potassium (Losartan Potassium 25 Mg Tab) 25 mg PO DAILY DARLENE Stop: 03/07/23 08:59 Last Admin: 02/08/23 08:26 Dose: 25 mg Magnesium Hydroxide (Magnesium Hydroxide Susp 30 Ml Udc) 30 ml PO Q12H PRN PRN Reason: Constipation Stop: 03/06/23 18:19 Melatonin (Melatonin 3 Mg Tab) 3 mg PO HS PRN PRN Reason: Sleep Stop: 03/07/23 19:27 Last Admin: 02/05/23 21:07 Dose: 3 mg Mesalamine (Mesalamine 800 Mg Tabcr) 1,600 mg PO DAILY DARLENE Stop: 03/07/23 08:59 Last Admin: 02/08/23 08:26 Dose: 1,600 mg Ondansetron HCl (Ondansetron Inj 2 Mg/Ml 2 Ml Vial) 4 mg IV Q6H PRN PRN Reason: Nausea Stop: 03/06/23 18:19 Pantoprazole Sodium (Pantoprazole 40 Mg Tab) 40 mg PO DAILY DARLENE Stop: 03/07/23 08:59 Last Admin: 02/08/23 08:26 Dose: 40 mg Polyethylene Glycol (Polyethylene (Miralax) 17 Gm Pack) 17 gm PO DAILY PRN PRN Reason: Constipation Stop: 03/06/23 18:19 Prednisone (Prednisone 5 Mg Tab) 5 mg PO DAILY DARLENE Stop: 03/07/23 08:59 Last Admin: 02/08/23 08:26 Dose: 5 mg
[2023-02-09] MEDS: dilTIAZem HCL 180 MG CAPCR PO SCH (09:00)
[2023-02-09] MEDS: methylPREDNISolone 30 MG in SYRINGE 0 ML IV SCH ×3 (09:00→21:25)
[2023-02-09] MEDS: CYANOCOBALAMIN (B-12) 500 MCG TABLET PO SCH (09:00)
[2023-02-09] MEDS: FEBUXOSTAT 40 MG PO SCH (09:00)
[2023-02-09] MEDS: FOLIC ACID 1 MG TAB PO SCH ×3 (09:01→21:27)
[2023-02-09] MEDS: MESALAMINE 800 MG TABCR PO SCH (09:01)
[2023-02-09] MEDS: ATORVASTATIN 40 MG TAB PO SCH (09:01)
[2023-02-09] MEDS: hydrALAZINE TAB 50 MG TAB PO SCH ×2 (09:01→21:28)
[2023-02-09] MEDS: LOSARTAN POTASSIUM 25 MG TAB PO SCH (09:01)
[2023-02-09] MEDS: GABAPENTIN 800 MG TAB PO SCH ×2 (09:02→21:29)
[2023-02-09] MEDS: PANTOprazole 40 MG TAB PO SCH (09:43)
[2023-02-09] MEDS: AMITRIPTYLINE HCL 25 MG TAB PO SCH (21:30)
[2023-02-10 06:23] LABS: Albumin Globulin Ratio 1.8 (0.9-2); Albumin Level 3.7 gm/dl (3.4-5.0); Bilirubin,Total 2.1 mg/dl (0.2-1.0); Calcium 10.1 mg/dl (8.6-10.3); Est GFR (African American) 88.6 ml/min; Est GFR (Non-African American) 76.5 ml/min; Globulin 2.1 gm/dl (2.5-4.0); Potassium 4.2 mmol/L (3.5-5.1); Total Protein 5.8 gm/dl (6.0-8.3)
[2023-02-10 06:41] LABS: Ferritin 235.5 ng/ml (8-388)
[2023-02-10 07:33] LABS: Hematocrit (blood only) 28.8 % (42.0-52.0); Hemoglobin 10.6 g/dl (14.0-18.0); Mean Corpuscular Hemoglobin 33.7 pg (25.0-34.0); Mean Corpuscular Hgb Conc 36.8 g/dL (32.0-36.0); Mean Corpuscular Volume 91.4 fL (80.0-100.0); Mean Platelet Volume 9.6 fL (9.4-12.4); Nucleated RBC # (auto) 0.11 K/uL (0-0.12); Nucleated RBC % (auto) 0.4 %; Platelet Count 331 K/uL (130-400); RDW Coefficient of Variation 23.4 % (11.5-14.5); RDW Standard Deviation 69.5 fL (36.4-46.3); Red Blood Count 3.15 M/uL (4.70-6.10); Reticulocyte % 10.4 % (0.5-2.0); Reticulocytes # 0.33 10^6/uL (0.02-0.10); White Blood Count 29.46 K/ul (4.8-10.8)
[2023-02-10] MEDS: methylPREDNISolone 30 MG in SYRINGE 0 ML IV SCH ×2 (07:37→13:09)
[2023-02-10] MEDS: FEBUXOSTAT 40 MG PO SCH (08:26)
[2023-02-10] MEDS: PANTOprazole 40 MG TAB PO SCH (08:26)
[2023-02-10] MEDS: ATORVASTATIN 40 MG TAB PO SCH (08:26)
[2023-02-10] MEDS: GABAPENTIN 800 MG TAB PO SCH (08:26)
[2023-02-10] MEDS: MESALAMINE 800 MG TABCR PO SCH (08:26)
[2023-02-10] MEDS: FOLIC ACID 1 MG TAB PO SCH ×2 (08:26→13:09)
[2023-02-10] MEDS: hydrALAZINE TAB 50 MG TAB PO SCH (08:26)
[2023-02-10] MEDS: LOSARTAN POTASSIUM 25 MG TAB PO SCH (08:27)
[2023-02-10] MEDS: CYANOCOBALAMIN (B-12) 500 MCG TABLET PO SCH (08:27)
[2023-02-10] MEDS: dilTIAZem HCL 180 MG CAPCR PO SCH (08:27)
--- NOTE | 2023-02-10 15:22 | Discharge Summary ---
Date of Service February 10, 2023 Admission HPI Per Admitting Provider Mr. Arias is a 67 year old male who presented to the [facility] as recommended by [facility] for further evaluation of PVC's he has been experiencing. He has had persistent fatigue and exhaustion coupled with shortness of breath at exertion that has been persistent over the past week to 10 days. Patient seen in [facility] ED 6 days ago, D-dimer was elevated at that time negative for PE. Patient with known autoimmune hemolytic anemia and Crohn's disease. No pancytopenia or anemia noted and labs. Does have known sleep apnea without CPAP use at home. No PVCs noted while here in ED. Lyme's negative, anaplasmosis pending, leukocytosis 14.97, 1 dose Rocephin given in ED however no known source of infection to indicate further continuation at this time. Check CRP and ESR along with B12 and Phos. BioFire negative blood cultures are pending TSH normal. VBG compensated without hypoxia. Chest CTA on 710 negative for PE shortness of breath noted with any exertion from walking to kitchen or bathroom. Heme-onc consult for further evaluation of hemoglobin anemia being possible cause of fatigue. Echo ordered as well to diagnose any underlying valvular disease. Initial troponin negative. BNP pending. PMH includes Crohns disease diagnosed 02/2003 (follows with Dr. Ernandez), Autoimmune Hemolytic Anemia Diagnosed 05/2018 (Follows with Dr. 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 Silvestre with pain management. Pt sitting upright in his hospital bed in no apparent distress. AAOx4 and able to answer all questions appropriately. No cough, fever or chills, changes with bowel or bladder function, recent falls or trauma. Pt will be admitted for further evaluation and management. Please see A/P for further details. Admission Exam Per Admitting Provider Neuro: AAOx4, PERRLA, no aphagia, memory changes, CNII-XII grossly intact HEENT: head normocephalic, moist mucus membranes CV: S1/S2, (-) M/G/R, (-) edema, cap refill < 3 seconds Resp: Lungs CTA in all [place]. On RA GI: Abdomen S/NT/ND, Ax4 bowel sounds, (-) CVA tenderness Musculoskeletal: 5/5 B/L UE strength, 5/5 B/L LE strength. No gait disturbance Skin: (-) rashes , (-) erythema. Psych: euthymic mood Principal Diagnosis Dyspnea on exertion secondary to hemolytic anemia Discharge Exam GENERAL: Alert and oriented x3. NAD, on RA. Obese class I. HEENT:NC/AT. Pupils equal, round and reactive to light. Oral mucosa moist. NECK: No JVD, no neck masses. HEART: S1 and S2 heard. Regular rate and rhythm. No murmur, no gallop. RESPIRATORY: Normal AP diameter. No accessory muscle use. No wheezing, no crackles. ABDOMEN: Soft, bowel sounds present, nontender, no distention. +obese NEURO:Awake, alert, oriented. Answers appropriately. No facial droop. Speech is clear. Obeys simple commands. Moves extremities. EXTREMITIES: No edema, no erythema seen. Discharge Data Allergies Allergy/AdvReac Type Severity Reaction Status Date / Time fluoxetine Allergy Intermediate Hives Verified 02/04/23 16:24 mercaptopurine Allergy Intermediate FEVER, RASH Verified 02/04/23 16:24 pregabalin Allergy Intermediate Rash, Verified 02/04/23 16:24 hives , headaches blue dye AdvReac Intermediate Severe Verified 02/04/23 16:24 Headache duloxetine AdvReac Intermediate Severe Verified 02/04/23 16:24 Headache infliximab AdvReac Intermediate bp Verified 02/04/23 16:24 elevation niacin AdvReac Unknown Unknown Verified 02/04/23 16:24 Consultations 02/04/23 18:10 ED Decision to Admit Stat 02/05/23 08:00 Consult Hematology Routine 02/06/23 08:16 Consult Cardiology Routine Hospital Course (1) Fatigue: (2) SOB (shortness of breath) on exertion: (3) Crohn's disease: (4) Hemolytic anemia: (5) Hypertension: (6) Hyperlipidemia: (7) Sleep apnea: Plan 67-year-old with persistent fatigue and exhaustion coupled with shortness of breath with exertion that has been 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 At presentation, Lyme's negative, anaplasmosis pending, leukocytosis 14.97, 1 dose Rocephin given in ED however no known source of infection to indicate further continuation at this time. Patient with known autoimmune hemolytic anemia and Crohn's disease. Does have known sleep apnea without CPAP use at home. PMH includes Crohns disease diagnosed 02/2003 (follows with Dr. Ernandez), Autoimmune Hemolytic Anemia Diagnosed 05/2018 (Follows with Dr. 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 Silvestre) with pain management. 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 01/29 CTA chest negative for PE; 4 mm pulmonary nodule that he has followed with pulmonary in [place] yearly Patient denies history of COPD/asthma/CHF. Patient denies any cough or flulike illness or black/bloody stool or swelling of the limbs. Patient does report smoking 1 to 2 cigars a day during good weather season, since 2002. At admission: CXR with no acute findings. WBC appears chronically elevated [likely secondary to chronic steroid use]. Retic 5.6%, haptoglobin 177 (wnl), Procal, TSH, folate/B12 level, ESR and LDH normal, indirect bilirubin slightly elevated. ABG without hypoxemia on room air. BNP and troponin normal. EKG with sinus rhythm with PVCs. Admitting viral panel and tick serology: Either negative or pending. 02/05 echo with EF of 60 to 65%, no pulmonary hypertension, no significant valvular disease, grade 1 diastolic dysfunction, mild concentric LVH. Hemoglobin of 13.3 at admission, 11.2 today, H&H every 12 hours or as needed. No signs of infection, monitor of electrolytes. Follow admitting blood culture, pending. so far negative. Hematology consulted, appreciate recommendation. Patient also with chest tightness and dyspnea with exertion, cardiology consult, plan for ischemic work-up. Stress test obtained and negative. PT/OT Nocturnal pulse ox obtained - one desat event, one pulse event. 02/07 - Discussed w/ cardiology - Resting echocardiogram revealed a preserved LV systolic function without significant valvular disease. Dobutamine stress test performed yesterday was nonischemic. Patient has a known history of occasional/frequent PVCs-asymptomatic. Cardiac work-up has been unremarkable thus far. No further cardiac testing warranted at this time. Would recommend follow-up with his PCP at discharge. Continue all cardiac medications as ordered. no arrhythmias than ventricular ectopy on telemetry. Noted available for outpatient follow-up for possible optimization of medical regimen 02/08 Discussed again w/ Dr. Lopez ([facility]) this AM - will obtain cortisol level and ACTH. Will start solumedrol 30 IV TID. Cont. to monitor blood work closely. 02/09 Pt is feeling better now after starting IV solumedrol. However, his Hgb is down to 10. Discussed w/ Dr. Lopez, will cont IV solumedrol as inpt. Check blood work tmrw. 02/10 Hgb improved at 10.6. Pt is feeling better overall and would like to be discharged - discussed w/ Dr. Lopez - plan to discharge on prednisone 100 mg daily for 2 weeks - blood work to be done on Sunday or to follow up. Crohn's disease: Diagnosed 02/2003; follows with Dr. Ernandez with GI. Takes merlos katty; continue Autoimmune hemolytic anemia: Diagnosed 05/2016; follows with Dr. Lopez; consulted heme-onc for further guidance. HTN: Takes diltiazem and hydralazine; continue HLD: Takes atorvastatin; continue JUDY: Does not wear CPAP despite being recommended Disposition: PCP Dr. Healy with [facility] Total Time Total Time Spent Total Time Spent (In Minutes): 40 Discharge Plan Discharge Items Patient Disposition: Home - Self-Care Reason For Visit: SOB/ FATIGUE Discharge Diagnosis: Dyspnea on exertion secondary to hemolytic anemia Condition on Discharge: Fair Activity: Per Instructions section Non-emergency contact: Primary Care Provider and Specialist Call non-emergency contact if: you have any medication questions and your symptoms worsen Follow-up/Referrals: Polly Healy DO [Primary Care Provider] - Diet: Heart Healthy Addtl Attending Provider Instructions: Follow up with primary care physician within 1 week and follow up with Dr. Lopez. Have bloodwork done on Sunday or with Dr. Lopez. Take prednisone 100 mg daily for 2 weeks - until further instructed by Dr. Lopez. Make sure to continue taking pantoprazole, and folic acid. Pending Studies at Discharge: No Stand-Alone Forms: My [employer], Smoking Cessation Medications and DC Order Prescriptions: New prednisone 50 mg tablet 50 mg PO BID 14 Days Qty: 28 0RF Continued telmisartan 20 mg tablet 20 mg PO DAILY gabapentin 800 mg Tablet 800 mg PO BID diltiazem HCl 360 mg Capsule,Extended Release 24 Hr 360 mg PO DAILY folic acid 1 mg Tablet 2 mg PO TID febuxostat [Uloric] 40 mg Tablet 40 mg PO DAILY atorvastatin 40 mg Tablet 40 mg PO DAILY hydralazine 50 mg Tablet 100 mg PO BID cyanocobalamin (vitamin B-12) [Vitamin B-12] 1,000 mcg Tablet 1,000 mcg PO DAILY pantoprazole 40 mg Tablet,Delayed Release (Dr/Ec) 40 mg PO DAILY acetaminophen [Tylenol] 325 mg Tablet 650 mg PO Q6H PRN (Reason: pain/fever) diphenoxylate-atropine [Lomotil] 2.5-0.025 mg Tablet 2 tab PO QAM ibuprofen [Advil] 200 mg Tablet 400 mg PO Q6H PRN (Reason: Pain) Excedrin Tension Headache 500-65 mg Tablet 1 tab PO DIRECTED PRN (Reason: Headache) oxycodone-acetaminophen 5-325 mg tablet 1 tab PO Q12 MDD 2 tabs PRN (Reason: Severe Pain (Scale Score 7-10)) Centrum 18-400 mg-mcg Tablet 1 tab PO DAILY amitriptyline 25 mg tablet 25 mg PO HS Rx Instructions: Currently holding med per PCP instruction. mesalamine 800 mg tablet,delayed release (DR/EC) 1,600 mg PO DAILY tadalafil 5 mg Tablet 5 mg PO DAILY benzonatate 100 mg capsule 100 mg PO TID PRN (Reason: cough) Qty: 20 0RF Discontinued prednisone 5 mg Tablet 5 mg PO DAILY Discharge Orders: Discharge Order (Routine); Ordered 02/10/23 Ordered By: Boaz Rocha Admission Data Admit Date/Time: 02/04/23 18:20 Attending Provider: Boaz Rocha Admit Provider: Dai Jacinto Primary Care Provider: Polly Healy Other Providers: Dai Jacinto ; Sarah Lopez ; Millie Carlson ; Nader Harris ; Martin Lake ; Gilles Post ; Reagan Gallardo ; Davon Gomez ; Brigida Hicks ; Janeen Gaitan ; Millie Dutta. ; Kavon Campoverde ; Janel Rodgers ; Leila García
== END 2023-02-10 15:40 | disposition home or self-care (01) ==
LOC: ED 14:48 → INTOOBSV 18:20 → 2E 18:20 → SUATTDRO 18:20 → 2E 20:30 → 2N 02-05 22:18

== ENCOUNTER 2023-02-19 11:10 | Observation (INO) ==
[2023-02-19 12:04] LABS: iSTAT Hemoglobin 11.6 g/dl (14.0-18.0); iSTAT Ionized Calcium 1.15 mmol/l (1.12-1.32); iSTAT Potassium 4.1 mmol/L (3.3-5.0)
--- NOTE | 2023-02-19 12:26 | XRay Report ---
SINGLE VIEW CHEST CLINICAL HISTORY: Dyspnea FINDINGS: An AP, portable, upright chest radiograph is compared to study dated 02/04/2023. Correlation is made with chest CT dated 01/29/2023. The cardiomediastinal silhouette is unremarkable noting ather osclerotic calcification of the thoracic aorta. Chronic interstitial thickening is similar to previou s. There is bibasilar scarring/atelectasis. The lungs and pleural spaces are otherwise clear. No pneu mothorax is seen. The skeletal structures are osteopenic. The bony thorax is grossly intact. Degenera tive change is noted in the shoulders and spine. IMPRESSION: No active disease in the chest. ACT 112: Negative or not required by law. Electronically signed by: Mark Villa M.D. 02/19/2023 12:25 PM
[2023-02-19 12:30] LABS: Hematocrit (blood only) 35.9 % (42.0-52.0); Hemoglobin 12.4 g/dl (14.0-18.0); Mean Corpuscular Hgb Conc 34.5 g/dL (32.0-36.0); Mean Corpuscular Volume 101.4 fL (80.0-100.0); Mean Platelet Volume 10.3 fL (9.4-12.4); Nucleated RBC # (auto) 0.93 K/uL (0-0.12); Nucleated RBC % (auto) 3.5 %; Platelet Count 169 K/uL (130-400); RDW Coefficient of Variation 27.4 % (11.5-14.5); RDW Standard Deviation 99.6 fL (36.4-46.3); Red Blood Count 3.54 M/uL (4.70-6.10); White Blood Count 26.57 K/ul (4.8-10.8)
[2023-02-19 12:40] LABS: Alanine Aminotransferase 39 U/L (7-52); Albumin Globulin Ratio 1.9 (0.9-2); Albumin Level 3.8 gm/dl (3.4-5.0); Alkaline Phosphatase 69 U/L (34-104); Anion Gap 13 (3-11); Aspartate Aminotransferase 43 U/L (13-39); BUN Creatinine Ratio 35.4 (10-20); Bilirubin,Total 3.3 mg/dl (0.2-1.0); Blood Urea Nitrogen 29 mg/dl (6-23); Calcium 8.8 mg/dl (8.6-10.3); Carbon Dioxide 22 mmol/L (21-32); Chloride 104 mmol/L (98-107); Est GFR (African American) 103.8 ml/min; Est GFR (Non-African American) 89.6 ml/min; Glucose 116 mg/dl (70-99(Fasting)); Potassium 3.5 mmol/L (3.5-5.1); Sodium 139 mmol/L (136-145); Total Protein 5.8 gm/dl (6.0-8.3)
[2023-02-19 12:46] LABS: Troponin I High Sensitivity 6.8 pg/ml (0-20)
[2023-02-19 12:52] LABS: Anisocytosis Present; Basophils # (auto) 0.05 K/uL (0-0.2); Basophils % (auto) 0.2 %; Eosinophils # (auto) 0.01 K/uL (0-0.50); Immature Granulocytes # (auto) 0.56 K/uL (0.01-0.20); Immature Granulocytes % (auto) 2.1 %; Lymphocytes # (auto) 1.34 K/uL (1.2-3.4); Monocytes # (auto) 2.72 K/uL (0.11-0.59); Monocytes % (auto) 10.2 %; Neutrophils # (auto) 21.89 K/uL (1.40-6.50); Neutrophils % (auto) 82.5 %; Polychromasia 2+
[2023-02-19] MEDS ORDERED: IOVERSOL 350 MG 125mL Prefilled Syringe IV ONE (13:02)
[2023-02-19 13:03] LABS: D Dimer 4010 ug/L FEU (0-500)
--- NOTE | 2023-02-19 13:07 | Emergency Department Note ---
Impression & Plan SOB (shortness of breath), Fatigue, Pulmonary emboli, Elevated d-dimer ED Provider Note NAME: KARTHIK JOSEPH AGE: 68 SEX: M : 1955 ARRIVES VIA: Walk-In INFORMANT: [Patient][family] ED PROVIDER(S): [Mark Hernandez MD] CHIEF COMPLAINT: Short of breath HISTORY OF PRESENT ILLNESS: The patient is a 68-year-old male who presents to the ER with dyspnea that has been ongoing for weeks. He was just in the hospital, he was discharged 9 days ago. He has made no improvement and can only take a step or 2 without being short of breath. He is quite fatigued. The patient's dyspnea was thought secondary to hemolytic anemia, he is on steroids. The patient states his hemoglobin though has actually improved and he still is short of breath. There has been no fever, no cough, no increased leg edema. He has not had chest pain. During the patient's recent hospitalization, he did have a stress test, this was unrevealing. PMHx/PSHx: See Below SOCIAL HISTORY: See Below. PHYSICAL EXAM: GENERAL: Patient is in no acute distress. HEENT: No acute trauma, normocephalic atraumatic, mucous membranes moist, no nasal congestion. NECK: No stridor, no adenopathy, no meningismus, trachea is midline. LUNGS: Clear to auscultation bilaterally, no wheeze, no rhonchi, breath sounds equal. HEART: Without murmurs gallops or rubs, regular rate and rhythm. ABDOMEN: Soft, nontender, bowel sounds positive, no peritonitis. EXTREMITIES: No cyanosis, very mild bilateral pedal edema, full range of motion of all the joints without pain or difficulty, no signs for acute trauma. NEUROLOGIC: Oriented x 3, no acute motor or sensory deficits, no focal weakness. SKIN: No rash, no jaundice, no diaphoresis. DIFFERENTIAL DIAGNOSIS: Bronchitis or pneumonia, PE, anemia, electrolyte imbalance, thyroid disorder, debilitation, [place], among others. EMERGENCY DEPARTMENT COURSE/PROCEDURES: Prior/Outside records reviewed: Recent discharge summary. ECG per my interpretation: Indication was shortness of breath. The ECG shows a normal sinus rhythm with a rate of 80. There is no ST elevation, no PVCs. The QTc is 415. Continuous Cardiac Monitoring per my interpretation: An order was placed for continuous cardiac monitoring. The monitor shows a rate of 80 with normal sinus rhythm. Critical Care Note: I have personally spent 49 minutes of critical care time in the direct management of this patient. This includes bedside care, interpretation of diagnostic studies, and testing, discussion with consultants, patient, and family members, and other required patient management activities. This 49 minutes is in excess of all separately billable procedures. MEDICAL DECISION MAKING: There is a significant leukocytosis, this has been noted lately and is at his recent baseline. The patient's hemoglobin was actually improved at 12.4. There was a normal platelet count. D-dimer was quite elevated at 4000. The elevated D-dimer made PE more likely. There was no renal failure. No significant electrolyte abnormality. Bilirubin was elevated, this has been documented before. The bilirubin value today was higher than his baseline though. BNP was not elevated making CHF unlikely. The patient appeared to be in a euthyroid state. ECG shows a normal sinus rhythm, no ischemia. Cardiac enzyme testing x1 is not consistent with acute cardiac injury. Chest film per my review did not show mediastinal widening, pneumonia or pneumothorax. Chest CT shows bilateral pulmonary emboli. The patient presents with shortness of breath and fatigue. He was found to have pulmonary emboli. Hospitalization is warranted. I did order IV heparin to be initiated. I did speak with the patient and case management, the on-call hospitalist was consulted. DISPOSITION: Patient's presentation and findings warrant a hospital stay. Past Med/Surg History Medical History Abdominal pain Benign essential hypertension (04/07/13) Bilateral pulmonary embolism Crohn's disease Diarrhea Diverticulitis (04/07/13) Elevated PSA Fatigue GERD (gastroesophageal reflux disease) Hematochezia Hemolytic anemia Hyperlipidemia Hypertension Hyperuricemia Incisional hernia (04/07/13) Neuropathy (04/07/13) Neuropathy Pancreatitis Perforated bowel 2011 surgery Perforation of small intestine (04/07/13) Post-obstructive pneumonia due to foreign body aspiration 2012 Prostate cancer (09/11/19) Shingles (11/18/19) Sleep apnea 2017 SOB (shortness of breath) on exertion Surgical History S/P cholecystectomy S/P hernia repair S/P tonsillectomy Family History Father , age 86 Heart disease Prostate cancer Mother , age 68 Cancer patient states it was a female cancer Sister , age mid 70s from [place] No problems noted. Brother Cancer age 32 Melanoma Sister , age 72 Colorectal cancer Social History Smoking Status: Current some day smoker Tobacco Type: Cigars Cigarettes Per Day: occasional; Second Hand Exposure: No; Do You Dip or Chew Tobacco: No; Hx Alcohol Use: No Hx Substance Use: No Preferred Language: Pashto Communication Ability: Effective Development Mgr Required: No Beliefs That Will Affect Care: None marital status: Current Living Situation: Spouse Feels Safe at Home: Yes Childhood Exposure to Second-Hand Smoke: Yes Assistive Devices: Cane Allergies Allergies Allergy/AdvReac Type Severity Reaction Status Date / Time fluoxetine Allergy Intermediate Hives Verified 02/04/23 16:24 mercaptopurine Allergy Intermediate FEVER, RASH Verified 02/04/23 16:24 pregabalin Allergy Intermediate Rash, Verified 02/04/23 16:24 hives , headaches blue dye AdvReac Intermediate Severe Verified 02/04/23 16:24 Headache duloxetine AdvReac Intermediate Severe Verified 02/04/23 16:24 Headache infliximab AdvReac Intermediate bp Verified 02/04/23 16:24 elevation niacin AdvReac Unknown Unknown Verified 02/04/23 16:24 Home Meds Home Medications Medication Instructions Recorded Confirmed acetaminophen 325 mg tablet 650 mg PO Q6H PRN pain/fever 06/29/19 02/19/23 (Tylenol) atorvastatin 40 mg tablet 40 mg PO DAILY 06/29/19 02/19/23 cyanocobalamin (vitamin B-12) 1,000 mcg PO DAILY 06/29/19 02/19/23 1,000 mcg tablet (Vitamin B-12) diltiazem HCl 360 mg capsule,24 360 mg PO DAILY 06/29/19 02/19/23 hr,extended release diphenoxylate-atropine 2.5 2 tab PO QAM 06/29/19 02/19/23 mg-0.025 mg tablet (Lomotil) febuxostat 40 mg tablet (Uloric) 40 mg PO DAILY 06/29/19 02/19/23 folic acid 1 mg tablet 2 mg PO TID 06/29/19 02/19/23 gabapentin 800 mg tablet 800 mg PO BID 06/29/19 02/19/23 hydralazine 50 mg tablet 100 mg PO BID 06/29/19 02/19/23 pantoprazole 40 mg tablet,delayed 40 mg PO DAILY 06/29/19 02/19/23 release ibuprofen 200 mg tablet (Advil) 400 mg PO Q6H PRN Pain 01/29/20 02/19/23 telmisartan 20 mg tablet 20 mg PO DAILY 10/27/21 02/19/23 acetaminophen-caffeine 500 mg-65 1 tab PO DIRECTED PRN Headache 02/17/22 02/19/23 mg tablet (Excedrin Tension Headache) multivitamin-ferrous 1 tab PO DAILY 02/17/22 02/19/23 fumarate-folic acid 18 mg-400 mcg tablet (Centrum) oxycodone-acetaminophen 5 mg-325 1 tab PO Q12 PRN Severe Pain 02/17/22 02/19/23 mg tablet (Scale Score 7-10) amitriptyline 25 mg tablet 25 mg PO HS 01/29/23 02/19/23 mesalamine 800 mg tablet,delayed 1,600 mg PO DAILY 01/29/23 02/19/23 release tadalafil 5 mg tablet 5 mg PO DAILY 01/29/23 02/19/23 Previous Rx's Medication Instructions Recorded benzonatate 100 mg capsule 100 mg PO TID PRN cough #20 caps 01/29/23 prednisone 50 mg tablet 50 mg PO BID 14 days #28 tabs 02/10/23 Results & Data (ED) Vital Signs Vital Signs - 24 hr 02/19/23 11:20 02/19/23 11:52 02/19/23 11:52 Temperature 36.1 C L Temperature Source Temporal Artery Scan Pulse Rate 85 Pulse Rate [Apical] Pulse Rate from SpO2 Sensor Pulse Rhythm [Apical] Pulse Strength [Apical] Respiratory Rate 24 Respiratory Effort / Characteristics Non-Labored Spontaneous Accessory Muscle Use Respiratory Depth Normal Shallow Respiratory Pattern Regular Tachypnea Blood Pressure 96/57 L Blood Pressure [Left Arm] Blood Pressure Mean 70 Blood Pressure Mean [Left Arm] Blood Pressure Position [Left Arm] Pulse Oximetry 97 95 Oxygen Delivery Method Room Air Room Air Room Air Sepsis Recent Fever Within 48 Hours No Sepsis New/Unexplained Change in Mental Status N/A Sepsis Action Taken by Nursing Physician Notified 02/19/23 11:52 02/19/23 12:04 02/19/23 14:00 Temperature Temperature Source Pulse Rate 83 Pulse Rate [Apical] 80 65 Pulse Rate from SpO2 Sensor Pulse Rhythm [Apical] Regular Regular Pulse Strength [Apical] Normal Normal Respiratory Rate 24 24 Respiratory Effort / Characteristics Spontaneous Labored Spontaneous Labored Respiratory Depth Shallow Normal Respiratory Pattern Tachypnea Regular Blood Pressure Blood Pressure [Left Arm] 144/69 H 153/74 H Blood Pressure Mean Blood Pressure Mean [Left Arm] 94 100 Blood Pressure Position [Left Arm] Lying Lying Pulse Oximetry 94 96 Oxygen Delivery Method Room Air Room Air Sepsis Recent Fever Within 48 Hours Sepsis New/Unexplained Change in Mental Status Sepsis Action Taken by Nursing 02/19/23 14:00 Temperature Temperature Source Pulse Rate 68 Pulse Rate [Apical] Pulse Rate from SpO2 Sensor 68 Pulse Rhythm [Apical] Pulse Strength [Apical] Respiratory Rate 23 Respiratory Effort / Characteristics Respiratory Depth Respiratory Pattern Blood Pressure Blood Pressure [Left Arm] Blood Pressure Mean Blood Pressure Mean [Left Arm] Blood Pressure Position [Left Arm] Pulse Oximetry 95 Oxygen Delivery Method Room Air Sepsis Recent Fever Within 48 Hours Sepsis New/Unexplained Change in Mental Status Sepsis Action Taken by Assisted Medications Current Medication List: was personally reviewed by me Laboratory Data Attestation: I reviewed the patient's lab results. 02/19/23 11:40 02/19/23 11:40 Lab Results 02/19/23 02/19/23 02/19/23 Range/Units 11:40 11:40 11:40 WBC 26.57 H (4.8-10.8) K/ul RBC 3.54 L (4.70-6.10) M/uL Hgb 12.4 L (14.0-18.0) g/dl POC Hgb (14.0-18.0) g/dl Hct 35.9 L (42.0-52.0) % POC Hct (42-52) % MCV 101.4 H (80.0-100.0) fL MCH 35.0 H (25.0-34.0) pg MCHC 34.5 (32.0-36.0) g/dL RDW Std Deviation 99.6 H (36.4-46.3) fL RDW Coeff of Rodo 27.4 H (11.5-14.5) % Plt Count 169 (130-400) K/uL MPV 10.3 (9.4-12.4) fL Immature Gran % (Auto) 2.1 % Neut % (Auto) 82.5 % Lymph % (Auto) 5.0 % [place] % (Auto) 10.2 % Eos % (Auto) 0.0 % Baso % (Auto) 0.2 % Neut # (Auto) 21.89 H (1.40-6.50) K/uL Lymph # (Auto) 1.34 (1.2-3.4) K/uL [place] # (Auto) 2.72 H (0.11-0.59) K/uL Eos # (Auto) 0.01 (0-0.50) K/uL Baso # (Auto) 0.05 (0-0.2) K/uL Immature Gran # (Auto) 0.56 H (0.01-0.20) K/uL Absolute Nucleated RBC 0.93 H (0-0.12) K/uL Nucleated RBC % (auto) 3.5 % Polychromasia 2+ Anisocytosis Present D-Dimer 4010 H* (0-500) ug/L FEU POC Sodium (135-144) mmol/L Sodium 139 (136-145) mmol/L POC Potassium (3.3-5.0) mmol/L Potassium 3.5 (3.5-5.1) mmol/L POC Chloride (101-112) mmol/L Chloride 104 (98-107) mmol/L Carbon Dioxide 22 (21-32) mmol/L POC Total CO2 (24-31) mmol/L Anion Gap 13 H (3-11) POC Anion Gap (16-25) mmol/L POC BUN (7-18) mg/dl BUN 29 H (6-23) mg/dl Creatinine 0.82 (0.6-1.4) mg/dl POC Creatinine (0.6-1.3) mg/dl Est Cr Clr Drug Dosing Not Reportable Est GFR ( Amer) 103.8 ml/min Est GFR (Non-Af Amer) 89.6 ml/min BUN/Creatinine Ratio 35.4 H (10-20) Glucose 116 H (70-99(Fasting)) mg/dl POC Glucose (other) (70-99) mg/dl Calcium 8.8 (8.6-10.3) mg/dl POC Ioniz Calcium Sharee (1.12-1.32) mmol/l Magnesium 2.5 H (1.7-2.4) mg/dl Total Bilirubin 3.3 H (0.2-1.0) mg/dl AST 43 H (13-39) U/L ALT 39 (7-52) U/L Alkaline Phosphatase 69 (34-104) U/L Troponin I High Sens 6.8 (0-20) pg/ml B-Natriuretic Peptide (0-100) pg/ml Total Protein 5.8 L (6.0-8.3) gm/dl Albumin 3.8 (3.4-5.0) gm/dl Globulin 2.0 L (2.5-4.0) gm/dl Albumin/Globulin Ratio 1.9 (0.9-2) TSH (0.300-4.500) uIu/ml 02/19/23 02/19/23 02/19/23 Range/Units 11:40 11:51 13:25 WBC (4.8-10.8) K/ul RBC (4.70-6.10) M/uL Hgb (14.0-18.0) g/dl POC Hgb 11.6 L (14.0-18.0) g/dl Hct (42.0-52.0) % POC Hct 34 L (42-52) % MCV (80.0-100.0) fL MCH (25.0-34.0) pg MCHC (32.0-36.0) g/dL RDW Std Deviation (36.4-46.3) fL RDW Coeff of Rodo (11.5-14.5) % Plt Count (130-400) K/uL MPV (9.4-12.4) fL Immature Gran % (Auto) % Neut % (Auto) % Lymph % (Auto) % [place] % (Auto) % Eos % (Auto) % Baso % (Auto) % Neut # (Auto) (1.40-6.50) K/uL Lymph # (Auto) (1.2-3.4) K/uL [place] # (Auto) (0.11-0.59) K/uL Eos # (Auto) (0-0.50) K/uL Baso # (Auto) (0-0.2) K/uL Immature Gran # (Auto) (0.01-0.20) K/uL Absolute Nucleated RBC (0-0.12) K/uL Nucleated RBC % (auto) % Polychromasia Anisocytosis D-Dimer (0-500) ug/L FEU POC Sodium 139 (135-144) mmol/L Sodium (136-145) mmol/L POC Potassium 4.1 (3.3-5.0) mmol/L Potassium (3.5-5.1) mmol/L POC Chloride 104 (101-112) mmol/L Chloride (98-107) mmol/L Carbon Dioxide (21-32) mmol/L POC Total CO2 25 (24-31) mmol/L Anion Gap (3-11) POC Anion Gap 15.0 L (16-25) mmol/L POC BUN 37 H (7-18) mg/dl BUN (6-23) mg/dl Creatinine (0.6-1.4) mg/dl POC Creatinine 1.0 (0.6-1.3) mg/dl Est Cr Clr Drug Dosing Est GFR ( Amer) ml/min Est GFR (Non-Af Amer) ml/min BUN/Creatinine Ratio (10-20) Glucose (70-99(Fasting)) mg/dl POC Glucose (other) 125 H (70-99) mg/dl Calcium (8.6-10.3) mg/dl POC Ioniz Calcium Sharee 1.15 (1.12-1.32) mmol/l Magnesium (1.7-2.4) mg/dl Total Bilirubin (0.2-1.0) mg/dl AST (13-39) U/L ALT (7-52) U/L Alkaline Phosphatase (34-104) U/L Troponin I High Sens (0-20) pg/ml B-Natriuretic Peptide 43 (0-100) pg/ml Total Protein (6.0-8.3) gm/dl Albumin (3.4-5.0) gm/dl Globulin (2.5-4.0) gm/dl Albumin/Globulin Ratio (0.9-2) TSH 1.103 (0.300-4.500) uIu/ml Administered Medications Heparin Sodium/Dextrose (Heparin Sodium/Dextrose) 25,000 units in 500 mls @ 20 mls/hr IV .Q24H DARLENE; Protocol Stop: 03/21/23 13:59 Last Titration: 02/19/23 19:07 Dose: 1,000 units/hr, 20 mls/hr Documented By: EVELYN Co-signed By: ROSMERY Titration: 02/19/23 17:43 Dose: 1,000 units/hr, 20 mls/hr Documented By: ROSMERY Co-signed By: IBRAHIMA Admin: 02/19/23 14:00 Dose: 1,000 units/hr, 20 mls/hr Documented By: VIDAL Co-signed By: SWATI Discontinued Medications Heparin Sodium (Porcine) (Heparin Sod (Porcine) 1000 Unit/Ml) 4,000 units IV NOW ONE Stop: 02/19/23 14:01 Last Admin: 02/19/23 14:00 Dose: 4,000 units Documented By: VIDAL Co-signed By: SWATI Ioversol (Ioversol 350 Mg 125ml Prefilled Syringe) 120 ml IV ONCE ONE Stop: 02/19/23 13:03 Last Admin: 02/19/23 13:03 Dose: 120 ml Documented By: ARAMIS Imaging Data Radiologist's Impression: Chest X-Ray 02/19/23 11:58 SINGLE VIEW CHEST CLINICAL HISTORY: Dyspnea FINDINGS: An AP, portable, upright chest radiograph is compared to study dated 02/04/2023. Correlation is made with chest CT dated 01/29/2023. The cardiomediastinal silhouette is unremarkable noting atherosclerotic calcification of the thoracic aorta. Chronic interstitial thickening is similar to previous. There is bibasilar scarring/atelectasis. The lungs and pleural spaces are otherwise clear. No pneumothorax is seen. The skeletal structures are osteopenic. The bony thorax is grossly intact. Degenerative change is noted in the shoulders and spine. IMPRESSION: No active disease in the chest. ACT 112: Negative or not required by law. Electronically signed by: Mark Villa M.D. 02/19/2023 12:25 PM Chest CTA 02/19/23 12:54 CT ANGIOGRAM OF THE CHEST CLINICAL HISTORY: Dyspnea. COMPARISON STUDY: Chest CT dated 01/29/2023. Chest x-ray dated 02/19/2023. TECHNIQUE: Following the IV administration of 120 cc of Optiray 350, CT angiogram of the chest was performed from the upper abdomen to the thoracic inlet utilizing the pulmonary embolus protocol. Images are reviewed in the axial, sagittal, and coronal planes. 3-D MIPS images are created and assessed. IV contrast was administered without complication. A dose lowering technique was utilized adhering to the principles of ALARA. CT DOSE: 917.22 mGy.cm FINDINGS: Thyroid: Imaged portions of the thyroid gland are normal in size and attenuation. Thoracic aorta: There is atherosclerotic calcification of the thoracic aorta, which is normal in caliber and demonstrates standard 3-vessel arch anatomy. No dissection is seen. Pulmonary vasculature: The pulmonary trunk is normal in caliber. There are bilateral segmental and subsegmental pulmonary emboli. Segmental thrombus within a right middle lobe branch is seen on image #117. Segmental and subsegmental portable and right upper lobe are seen on images #163 and #189, and in the left upper lobe on image #174. There is also likely lingular thrombus on image #120. Heart: The heart is enlarged and without pericardial effusion. The coronary arteries are densely calcified. Lungs and pleural spaces: Evaluation of the lung parenchyma is degraded by motion artifact. Foci of scarring/atelectasis are seen throughout both lungs, greatest at the lung bases. There is no airspace consolidation typical for pneumonia or pleural effusion. The trachea and central airways are clear. There are scattered calcified granulomas. Mediastinum: There is no mediastinal lymphadenopathy. Judith: Clear. Axillae: There is no axillary lymphadenopathy. Upper abdomen: Cholecystectomy clips are noted. There is a small hiatal hernia. Skeletal structures: The skeletal structures are osteopenic. Degenerative change is noted in the shoulders and spine. No lytic or blastic bony lesions are seen. IMPRESSION: 1. Bilateral segmental and subsegmental pulmonary emboli as above. 2. Cardiomegaly. 3. There is no airspace consolidation or pleural effusion. 4. Additional findings as above. ACT 112: Negative or not required by law. Electronically signed by: Mark Villa M.D. 02/19/2023 1:33 PM Discharge Plan Visit Data Chief Complaint: Shortness of Breath/Dyspnea Stated Complaint: SOB,DOC REF ED Provider: Mrak Hernandez Discharge Problem: SOB (shortness of breath), Fatigue, Pulmonary emboli, Elevated d-dimer Patient Disposition: Admitted As Inpatient Condition: Serious Discharge Instructions Interventions: ED Discharge Assessment Last Done: 02/19/23 17:14
--- NOTE | 2023-02-19 13:35 | CT Scan Report ---
CT ANGIOGRAM OF THE CHEST CLINICAL HISTORY: Dyspnea. COMPARISON STUDY: Chest CT dated 01/29/2023. Chest x-ray dated 02/19/2023. TECHNIQUE: Following the IV administration of 120 cc of Optiray 350, CT angiogram of the chest was pe rformed from the upper abdomen to the thoracic inlet utilizing the pulmonary embolus protocol. Images are reviewed in the axial, sagittal, and coronal planes. 3-D MIPS images are created and assessed. I V contrast was administered without complication. A dose lowering technique was utilized adhering to the principles of ALARA. CT DOSE: 917.22 mGy.cm FINDINGS: Thyroid: Imaged portions of the thyroid gland are normal in size and attenuation. Thoracic aorta: There is atherosclerotic calcification of the thoracic aorta, which is normal in maddy goldy and demonstrates standard 3-vessel arch anatomy. No dissection is seen. Pulmonary vasculature: The pulmonary trunk is normal in caliber. There are bilateral segmental and gaona bsegmental pulmonary emboli. Segmental thrombus within a right middle lobe branch is seen on image #1 17. Segmental and subsegmental portable and right upper lobe are seen on images #163 and #189, and in the left upper lobe on image #174. There is also likely lingular thrombus on image #120. Heart: The heart is enlarged and without pericardial effusion. The coronary arteries are densely calc ified. Lungs and pleural spaces: Evaluation of the lung parenchyma is degraded by motion artifact. Foci of s carring/atelectasis are seen throughout both lungs, greatest at the lung bases. There is no airspace consolidation typical for pneumonia or pleural effusion. The trachea and central airways are clear. T here are scattered calcified granulomas. Mediastinum: There is no mediastinal lymphadenopathy. Judith: Clear. Axillae: There is no axillary lymphadenopathy. Upper abdomen: Cholecystectomy clips are noted. There is a small hiatal hernia. Skeletal structures: The skeletal structures are osteopenic. Degenerative change is noted in the shou lders and spine. No lytic or blastic bony lesions are seen. IMPRESSION: 1. Bilateral segmental and subsegmental pulmonary emboli as above. 2. Cardiomegaly. 3. There is no airspace consolidation or pleural effusion. 4. Additional findings as above. ACT 112: Negative or not required by law. Electronically signed by: Mark Villa M.D. 02/19/2023 1:33 PM
[2023-02-19] MEDS ORDERED: Heparin IV Adult Wt-Based Low-Dose WITH Bolus Protocol STA (13:37)
[2023-02-19 13:48] LABS: Magnesium 2.5 mg/dl (1.7-2.4)
[2023-02-19] MEDS ORDERED: HEPARIN SOD (PORCINE) 1000 UNIT/ML IV ONE ×3 (13:53→14:00)
[2023-02-19] MEDS: HEPARIN SODIUM/DEXTROSE 25,000 UNITS/500 ML BAG IV SCH (14:00)
[2023-02-19] MEDS ORDERED: POLYETHYLENE (MIRALAX) 17 GM PACK PO PRN (14:07)
[2023-02-19] MEDS ORDERED: MAGNESIUM HYDROXIDE SUSP 30 ML UDC PO PRN (14:07)
[2023-02-19] MEDS ORDERED: ONDANSETRON INJ 2 MG/ML 2 ML VIAL IV PRN (14:07)
[2023-02-19] MEDS ORDERED: ALUMINUM/MAGNESIUM SUSP 30 ML UDC PO PRN (14:07)
[2023-02-19] MEDS ORDERED: ACETAMINOPHEN 325 MG TAB PO PRN (14:07)
--- NOTE | 2023-02-19 14:13 | History & Physical Report ---
Date of Service February 19, 2023 Assessment & Plan (1) Bilateral pulmonary embolism: (2) SOB (shortness of breath): (3) Hemolytic anemia: (4) Hypertension: (5) Crohn's disease: (6) Hyperlipidemia: (7) Sleep apnea: Plan 68y/o with persistent QUIÑONEZ without hypoxia since DC on 02/10. Today, he stated that he just could not catch his breath. In ED, Chest CTA: Bilateral segmental and subsegmental pulmonary emboli; placed on Heparin gtt. Due to his AIHA; follows closely with Dr. Lopez who followed him extensively last admission. NO pancytopenia or anemia. Appreciate official consult for further guidance for appropriate anticoagulation related to his AIHA. Will obtain LE Bilateral US. Bilateral PE: QUIÑONEZ without hypoxia: Persistent since hospital DC 9 days ago; last admit Chest CTA negative for PE; suspect microclots Chest CTA: Bilateral segmental and subsegmental pulmonary emboli. chest CTA negative for PE on: 4 mm pulmonary nodule not new to patient; follows with pulmonary in [place] Started on a Heparin gtt in ED; will appreciate hematology input regarding anticoagulation in setting of AIHM as outlined below Bilateral Doppler LE US ordered. Crohn's disease: Diagnosed 02/2003; follows with Dr. Ernandez with GI Takes mesalamine; continue Autoimmune hemolytic anemia: Diagnosed 05/2016; follows with Dr. Lopez; consult heme-onc for further guidance Followed extensively last admission No pancytopenia or anemia; Hgb actually improved from previous admission 12.4; up from baseline 11.1 Per patient, feels his best when his Hgb is 14. Was HTN: Takes diltiazem and hydralazine; continue HLD: Takes atorvastatin; continue JUDY: Does not wear CPAP despite being recommended Disposition: PCP Dr. Healy with [facility] CODE STATUS: Full code VTE prophylaxis: On Heparin gtt I spent a total of 87 minutes coordinating, documenting, and providing care for this patient excluding time spent in the performance of separately billed services. All of the aforementioned completed while collaborating with the assigned attending physicianfor a full treatment plan. Please see their addendum for further details. History of Present Illness Chief Complaint: QUIÑONEZ/PE Primary Care Provider: Polly Healy DO Mr. Arias is a 67 year old male who was admitted from 02/04-02/10 for persistent fatigue, QUIÑONEZ without hypoxia and exhaustion. Patient seen in [facility] ED on 01/29 prior to that and D-dimer was elevated at that time negative for PE. Patient with known autoimmune hemolytic anemia and Crohn's disease. No pancytopenia or anemia noted and labs; Hgb today 12.4; improved from his baseline. Does have known sleep apnea without CPAP use at home. No PVCs noted while here in ED. Plt level 169. D-Dimer today 4010; Chest CTA indicates Bilateral segmental and subsegmental pulmonary emboli. Placed on Heparin gtt in ED. CXR negative for acute cardiopulmonary disease. Had a dobutamine stress test done and was non ischemic. EF 60-65%, increased LVH, without wall motion abnormalities. Suspect microclots may be contributing cause to persistent SOB; will obtain LE Bilateral US to complete PE workup. PMH includes Crohn's disease diagnosed 02/2003 (follows with Dr. Ernandez), Autoimmune Hemolytic Anemia Diagnosed 05/2018 (Follows with Dr. 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 Silvestre with pain management) Last admission he was closely followed by retail support associate Dr. Lopez. He was placed on IV Methylprednisone while inpatient and transitioned to oral Prednisone upon discharge.Close monitoring of his LDH and Reticulocyte count was had during last admission. Patient denies tobacco, drug and alcohol use. Patient medications are unchanged since discharge outside of oral Prednisone that was added. Patient will be admitted for further evaluation and management. Please see A/P for further details. Allergies Allergy/AdvReac Type Severity Reaction Status Date / Time fluoxetine Allergy Intermediate Hives Verified 02/04/23 16:24 mercaptopurine Allergy Intermediate FEVER, RASH Verified 02/04/23 16:24 pregabalin Allergy Intermediate Rash, Verified 02/04/23 16:24 hives , headaches blue dye AdvReac Intermediate Severe Verified 02/04/23 16:24 Headache duloxetine AdvReac Intermediate Severe Verified 02/04/23 16:24 Headache infliximab AdvReac Intermediate bp Verified 02/04/23 16:24 elevation niacin AdvReac Unknown Unknown Verified 02/04/23 16:24 Home Medications Medication Instructions Recorded Confirmed Type acetaminophen 325 mg tablet 650 mg PO Q6H PRN pain/fever 06/29/19 02/19/23 History (Tylenol) atorvastatin 40 mg tablet 40 mg PO DAILY 06/29/19 02/19/23 History cyanocobalamin (vitamin B-12) 1,000 mcg PO DAILY 06/29/19 02/19/23 History 1,000 mcg tablet (Vitamin B-12) diltiazem HCl 360 mg capsule,24 360 mg PO DAILY 06/29/19 02/19/23 History hr,extended release diphenoxylate-atropine 2.5 2 tab PO QAM 06/29/19 02/19/23 History mg-0.025 mg tablet (Lomotil) febuxostat 40 mg tablet (Uloric) 40 mg PO DAILY 06/29/19 02/19/23 History folic acid 1 mg tablet 2 mg PO TID 06/29/19 02/19/23 History gabapentin 800 mg tablet 800 mg PO BID 06/29/19 02/19/23 History hydralazine 50 mg tablet 100 mg PO BID 06/29/19 02/19/23 History pantoprazole 40 mg tablet,delayed 40 mg PO DAILY 06/29/19 02/19/23 History release ibuprofen 200 mg tablet (Advil) 400 mg PO Q6H PRN Pain 01/29/20 02/19/23 History telmisartan 20 mg tablet 20 mg PO DAILY 10/27/21 02/19/23 History acetaminophen-caffeine 500 mg-65 1 tab PO DIRECTED PRN Headache 02/17/22 02/19/23 History mg tablet (Excedrin Tension Headache) multivitamin-ferrous 1 tab PO DAILY 02/17/22 02/19/23 History fumarate-folic acid 18 mg-400 mcg tablet (Centrum) oxycodone-acetaminophen 5 mg-325 1 tab PO Q12 PRN Severe Pain 02/17/22 02/19/23 History mg tablet (Scale Score 7-10) amitriptyline 25 mg tablet 25 mg PO HS 01/29/23 02/19/23 History benzonatate 100 mg capsule 100 mg PO TID PRN cough #20 caps 01/29/23 02/19/23 Rx mesalamine 800 mg tablet,delayed 1,600 mg PO DAILY 01/29/23 02/19/23 History release tadalafil 5 mg tablet 5 mg PO DAILY 01/29/23 02/19/23 History prednisone 50 mg tablet 50 mg PO BID 14 days #28 tabs 07/22/23 07/31/23 Rx Past Med/Surg History Medical History Abdominal pain Benign essential hypertension (04/07/13) Bilateral pulmonary embolism Crohn's disease Diarrhea Diverticulitis (04/07/13) Elevated PSA Fatigue GERD (gastroesophageal reflux disease) Hematochezia Hemolytic anemia Hyperlipidemia Hypertension Hyperuricemia Incisional hernia (04/07/13) Neuropathy (04/07/13) Neuropathy Pancreatitis Perforated bowel 2011 surgery Perforation of small intestine (04/07/13) Post-obstructive pneumonia due to foreign body aspiration 2011 Prostate cancer (09/11/19) Shingles (11/18/19) Sleep apnea 2016 SOB (shortness of breath) on exertion Surgical History S/P cholecystectomy S/P hernia repair S/P tonsillectomy Family History Father , age 86 Heart disease Prostate cancer Mother , age 68 Cancer patient states it was a female cancer Sister , age mid 70s from [place] No problems noted. Brother Cancer age 32 Melanoma Sister , age 72 Colorectal cancer Social History Smoking Status: Never smoker Tobacco Type: Cigars Cigarettes Per Day: occasional; Second Hand Exposure: No; Do You Dip or Chew Tobacco: No; Hx Alcohol Use: Yes Alcohol type: beer Hx Substance Use: No Preferred Language: Japanese Communication Ability: Effective Kennel Attendant Required: No Beliefs That Will Affect Care: None marital status: Current Living Situation: Family Other Information That Helps Us Care for You: No Feels Safe at Home: Yes Safety Concerns: Feels Safe At This Time Childhood Exposure to Second-Hand Smoke: Yes Assistive Devices: Cane Review of Systems Review of Systems: Neuro: (-) Falls, trauma, slurred speech HEENT: (-) ROMERO, dizziness, dysphagia, visual or auditory changes CV: (-) CP, palpitations, swelling Resp: (-) SOB GI: (-) appetite changes, N/V/D, bowel changes : (-) urinary changes Skin: (-) rashes Psych: (-) anxiety, depression Physical Exam Physical Exam: Neuro: AAOx4, PERRLA, no aphagia, memory changes, CNII-XII grossly intact HEENT: head normocephalic, moist mucus membranes CV: S1/S2, (-) M/G/R, (-) edema, cap refill < 3 seconds Resp: Lungs decreased in posterior bases with LLL crackles. On RA GI: Abdomen S/NT/ND, Ax4 bowel sounds, (-) CVA tenderness Musculoskeletal: 5/5 B/L UE strength, 5/5 B/L LE strength. No gait disturbance Skin: (-) rashes , (-) erythema. Psych: euthymic mood Results & Data Results & Data Vital Signs (Past 12 Hours) Vital Signs Temp Pulse Pulse Resp BP BP Pulse Ox 02/19/23 12:04 80 24 144/69 H 94 02/19/23 11:52 83 02/19/23 11:52 95 02/19/23 11:52 02/19/23 11:20 36.1 C L 85 24 96/57 L 97 O2 Del Method 02/19/23 12:04 Room Air 02/19/23 11:52 02/19/23 11:52 Room Air 02/19/23 11:52 Room Air 02/19/23 11:20 Room Air Laboratory Results Short CBC 02/19/23 Range/Units 11:40 WBC 26.57 H (4.8-10.8) K/ul Hgb 12.4 L (14.0-18.0) g/dl Hct 35.9 L (42.0-52.0) % Plt Count 169 (130-400) K/uL BMP 02/19/23 11:40 Sodium 139 Potassium 3.5 Chloride 104 Carbon Dioxide 22 BUN 29 H Creatinine 0.82 Glucose 116 H Calcium 8.8 Liver Function 02/19/23 Range/Units 11:40 Total Bilirubin 3.3 H (0.2-1.0) mg/dl AST 43 H (13-39) U/L ALT 39 (7-52) U/L Alkaline Phosphatase 69 (34-104) U/L Albumin 3.8 (3.4-5.0) gm/dl Diagnostic Findings Chest X-Ray 02/19/23 11:58 SINGLE VIEW CHEST CLINICAL HISTORY: Dyspnea FINDINGS: An AP, portable, upright chest radiograph is compared to study dated 02/04/2023. Correlation is made with chest CT dated 01/29/2023. The cardiomediastinal silhouette is unremarkable noting atherosclerotic calcification of the thoracic aorta. Chronic interstitial thickening is similar to previous. There is bibasilar scarring/atelectasis. The lungs and pleural spaces are otherwise clear. No pneumothorax is seen. The skeletal structures are osteopenic. The bony thorax is grossly intact. Degenerative change is noted in the shoulders and spine. IMPRESSION: No active disease in the chest. ACT 112: Negative or not required by law. Electronically signed by: Mark Villa M.D. 02/19/2023 12:25 PM Chest CTA 02/19/23 12:54 CT ANGIOGRAM OF THE CHEST CLINICAL HISTORY: Dyspnea. COMPARISON STUDY: Chest CT dated 01/29/2023. Chest x-ray dated 02/19/2023. TECHNIQUE: Following the IV administration of 120 cc of Optiray 350, CT angiogram of the chest was performed from the upper abdomen to the thoracic inlet utilizing the pulmonary embolus protocol. Images are reviewed in the axial, sagittal, and coronal planes. 3-D MIPS images are created and assessed. IV contrast was administered without complication. A dose lowering technique was utilized adhering to the principles of ALARA. CT DOSE: 917.22 mGy.cm FINDINGS: Thyroid: Imaged portions of the thyroid gland are normal in size and attenu ation. Thoracic aorta: There is atherosclerotic calcification of the thoracic aorta, which is normal in caliber and demonstrates standard 3-vessel arch anatomy. No dissection is seen. Pulmonary vasculature: The pulmonary trunk is normal in caliber. There are bilateral segmental and subsegmental pulmonary emboli. Segmental thrombus within a right middle lobe branch is seen on image #117. Segmental and subsegmental portable and right upper lobe are seen on images #163 and #189, and in the left upper lobe on image #174. There is also likely lingular thrombus on image #120. Heart: The heart is enlarged and without pericardial effusion. The coronary arteries are densely calcified. Lungs and pleural spaces: Evaluation of the lung parenchyma is degraded by motion artifact. Foci of scarring/atelectasis are seen throughout both lungs, greatest at the lung bases. There is no airspace consolidation typical for pneumonia or pleural effusion. The trachea and central airways are clear. There are scattered calcified granulomas. Mediastinum: There is no mediastinal lymphadenopathy. Judith: Clear. Axillae: There is no axillary lymphadenopathy. Upper abdomen: Cholecystectomy clips are noted. There is a small hiatal hernia. Skeletal structures: The skeletal structures are osteopenic. Degenerative change is noted in the shoulders and spine. No lytic or blastic bony lesions are seen. IMPRESSION: 1. Bilateral segmental and subsegmental pulmonary emboli as above. 2. Cardiomegaly. 3. There is no airspace consolidation or pleural effusion. 4. Additional findings as above. ACT 112: Negative or not required by law. Electronically signed by: Mark Villa M.D. 02/19/2023 1:33 PM Code Status & VTE Plan Code Status Full Code in the event of cardiac or respiratory arrest VTE Prophylaxis Plan VTE Prophylaxis will be ordered: Yes Supervising Physician Co-Signing Physician Notes I have seen and examined the patient and have discussed the case with the provider above. I agree with the assessment and plan as stated with the following exceptions. 67 yo M presents with acute PE and DVT likely provoked by recent hospitalization in the setting of chrons disease and AIHA on steroid therapy. He is winded with. Minimal. Exertion but denies chest pain and doesnt require oxygen. On exam he is morbidly obese and in NAD. He doesnt exhibit increased respiratory effort unless he exerts himself. Mild conversational dyspnea is present. Lungs are CTAB. Cardiac exam reveals S1/2 heard with 3/6 DAO. Reg rate and rhythm. Abdomen is soft NTND. Lower extremities are not edematous and there is no calf tenderneesss.to palpation or swelling. He is mentating clearly. Labs reveal a CBC with leukocytosis to 26K in the setting of steroid use, improved anemia with new macrocytosis, Chem panel normal aside from a mildly elevated anion gap of 15 and elevated bun to 29 likely related to steroid use. Creatinine is at baseline. Total bilirubin is elevated at 3.3. Urine appears concentrated without evidence of infection. CT chest reveals bilateral pulmonary emboli and US legs reveals left DVT. 1. Acute VTE-provoked 2. AIHA on steroids 3. Morbid obesity 4. Chrons disease 5. Hyperbilirubinemia Heparin drip started. Per hematology, ok to transition to apixaban once symptoms are improved. Echo pending. Steroid taper per hematology. Repeat lydia irubin in am and liver us. Otherwise continue home medications. Or[place], DO
--- NOTE | 2023-02-19 16:12 | Ultrasound Report ---
BILATERAL LOWER EXTREMITY VENOUS DOPPLER HISTORY: Screening study patient with history of pulmonary emboli PE COMPARISON STUDY: 01/12/2012. FINDINGS: There is normal compressibility, flow, and augmentation within the right lower extremity de ep venous structures. Thrombus noted within the left superficial femoral vein extending proximal to d istal and also within the popliteal vein, posterior tibial and peroneal veins. These are occlusive an d likely acute. IMPRESSION: 1. Left lower extremity DVT. 2. No right lower extremity DVT. ACT 112: Negative or not required by law. Electronically signed by: Maxim Guzman M.D. 02/19/2023 4:11 PM
--- NOTE | 2023-02-19 16:50 | Oncology Consultation ---
Date of Consultation February 19, 2023 Assessment & Plan (1) Bilateral pulmonary embolism: (2) Hemolytic anemia: Plan Gentleman with autoimmune hemolytic anemia who presented with bilateral PEs and left lower extremity edema. VTE most likely due to acute dissipation of autoimmune hemolytic anemia as well as recent hospitalization/immobilization. Interestingly, he had similar symptoms last week but CTA chest did not show PE at that time. -Recommend continuing with IV heparin for the next 24 to 48 hours or until symptoms improve. He can subsequently be transitioned to DOAC (preferably Eliquis) prior to discharge from hospital. If co-pay for DOAC is too high, would recommend Lovenox/Coumadin. This was discussed with patient and who agreed with plan -Regarding recent exacerbation of autoimmune hemolytic anemia, labs show improvement in hemoglobin from 10.6-12.4 with high-dose prednisone. Would recommend continued monitoring of CBC, LDH, bilirubin and haptoglobin. Also continue with current dose of prednisone. Plan to start taper in 1 to 2 weeks/when hemolytic labs normalize. Thank you for this consult. Hematology will follow peripherally while patient is in the hospital. Please feel free to call if you have any other questions History of Present Illness Reason for Consultation: AIHA/PE; consideration for anticoagulation History of Present Illness Very pleasant 68-year-old gentleman with history of autoimmune hemolytic anemia and Crohn's disease who presented to the ER on [facility] with worsening shortness of breath. CTA chest obtained in the ER earlier today revealed bilateral segmental and subsegmental pulmonary emboli. Lower extremity ultrasound revealed left lower extremity DVT. He was started on therapeutic anticoagulation with IV heparin which she remains on at the time of today's visit. Of note, patient was recently discharged from [facility] last week after being admitted for worsening shortness of breath possibly due to exacerbation of autoimmune hemolytic anemia. At that time, CTA chest was obtained which was negative for PE as he had complained of shortness of breath. He was discharged home on prednisone 100 mg p.o. daily which he remains on at this time Allergies Allergy/AdvReac Type Severity Reaction Status Date / Time fluoxetine Allergy Intermediate Hives Verified 02/04/23 16:24 mercaptopurine Allergy Intermediate FEVER, RASH Verified 02/04/23 16:24 pregabalin Allergy Intermediate Rash, Verified 02/04/23 16:24 hives , headaches blue dye AdvReac Intermediate Severe Verified 02/04/23 16:24 Headache duloxetine AdvReac Intermediate Severe Verified 02/04/23 16:24 Headache infliximab AdvReac Intermediate bp Verified 02/04/23 16:24 elevation niacin AdvReac Unknown Unknown Verified 02/04/23 16:24 Home Medications Medication Instructions Recorded Confirmed Type acetaminophen 325 mg tablet 650 mg PO Q6H PRN pain/fever 06/29/19 02/19/23 History (Tylenol) atorvastatin 40 mg tablet 40 mg PO DAILY 06/29/19 02/19/23 History cyanocobalamin (vitamin B-12) 1,000 mcg PO DAILY 06/29/19 02/19/23 History 1,000 mcg tablet (Vitamin B-12) diltiazem HCl 360 mg capsule,24 360 mg PO DAILY 06/29/19 02/19/23 History hr,extended release diphenoxylate-atropine 2.5 2 tab PO QAM 06/29/19 02/19/23 History mg-0.025 mg tablet (Lomotil) febuxostat 40 mg tablet (Uloric) 40 mg PO DAILY 06/29/19 02/19/23 History folic acid 1 mg tablet 2 mg PO TID 06/29/19 02/19/23 History gabapentin 800 mg tablet 800 mg PO BID 06/29/19 02/19/23 History hydralazine 50 mg tablet 100 mg PO BID 06/29/19 02/19/23 History pantoprazole 40 mg tablet,delayed 40 mg PO DAILY 06/29/19 02/19/23 History release ibuprofen 200 mg tablet (Advil) 400 mg PO Q6H PRN Pain 01/29/20 02/19/23 History telmisartan 20 mg tablet 20 mg PO DAILY 10/27/21 02/19/23 History acetaminophen-caffeine 500 mg-65 1 tab PO DIRECTED PRN Headache 02/17/22 02/19/23 History mg tablet (Excedrin Tension Headache) multivitamin-ferrous 1 tab PO DAILY 02/17/22 02/19/23 History fumarate-folic acid 18 mg-400 mcg tablet (Centrum) oxycodone-acetaminophen 5 mg-325 1 tab PO Q12 PRN Severe Pain 02/17/22 02/19/23 History mg tablet (Scale Score 7-10) amitriptyline 25 mg tablet 25 mg PO HS 01/29/23 02/19/23 History benzonatate 100 mg capsule 100 mg PO TID PRN cough #20 caps 01/29/23 02/19/23 Rx mesalamine 800 mg tablet,delayed 1,600 mg PO DAILY 01/29/23 02/19/23 History release tadalafil 5 mg tablet 5 mg PO DAILY 01/29/23 02/19/23 History prednisone 50 mg tablet 50 mg PO BID 14 days #28 tabs 02/10/23 02/19/23 Rx Patient History Medical History (Updated 02/19/23 @ 14:16 by JULIA Best) Abdominal pain Benign essential hypertension (04/07/13) Bilateral pulmonary embolism Crohn's disease Diarrhea Diverticulitis (04/07/13) Elevated PSA Fatigue GERD (gastroesophageal reflux disease) Hematochezia Hemolytic anemia Hyperlipidemia Hypertension Hyperuricemia Incisional hernia (04/07/13) Neuropathy (04/07/13) Neuropathy Pancreatitis Perforated bowel 2011 surgery Perforation of small intestine (04/07/13) Post-obstructive pneumonia due to foreign body aspiration 2011 Prostate cancer (09/11/19) Shingles (11/18/19) Sleep apnea 2016 SOB (shortness of breath) on exertion Surgical History S/P cholecystectomy S/P hernia repair S/P tonsillectomy Family History Father , age 86 Heart disease Prostate cancer Mother , age 68 Cancer patient states it was a female cancer Sister , age mid 70s from [place] No problems noted. Brother Cancer age 32 Melanoma Sister , age 72 Colorectal cancer Social History Smoking Status: Current some day smoker Tobacco Type: Cigars Cigarettes Per Day: occasional; Second Hand Exposure: No; Do You Dip or Chew Tobacco: No; Hx Alcohol Use: No Hx Substance Use: No Preferred Language: Hungarian Communication Ability: Effective Search Manager Required: No Beliefs That Will Affect Care: None marital status: Current Living Situation: Spouse Feels Safe at Home: Yes Childhood Exposure to Second-Hand Smoke: Yes Assistive Devices: Cane Results & Data Vital Signs (Past 12 Hours) Vital Signs Temp Pulse Pulse Resp BP BP Pulse Ox 02/19/23 14:00 65 24 153/74 H 96 02/19/23 12:04 80 24 144/69 H 94 02/19/23 11:52 83 02/19/23 11:52 95 02/19/23 11:52 02/19/23 11:20 36.1 C L 85 24 96/57 L 97 O2 Del Method 02/19/23 14:00 Room Air 02/19/23 12:04 Room Air 02/19/23 11:52 02/19/23 11:52 Room Air 02/19/23 11:52 Room Air 02/19/23 11:20 Room Air
[2023-02-19 20:59] LABS: Partial Thromboplastin Ratio 1.4; Partial Thromboplastin Time 39.6 Seconds (21.0-31.0)
[2023-02-19 21:14] LABS: Appearance Urine Clear (Clear); Bilirubin Urine Negative (Negative); Blood Urine Negative (Negative); Color Urine Yellow; Glucose Urine UA Negative (Negative); Ketones Urine Negative (Negative); Leukocyte Esterase Urine Negative (Negative); Nitrite Urine Negative (Negative); Protein Urine Negative (Negative); Specific Gravity Urine > 1.045 (1.000-1.030); Urobilinogen Urine Negative (Negative); pH Urine 5.5 (4.5-7.5)
[2023-02-20] MEDS ORDERED: MELATONIN 3 MG TAB PO PRN (00:43)
[2023-02-20 04:02] LABS: Hematocrit (blood only) 29.9 % (42.0-52.0); Hemoglobin 10.6 g/dl (14.0-18.0); Mean Corpuscular Hemoglobin 35.8 pg (25.0-34.0); Mean Corpuscular Hgb Conc 35.5 g/dL (32.0-36.0); Mean Platelet Volume 9.7 fL (9.4-12.4); Nucleated RBC # (auto) 0.43 K/uL (0-0.12); Nucleated RBC % (auto) 2.7 %; Platelet Count 130 K/uL (130-400); RDW Coefficient of Variation 26.8 % (11.5-14.5); RDW Standard Deviation 97.2 fL (36.4-46.3); Red Blood Count 2.96 M/uL (4.70-6.10); White Blood Count 15.73 K/ul (4.8-10.8)
[2023-02-20 04:31] LABS: Partial Thromboplastin Ratio 1.4; Partial Thromboplastin Time 39.2 Seconds (21.0-31.0)
[2023-02-20 04:56] LABS: Albumin Level 3.2 gm/dl (3.4-5.0); BUN Creatinine Ratio 31.7 (10-20); Bilirubin,Total 2.3 mg/dl (0.2-1.0); Calcium 8.4 mg/dl (8.6-10.3); Creatinine Clr Calc Pharmacy 113.3 ml/min; Est GFR (African American) 103.8 ml/min; Est GFR (Non-African American) 89.6 ml/min; Globulin 1.6 gm/dl (2.5-4.0); Potassium 3.8 mmol/L (3.5-5.1); Total Protein 4.8 gm/dl (6.0-8.3)
[2023-02-20] MEDS: TELMISARTAN 20 MG TAB PO SCH (08:49)
[2023-02-20] MEDS: dilTIAZem HCL 180 MG CAPCR PO SCH (08:49)
[2023-02-20] MEDS: hydrALAZINE TAB 50 MG TAB PO SCH ×2 (08:49→21:32)
[2023-02-20] MEDS: MESALAMINE 800 MG TABCR PO SCH (08:49)
[2023-02-20] MEDS: PANTOprazole 40 MG TAB PO SCH (08:49)
[2023-02-20] MEDS: GABAPENTIN 800 MG TAB PO SCH ×2 (08:49→21:33)
[2023-02-20] MEDS: ATORVASTATIN 40 MG TAB PO SCH (08:49)
[2023-02-20] MEDS: CYANOCOBALAMIN (B-12) 500 MCG TABLET PO SCH (08:49)
[2023-02-20] MEDS: predniSONE 50 MG TAB PO SCH ×2 (08:49→21:32)
[2023-02-20 09:32] LABS: Ferritin 107.8 ng/ml (8-388)
--- NOTE | 2023-02-20 10:37 | Ultrasound Report ---
US liver CLINICAL HISTORY: hyperbilirubinemia COMPARISON STUDY: MRCP December 19, [address] of the abdomen and pelvis February 17, 2022. FINDINGS: No hepatic lesions are identified. Liver morphology is within normal limits. There is no bi liary ductal dilatation status post cholecystectomy. Common bile duct measures 4 mm in caliber. The m ain portal vein is patent with appropriately directed flow. Pancreatic body is normal. Head and tail are obscured by bowel gas. There is no right hydronephrosis. A few small right renal cysts measure up to 1.1 cm. IMPRESSION: No significant abnormality within the right upper quadrant status post cholecystectomy. ACT 112: Negative or not required by law. Electronically signed by: Luis Torres M.D. 02/20/2023 10:35 AM
[2023-02-20 12:22] LABS: Partial Thromboplastin Ratio 1.5
[2023-02-20] MEDS: HEPARIN SODIUM/DEXTROSE 25,000 UNITS/500 ML BAG IV SCH (12:53)
[2023-02-20 13:02] LABS: Folate (Folic Acid),Ser orPlas > 22.30 ng/ml (>5.38)
[2023-02-20 13:03] LABS: Vitamin B12 579 pg/ml (180-914)
--- NOTE | 2023-02-20 16:16 | Hospitalist Progress Note ---
Date of Service February 20, 2023 Assessment & Plan (1) Bilateral pulmonary embolism: (2) SOB (shortness of breath): (3) Hemolytic anemia: (4) Hypertension: (5) Crohn's disease: (6) Hyperlipidemia: (7) Sleep apnea: Plan 68y/o with persistent QUIÑONEZ without hypoxia since DC on 02/10. Today, he stated that he just could not catch his breath. In ED, Chest CTA: Bilateral segmental and subsegmental pulmonary emboli; placed on Heparin gtt. Due to his AIHA; follows closely with Dr. Lopez who followed him extensively last admission. NO pancytopenia or anemia. Appreciate official consult for further guidance for appropriate anticoagulation related to his AIHA. Will obtain LE Bilateral US. Bilateral PE: QUIÑONEZ without hypoxia: Persistent since hospital DC 9 days ago [employer]; last admit Chest CTA negative for PE. Admitting chest CTA: Bilateral segmental and subsegmental pulmonary emboli. Started on a Heparin gtt in ED; transition to Eliquis tomorrow. Eliquis cost $45 a month for the patient. Bilateral Doppler LE US negative for DVT. Crohn's disease: Diagnosed 02/2003; follows with Dr. Ernandez with GI Takes mesalamine; continue Autoimmune hemolytic anemia: Diagnosed 05/2016; follows with Dr. Lopez; consulted heme-onc for further guidance Followed extensively last admission Hemoglobin dropping and LDH increasing, follow hemoglobin and LDH in AM. Discussed with hematologyif it continues, change oral steroid to IV Solu- Medrol. Follow labs in AM. HTN: Takes diltiazem and hydralazine; continue HLD:Takes atorvastatin; continue JUDY:Does not wear CPAP despite being recommended Disposition: PCP Dr. Healy with [facility] CODE STATUS: Full code VTE prophylaxis: On Heparin gtt Admission and Anticipated Discharge Date Admission Date: February 19, 2023 Subjective Patient seen at bedside as a follow-up of bilateral PE and possible ongoing hemolysis in the setting of AIHA. Patient was lying in bed, on room air, NAD, reports feeling somewhat better but has not gotten a chance to see how his shortness of breath breathing, reports he has not been moving much. Will consult PT/OT. Patient denies any headache or chest pain or palpitation. Patient reports eating okay. Patient does look tired. Physical Exam Physical Exam: GENERAL: Alert and oriented x3. NAD, on RA. Appears sick/tired HEENT: No pallor, no icterus. Pupils equal, round and reactive to light. Oral mucosa moist. NECK: No JVD, no neck masses. HEART: S1 and S2 heard. Regular rate and rhythm. No murmur, no gallop. RESPIRATORY SYSTEM: Normal AP diameter. No accessory muscle use. No wheezing, bibasal crackles. ABDOMEN: Soft, bowel sounds present, nontender, no distention. CENTRAL NERVOUS SYSTEM: No facial droop. Speech is clear. Obeys simple commands. Moves extremities. EXTREMITIES: No edema, no erythema seen. Results & Data Results & Data Vital Signs (Past 12 Hours) Vital Signs Temp Pulse Resp BP Pulse Ox O2 Del Method 02/20/23 15:43 36.8 C 71 18 142/65 H 94 Room Air 02/20/23 11:34 36.7 C 76 18 149/71 H 94 Room Air 02/20/23 10:57 Room Air
[2023-02-20] MEDS ORDERED: AMITRIPTYLINE HCL 25 MG TAB PO SCH (21:00)
--- NOTE | 2023-02-21 06:06 | Electrocardiogram Report ---
Test Reason : Blood Pressure : / mmHG Vent. Rate : 080 BPM Atrial Rate : 080 BPM P-R Int : 166 ms QRS Dur : 086 ms QT Int : 360 ms P-R-T Axes : 031 -05 013 degrees QTc Int : 415 ms Normal sinus rhythm Normal ECG When compared with ECG of 06-FEB-2023 12:49, Premature ventricular complexes are no longer Present Confirmed by Brian White ([id number]) on 02/21/2023 6:06:08 AM Referred By: Sarah Lopez Confirmed By:Brian White
[2023-02-21 07:09] LABS: Basophils # (auto) 0.01 K/uL (0-0.2); Basophils % (auto) 0.1 %; Hematocrit (blood only) 32.2 % (42.0-52.0); Hemoglobin 11.3 g/dl (14.0-18.0); Lymphocytes # (auto) 0.51 K/uL (1.2-3.4); Lymphocytes % (auto) 3.5 %; Mean Corpuscular Hemoglobin 35.8 pg (25.0-34.0); Mean Corpuscular Hgb Conc 35.1 g/dL (32.0-36.0); Mean Corpuscular Volume 101.9 fL (80.0-100.0); Monocytes # (auto) 0.72 K/uL (0.11-0.59); Monocytes % (auto) 4.9 %; Neutrophils % (auto) 89.5 %; Nucleated RBC % (auto) 1.4 %; Platelet Count 136 K/uL (130-400); RDW Coefficient of Variation 25.4 % (11.5-14.5); RDW Standard Deviation 95.6 fL (36.4-46.3); Red Blood Count 3.16 M/uL (4.70-6.10); White Blood Count 14.74 K/ul (4.8-10.8)
[2023-02-21 07:32] LABS: BUN Creatinine Ratio 26.9 (10-20); Calcium 8.6 mg/dl (8.6-10.3); Creatinine Clr Calc Pharmacy 118.9 ml/min; Est GFR (Non-African American) 91.5 ml/min; Magnesium 2.4 mg/dl (1.7-2.4); Phosphorus 3.6 mg/dl (2.5-4.9); Potassium 4.2 mmol/L (3.5-5.1)
[2023-02-21 07:42] LABS: Anisocytosis Present; Basophilic Stippling 1+; Polychromasia 2+
[2023-02-21 07:43] LABS: Partial Thromboplastin Ratio 1.7
[2023-02-21 07:53] LABS: Partial Thromboplastin Time 47.8 Seconds (21.0-31.0)
[2023-02-21] MEDS: hydrALAZINE TAB 50 MG TAB PO SCH (07:56)
[2023-02-21] MEDS: ATORVASTATIN 40 MG TAB PO SCH (07:56)
[2023-02-21] MEDS: predniSONE 50 MG TAB PO SCH (07:56)
[2023-02-21] MEDS: dilTIAZem HCL 180 MG CAPCR PO SCH (07:56)
[2023-02-21] MEDS: PANTOprazole 40 MG TAB PO SCH (07:56)
[2023-02-21] MEDS: MESALAMINE 800 MG TABCR PO SCH (07:56)
[2023-02-21] MEDS: CYANOCOBALAMIN (B-12) 500 MCG TABLET PO SCH (07:56)
[2023-02-21] MEDS: GABAPENTIN 800 MG TAB PO SCH (07:56)
[2023-02-21] MEDS: TELMISARTAN 20 MG TAB PO SCH (07:57)
[2023-02-21] MEDS ORDERED: APIXABAN 5 MG TABLET PO SCH (09:00)
--- NOTE | 2023-02-21 09:38 | Discharge Summary ---
Discharge Summary Date of Service February 21, 2023 Notes For Next Care Provider Monitor CBC, LDH Needs to follow up with Hematology Medication Changes From Visit Started on eliquis 10mg bid x 7 days and then 5mg bid afterwards for PE Admission HPI Per Admitting Provider Mr. Arias is a 67 year old male who was admitted from 02/04-02/10 for persistent fatigue, QUIÑONEZ without hypoxia and exhaustion. Patient seen in [facility] ED on 01/29 prior to that and D-dimer was elevated at that time negative for PE. Patient with known autoimmune hemolytic anemia and Crohn's disease. No pancytopenia or anemia noted and labs; Hgb today 12.4; improved from his baseline. Does have known sleep apnea without CPAP use at home. No PVCs noted while here in ED. Plt level 169. D-Dimer today 4010; Chest CTA indicates Bilateral segmental and subsegmental pulmonary emboli. Placed on Heparin gtt in ED. CXR negative for acute cardiopulmonary disease. Had a dobutamine stress test done and was non ischemic. EF 60-65%, increased LVH, without wall motion abnormalities. Suspect microclots may be contributing cause to persistent SOB; will obtain LE Bilateral US to complete PE workup. PMH includes Crohn's disease diagnosed 02/2003 (follows with Dr. Ernandez), Autoimmune Hemolytic Anemia Diagnosed 05/2018 (Follows with Dr. 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 Silvestre with pain management) Last admission he was closely followed by activities concierge Dr. Lopez. He was placed on IV Methylprednisone while inpatient and transitioned to oral Prednisone upon discharge.Close monitoring of his LDH and Reticulocyte count was had during last admission. Patient denies tobacco, drug and alcohol use. Patient medications are unchanged since discharge outside of oral Prednisone that was added. Patient will be admitted for further evaluation and management. Please see A/P for further details. Admission Exam Per Admitting Provider Neuro: AAOx4, PERRLA, no aphagia, memory changes, CNII-XII grossly intact HEENT: head normocephalic, moist mucus membranes CV: S1/S2, (-) M/G/R, (-) edema, cap refill < 3 seconds Resp: Lungs decreased in posterior bases with LLL crackles. On RA GI: Abdomen S/NT/ND, Ax4 bowel sounds, (-) CVA tenderness Musculoskeletal: 5/5 B/L UE strength, 5/5 B/L LE strength. No gait disturbance Skin: (-) rashes , (-) erythema. Psych: euthymic mood Principal Dx & Hospital Course #1 = Principal Diagnosis (1) Bilateral pulmonary embolism: (2) Left leg DVT: (3) SOB (shortness of breath): (4) Hemolytic anemia: (5) Hypertension: (6) Crohn's disease: (7) Hyperlipidemia: (8) Sleep apnea: Plan 68y/o with persistent QUIÑONEZ without hypoxia since DC on 02/10/23 Bilateral PE: Left LE DVT Persistent since hospital DC 9 days prior CTA chest during last admit on 01/29/23 was negative for PE. Admitting chest CTA this time noted bilateral segmental and subsegmental pulmonary emboli. Was started on a Heparin gtt in ED LE dopplers noted Left LE DVT Patient transitioned to eliquis today per patient's wishes Discharged on eliquis 10mg bid x 7 days and then 5mg bid afterwards Provided education on eliquis Will need about 3-6months anticoagulation or as directed by his activities concierge Crohn's disease: Diagnosed 02/2003; follows with Dr. Ernandez with GI Takes mesalamine Autoimmune hemolytic anemia: Diagnosed 05/2016; follows with Dr. Lopez; consulted heme-onc for further guidance Followed extensively last admission Was evaluated by Dr Lopez this admission who recommend continuing prednisone. Patient reports he has appt with Heme who will arrange labs and are planning to taper prednisone after next labs. Stated he has enough prednisone at home Hypertension Continue diltiazem and hydralazine HLD: Continue atorvastatin JUDY: Does not wear CPAP despite being recommended Discharge Exam Constitutional + well hydrated and + obese; no acute distress Eyes PERRL, conjunctivae normal, anicteric sclerae ENMT external ear and nose normal, oropharynx normal Respiratory normal respiratory effort, lungs clear to auscultation Cardiovascular Rate/Rhythm: regular rate and regular rhythm S1 S2 Gastrointestinal (Abdomen) normal bowel sounds, soft, nontender, no hepatosplenomegaly Neurologic PERRL, EOMI, accommodation nl, no face palsy, no dysarthria Psychiatric A+Ox3, euthymic affect Updated Medication List Medication Instructions Recorded Confirmed Type acetaminophen 325 mg tablet 650 mg PO Q6H PRN pain/fever 06/29/19 02/19/23 History (Tylenol) atorvastatin 40 mg tablet 40 mg PO DAILY 06/29/19 02/19/23 History cyanocobalamin (vitamin B-12) 1,000 mcg PO DAILY 06/29/19 02/19/23 History 1,000 mcg tablet (Vitamin B-12) diltiazem HCl 360 mg capsule,24 360 mg PO DAILY 06/29/19 02/19/23 History hr,extended release diphenoxylate-atropine 2.5 2 tab PO QAM 06/29/19 02/19/23 History mg-0.025 mg tablet (Lomotil) febuxostat 40 mg tablet (Uloric) 40 mg PO DAILY 06/29/19 02/19/23 History folic acid 1 mg tablet 2 mg PO TID 06/29/19 02/19/23 History gabapentin 800 mg tablet 800 mg PO BID 06/29/19 02/19/23 History hydralazine 50 mg tablet 100 mg PO BID 06/29/19 02/19/23 History pantoprazole 40 mg tablet,delayed 40 mg PO DAILY 06/29/19 02/19/23 History release telmisartan 20 mg tablet 20 mg PO DAILY 10/27/21 02/19/23 History acetaminophen-caffeine 500 mg-65 1 tab PO DIRECTED PRN Headache 02/17/22 02/19/23 History mg tablet (Excedrin Tension Headache) multivitamin-ferrous 1 tab PO DAILY 02/17/22 02/19/23 History fumarate-folic acid 18 mg-400 mcg tablet (Centrum) oxycodone-acetaminophen 5 mg-325 1 tab PO Q12 PRN Severe Pain 02/17/22 02/19/23 History mg tablet (Scale Score 7-10) amitriptyline 25 mg tablet 25 mg PO HS 01/29/23 02/19/23 History benzonatate 100 mg capsule 100 mg PO TID PRN cough #20 caps 01/29/23 02/19/23 Rx mesalamine 800 mg tablet,delayed 1,600 mg PO DAILY 01/29/23 02/19/23 History release tadalafil 5 mg tablet 5 mg PO DAILY 01/29/23 02/19/23 History prednisone 50 mg tablet 50 mg PO BID 14 days #28 tabs 02/10/23 02/19/23 Rx apixaban 5 mg tablet (Eliquis) 5 mg PO Q12H #74 tabs 02/20/23 Rx Hospital Stay Data Consultations 02/19/23 14:06 ED Decision to Admit Stat 02/19/23 15:33 Consult Hematology Routine Diagnostic Imagining Performed 02/19/23 12:54 CT angio chest PE protocol Stat 02/19/23 15:00 US venous doppler LE BI Routine 02/20/23 07:00 US liver Routine Pending Results Patient Have Any Pending Studies at Discharge: No Discharge Instructions Given to Patient (Per Discharging Provider) Mr Arias. You presented to the hospital with shortness of breath. You were evaluated and found to have blood clots in blood vessels of your lungs. You were started on blood thinners. You were also evaluated by [employer]. You are being discharged on eliquis (apixaban) which is a blood thinner. You will need to be on this for 3-6 months or as directed by your [employer] Operator. You need to take Eliquis 10mg twice a day until 02/27/23, then 5mg twice a day from 02/28/23. Please stop taking Ibuprofen or NSAIDS (like Advil, motrin etc) now that you are on eliquis. Please continue to take the prednisone and do routine labs as instructed by your Fuel [employer] Operator. Please ensure follow up with [employer] Operator and your Primary Doctor. It was a pleasure taking care of you. Total Time Total Time Spent Total Time Spent (In Minutes): 40 Total Time Includes: Examination of the Patient, Discharge Planning and Medication Reconciliation
== END 2023-02-21 12:50 | disposition home or self-care (01) | DRG 176 ==
LOC: ED 11:10 → SUATTDRO 14:07 → INTOOBSV 14:07 → 2W 14:07

== ENCOUNTER 2023-11-27 11:32 | Inpatient (IN) ==
--- NOTE | 2023-11-27 12:24 | Emergency Department Note ---
Impression & Plan Pneumonia, Left atrial mass, Diarrhea, Leukopenia ED Provider Note NAME: KARTHIK JOSEPH AGE: 68 SEX: M : 1955 ARRIVES VIA: Walk-In INFORMANT: Patient ED PROVIDER(S): Brant Hathaway DO CHIEF COMPLAINT: abdominal cramping HPI: Patient is a 68-year-old male with past medical history of GERD, A-fib, interstitial lung disease, pulmonary emboli, hypertension, hyperlipidemia, Crohn's who presents to the ER for profuse diarrhea which has been present for the past 3 days. He notes he is currently on a steroid taper for his Crohn's. Follows with [facility] gastroenterology. He is going to the bathroom multiple times a day. He is unable to make it to the bathroom. He does have some nausea. No dysuria, urgency, or frequency. No other exacerbating or remitting factors. He is taking his Eliquis. No new shortness of breath. ADDITIONAL HISTORY OBTAINED: Per HPI Chronic Medical/Social Conditions Affecting Care: Per HPI PAST MEDICAL HISTORY:See Below PAST SURGICAL HISTORY:See Below FAMILY HISTORY:See Below SOCIAL HISTORY:See Below HOME MEDICATIONS:See Below ALLERGIES:See Below VITALS:See Below PHYSICAL EXAMINATION: GENERAL: Sitting up in bed, alert, well appearing, well nourished, no distress, non-toxic EYE EXAM: normal conjunctiva. PERRL and EOM's grossly intact. OROPHARYNX:mucous membranes are moist NECK: supple, no nuchal rigidity, no adenopathy, non-tender LUNGS: Clear to auscultation. Normal chest wall mechanics HEART: no murmurs, S1 normal and S2 normal ABDOMEN: abdomen soft, non-tender, normo-active bowel sounds, no masses, no rebound or guarding. BACK: Back is symmetrical on inspection and there is no deformity, no midline tenderness, no CVA tenderness. SKIN: no rashes and no bruising UPPER EXTREMITIES: upper extremities are grossly normal. LOWER EXTREMITIES: No pitting edema. NEURO EXAM: Normal sensorium, cranial nerves II-XII grossly intact, normal speech, no gross weakness of arms, no gross weakness of legs. MEDICAL DECISION MAKING: Patient is a 68-year-old male who presents ER for above-stated complaint. IV was established blood work was obtained. Labs show mild leukopenia fourth incident. No significant anemia. INR unremarkable. BMP with a slightly low CO2 at 20 likely secondary to the diarrhea. Glucose mildly elevated at 235. Bilirubin at 2.6. LFTs were unremarkable. Lipase was normal. UA was contaminated. No white cells to suggest infection. CT abdomen pelvis showed pneumonia and left atrial mass. Echo was obtained and confirmed. I discussed with our traffic operator Dr. Lake and he recommends transfer due to the left atrial mass to have this evaluated. He does not believe this to be thrombus especially in light of the location in combination with the patient being anticoagulated already. Patient was not hypoxic. He was given IV antibiotics including Rocephin and azithromycin. Updated bedside. They prefer to go to [facility]. Contacted cardiothoracic and [place] and they were agreeable to taking the patient/being consulted on the patient if patient was admitted to medicine. Discussed the case with Dr. ROY patient was accepted to the hospitalist service med/tele. Awaiting a bed for possible placement. Discussed with [facility] med call who notes that patient will likely not get a bed tonight. Discussed with Dr. Bullard for admission here awaiting bed at [facility]. Consults/Care Managements Discussions: Per [facility] Triage Nursing notes reviewed. Limited review of prior medical records performed Vital Signs: reviewed and remarkable for hypotension Differential diagnosis: Differential diagnoses includes but is not limited to gastritis, peptic ulcer disease, GERD, gallbladder disease, pancreatitis, small bowel obstruction, appendicitis, diverticulitis, hernia, urinary tract infection, torsion, perforation, trauma, infectious. ER treatment provided: See below Diagnostics interpreted by me include EKG and cardiac monitoring as listed below: -Cardiac Monitoring: An order was placed for continuous cardiac monitoring. The monitor shows a rate of 62 with sinus rhythm. -ECG: A-fib rate of 97 Normal axis QTc 450 -Laboratory studies:Interpreted by me as stated above in MDM and shown below. Imaging studies: Xrays: As interpreted by me: Portable AP upright 1 view chest shows subtle bilateral infiltrates CTs show: CT abdomen pelvis as described above per radiology pneumonia in the left atrial mass Procedures:none Critical Care: None Past Med/Surg History Medical History (Updated 11/27/23 @ 18:01 by Brant Hathaway DO) GERD (gastroesophageal reflux disease) JUDY (obstructive sleep apnea) Physical deconditioning Atrial fibrillation Obesity Interstitial lung disease Bilateral pulmonary embolism SOB (shortness of breath) on exertion Fatigue Hematochezia Hemolytic anemia Neuropathy Abdominal pain Diarrhea Sleep apnea 2016 Crohn's disease Perforated bowel 2012 surgery Shingles (11/18/19) Prostate cancer (09/11/19) Benign essential hypertension (04/07/13) Diverticulitis (04/07/13) Incisional hernia (04/07/13) Neuropathy (04/07/13) Post-obstructive pneumonia due to foreign body aspiration 2011 Elevated PSA Hyperuricemia GERD (gastroesophageal reflux disease) Hyperlipidemia Perforation of small intestine (04/07/13) Pancreatitis Hypertension Surgical History S/P hernia repair S/P tonsillectomy S/P cholecystectomy Family History Father , age 86 Heart disease Prostate cancer Mother , age 68 Cancer patient states it was a female cancer Sister , age mid 70s from [place] No problems noted. Brother Cancer age 32 Melanoma Sister , age 72 Colorectal cancer Social History Smoking Status: Never smoker Tobacco Type: Cigars Cigarettes Per Day: occasional; Second Hand Exposure: No; Do You Dip or Chew Tobacco: No; Hx Alcohol Use: No Hx Substance Use: No Preferred Language: Zimbabwean Communication Ability: Effective Lap Maker Required: No Beliefs That Will Affect Care: None marital status: Current Living Situation: Spouse Feels Safe at Home: Yes Childhood Exposure to Second-Hand Smoke: Yes Assistive Devices: Walker Allergies Allergies Allergy/AdvReac Type Severity Reaction Status Date / Time fluoxetine Allergy Intermediate Hives Verified 11/27/23 15:29 mercaptopurine Allergy Intermediate FEVER, RASH Verified 11/27/23 15:29 niacin Allergy Intermediate Rash Verified 11/27/23 15:29 pregabalin Allergy Intermediate Rash, Verified 11/27/23 15:29 hives , headaches blue dye AdvReac Intermediate Severe Verified 11/27/23 15:29 Headache duloxetine AdvReac Intermediate Severe Verified 11/27/23 15:29 Headache infliximab AdvReac Intermediate bp Verified 11/27/23 15:29 elevation, ANTIBODY TITER Home Meds Home Medications Medication Instructions Recorded Confirmed acetaminophen 325 mg tablet 650 mg PO Q6H PRN pain/fever 06/29/19 11/27/23 (Tylenol) atorvastatin 40 mg tablet 40 mg PO DAILY 06/29/19 11/27/23 cyanocobalamin (vitamin B-12) 1,000 mcg PO DAILY 06/29/19 11/27/23 1,000 mcg tablet (Vitamin B-12) diphenoxylate-atropine 2.5 2 - 4 tab PO DIRECTED PRN 06/29/19 11/27/23 mg-0.025 mg tablet (Lomotil) NEEDED febuxostat 40 mg tablet (Uloric) 40 mg PO DAILY 06/29/19 11/27/23 folic acid 1 mg tablet 3 mg PO BID 06/29/19 11/27/23 gabapentin 800 mg tablet 800 mg PO BID 06/29/19 11/27/23 acetaminophen-caffeine 500 mg-65 1 tab PO DIRECTED PRN Headache 02/17/22 11/27/23 mg tablet (Excedrin Tension Headache) multivitamin-ferrous 1 tab PO DAILY 02/17/22 11/27/23 fumarate-folic acid 18 mg-400 mcg tablet (Centrum) oxycodone-acetaminophen 5 mg-325 1 tab PO Q12 PRN Severe Pain 02/17/22 11/27/23 mg tablet (Scale Score 7-10) mesalamine 800 mg tablet,delayed 1,600 mg PO DAILY 01/29/23 11/27/23 release tadalafil 5 mg tablet 5 mg PO DAILY 01/29/23 11/27/23 cyclophosphamide 50 mg capsule 100 mg PO DAILY 06/13/23 11/27/23 furosemide 20 mg tablet 20 mg PO DAILY PRN Fluid Retention 06/13/23 11/27/23 pantoprazole 40 mg tablet,delayed 40 mg PO DAILY 06/13/23 11/27/23 release amitriptyline 25 mg tablet 25 mg PO HS PRN NEEDED 11/27/23 11/27/23 diltiazem HCl 120 mg 120 mg PO DAILY 11/27/23 11/27/23 capsule,extended release 24 hr prednisone 10 mg tablet 10 mg PO DAILY 11/27/23 11/27/23 telmisartan 40 mg tablet 40 mg PO DAILY 11/27/23 11/27/23 Previous Rx's Medication Instructions Recorded apixaban 5 mg tablet (Eliquis) 5 mg PO Q12H #74 tabs 02/20/23 Oxygen Home E0424 #2 L 06/13/23 Results & Data (ED) Vital Signs Vital Signs - 24 hr 11/27/23 11:52 11/27/23 12:10 11/27/23 12:52 Temperature 36.3 C L Temperature Source Temporal Artery Scan Pulse Rate 60 Pulse Rate [Apical] 89 Pulse Rhythm Regular Pulse Strength Normal Respiratory Rate 30 H 26 H 24 Respiratory Effort / Characteristics Non-Labored Spontaneous Non-Labored Respiratory Depth Normal Normal Respiratory Pattern Regular Blood Pressure 98/52 L Blood Pressure [Right Arm] 110/73 Blood Pressure Mean 67 Blood Pressure Mean [Right Arm] 85 Blood Pressure Position Sitting Pulse Oximetry 96 96 97 Oxygen Delivery Method Room Air Room Air Room Air Sepsis Recent Fever Within 48 Hours No Sepsis New/Unexplained Change in Mental Status No Sepsis Action Taken by Nursing No Action Required 11/27/23 14:00 11/27/23 16:00 11/27/23 18:00 Temperature Temperature Source Pulse Rate Pulse Rate [Apical] 87 90 85 Pulse Rhythm Pulse Strength Respiratory Rate 18 18 18 Respiratory Effort / Characteristics Non-Labored Non-Labored Non-Labored Respiratory Depth Normal Normal Normal Respiratory Pattern Blood Pressure Blood Pressure [Right Arm] 138/99 125/87 136/83 Blood Pressure Mean Blood Pressure Mean [Right Arm] 112 99 100 Blood Pressure Position Pulse Oximetry 97 96 97 Oxygen Delivery Method Room Air Room Air Room Air Sepsis Recent Fever Within 48 Hours Sepsis New/Unexplained Change in Mental Status Sepsis Action Taken by Nursing Laboratory Data 11/27/23 12:30 11/27/23 14:17 Lab Results 11/27/23 11/27/23 11/27/23 Range/Units 12:30 14:17 Unknown WBC 4.72 L (4.8-10.8) K/ul RBC 4.48 L (4.70-6.10) M/uL Hgb 15.0 (14.0-18.0) g/dl Hct 43.6 (42.0-52.0) % MCV 97.3 (80.0-100.0) fL MCH 33.5 (25.0-34.0) pg MCHC 34.4 (32.0-36.0) g/dL RDW Std Deviation 59.5 H (36.4-46.3) fL RDW Coeff of Rodo 17.0 H (11.5-14.5) % Plt Count 158 (130-400) K/uL MPV 10.0 (9.4-12.4) fL Immature Gran % (Auto) 1.1 % Neut % (Auto) 87.5 % Lymph % (Auto) 2.1 % [place] % (Auto) 8.7 % Eos % (Auto) 0.2 % Baso % (Auto) 0.4 % Neut # (Auto) 4.13 (1.40-6.50) K/uL Lymph # (Auto) 0.10 L (1.20-3.40) K/uL [place] # (Auto) 0.41 (0.11-0.59) K/uL Eos # (Auto) 0.01 (0.00-0.50) K/uL Baso # (Auto) 0.02 (0.00-0.20) K/uL Immature Gran # (Auto) 0.05 (0.01-0.20) K/uL Absolute Nucleated RBC 0.02 (0.00-0.12) K/uL Nucleated RBC % (auto) 0.4 % PT 11.4 (9.0-12.0) Seconds INR 1.1 (0.9-1.1) APTT 24 (21-31) Seconds PTT Ratio 0.9 Sodium 139 (136-145) mmol/L Potassium TNP 3.6 Chloride 103 (98-107) mmol/L Carbon Dioxide 20 L (21-32) mmol/L Anion Gap 16 H (3-11) BUN 17 (6-23) mg/dl Creatinine 1.18 (0.6-1.4) mg/dl Est Cr Clr Drug Dosing 73.4 ml/min Est GFR ( Amer) 72.0 ml/min Est GFR (Non-Af Amer) 62.2 ml/min BUN/Creatinine Ratio 14.4 (10-20) Glucose 235 H (70-99(Fasting)) mg/dl Calcium 9.6 (8.6-10.3) mg/dl Total Bilirubin 2.6 H (0.2-1.0) mg/dl AST TNP 27 ALT 30 (7-52) U/L Alkaline Phosphatase 66 (34-104) U/L Troponin I High Sens 4.1 (0-20) pg/ml Total Protein 6.0 (6.0-8.3) gm/dl Albumin 3.6 (3.4-5.0) gm/dl Globulin 2.4 L (2.5-4.0) gm/dl Albumin/Globulin Ratio 1.5 (0.9-2) Lipase 15 (11-82) U/L Urine Color Dark Yellow Urine Appearance Clear (Clear) Urine pH 7.0 (4.5-7.5) Ur Specific [place] 1.030 (1.000-1.030) Urine Protein 1+ H (Negative) Urine Glucose (UA) Negative (Negative) Urine Ketones Negative (Negative) Urine Blood Negative (Negative) Urine Nitrite Negative (Negative) Urine Bilirubin 1+ H (Negative) Urine Urobilinogen Negative (Negative) Ur Leukocyte Esterase Trace H (Negative) Urine WBC (Auto) 0-5 (0-5) /hpf Urine RBC (Auto) 0-2 (0-2) /hpf U Hyaline Cast (Auto) 11-20 H (0-2) /lpf U Epithel Cells (Auto) 3-5 H (0-2) /hpf Urine Bacteria (Auto) None Seen (None Seen) Administered Medications Discontinued Medications Sodium Chloride (Nss) 1,000 mls @ 999 mls/hr IV .Q1H1M ONE Stop: 11/27/23 13:18 Last Infusion: 11/27/23 13:40 Dose: Infused Documented By: Admin: 11/27/23 12:35 Dose: 999 mls/hr Documented By: IVY Ceftriaxone Sodium (Rocephin) 2,000 mg in 50 mls @ 100 mls/hr IV NOW STA Stop: 11/27/23 14:46 Last Infusion: 11/27/23 15:15 Dose: Infused Documented By: Admin: 11/27/23 14:32 Dose: 100 mls/hr Documented By: IVY Azithromycin 500 mg/ Dextrose 255 mls @ 127.5 mls/hr IV NOW STA Stop: 11/27/23 16:16 Last Infusion: 11/27/23 17:28 Dose: Infused Documented By: Admin: 11/27/23 15:27 Dose: 127.5 mls/hr Documented By: IVY Ondansetron HCl (Ondansetron Inj 2 Mg/Ml 2 Ml Vial) 4 mg IV NOW STA Stop: 11/27/23 12:19 Last Admin: 11/27/23 12:35 Dose: 4 mg Documented By: MMG Imaging Data Radiologist's Impression: Abdomen/Pelvis CT 11/27/23 12:18 CT OF THE ABDOMEN AND PELVIS WITH CONTRAST CLINICAL HISTORY: Abdominal pain. COMPARISON STUDY: CT of the abdomen and pelvis February 17, 2022. Right upper quadrant ultrasound February 20, 2023. Chest CT May 22, 2023. TECHNIQUE: Following IV administration of 94 mL of Optiray, axial images of the abdomen and pelvis were obtained from the lung bases to the proximal femurs. Images were reviewed in the axial, sagittal, and coronal planes. IV contrast was administered without complication. Automated exposure control was utilized for the study. A dose lowering technique was utilized adhering to the principles of ALARA. CT DOSE: 1476.43 mGy.cm FINDINGS: Incidental note is made of groundglass opacities with small foci of consolidation within the visualized lower lungs. There are 2 adjacent tubular hypodense filling defects within the left atrium which measure up to 3.4 x 1.2 cm. No pneumatosis, free air or portal venous gas is present. Hypodense hepatic lesions are unchanged and favor cysts. There is no biliary ductal dilatation status post cholecystectomy. Spleen, adrenal glands and pancreas are unremarkable. Water attenuation renal lesions represent cysts. There is a 2 mm left renal calculus. There are no ureteral calculi. There is no hydronephrosis. There is mild bladder wall thickening with adjacent stranding. Subtle calcified deposition within the colon is chronic. Pericolonic inflammation shown on prior exam has resolved. There is no evidence for a bowel obstruction. There is no bowel wall thickening. Umbilical hernia repair with mesh is incidentally noted. There is no lymphadenopathy. There are no fluid collections. IMPRESSION: 1. Two adjacent tubular hypodense filling defects within the left atrium which measure up to 3.4 x 1.2 cm. These suggest left atrial thrombus which could be confirmed with echocardiography. Findings discussed with Dr. Hathaway at time of dictation. 2. Ground glass opacities with small foci of consolidation within the lower lungs suggestive of pneumonia. 3. Bladder wall thickening with adjacent stranding. This could be correlated with urinalysis to exclude cystitis. 4. No bowel obstruction. ACT 112: Negative or not required by law. Electronically signed by: Luis Torres M.D. 11/27/2023 2:18 PM Chest X-Ray 11/27/23 18:01 XR chest 1V portable CLINICAL HISTORY: Pneumonia. COMPARISON STUDY: Chest radiograph and chest CT February 19, 2023. CT of the abdomen and pelvis performed earlier today. FINDINGS: No pneumothorax or pleural effusion. Cardiomediastinal silhouette is stable. Mild interstitial thickening is likely chronic. There is no evidence for overt pulmonary edema. Patchy lower lung airspace opacities are present. IMPRESSION: Patchy lower lung airspace opacities which favor pneumonia. Radiographic follow up to ensure resolution is recommended. ACT 112: Negative or not required by law. Electronically signed by: Luis Torres M.D. 11/27/2023 7:00 PM Discharge Plan Visit Data Chief Complaint: Abdominal Pain Stated Complaint: ABD PAINS, NAUSEA ED Provider: Brant Hathaway Discharge Problem: Pneumonia, Left atrial mass, Diarrhea, Leukopenia Forms Stand Alone Forms: [facility] Prescriptions Prescriptions: No Action cyclophosphamide 50 mg capsule 100 mg PO DAILY furosemide 20 mg tablet 20 mg PO DAILY PRN (Reason: Fluid Retention) (DME) Oxygen Home E0424 Liters Per Minute See Rx Instructions .ROUTE .MEDSUPPLY Qty: 2 0RF Rx Instructions: 2 L via nasal cannula at all times. Assess for portability. Length of need 99 years. pantoprazole 40 mg tablet,delayed release (DR/EC) 40 mg PO DAILY gabapentin 800 mg Tablet 800 mg PO BID folic acid 1 mg Tablet 3 mg PO BID febuxostat [Uloric] 40 mg Tablet 40 mg PO DAILY atorvastatin 40 mg Tablet 40 mg PO DAILY cyanocobalamin (vitamin B-12) [Vitamin B-12] 1,000 mcg Tablet 1,000 mcg PO DAILY acetaminophen [Tylenol] 325 mg Tablet 650 mg PO Q6H PRN (Reason: pain/fever) diphenoxylate-atropine [Lomotil] 2.5-0.025 mg Tablet 2 - 4 tab PO DIRECTED PRN (Reason: NEEDED) Excedrin Tension Headache 500-65 mg Tablet 1 tab PO DIRECTED PRN (Reason: Headache) oxycodone-acetaminophen 5-325 mg tablet 1 tab PO Q12 MDD 2 tabs PRN (Reason: Severe Pain (Scale Score 7-10)) Centrum 18-400 mg-mcg Tablet 1 tab PO DAILY mesalamine 800 mg tablet,delayed release (DR/EC) 1,600 mg PO DAILY tadalafil 5 mg Tablet 5 mg PO DAILY Eliquis 5 mg tablet 5 mg PO Q12H Qty: 74 0RF prednisone 10 mg Tablet 10 mg PO DAILY Rx Instructions: ON TAPER DOSE DIRECTED amitriptyline 25 mg tablet 25 mg PO HS PRN (Reason: NEEDED) telmisartan 40 mg tablet 40 mg PO DAILY diltiazem HCl 120 mg capsule,extended release 24hr 120 mg PO DAILY Referrals Referrals: Polly Healy DO [Primary Care Provider] - Discharge Problem: Pneumonia Qualifiers: Pneumonia type: due to unspecified organism Laterality: unspecified laterality Lung location: unspecified part of lung Qualified Code(s): J18.9 - Pneumonia, unspecified organism Diarrhea Qualifiers: Diarrhea type: unspecified type Qualified Code(s): R19.7 - Diarrhea, unspecified Leukopenia Qualifiers: Leukopenia type: unspecified Qualified Code(s): D72.819 - Decreased white blood cell count, unspecified
[2023-11-27] MEDS: SODIUM CHLORIDE 0.9% 1,000 ML IV ONE (12:35)
[2023-11-27] MEDS: ONDANSETRON INJ 2 MG/ML 2 ML VIAL IV STA (12:35)
[2023-11-27 12:51] LABS: Basophils # (auto) 0.02 K/uL (0.00-0.20); Basophils % (auto) 0.4 %; Eosinophils # (auto) 0.01 K/uL (0.00-0.50); Eosinophils % (auto) 0.2 %; Hematocrit (blood only) 43.6 % (42.0-52.0); Immature Granulocytes # (auto) 0.05 K/uL (0.01-0.20); Immature Granulocytes % (auto) 1.1 %; Lymphocytes % (auto) 2.1 %; Mean Corpuscular Hemoglobin 33.5 pg (25.0-34.0); Mean Corpuscular Hgb Conc 34.4 g/dL (32.0-36.0); Mean Corpuscular Volume 97.3 fL (80.0-100.0); Monocytes # (auto) 0.41 K/uL (0.11-0.59); Monocytes % (auto) 8.7 %; Neutrophils # (auto) 4.13 K/uL (1.40-6.50); Neutrophils % (auto) 87.5 %; Nucleated RBC # (auto) 0.02 K/uL (0.00-0.12); Nucleated RBC % (auto) 0.4 %; Platelet Count 158 K/uL (130-400); RDW Standard Deviation 59.5 fL (36.4-46.3); Red Blood Count 4.48 M/uL (4.70-6.10); White Blood Count 4.72 K/ul (4.8-10.8)
[2023-11-27 13:26] LABS: Alanine Aminotransferase 30 U/L (7-52); Albumin Globulin Ratio 1.5 (0.9-2); Albumin Level 3.6 gm/dl (3.4-5.0); Alkaline Phosphatase 66 U/L (34-104); Anion Gap 16 (3-11); BUN Creatinine Ratio 14.4 (10-20); Bilirubin,Total 2.6 mg/dl (0.2-1.0); Blood Urea Nitrogen 17 mg/dl (6-23); Calcium 9.6 mg/dl (8.6-10.3); Carbon Dioxide 20 mmol/L (21-32); Chloride 103 mmol/L (98-107); Creatinine Clr Calc Pharmacy 73.4 ml/min; Est GFR (Non-African American) 62.2 ml/min; Globulin 2.4 gm/dl (2.5-4.0); Glucose 235 mg/dl (70-99(Fasting)); Lipase 15 U/L (11-82); Sodium 139 mmol/L (136-145)
--- NOTE | 2023-11-27 14:19 | CT Scan Report ---
CT OF THE ABDOMEN AND PELVIS WITH CONTRAST CLINICAL HISTORY: Abdominal pain. COMPARISON STUDY: CT of the abdomen and pelvis February 17, 2022. Right upper quadrant ultrasound February 20, 2023. Chest CT May 22, 2023. TECHNIQUE: Following IV administration of 94 mL of Optiray, axial images of the abdomen and pelvis we re obtained from the lung bases to the proximal femurs. Images were reviewed in the axial, sagittal, and coronal planes. IV contrast was administered without complication. Automated exposure control wa s utilized for the study. A dose lowering technique was utilized adhering to the principles of ALARA . CT DOSE: 1476.43 mGy.cm FINDINGS: Incidental note is made of groundglass opacities with small foci of consolidation within th e visualized lower lungs. There are 2 adjacent tubular hypodense filling defects within the left atri um which measure up to 3.4 x 1.2 cm. No pneumatosis, free air or portal venous gas is present. Hypode nse hepatic lesions are unchanged and favor cysts. There is no biliary ductal dilatation status post cholecystectomy. Spleen, adrenal glands and pancreas are unremarkable. Water attenuation renal lesion s represent cysts. There is a 2 mm left renal calculus. There are no ureteral calculi. There is no hy dronephrosis. There is mild bladder wall thickening with adjacent stranding. Subtle calcified deposit ion within the colon is chronic. Pericolonic inflammation shown on prior exam has resolved. There is no evidence for a bowel obstruction. There is no bowel wall thickening. Umbilical hernia repair with mesh is incidentally noted. There is no lymphadenopathy. There are no fluid collections. IMPRESSION: 1. Two adjacent tubular hypodense filling defects within the left atrium which measure up to 3.4 x 1. 2 cm. These suggest left atrial thrombus which could be confirmed with echocardiography. Findings dis cussed with Dr. Hathaway at time of dictation. 2. Ground glass opacities with small foci of consolidation within the lower lungs suggestive of pneum onia. 3. Bladder wall thickening with adjacent stranding. This could be correlated with urinalysis to exclu de cystitis. 4. No bowel obstruction. ACT 112: Negative or not required by law. Electronically signed by: Luis Torres M.D. 11/27/2023 2:18 PM
[2023-11-27] MEDS: cefTRIAXone SODIUM 2,000 MG/50 ML BAG IV STA (14:32)
[2023-11-27 14:51] LABS: Potassium 3.6 mmol/L (3.5-5.1)
[2023-11-27 15:09] LABS: Troponin I High Sensitivity 4.1 pg/ml (0-20)
[2023-11-27] MEDS: AZITHROMYCIN 500 MG in DEXTROSE 5% 250 ML IV STA (15:27)
[2023-11-27 15:53] LABS: INR 1.1 (0.9-1.1); Partial Thromboplastin Ratio 0.9; Partial Thromboplastin Time 24 Seconds (21-31); Prothrombin Time 11.4 Seconds (9.0-12.0)
[2023-11-27 17:36] LABS: Appearance Urine Clear (Clear); Bacteria Urine Automated None Seen (None Seen); Bilirubin Urine 1+ (Negative); Blood Urine Negative (Negative); Color Urine Dark Yellow; Glucose Urine UA Negative (Negative); Ketones Urine Negative (Negative); Leukocyte Esterase Urine Trace (Negative); Nitrite Urine Negative (Negative); Protein Urine 1+ (Negative); RBC Urine Automated 0-2 /hpf (0-2); Urobilinogen Urine Negative (Negative); WBC Urine Automated 0-5 /hpf (0-5)
--- NOTE | 2023-11-27 19:01 | XRay Report ---
XR chest 1V portable CLINICAL HISTORY: Pneumonia. COMPARISON STUDY: Chest radiograph and chest CT February 19, 2023. CT of the abdomen and pelvis performe d earlier today. FINDINGS: No pneumothorax or pleural effusion. Cardiomediastinal silhouette is stable. Mild interstit ial thickening is likely chronic. There is no evidence for overt pulmonary edema. Patchy lower lung a irspace opacities are present. IMPRESSION: Patchy lower lung airspace opacities which favor pneumonia. Radiographic follow up to en sure resolution is recommended. ACT 112: Negative or not required by law. Electronically signed by: Luis Torres M.D. 11/27/2023 7:00 PM
[2023-11-27] MEDS: APIXABAN 5 MG TABLET PO STA (20:02)
[2023-11-27 20:27] LABS: Magnesium 1.9 mg/dl (1.7-2.4)
--- NOTE | 2023-11-27 20:44 | History & Physical Report ---
Date of Service November 27, 2023 Assessment & Plan (1) Left atrial mass: Plan: Left atrial mass, etiology to be determined Transient hypotension secondary to diarrheal illness hx Crohn's disease Outpatient stool CS from a few months ago was negative Atypical pneumonia Immunocompromised patient, history ongoing steroid Rx/cyclophosphamide for autoimmune hemolytic anemia No overt sepsis for now chronic diastolic heart failure (EF 55 to 60%, TTE 2023), patient on the dry side A-fib, currently rate controlled history of PE DVT on Eliquis hyperlipidemia, on statin Rx chronic respiratory failure secondary to ILD as per records, home O2 recommended by [facility] staff services manager last visit hx JDUY prostate cancer status post surgery mood disorder, at baseline Steroid induced hyperglycemia rule out DM ongoing tobacco abuse Medical telemetry given transient hypotension Transfer to [facility] once bed available (Patient accepted for transfer by hospitalist on-call Dr. Wilcox as per ER provider. Transfer paperwork already completed by ER provider.) Hold Eliquis until patient evaluated by specialist at [facility]. IV heparin for thromboembolic prophylaxis while Eliquis on hold. IVF Stool workup for worsening diarrheal illness CS, Ceftriaxone and Doxycycline for pneumonia. Check hemoglobin A1c DVT prophylaxis. IV heparin Full code Text document was generated using [employer] voice recognition software. It may contain grammatical or spelling errors. Kindly contact undersigned for clarification of any documentation item in question. History of Present Illness Chief Complaint: Diarrhea Primary Care Provider: Polly Healy, History obtained from patient and records. 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 Last confinement February 2023 for bilateral PE. Patient discharged on Eliquis. Lifelong anticoagulation recommended by pulmonology. Patient noted increased watery diarrhea symptoms in the last few days. Some nausea without vomiting symptoms. Diarrhea symptoms over the last few months attributed to IBD flareup due to outpatient calprotectin elevation last August 2023. Patient denies chest pain, unusual SOB, fever, chills. Denies cough or aspiration. SBP 90s upon arrival at the ER. CT abdomen pelvis done at the [facility] ER showed: 1. Two adjacent tubular hypodense filling defects within the left atrium which measure up to 3.4 x 1.2 cm. These suggest left atrial thrombus which could be confirmed with echocardiography. Findings discussed with Dr. Hathaway at time of dictation. 2. Ground glass opacities with small foci of consolidation within the lower lungs suggestive of pneumonia. 3. Bladder wall thickening with adjacent stranding. This could be correlated with urinalysis to exclude cystitis. 4. No bowel obstruction. TTE showed The left ventricle is normal in size. There is moderate concentric left ventricular hypertrophy. The leit ventricular wall motion is normal. Left Ventricular Ejection Fraction = 55-60%. The left atrium is moderately dilated. There is a large mass adherent to the interatrial septal at the level of fossa ovale within the left atrium. 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 Structure not visualized on prior echocardiogram of 02/05/2023 IV ceftriaxone and azithromycin administered at the ER. Associate Attorney on-call recommended transfer to tertiary center for evaluation of atrial tumor. Patient accepted by [facility] pending bed availability. 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 Allergies Allergy/AdvReac Type Severity Reaction Status Date / Time fluoxetine Allergy Intermediate Hives Verified 11/27/23 15:29 mercaptopurine Allergy Intermediate FEVER, RASH Verified 11/27/23 15:29 niacin Allergy Intermediate Rash Verified 11/27/23 15:29 pregabalin Allergy Intermediate Rash, Verified 11/27/23 15:29 hives , headaches blue dye AdvReac Intermediate Severe Verified 11/27/23 15:29 Headache duloxetine AdvReac Intermediate Severe Verified 11/27/23 15:29 Headache infliximab AdvReac Intermediate bp Verified 11/27/23 15:29 elevation, ANTIBODY TITER Home Medications Medication Instructions Recorded Confirmed Type acetaminophen 325 mg tablet 650 mg PO Q6H PRN pain/fever 06/29/19 11/27/23 History (Tylenol) atorvastatin 40 mg tablet 40 mg PO DAILY 06/29/19 11/27/23 History cyanocobalamin (vitamin B-12) 1,000 mcg PO DAILY 06/29/19 11/27/23 History 1,000 mcg tablet (Vitamin B-12) diphenoxylate-atropine 2.5 2 - 4 tab PO DIRECTED PRN 06/29/19 11/27/23 History mg-0.025 mg tablet (Lomotil) NEEDED febuxostat 40 mg tablet (Uloric) 40 mg PO DAILY 06/29/19 11/27/23 History folic acid 1 mg tablet 3 mg PO BID 06/29/19 11/27/23 History gabapentin 800 mg tablet 800 mg PO BID 06/29/19 11/27/23 History acetaminophen-caffeine 500 mg-65 1 tab PO DIRECTED PRN Headache 02/17/22 11/27/23 History mg tablet (Excedrin Tension Headache) multivitamin-ferrous 1 tab PO DAILY 02/17/22 11/27/23 History fumarate-folic acid 18 mg-400 mcg tablet (Centrum) oxycodone-acetaminophen 5 mg-325 1 tab PO Q12 PRN Severe Pain 02/17/22 11/27/23 History mg tablet (Scale Score 7-10) mesalamine 800 mg tablet,delayed 1,600 mg PO DAILY 01/29/23 11/27/23 History release tadalafil 5 mg tablet 5 mg PO DAILY 01/29/23 11/27/23 History apixaban 5 mg tablet (Eliquis) 5 mg PO Q12H #74 tabs 02/20/23 11/27/23 Rx Oxygen Home E0424 #2 L 06/13/23 06/13/23 Rx cyclophosphamide 50 mg capsule 100 mg PO DAILY 06/13/23 11/27/23 History furosemide 20 mg tablet 20 mg PO DAILY PRN Fluid Retention 06/13/23 11/27/23 History pantoprazole 40 mg tablet,delayed 40 mg PO DAILY 06/13/23 11/27/23 History release amitriptyline 25 mg tablet 25 mg PO HS PRN NEEDED 11/27/23 11/27/23 History diltiazem HCl 120 mg 120 mg PO DAILY 11/27/23 11/27/23 History capsule,extended release 24 hr prednisone 10 mg tablet 10 mg PO DAILY 11/27/23 11/27/23 History telmisartan 40 mg tablet 40 mg PO DAILY 11/27/23 11/27/23 History Past Med/Surg History Medical History (Updated 11/27/23 @ 18:01 by Brant Hathaway DO) GERD (gastroesophageal reflux disease) JUDY (obstructive sleep apnea) Physical deconditioning Atrial fibrillation Obesity Interstitial lung disease Bilateral pulmonary embolism SOB (shortness of breath) on exertion Fatigue Hematochezia Hemolytic anemia Neuropathy Abdominal pain Diarrhea Sleep apnea 2017 Crohn's disease Perforated bowel 2012 surgery Shingles (11/18/19) Prostate cancer (09/11/19) Benign essential hypertension (04/07/13) Diverticulitis (04/07/13) Incisional hernia (04/07/13) Neuropathy (04/07/13) Post-obstructive pneumonia due to foreign body aspiration 2011 Elevated PSA Hyperuricemia GERD (gastroesophageal reflux disease) Hyperlipidemia Perforation of small intestine (04/07/13) Pancreatitis Hypertension Surgical History S/P hernia repair S/P tonsillectomy S/P cholecystectomy Family History Father , age 86 Heart disease Prostate cancer Mother , age 68 Cancer patient states it was a female cancer Sister , age mid 70s from [place] No problems noted. Brother Cancer age 32 Melanoma Sister , age 72 Colorectal cancer Social History Smoking Status: Never smoker Tobacco Type: Cigars Cigarettes Per Day: occasional; Second Hand Exposure: No; Do You Dip or Chew Tobacco: No; Hx Alcohol Use: Yes Alcohol type: beer Hx Substance Use: No Preferred Language: Citizen Of [place] Communication Ability: Effective Day Care Provider Required: No Beliefs That Will Affect Care: None marital status: Current Living Situation: Spouse Current Living Situation Comment: family Feels Safe at Home: Yes Safety Concerns: Feels Safe At This Time Childhood Exposure to Second-Hand Smoke: Yes Assistive Devices: Cane Review of Systems Review of Systems: As per HPI, all other systems reviewed and negative Physical Exam Physical Exam: GENERAL: Comfortable, obese, slightly hard of hearing, no respiratory distress SKIN: Normal color, warm HEENT: Alopecia, [place] palpebral conjunctivae, no ptosis, dry buccal mucosa NECK : Supple, short neck, no tenderness CHEST : Decreased breath sounds, no tenderness HEART : Irregular, no obvious murmurs ABDOMEN: Some distention, no overt tenderness EXTREMITIES : Minimal LE swelling, no LE tenderness, no other conspicuous deformities noted NEUROLOGIC : Coherent, no facial asymmetry, slightly hard of hearing, no other gross focality Results & Data Results & Data Vital Signs (Past 12 Hours) Vital Signs Temp Pulse Pulse Resp BP BP Pulse Ox 11/27/23 20:04 90 11/27/23 20:00 86 22 131/83 97 11/27/23 18:00 85 18 136/83 97 11/27/23 16:00 90 18 125/87 96 11/27/23 14:00 87 18 138/99 97 11/27/23 12:52 89 24 110/73 97 11/27/23 12:10 26 H 96 11/27/23 11:52 36.3 C L 60 30 H 98/52 L 96 O2 Del Method 11/27/23 20:04 11/27/23 20:00 Room Air 11/27/23 18:00 Room Air 11/27/23 16:00 Room Air 11/27/23 14:00 Room Air 11/27/23 12:52 Room Air 11/27/23 12:10 Room Air 11/27/23 11:52 Room Air Laboratory Results Laboratory Results WBC 4.72 K/ul (4.8-10.8) L 11/27/23 12:30 RBC 4.48 M/uL (4.70-6.10) L 11/27/23 12:30 Hgb 15.0 g/dl (14.0-18.0) 11/27/23 12:30 Hct 43.6 % (42.0-52.0) 11/27/23 12:30 MCV 97.3 fL (80.0-100.0) 11/27/23 12:30 MCH 33.5 pg (25.0-34.0) 11/27/23 12:30 MCHC 34.4 g/dL (32.0-36.0) 11/27/23 12:30 RDW Std Deviation 59.5 fL (36.4-46.3) H 11/27/23 12:30 RDW Coeff of Rodo 17.0 % (11.5-14.5) H 11/27/23 12:30 Plt Count 158 K/uL (130-400) 11/27/23 12:30 MPV 10.0 fL (9.4-12.4) 11/27/23 12:30 Immature Gran % (Auto) 1.1 % 11/27/23 12:30 Neut % (Auto) 87.5 % 11/27/23 12:30 Lymph % (Auto) 2.1 % 11/27/23 12:30 [place] % (Auto) 8.7 % 11/27/23 12:30 Eos % (Auto) 0.2 % 11/27/23 12:30 Baso % (Auto) 0.4 % 11/27/23 12:30 Neut # (Auto) 4.13 K/uL (1.40-6.50) 11/27/23 12:30 Lymph # (Auto) 0.10 K/uL (1.20-3.40) L 11/27/23 12:30 [place] # (Auto) 0.41 K/uL (0.11-0.59) 11/27/23 12:30 Eos # (Auto) 0.01 K/uL (0.00-0.50) 11/27/23 12:30 Baso # (Auto) 0.02 K/uL (0.00-0.20) 11/27/23 12:30 Immature Gran # (Auto) 0.05 K/uL (0.01-0.20) 11/27/23 12:30 Absolute Nucleated RBC 0.02 K/uL (0.00-0.12) 11/27/23 12:30 Nucleated RBC % (auto) 0.4 % 11/27/23 12:30 PT 11.4 Seconds (9.0-12.0) 11/27/23 12:30 INR 1.1 (0.9-1.1) 11/27/23 12:30 APTT 24 Seconds (21-31) 11/27/23 12:30 PTT Ratio 0.9 11/27/23 12:30 Sodium 139 mmol/L (136-145) 11/27/23 12:30 Potassium 3.6 mmol/L (3.5-5.1) 11/27/23 14:17 Chloride 103 mmol/L (98-107) 11/27/23 12:30 Carbon Dioxide 20 mmol/L (21-32) L 11/27/23 12:30 Anion Gap 16 (3-11) H 11/27/23 12:30 BUN 17 mg/dl (6-23) 11/27/23 12:30 Creatinine 1.18 mg/dl (0.6-1.4) 11/27/23 12:30 Est Cr Clr Drug Dosing 73.4 ml/min 11/27/23 12:30 Est GFR ( Amer) 72.0 ml/min 11/27/23 12:30 Est GFR (Non-Af Amer) 62.2 ml/min 11/27/23 12:30 BUN/Creatinine Ratio 14.4 (10-20) 11/27/23 12:30 Glucose 235 mg/dl (70-99(Fasting)) H 11/27/23 12:30 Calcium 9.6 mg/dl (8.6-10.3) 11/27/23 12:30 Magnesium 1.9 mg/dl (1.7-2.4) 11/27/23 14:17 Total Bilirubin 2.6 mg/dl (0.2-1.0) H 11/27/23 12:30 AST 27 U/L (13-39) 11/27/23 14:17 ALT 30 U/L (7-52) 11/27/23 12:30 Alkaline Phosphatase 66 U/L (34-104) 11/27/23 12:30 Troponin I High Sens 4.1 pg/ml (0-20) 11/27/23 14:17 Total Protein 6.0 gm/dl (6.0-8.3) 11/27/23 12:30 Albumin 3.6 gm/dl (3.4-5.0) 11/27/23 12:30 Globulin 2.4 gm/dl (2.5-4.0) L 11/27/23 12:30 Albumin/Globulin Ratio 1.5 (0.9-2) 11/27/23 12:30 Lipase 15 U/L (11-82) 11/27/23 12:30 Urine Color Dark Yellow 11/27/23 Unknown Urine Appearance Clear (Clear) 11/27/23 Unknown Urine pH 7.0 (4.5-7.5) 11/27/23 Unknown Ur Specific [place] 1.030 (1.000-1.030) 11/27/23 Unknown Urine Protein 1+ (Negative) H 11/27/23 Unknown Urine Glucose (UA) Negative (Negative) 11/27/23 Unknown Urine Ketones Negative (Negative) 11/27/23 Unknown Urine Blood Negative (Negative) 11/27/23 Unknown Urine Nitrite Negative (Negative) 11/27/23 Unknown Urine Bilirubin 1+ (Negative) H 11/27/23 Unknown Urine Urobilinogen Negative (Negative) 11/27/23 Unknown Ur Leukocyte Esterase Trace (Negative) H 11/27/23 Unknown Urine WBC (Auto) 0-5 /hpf (0-5) 11/27/23 Unknown Urine RBC (Auto) 0-2 /hpf (0-2) 11/27/23 Unknown U Hyaline Cast (Auto) 11-20 /lpf (0-2) H 11/27/23 Unknown U Epithel Cells (Auto) 3-5 /hpf (0-2) H 11/27/23 Unknown Urine Bacteria (Auto) None Seen (None Seen) 11/27/23 Unknown Impressions Abdomen/Pelvis CT 11/27/23 12:18 CT OF THE ABDOMEN AND PELVIS WITH CONTRAST CLINICAL HISTORY: Abdominal pain. COMPARISON STUDY: CT of the abdomen and pelvis February 17, 2022. Right upper quadrant ultrasound February 20, 2023. Chest CT May 22, 2023. TECHNIQUE: Following IV administration of 94 mL of Optiray, axial images of the abdomen and pelvis were obtained from the lung bases to the proximal femurs. Images were reviewed in the axial, sagittal, and coronal planes. IV contrast was administered without complication. Automated exposure control was utilized for the study. A dose lowering technique was utilized adhering to the principles of ALARA. CT DOSE: 1476.43 mGy.cm FINDINGS: Incidental note is made of groundglass opacities with small foci of consolidation within the visualized lower lungs. There are 2 adjacent tubular hypodense filling defects within the left atrium which measure up to 3.4 x 1.2 cm. No pneumatosis, free air or portal venous gas is present. Hypodense hepatic lesions are unchanged and favor cysts. There is no biliary ductal dilatation status post cholecystectomy. Spleen, adrenal glands and pancreas are unremarkable. Water attenuation renal lesions represent cysts. There is a 2 mm left renal calculus. There are no ureteral calculi. There is no hydronephrosis. There is mild bladder wall thickening with adjacent stranding. Subtle calcified deposition within the colon is chronic. Pericolonic inflammation shown on prior exam has resolved. There is no evidence for a bowel obstruction. There is no bowel wall thickening. Umbilical hernia repair with mesh is incidentally noted. There is no lymphadenopathy. There are no fluid collections. IMPRESSION: 1. Two adjacent tubular hypodense filling defects within the left atrium which measure up to 3.4 x 1.2 cm. These suggest left atrial thrombus which could be confirmed with echocardiography. Findings discussed with Dr. Hathaway at time of dictation. 2. Ground glass opacities with small foci of consolidation within the lower lungs suggestive of pneumonia. 3. Bladder wall thickening with adjacent stranding. This could be correlated with urinalysis to exclude cystitis. 4. No bowel obstruction. ACT 112: Negative or not required by law. Electronically signed by: Luis Torres M.D. 11/27/2023 2:18 PM Chest X-Ray 11/27/23 18:01 XR chest 1V portable CLINICAL HISTORY: Pneumonia. COMPARISON STUDY: Chest radiograph and chest CT February 19, 2023. CT of the abdomen and pelvis performed earlier today. FINDINGS: No pneumothorax or pleural effusion. Cardiomediastinal silhouette is stable. Mild interstitial thickening is likely chronic. There is no evidence for overt pulmonary edema. Patchy lower lung airspace opacities are present. IMPRESSION: Patchy lower lung airspace opacities which favor pneumonia. Radiographic follow up to ensure resolution is recommended. ACT 112: Negative or not required by law. Electronically signed by: Luis Torres M.D. 11/27/2023 7:00 PM Diagnostic Findings EKG as per my interpretation : Rate 95, A-fib, LAD, LAFB, nonspecific T wave abnormalities anterolateral leads
[2023-11-27] MEDS ORDERED: ACETAMINOPHEN 325 MG TAB PO PRN (20:47)
[2023-11-27] MEDS ORDERED: PROMETHAZINE HCL 6.25 MG in SODIUM CHLORIDE 0.9% 50 ML IV PRN (20:47)
[2023-11-27] MEDS ORDERED: oxyCODONE HCL IR 5 MG TAB (IMMEDIATE RELEASE) PO PRN (20:47)
[2023-11-27 22:25] LABS: Influenza A virus by PCR Negative (Neg); Influenza B virus by PCR Negative (Neg); RSV by PCR Negative (Neg); SARS CoV2 RNA(COVID-19) Ceph NEGATIVE (Negative)
[2023-11-28] MEDS ORDERED: AMITRIPTYLINE HCL 25 MG TAB PO PRN (00:06)
[2023-11-28] MEDS ORDERED: ACETAMINOPHEN 325 MG TAB PO PRN (00:06)
[2023-11-28] MEDS: Heparin IV Adult Wt-Based Low-Dose *NO* INITIAL Bolus Protocol IV SCH (00:14)
[2023-11-28] MEDS: FOLIC ACID 1 MG TAB PO SCH (01:54)
[2023-11-28] MEDS: GABAPENTIN 800 MG TAB PO SCH (01:54)
[2023-11-28] MEDS: LACTATED RINGER'S 1,000 ML IV ONE (02:17)
[2023-11-28 04:26] LABS: Basophils # (auto) 0.01 K/uL (0.00-0.20); Basophils % (auto) 0.3 %; Eosinophils # (auto) 0.02 K/uL (0.00-0.50); Eosinophils % (auto) 0.6 %; Hematocrit (blood only) 38.6 % (42.0-52.0); Hemoglobin 13.1 g/dl (14.0-18.0); Immature Granulocytes # (auto) 0.03 K/uL (0.01-0.20); Immature Granulocytes % (auto) 0.9 %; Lymphocytes # (auto) 0.29 K/uL (1.20-3.40); Lymphocytes % (auto) 8.4 %; Mean Corpuscular Hemoglobin 33.8 pg (25.0-34.0); Mean Corpuscular Hgb Conc 33.9 g/dL (32.0-36.0); Mean Corpuscular Volume 99.5 fL (80.0-100.0); Mean Platelet Volume 9.7 fL (9.4-12.4); Monocytes # (auto) 0.49 K/uL (0.11-0.59); Monocytes % (auto) 14.1 %; Neutrophils # (auto) 2.63 K/uL (1.40-6.50); Neutrophils % (auto) 75.7 %; Platelet Count 118 K/uL (130-400); RDW Coefficient of Variation 17.1 % (11.5-14.5); RDW Standard Deviation 61.8 fL (36.4-46.3); Red Blood Count 3.88 M/uL (4.70-6.10); White Blood Count 3.47 K/ul (4.8-10.8)
[2023-11-28 04:32] LABS: Partial Thromboplastin Time 27 Seconds (21-31)
[2023-11-28 05:05] LABS: BUN Creatinine Ratio 18.1 (10-20); Calcium 9.1 mg/dl (8.6-10.3); Creatinine Clr Calc Pharmacy 120.3 ml/min; Est GFR (African American) 109.5 ml/min; Est GFR (Non-African American) 94.5 ml/min; Potassium 3.4 mmol/L (3.5-5.1)
[2023-11-28 06:56] LABS: Estimated Average Glucose 103 mg/dl; Hemoglobin A1C 5.2 % (4.5-5.6)
[2023-11-28] MEDS ORDERED: HEPARIN SOD (PORCINE) 1000 UNIT/ML IV ONE (08:00)
[2023-11-28] MEDS ORDERED: HEPARIN SODIUM/DEXTROSE 25,000 UNITS/500 ML BAG IV SCH (08:00)
[2023-11-28] MEDS ORDERED: Heparin IV Adult Wt-Based Low-Dose w/ INITIAL Bolus Protocol IV ONE (08:00)
[2023-11-28] MEDS: HEPARIN SODIUM/DEXTROSE 25,000 UNITS/500 ML BAG IV SCH (08:34)
[2023-11-28] MEDS: CYANOCOBALAMIN (B-12) 500 MCG TABLET PO SCH (08:37)
[2023-11-28] MEDS: MULTIVITAMIN TAB PO SCH (08:37)
[2023-11-28] MEDS: dilTIAZem HCL 120 MG CAPCR PO SCH (08:37)
[2023-11-28] MEDS: predniSONE 10 MG TABLET PO SCH (08:37)
[2023-11-28] MEDS: MESALAMINE 800 MG TABCR PO SCH (08:37)
[2023-11-28] MEDS: DOXYCYCLINE HYCLATE 100 MG CAP PO SCH (08:37)
[2023-11-28] MEDS: ATORVASTATIN 40 MG TAB PO SCH (08:37)
[2023-11-28] MEDS: PANTOprazole 40 MG TAB PO SCH (08:37)
[2023-11-28] MEDS: LOSARTAN POTASSIUM 50 MG TAB PO SCH (08:37)
[2023-11-28] MEDS: POTASSIUM CHLORIDE / WTR 10 MEQ/100 ML PLCT IV SCH (10:06)
[2023-11-28 11:48] LABS: Adenovirus F 40/41 PCR Not Detected (NotDetected); Astrovirus PCR Not Detected (NotDetected); Campylobacter PCR Not Detected (NotDetected); Cryptosporidium PCR Not Detected (NotDetected); Cyclospora cayetanensis PCR Not Detected (NotDetected); Entamoeba histolytica PCR Not Detected (NotDetected); Enteroaggregative E.coli(EAEC) Not Detected (NotDetected); Enteropathogenic E.coli (EPEC) Not Detected (NotDetected); Enterotoxigenic E.coli (ETEC) Not Detected (NotDetected); Giardia lamblia PCR Not Detected (NotDetected); Norovirus GI/GII PCR Not Detected (NotDetected); Plesiomonas shigelloides PCR Not Detected (NotDetected); Rotavirus A PCR Not Detected (NotDetected); Salmonella PCR Not Detected (NotDetected); Sapovirus PCR Not Detected (NotDetected); Shiga-like Toxin E.coli (STEC) Not Detected (NotDetected); Shigella/Enteroinvasive E.coli Not Detected (NotDetected); Vibrio cholerae PCR Not Detected (NotDetected); Vibrio species PCR Not Detected (NotDetected); Yersinia enterocolitica PCR Not Detected (NotDetected)
[2023-11-28] MEDS: cefTRIAXone SODIUM 2,000 MG/50 ML BAG IV SCH (14:19)
[2023-11-28 15:22] LABS: ANTI-Xa, UFH(UnfractionatedHep 0.91 IU/ml (0.3-0.7)
--- NOTE | 2023-11-28 16:21 | Hospitalist Progress Note ---
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 Measures 3.5 x 1.8 cm. Differential diagnosis includes thrombus as well as left atrial myxoma and this was not visualized prior to echo of 02/05/2023 The case was discussed with hospitalist and [facility] as below and was accepted for transfer for continuation of care. Transfer to [facility] once bed available (Patient accepted for transfer by hospitalist on-call Dr. Wilcox as per ER provider. Transfer paperwork already completed by ER provider.) Hold Eliquis until patient evaluated by specialist at [facility]. IV heparin for thromboembolic prophylaxis while Eliquis on hold. Remains stable without any significant symptoms Crohn's disease Chronic diarrhea Transient hypotension secondary to diarrheal illness Outpatient stool CS from a few months ago was negative Awaiting stool culture report Denies any significant abdominal pain Atypical pneumonia Immunocompromised patient, history ongoing steroid Rx/cyclophosphamide for autoimmune hemolytic anemia No overt sepsis for now CS, Ceftriaxone and Doxycycline for pneumonia. Other significant medical conditions remained stable as below Chronic diastolic heart failure (EF 55 to 60%, TTE 2023), patient on the dry side A-fib, currently rate controlled History of PE DVT on Eliquis Hyperlipidemia, on statin Rx Chronic respiratory failure secondary to ILD as per records, home O2 recommended by [facility] visual merchandising specialist last visit hx JUDY Prostate cancer status post surgery Mood disorder, at baseline Steroid induced hyperglycemia rule out DM Ongoing tobacco abuse Check hemoglobin A1c DVT prophylaxis. IV heparin Full code Text document was generated using [employer] voice recognition software. It may contain grammatical or spelling errors. Kindly contact undersigned for clarification of any documentation item in question. Admission and Anticipated Discharge Date Admission Date: November 27, 2023 Subjective 11/28/2023 The patient was seen and examined in the medical telemetry unit He has been feeling much better Complains to have diarrhea about 1-2 times a day secondary to Crohn's disease without any abdominal pain Denies any chest pain, palpitation or shortness of breath Review of Systems Review of Systems: All systems reviewed and unremarkable except as noted below Physical Exam Physical Exam: Lying in bed comfortably Constitutional: well developed, well nourished and + obese; not ill appearing Eyes: PERRL, conjunctivae normal, anicteric sclerae ENMT: external ear and nose normal, oropharynx normal Neck: trachea midline, no thyromegaly Respiratory: no respiratory distress Auscultation: lungs clear to auscultation bilaterally Cardiovascular: Rate/Rhythm: regular rate, regular rhythm and + tachycardic Heart Sounds: normal S1, normal S2 and + murmur Extremities: + edema (Trace edema bilaterally) Gastrointestinal (Abdomen): Inspection/Auscultation: normal bowel sounds; abdomen not distended Percussion/Palpation: abdomen soft; abdomen nontender Musculoskeletal: No acute arthritis involving any of the joint Neurologic: normal touch/pain/proprioception and moves all extremities; no focal motor deficits Psychiatric: A+Ox3, euthymic affect Lymphatic: no cervical or axillary lymphadenopathy Results & Data Results & Data Vital Signs (Past 12 Hours) Vital Signs Temp Pulse Pulse Resp BP Pulse Ox O2 Del Method 11/28/23 15:20 36.9 C 100 H 16 121/71 97 Nasal Cannula 11/28/23 15:02 85 11/28/23 11:43 36.8 C 65 16 131/76 99 Nasal Cannula 11/28/23 10:15 Room Air, Nasal Cannula 11/28/23 07:39 36.6 C 60 16 155/84 H 98 Nasal Cannula 11/28/23 06:58 96 H 11/28/23 05:40 89 11/28/23 05:40 Nasal Cannula 11/28/23 05:31 36.5 C 76 16 153/87 H 98 Nasal Cannula O2 Flow Rate 11/28/23 15:20 2 11/28/23 15:02 11/28/23 11:43 2 11/28/23 10:15 2 11/28/23 07:39 2 11/28/23 06:58 11/28/23 05:40 11/28/23 05:40 2 11/28/23 05:31 2 Laboratory Results Short CBC 11/28/23 Range/Units 04:14 WBC 3.47 L (4.8-10.8) K/ul Hgb 13.1 L (14.0-18.0) g/dl Hct 38.6 L (42.0-52.0) % Plt Count 118 L (130-400) K/uL BMP 11/28/23 04:14 Sodium 141 Potassium 3.4 L Chloride 109 H Carbon Dioxide 24 BUN 13 Creatinine 0.72 D Glucose 105 H Calcium 9.1 Urine 11/27/23 Range/Units Unknown Urine Color Dark Yellow Urine Appearance Clear (Clear) Urine pH 7.0 (4.5-7.5) Ur Specific [place] 1.030 (1.000-1.030) Urine Protein 1+ H (Negative) Urine Glucose (UA) Negative (Negative) Medications Administered Current Inpatient Medications Acetaminophen (Acetaminophen 325 Mg Tab) 650 mg PO Q4H PRN PRN Reason: Pain or Fever Stop: 12/28/23 00:05 Amitriptyline HCl (Amitriptyline Hcl 25 Mg Tab) 25 mg PO HS PRN PRN Reason: Sleep Stop: 12/28/23 00:05 Atorvastatin Calcium (Atorvastatin 40 Mg Tab) 40 mg PO DAILY DARLENE Stop: 12/28/23 08:59 Last Admin: 11/28/23 08:37 Dose: 40 mg Cyanocobalamin (Cyanocobalamin (B-12) 500 Mcg Tablet) 1,000 mcg PO DAILY DARLENE Stop: 12/28/23 08:59 Last Admin: 11/28/23 08:37 Dose: 1,000 mcg Cyclophosphamide (Cyclophosphamide 25 Mg Tab) 100 mg PO DAILY DARLENE Stop: 12/28/23 08:59 Last Admin: 11/28/23 08:34 Dose: 100 mg Diltiazem HCl (Diltiazem Hcl 120 Mg Capcr) 120 mg PO DAILY DARLENE Stop: 12/28/23 08:59 Last Admin: 11/28/23 08:37 Dose: 120 mg Doxycycline Hyclate (Doxycycline Hyclate 100 Mg Cap) 100 mg PO BID DARLENE Stop: 12/05/23 08:59 Last Admin: 11/28/23 08:37 Dose: 100 mg Folic Acid (Folic Acid 1 Mg Tab) 3 mg PO BID DARLENE Stop: 12/28/23 00:05 Last Admin: 11/28/23 09:18 Dose: 3 mg Gabapentin (Gabapentin 800 Mg Tab) 800 mg PO BID DARLENE Stop: 12/28/23 00:05 Last Admin: 11/28/23 09:18 Dose: 800 mg Promethazine HCl 6.25 mg/ (Sodium Chloride) 50.25 mls @ 201 mls/hr IV Q6H PRN PRN Reason: Nausea And Vomiting Stop: 12/27/23 20:46 Heparin Sodium/Dextrose (Heparin Sodium/Dextrose) 25,000 units in 500 mls @ 0 mls/hr IV .Q0M [facility]; Protocol Stop: 12/28/23 07:59 Last Titration: 11/28/23 15:23 Dose: 0 units/hr, 0 mls/hr Ceftriaxone Sodium (Rocephin) 2,000 mg in 50 mls @ 100 mls/hr IV Q24H [facility] Stop: 12/05/23 13:59 Last Infusion: 11/28/23 14:55 Dose: Infused Losartan Potassium (Losartan Potassium 50 Mg Tab) 50 mg PO DAILY [facility] Stop: 12/28/23 08:59 Last Admin: 11/28/23 08:37 Dose: 50 mg Mesalamine (Mesalamine 800 Mg Tabcr) 1,600 mg PO DAILY [facility] Stop: 12/28/23 08:59 Last Admin: 11/28/23 08:37 Dose: 1,600 mg Miscellaneous (*Uloric*Order Awaiting Action) 1 each N/A QS [facility] Stop: 12/28/23 07:59 Last Admin: 11/28/23 08:34 Dose: Not Given Multivitamins (Multivitamin Tab) 1 tab PO DAILY [facility] Stop: 12/28/23 08:59 Last Admin: 11/28/23 08:37 Dose: 1 tab Oxycodone HCl (Oxycodone Hcl Ir 5 Mg Tab (Immediate Release)) 5 mg PO Q4H PRN PRN Reason: Pain Stop: 12/11/23 20:46 Pantoprazole Sodium (Pantoprazole 40 Mg Tab) 40 mg PO DAILY [facility] Stop: 12/28/23 08:59 Last Admin: 11/28/23 08:37 Dose: 40 mg Prednisone (Prednisone 10 Mg Tablet) 10 mg PO DAILY [facility] Stop: 12/28/23 08:59 Last Admin: 11/28/23 08:37 Dose: 10 mg
--- NOTE | 2023-11-29 06:06 | Electrocardiogram Report ---
Test Reason : Blood Pressure : / mmHG Vent. Rate : 097 BPM Atrial Rate : 000 BPM P-R Int : 000 ms QRS Dur : 076 ms QT Int : 356 ms P-R-T Axes : 000 -24 061 degrees QTc Int : 452 ms Atrial fibrillation Anterior infarct , age undetermined Nonspecific T wave abnormality Abnormal ECG When compared with ECG of 19-FEB-2023 11:36, Atrial fibrillation has replaced Sinus rhythm Anterior infarct is now Present Nonspecific T wave abnormality now evident in Anterolateral leads Confirmed by Brian White ([id number]) on 11/29/2023 6:05:53 AM Referred By: REFERRED SELF Confirmed By:Brian White
--- NOTE | 2023-11-29 07:50 | Discharge Summary ---
Date of Service November 28, 2023 Admission HPI Per Admitting Provider History obtained from patient and records. 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 Last confinement February 2023 for bilateral PE. Patient discharged on Eliquis. Lifelong anticoagulation recommended by pulmonology. Patient noted increased watery diarrhea symptoms in the last few days. Some nausea without vomiting symptoms. Diarrhea symptoms over the last few months attributed to IBD flareup due to outpatient calprotectin elevation last August 2023. Patient denies chest pain, unusual SOB, fever, chills. Denies cough or aspiration. SBP 90s upon arrival at the ER. CT abdomen pelvis done at the [facility] ER showed: 1. Two adjacent tubular hypodense filling defects within the left atrium which measure up to 3.4 x 1.2 cm. These suggest left atrial thrombus which could be confirmed with echocardiography. Findings discussed with Dr. Hathaway at time of dictation. 2. Ground glass opacities with small foci of consolidation within the lower lungs suggestive of pneumonia. 3. Bladder wall thickening with adjacent stranding. This could be correlated with urinalysis to exclude cystitis. 4. No bowel obstruction. TTE showed The left ventricle is normal in size. There is moderate concentric left ventricular hypertrophy. The leit ventricular wall motion is normal. Left Ventricular Ejection Fraction = 55-60%. The left atrium is moderately dilated. There is a large mass adherent to the interatrial septal at the level of fossa ovale within the left atrium. 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 Structure not visualized on prior echocardiogram of 02/05/2023 IV ceftriaxone and azithromycin administered at the ER. Ager Operator on-call recommended transfer to tertiary center for evaluation of atrial tumor. Patient accepted by [facility] pending bed availability. 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 Admission Exam Per Admitting Provider Physical Exam: GENERAL: Comfortable, obese, slightly hard of hearing, no respiratory distress SKIN: Normal color, warm HEENT: Alopecia, [place] palpebral conjunctivae, no ptosis, dry buccal mucosa NECK : Supple, short neck, no tenderness CHEST : Decreased breath sounds, no tenderness HEART : Irregular, no obvious murmurs ABDOMEN: Some distention, no overt tenderness EXTREMITIES : Minimal LE swelling, no LE tenderness, no other conspicuous deformities noted NEUROLOGIC : Coherent, no facial asymmetry, slightly hard of hearing, no other g ross focality Principal Diagnosis Left atrial myxoma Discharge Exam Lying in bed comfortably Constitutional well developed, well nourished and + obese; not ill appearing Eyes PERRL, conjunctivae normal, anicteric sclerae ENMT external ear and nose normal, oropharynx normal Neck trachea midline, no thyromegaly Respiratory no respiratory distress Auscultation: lungs clear to auscultation bilaterally Cardiovascular Rate/Rhythm: regular rate, regular rhythm and + tachycardic Heart Sounds: normal S1, normal S2 and + murmur Extremities: + edema (Trace edema bilaterally) Gastrointestinal (Abdomen) Inspection/Auscultation: normal bowel sounds; abdomen not distended Percussion/Palpation: abdomen soft; abdomen nontender Neurologic normal touch/pain/proprioception and moves all extremities; no focal motor deficits Psychiatric A+Ox3, euthymic affect Lymphatic no cervical or axillary lymphadenopathy Discharge Data Allergies Allergy/AdvReac Type Severity Reaction Status Date / Time fluoxetine Allergy Intermediate Hives Verified 11/27/23 15:29 mercaptopurine Allergy Intermediate FEVER, RASH Verified 11/27/23 15:29 niacin Allergy Intermediate Rash Verified 11/27/23 15:29 pregabalin Allergy Intermediate Rash, Verified 11/27/23 15:29 hives , headaches blue dye AdvReac Intermediate Severe Verified 11/27/23 15:29 Headache duloxetine AdvReac Intermediate Severe Verified 11/27/23 15:29 Headache infliximab AdvReac Intermediate bp Verified 11/27/23 15:29 elevation, ANTIBODY TITER Consultations 11/27/23 19:15 ED Decision to Admit Stat Ordered Studies 11/27/23 12:18 CT abd pelvis IV con only Stat Hospital Course (1) Left atrial mass: Left atrial mass, etiology to be determined Likely myxoma doubt any vegetations Echo of the heart showed-LV is normal in size, moderate concentric LVH, LV wall motion is normal, EF is 55 to 60%, left atrium is moderately dilated, there is a large mass adherent to the entire atrial septum at the level of fossa overlay within the left atrium. Measures 3.5 x 1.8 cm. Differential diagnosis includes thrombus as well as left atrial myxoma and this was not visualized prior to echo of 02/05/2023 The case was discussed with hospitalist and [facility] as below and was accepted for transfer for continuation of care. Transfer to [facility] once bed available (Patient accepted for transfer by hospitalist on-call Dr. Wilcox as per ER provider. Transfer paperwork already completed by ER provider.) Hold Eliquis until patient evaluated by specialist at [facility]. IV heparin for thromboembolic prophylaxis while Eliquis on hold. Remains stable without any significant symptoms Crohn's disease Chronic diarrhea Transient hypotension secondary to diarrheal illness Outpatient stool CS from a few months ago was negative Awaiting stool culture report Denies any significant abdominal pain Atypical pneumonia Immunocompromised patient, history ongoing steroid Rx/cyclophosphamide for autoimmune hemolytic anemia No overt sepsis for now CS, Ceftriaxone and Doxycycline for pneumonia. Other significant medical conditions remained stable as below Chronic diastolic heart failure (EF 55 to 60%, TTE 2023), patient on the dry side A-fib, currently rate controlled History of PE DVT on Eliquis Hyperlipidemia, on statin Rx Chronic respiratory failure secondary to ILD as per records, home O2 recommended by [facility] circuit court clerk last visit hx JUDY Prostate cancer status post surgery Mood disorder, at baseline Steroid induced hyperglycemia rule out DM Ongoing tobacco abuse Check hemoglobin A1c DVT prophylaxis. IV heparin Full code Text document was generated using [employer] voice recognition software. It may contain grammatical or spelling errors. Kindly contact undersigned for clarification of any documentation item in [facility] ion. Total Time Total Time Spent Total Time Spent (In Minutes): 35 minutes Discharge Plan Discharge Items Patient Disposition: Transfer Acute Care Hospital Reason For Visit: TRANSIENT HYPOTENSION, ATRIAL MASS Discharge Diagnosis: Left atrial myxoma Condition on Discharge: Fair Activity: Resume your previous activity Non-emergency contact: Primary Care Provider Call non-emergency contact if: you have any medication questions and your symptoms worsen Follow-up/Referrals: Polly Healy DO [Primary Care Provider] - (Please make an appointment with your PCP within 7 days following discharge from the facility) Diet: Clear liquid Addtl Attending Provider Instructions: Please take precautions to avoid falls Take your medications as advised Please keep appointments with the healthcare providers Current inpatient medications were continued as follows: Current Inpatient Medications Acetaminophen (Acetaminophen 325 Mg Tab) 650 mg PO Q4H PRN PRN Reason: Pain or Fever Stop: 12/28/23 00:05 Amitriptyline HCl (Amitriptyline Hcl 25 Mg Tab) 25 mg PO HS PRN PRN Reason: Sleep Stop: 12/28/23 00:05 Atorvastatin Calcium (Atorvastatin 40 Mg Tab) 40 mg PO DAILY DARLENE Stop: 12/28/23 08:59 Last Admin: 11/28/23 08:37 Dose: 40 mg Cyanocobalamin (Cyanocobalamin (B-12) 500 Mcg Tablet) 1,000 mcg PO DAILY DARLENE Stop: 12/28/23 08:59 Last Admin: 11/28/23 08:37 Dose: 1,000 mcg Cyclophosphamide (Cyclophosphamide 25 Mg Tab) 100 mg PO DAILY DARLENE Stop: 12/28/23 08:59 Last Admin: 11/28/23 08:34 Dose: 100 mg Diltiazem HCl (Diltiazem Hcl 120 Mg Capcr) 120 mg PO DAILY [facility] Stop: 12/28/23 08:59 Last Admin: 11/28/23 08:37 Dose: 120 mg Doxycycline Hyclate (Doxycycline Hyclate 100 Mg Cap) 100 mg PO BID [facility] Stop: 12/05/23 08:59 Last Admin: 11/28/23 08:37 Dose: 100 mg Folic Acid (Folic Acid 1 Mg Tab) 3 mg PO BID DARLENE Stop: 12/28/23 00:05 Last Admin: 11/28/23 09:18 Dose: 3 mg Gabapentin (Gabapentin 800 Mg Tab) 800 mg PO BID [facility] Stop: 12/28/23 00:05 Last Admin: 11/28/23 09:18 Dose: 800 mg Promethazine HCl 6.25 mg/ (Sodium Chloride) 50.25 mls @ 201 mls/hr IV Q6H PRN PRN Reason: Nausea And Vomiting Stop: 12/27/23 20:46 Heparin Sodium/Dextrose (Heparin Sodium/Dextrose) 25,000 units in 500 mls @ 0 m ls/hr IV .Q0M DARLENE; Protocol Stop: 12/28/23 07:59 Last Titration: 11/28/23 15:23 Dose: 0 units/hr, 0 mls/hr Ceftriaxone Sodium (Rocephin) 2,000 mg in 50 mls @ 100 mls/hr IV Q24H DARLENE Stop: 12/05/23 13:59 Last Infusion: 11/28/23 14:55 Dose: Infused Losartan Potassium (Losartan Potassium 50 Mg Tab) 50 mg PO DAILY DARLENE Stop: 12/28/23 08:59 Last Admin: 11/28/23 08:37 Dose: 50 mg Mesalamine (Mesalamine 800 Mg Tabcr) 1,600 mg PO DAILY DARLENE Stop: 12/28/23 08:59 Last Admin: 11/28/23 08:37 Dose: 1,600 mg Miscellaneous (*Uloric*Order Awaiting Action) 1 each N/A QS DARLENE Stop: 12/28/23 07:59 Last Admin: 11/28/23 08:34 Dose: Not Given Multivitamins (Multivitamin Tab) 1 tab PO DAILY DARLENE Stop: 12/28/23 08:59 Last Admin: 11/28/23 08:37 Dose: 1 tab Oxycodone HCl (Oxycodone Hcl Ir 5 Mg Tab (Immediate Release)) 5 mg PO Q4H PRN PRN Reason: Pain Stop: 12/11/23 20:46 Pantoprazole Sodium (Pantoprazole 40 Mg Tab) 40 mg PO DAILY DARLENE Stop: 12/28/23 08:59 Last Admin: 11/28/23 08:37 Dose: 40 mg Prednisone (Prednisone 10 Mg Tablet) 10 mg PO DAILY DARLENE Stop: 12/28/23 08:59 Last Admin: 11/28/23 08:37 Dose: 10 mg Pending Studies at Discharge: No Stand-Alone Forms: [facility] Skilled Items Patient informed of condition?: Yes DNR: No Discharge Level of Care: Other Communicable Disease: No Discharge Prognosis: Stable Lines: Peripheral IV Urinary Catheter: No Medications and DC Order Prescriptions: Continued cyclophosphamide 50 mg capsule 100 mg PO DAILY furosemide 20 mg tablet 20 mg PO DAILY PRN (Reason: Fluid Retention) (DME) Oxygen Home [id number] Liters Per Minute See Rx Instructions .ROUTE .MEDSUPPLY Qty: 2 0RF Rx Instructions: 2 L via nasal cannula at all times. Assess for portability. Length of need 99 years. pantoprazole 40 mg tablet,delayed release (DR/EC) 40 mg PO DAILY gabapentin 800 mg Tablet 800 mg PO BID folic acid 1 mg Tablet 3 mg PO BID febuxostat [Uloric] 40 mg Tablet 40 mg PO DAILY atorvastatin 40 mg Tablet 40 mg PO DAILY cyanocobalamin (vitamin B-12) [Vitamin B-12] 1,000 mcg Tablet 1,000 mcg PO DAILY acetaminophen [Tylenol] 325 mg Tablet 650 mg PO Q6H PRN (Reason: pain/fever) diphenoxylate-atropine [Lomotil] 2.5-0.025 mg Tablet 2 - 4 tab PO DIRECTED PRN (Reason: NEEDED) Excedrin Tension Headache 500-65 mg Tablet 1 tab PO DIRECTED PRN (Reason: Headache) oxycodone-acetaminophen 5-325 mg tablet 1 tab PO Q12 MDD 2 tabs PRN (Reason: Severe Pain (Scale Score 7-10)) Centrum 18-400 mg-mcg Tablet 1 tab PO DAILY mesalamine 800 mg tablet,delayed release (DR/EC) 1,600 mg PO DAILY tadalafil 5 mg Tablet 5 mg PO DAILY Eliquis 5 mg tablet 5 mg PO Q12H Qty: 74 0RF prednisone 10 mg Tablet 10 mg PO DAILY Rx Instructions: ON TAPER DOSE DIRECTED amitriptyline 25 mg tablet 25 mg PO HS PRN (Reason: NEEDED) telmisartan 40 mg tablet 40 mg PO DAILY diltiazem HCl 120 mg capsule,extended release 24hr 120 mg PO DAILY Discharge Orders: Discharge Order (Routine); Ordered 11/28/23 Ordered By: Serjio Munoz Admission Data Admit Date/Time: 11/27/23 20:46 Attending Provider: Serjio Munoz Admit Provider: Vijay Francois Primary Care Provider: Polly Healy Other Providers: Vijay Francois
== END 2023-11-28 20:10 | disposition short-term general hospital (02) | DRG 314 ==
LOC: ED 11:32 → EDINP 20:46 → 2N 11-28 00:07